=== PATIENT | female | born 1965 | race Caucasian/White ===

== ENCOUNTER → 2016-08-27 | Outpatient (CLI) | payer MEDICARE, OTHER ==
[~2016-08-27] MED LIST: /LOR25TA PO; BACITAB3 PO; BACT800T5 PO; BENA25CA2 PO; BENA2CRE2 TOP; CELE50CA PO; CLAR1TAB2 PO; COLA100C PO; EPIP0.3I2 IJ; ESTROL PO; FLUO20CA8 PO; IBUP600T26 PO; MILKSUS PO; MIRA3350 PO; NEXI20CA PO; NEXI40CA PO; PRIL40CA PO; VIBR100C PO; ZOFR20TA PO
--- NOTE | 2016-08-27 18:46 | REP ---
Right foot: Four views. History: Contusion of the right foot. Findings: Four views of the right foot demonstrate plantar and Achilles calcaneal spurring. There is some intertarsal joints osteoarthritic spurring. There is a comminuted fracture of the distal phalanx of the fourth toe with associated swelling. Impression: Comminuted fourth toe distal phalangeal fracture. Midfoot osteoarthritis. Signed by Jovanni Acosta MD 08/27/2016 07:03 P
== END ==
LOC: M ADAMS 16:47
PROVIDERS: ATTEND Physician Assistant Medical
DX: S92.531A Displaced fracture of distal phalanx of right lesser toe(s), initial encounter for closed fracture (principal); M19.271 Secondary osteoarthritis, right ankle and foot; X58.XXXA Exposure to other specified factors, initial encounter; Y92.9 Unspecified place or not applicable; Y93.9 Activity, unspecified; Y99.9 Unspecified external cause status

== ENCOUNTER → 2016-12-24 | Outpatient (CLI) | payer MEDICARE, OTHER ==
[~2016-12-24] MED LIST changes: +BACITAB PO; -BACITAB3 PO; -COLA100C PO; +COLA100C5 PO; +IBUP-1022 PO; -IBUP600T26 PO
--- NOTE | 2016-12-24 12:23 | REPMRS ---
Patient History The patient states she has not had a clinical breast exam in over a year. Patient is postmenopausal. Family history of breast cancer in sister under age 50 and ovarian cancer in maternal grandmother at age 50 or over. Taking unspecified hormones for 2 months. Digital Mammo Screening Bilat: December 24, 2016 - Exam #: [id number] Bilateral CC and MLO view(s) were taken. Technologist: Yasmin Moffett, Technologist Prior study comparison: November 23, 2011, digital woman screen mammo, performed at [facility]. January 19, 2010, bilateral bilat screen digital mammo performed at [facility]. FINDINGS: There are scattered fibroglandular densities. There is a fairly symmetric fibroglandular pattern in both breasts. There has been no interval development of masses, areas of architectural distortion or clusters of microcalcifications typical of malignancy. ASSESSMENT: BI-RADS/ACR category 2 mammogram. Benign finding(s). Recommendation Routine screening mammogram of both breasts in 1 year (for women over age 40). This mammogram was interpreted with the aid of an FDA-approved computer-aided dectection system. Electronically Signed By: Ben Campos MD 12/24/16 2070
== END ==
LOC: M RAD 10:56
PROVIDERS: ATTEND Family Medicine
DX: Z12.31 Encounter for screening mammogram for malignant neoplasm of breast (principal); Z80.3 Family history of malignant neoplasm of breast; Z80.41 Family history of malignant neoplasm of ovary; Z92.29 Personal history of other drug therapy; R92.8 Other abnormal and inconclusive findings on diagnostic imaging of breast

== ENCOUNTER → 2017-02-03 | Outpatient (CLI) | payer MEDICARE, OTHER ==
--- NOTE | 2017-02-03 16:37 | REP ---
CT study of the right ankle without contrast: History: Nondisplaced distal phalanx fracture. Comparison right foot radiographs are from 08/27/2016. These show a comminuted fracture of the distal phalanx of the 4th toe. CT technique: Helical scanning is acquired. 2 mm axial and coronal scan images are generated. Right ankle CT findings: The tibial plafond and the talar dome appear intact. Ankle mortise is intact. There is a large plantar calcaneal spur. A small Achilles calcaneal spur is noted. There is some early spurring at the anterolateral aspect of the calcaneus. There is midfoot osteoarthritic narrowing at the articulation between the cuboid and the proximal 5th and 4th metatarsals. Subcortical cyst formation is seen in the cuboid related to this. There is mild talonavicular spurring. Impression: No acute bony abnormality is noted. Midfoot osteoarthritic changes. Heel spurs. Signed by Jovanni Acosta MD 02/04/2017 08:29 A
--- NOTE | 2017-02-03 16:38 | REP ---
CT study of the right foot without contrast: History: Nondisplaced fracture distal phalanx. Comparison radiographs of the right foot are from 08/27/2016. Technique: Helical scanning is acquired. 2 mm axial scans are reformatted. Multiplanar re-formation images are generated in the coronal plane. Findings: There is mild to moderate midfoot osteoarthritis with the intertarsal and tarsometatarsal articulations. A third, fourth, and fifth tarsometatarsal articulations are involve. Subcortical cyst formation is seen in the cuboid. There is some early fragmented spurring. Heel spurs are noted. No bony erosive or destructive lesion is seen. There is some subcortical cyst formation in the proximal third metatarsal. The fourth distal phalangeal fracture appears to be healed. Impression: Moderate midfoot osteoarthritic changes. Signed by Jovanni Acosta MD 02/04/2017 08:29 A
== END ==
LOC: M RAD 14:55
PROVIDERS: ATTEND Physician Assistant Surgical
DX: S92.534D Nondisplaced fracture of distal phalanx of right lesser toe(s), subsequent encounter for fracture with routine healing (principal); M19.071 Primary osteoarthritis, right ankle and foot; M77.31 Calcaneal spur, right foot; X58.XXXD Exposure to other specified factors, subsequent encounter; Y92.9 Unspecified place or not applicable; Y93.9 Activity, unspecified; Y99.9 Unspecified external cause status

== ENCOUNTER → 2017-02-07 | Outpatient (CLI) | payer MEDICARE, OTHER ==
--- NOTE | 2017-02-07 12:19 | REP ---
RIGHT RIB SERIES: Five views. HISTORY: Chest pain on breathing. FINDINGS: PA chest radiograph shows no evidence of pneumothorax or hydrothorax. Mediastinum is not widened. Heart is not enlarged. Lung cheung are clear. Multiple views of the right ribcage show clips in right upper quadrant post cholecystectomy. No bony destructive lesion or fracture is seen. IMPRESSION: Negative right rib series. Signed by Jovanni Acosta MD 02/07/2017 02:46 P
== END ==
LOC: M ADAMS 09:44
PROVIDERS: ATTEND Physician Assistant
DX: R07.1 Chest pain on breathing (principal)

== ENCOUNTER → 2017-07-19 | Outpatient (REF) | payer MEDICARE, OTHER ==
[2017-07-19 19:40] LABS: TOTAL 25(OH) VITAMIN D 21.3 NG/ML (30.0-100.0)
[2017-07-19 19:41] LABS: ALBUMIN 3.5 GM/DL (3.2-5.2); ALBUMIN/GLOBULIN RATIO 1.09 (1.00-1.93); ALKALINE PHOSPHATASE 110 U/L (45-117); ALT/SGPT 18 U/L (12-78); ANION GAP 10 MEQ/L (8-16); AST/SGOT 14 U/L (7-37); BILIRUBIN,TOTAL 0.4 MG/DL (0.2-1.0); BLOOD UREA NITROGEN 15 MG/DL (7-18); CALCIUM LEVEL 8.5 MG/DL (8.5-10.1); CARBON DIOXIDE LEVEL 23 MEQ/L (21-32); CHLORIDE LEVEL 109 MEQ/L (98-107); CHOLESTEROL LEVEL 191 MG/DL (<200); CHOLESTEROL RISK RATIO 2.728 (<5); CREATININE FOR GFR 0.78 MG/DL (0.55-1.30); GLOMERULAR FILTRATION RATE > 60.0 (>51); GLUCOSE, FASTING 92 MG/DL (70-100); HDL CHOLESTEROL 70 MG/DL (>40); LDL CHOLESTEROL 92.6 MG/DL (<100); NON-HDL-C 121 MG/DL; POTASSIUM SERUM 4.2 MEQ/L (3.5-5.1); SODIUM LEVEL 142 MEQ/L (136-145); TOTAL PROTEIN 6.7 GM/DL (6.4-8.2); TRIGLYCERIDES LEVEL 142 MG/DL (<150)
[2017-07-19 19:42] LABS: BASO # 0.1 10^3/uL (0.0-0.2); BASO % 1.3 % (0.0-1.0); EOS # 0.2 10^3/uL (0.0-0.50); EOS % 2.9 % (0.0-3.0); HEMATOCRIT 39.4 % (36.0-47.0); HEMOGLOBIN 12.9 g/dl (12.0-16.0); IMMATURE GRANULOCYTE % 0.3 % (0-0); LYMPH % 32.6 % (24.0-44.0); MEAN CORPUSCULAR HEMOGLOBIN 29.3 pg (27.0-33.0); MEAN CORPUSCULAR HGB CONC 32.7 g/dl (32.0-36.5); MEAN CORPUSCULAR VOLUME 89.5 fl (80.0-96.0); MONO # 0.5 10^3/uL (0.0-0.8); NEUTROPHILS # 3.4 10^3/uL (1.8-7.7); NEUTROPHILS % 54.9 % (36.0-66.0); PLATELET COUNT, AUTOMATED 234 10^3/uL (150-450); RED CELL DISTRIBUTION WIDTH 12.1 % (11.5-14.5); WHITE BLOOD COUNT 6.3 10^3/uL (4.0-10.0)
== END ==
LOC: M SFHCADAM 13:45
DX: Z00.00 Encounter for general adult medical examination without abnormal findings (principal); E66.01 Morbid (severe) obesity due to excess calories; E03.9 Hypothyroidism, unspecified
CPT/HCPCS: 84443

== ENCOUNTER → 2017-07-21 | Outpatient (CLI) | payer MEDICARE, OTHER | LOC: M RAD 09:33 | DX: M71.21 Synovial cyst of popliteal space [Baker], right knee (principal) | CPT/HCPCS: 93971 ==

== ENCOUNTER → 2018-01-10 | Outpatient (CLI) | payer MEDICARE, OTHER ==
[2018-01-10 18:33] LABS: PLATELET COUNT, AUTOMATED 228 10^3/uL (150-450)
[2018-01-10 18:45] LABS: INR 0.94; PROTHROMBIN TIME 12.6 SECONDS (12.1-14.4)
[2018-01-10 18:46] LABS: PARTIAL THROMBOPLASTIN TIME 27.2 SECONDS (25.4-37.6)
== END ==
LOC: M ADAMS 15:26
DX: Z01.818 Encounter for other preprocedural examination (principal); M51.37 Other intervertebral disc degeneration, lumbosacral region
CPT/HCPCS: 85049

== ENCOUNTER → 2018-01-13 | Outpatient (CLI) | payer MEDICARE, OTHER | LOC: M ADAMS 14:39 | DX: M25.552 Pain in left hip (principal) ==

== ENCOUNTER 2018-01-17 06:18 | Inpatient (IN) | payer MEDICARE, OTHER ==
[2018-01-17] MEDS: NS 1,000 ML IV ×2 (08:23→13:37)
[2018-01-17] MEDS: ONDANSETRON 4MG/2ML VIAL (J2405) IV ×2 (08:23→10:19)
[2018-01-17] MEDS: MORPHINE 2 MG/ML 1ML SYRINGE (J2270) IV (08:23)
[2018-01-17] MEDS: METOCLOPRAMIDE INJ 10MG/2ML VIAL (J2765) IV ×2 (09:27→17:53)
[2018-01-17] MEDS: fentaNYL 100 MCG/2 ML INJECTION (J3010) IV ×4 (09:27→15:01)
[2018-01-17] MEDS: LORazepam 2 MG/ML VIAL (J2060) IV (10:19)
[2018-01-17 13:15] LABS: BASO % 0.1 % (0.0-1.0); HEMOGLOBIN 14.9 g/dl (12.0-15.5); IMMATURE GRANULOCYTE % 0.6 % (0-3.0); LYMPH # 0.8 10^3/uL (1.5-4.5); MEAN CORPUSCULAR HEMOGLOBIN 30.9 pg (27.0-33.0); MEAN CORPUSCULAR HGB CONC 34.7 g/dl (32.0-36.5); MEAN CORPUSCULAR VOLUME 89.2 fl (80.0-96.0); MONO # 0.5 10^3/uL (0.0-0.8); MONO % 3.9 % (0.0-5.0); NEUTROPHILS # 11.2 10^3/uL (1.8-7.7); NEUTROPHILS % 89.4 % (36.0-66.0); PLATELET COUNT, AUTOMATED 241 10^3/uL (150-450); RED BLOOD COUNT 4.82 10^6/uL (4.00-5.40); RED CELL DISTRIBUTION WIDTH 12.4 % (11.5-14.5); WHITE BLOOD COUNT 12.5 10^3/uL (4.0-10.0)
[2018-01-17 13:27] LABS: ANION GAP 9 MEQ/L (8-16); BLOOD UREA NITROGEN 12 MG/DL (7-18); CALCIUM LEVEL 9.2 MG/DL (8.5-10.1); CARBON DIOXIDE LEVEL 24 MEQ/L (21-32); CHLORIDE LEVEL 110 MEQ/L (98-107); CREATININE FOR GFR 0.68 MG/DL (0.55-1.30); GLOMERULAR FILTRATION RATE > 60.0 (>51); GLUCOSE, FASTING 122 MG/DL (70-100); POTASSIUM SERUM 3.9 MEQ/L (3.5-5.1); SODIUM LEVEL 143 MEQ/L (136-145)
[2018-01-17 14:39] LABS: C REACTIVE PROTEIN QUANTITATIV < 0.30 MG/DL (0.00-0.30)
[2018-01-17] MEDS ORDERED: MIRALAX *UNIT DOSE* 17GM PACKET PO (16:30)
[2018-01-17] MEDS: diphenhydrAMINE INJ 50MG/ML VIAL (J1200) IV (17:54)
[2018-01-17] MEDS: KETOROLAC 30 MG/ML VIAL (J1885) IV (18:51)
[2018-01-17] MEDS: PANTOPRAZOLE 40MG TAB (PROTONIX) PO (21:09)
[2018-01-17] MEDS: ESTRADIOL 1 MG TAB PO (21:09)
[2018-01-17] MEDS: VITAMIN D 1,000 INTERNATIONAL UNITS TABLET PO (21:09)
[2018-01-17] MEDS: FERROUS SULFATE 325MG TAB PO (21:10)
[2018-01-17] MEDS: CAFFEINE CITRATE 60MG/3ML *ORAL SOLUTION PO (21:10)
[2018-01-18] MEDS: KETOROLAC 30 MG/ML VIAL (J1885) IV ×3 (04:42→17:58)
[2018-01-18 06:00] LABS: HEMOGLOBIN 13.4 g/dl (12.0-15.5); MEAN CORPUSCULAR HEMOGLOBIN 30.5 pg (27.0-33.0); MEAN CORPUSCULAR HGB CONC 33.5 g/dl (32.0-36.5); MEAN CORPUSCULAR VOLUME 91.1 fl (80.0-96.0); PLATELET COUNT, AUTOMATED 187 10^3/uL (150-450); RED BLOOD COUNT 4.39 10^6/uL (4.00-5.40); RED CELL DISTRIBUTION WIDTH 12.5 % (11.5-14.5); WHITE BLOOD COUNT 12.9 10^3/uL (4.0-10.0)
[2018-01-18 06:44] LABS: ANION GAP 8 MEQ/L (8-16); BLOOD UREA NITROGEN 15 MG/DL (7-18); CALCIUM LEVEL 8.5 MG/DL (8.5-10.1); CARBON DIOXIDE LEVEL 22 MEQ/L (21-32); CHLORIDE LEVEL 111 MEQ/L (98-107); CREATININE FOR GFR 0.63 MG/DL (0.55-1.30); GLOMERULAR FILTRATION RATE > 60.0 (>51); GLUCOSE, FASTING 93 MG/DL (70-100); POTASSIUM SERUM 4.3 MEQ/L (3.5-5.1); SODIUM LEVEL 141 MEQ/L (136-145)
[2018-01-18] MEDS: ESTRADIOL 1 MG TAB PO (09:34)
[2018-01-18] MEDS: VITAMIN D 1,000 INTERNATIONAL UNITS TABLET PO (09:35)
[2018-01-18] MEDS: PANTOPRAZOLE 40MG TAB (PROTONIX) PO (09:35)
[2018-01-18] MEDS: FERROUS SULFATE 325MG TAB PO ×2 (09:35→20:22)
[2018-01-18] MEDS: HEPARIN SOD (PORCINE) 5000 UNITS/ML VIAL SQ ×3 (09:35→22:35)
[2018-01-18] MEDS: MULTIVITAMINS/MINERALS THERAP 1 TAB PO (09:35)
[2018-01-18] MEDS: NORCO, ANEXSIA 5/325MG TABLET (HYDROcodone/ACETAMINOPHEN) PO ×2 (09:36→18:58)
[2018-01-18] MEDS: SUCRALFATE SUSP 1GM/10ML UD PO ×3 (12:43→20:22)
[2018-01-18] MEDS: CALCIUM CARBONATE 500 MG CHEW U/D PO ×2 (12:43→18:55)
[2018-01-18] MEDS: MORPHINE 4 MG/ML 1ML VIAL/SYRINGE (J2270) IV (20:22)
[2018-01-19] MEDS: KETOROLAC 30 MG/ML VIAL (J1885) IV ×2 (00:10→07:49)
[2018-01-19] MEDS: NORCO, ANEXSIA 5/325MG TABLET (HYDROcodone/ACETAMINOPHEN) PO (02:45)
[2018-01-19] MEDS: HEPARIN SOD (PORCINE) 5000 UNITS/ML VIAL SQ (05:46)
[2018-01-19 06:24] LABS: HEMATOCRIT 39.5 % (36.0-47.0); HEMOGLOBIN 13.5 g/dl (12.0-15.5); MEAN CORPUSCULAR HGB CONC 34.2 g/dl (32.0-36.5); MEAN CORPUSCULAR VOLUME 90.6 fl (80.0-96.0); PLATELET COUNT, AUTOMATED 170 10^3/uL (150-450); RED BLOOD COUNT 4.36 10^6/uL (4.00-5.40); RED CELL DISTRIBUTION WIDTH 12.3 % (11.5-14.5); WHITE BLOOD COUNT 7.9 10^3/uL (4.0-10.0)
[2018-01-19 06:40] LABS: ANION GAP 7 MEQ/L (8-16); BLOOD UREA NITROGEN 15 MG/DL (7-18); CALCIUM LEVEL 8.3 MG/DL (8.5-10.1); CARBON DIOXIDE LEVEL 26 MEQ/L (21-32); CHLORIDE LEVEL 109 MEQ/L (98-107); CREATININE FOR GFR 0.62 MG/DL (0.55-1.30); GLOMERULAR FILTRATION RATE > 60.0 (>51); GLUCOSE, FASTING 90 MG/DL (70-100); POTASSIUM SERUM 3.9 MEQ/L (3.5-5.1); SODIUM LEVEL 142 MEQ/L (136-145)
[2018-01-19] MEDS: FERROUS SULFATE 325MG TAB PO (08:39)
[2018-01-19] MEDS: SUCRALFATE SUSP 1GM/10ML UD PO ×3 (08:39→17:05)
[2018-01-19] MEDS: PANTOPRAZOLE 40MG TAB (PROTONIX) PO (08:39)
[2018-01-19] MEDS: ESTRADIOL 1 MG TAB PO (08:40)
[2018-01-19] MEDS: MULTIVITAMINS/MINERALS THERAP 1 TAB PO (08:40)
[2018-01-19] MEDS: VITAMIN D 1,000 INTERNATIONAL UNITS TABLET PO (08:40)
[2018-01-19] MEDS: MORPHINE 4 MG/ML 1ML VIAL/SYRINGE (J2270) IV (09:43)
[2018-01-19 09:58] LABS: C REACTIVE PROTEIN QUANTITATIV < 0.30 MG/DL (0.00-0.30)
[2018-01-19] MEDS ORDERED: traMADol 50 MG TAB PO (11:15)
[2018-01-19] MEDS: IBUPROFEN 600 MG TAB PO (17:06)
== END 2018-01-19 18:42 | disposition home or self-care (01) | DRG 103 ==
LOC: M PCU 01-18 04:21 → M ED 06:18 → M ED INP 16:24 → M MSPAV 20:44
DX: G97.1 Other reaction to spinal and lumbar puncture (principal); R32 Unspecified urinary incontinence; R15.9 Full incontinence of feces; F32.9 Major depressive disorder, single episode, unspecified; K21.9 Gastro-esophageal reflux disease without esophagitis; K29.70 Gastritis, unspecified, without bleeding; M19.90 Unspecified osteoarthritis, unspecified site; M48.061 Spinal stenosis, lumbar region without neurogenic claudication; M51.16 Intervertebral disc disorders with radiculopathy, lumbar region; T39.395A Adverse effect of other nonsteroidal anti-inflammatory drugs [NSAID], initial encounter; Z87.891 Personal history of nicotine dependence; Z79.899 Other long term (current) drug therapy; Z88.0 Allergy status to penicillin; Z88.1 Allergy status to other antibiotic agents; Z88.8 Allergy status to other drugs, medicaments and biological substances; Z88.2 Allergy status to sulfonamides; Z98.1 Arthrodesis status; Z96.89 Presence of other specified functional implants

== ENCOUNTER 2018-02-06 01:41 | Inpatient (IN) | payer MEDICARE, OTHER ==
[2018-02-06 02:47] LABS: BASO # 0.1 10^3/uL (0.0-0.2); BASO % 0.7 % (0.0-1.0); EOS # 0.2 10^3/uL (0.0-0.50); EOS % 2.3 % (0.0-3.0); HEMATOCRIT 43.1 % (36.0-47.0); HEMOGLOBIN 14.8 g/dl (12.0-15.5); IMMATURE GRANULOCYTE % 0.4 % (0-3.0); LYMPH # 2.4 10^3/uL (1.5-4.5); LYMPH % 34.4 % (24.0-44.0); MEAN CORPUSCULAR HEMOGLOBIN 30.8 pg (27.0-33.0); MEAN CORPUSCULAR HGB CONC 34.3 g/dl (32.0-36.5); MEAN CORPUSCULAR VOLUME 89.8 fl (80.0-96.0); MONO # 0.6 10^3/uL (0.0-0.8); MONO % 8.6 % (0.0-5.0); NEUTROPHILS # 3.7 10^3/uL (1.8-7.7); NEUTROPHILS % 53.6 % (36.0-66.0); PLATELET COUNT, AUTOMATED 273 10^3/uL (150-450); RED CELL DISTRIBUTION WIDTH 12.4 % (11.5-14.5)
[2018-02-06] MEDS ORDERED: METAL LOCK LOOP XX (02:49)
[2018-02-06] MEDS: HYDROMORPHONE HCL 0.5 MG/ 0.5 ML SYRINGE (J1170 PER 1) IV (03:04)
[2018-02-06] MEDS: diphenhydrAMINE INJ 50MG/ML VIAL (J1200) IV (03:05)
[2018-02-06] MEDS: HALOPERIDOL 5 MG/ML VIAL (J1630) IV (03:06)
[2018-02-06 03:09] LABS: ANION GAP 8 MEQ/L (8-16); BLOOD UREA NITROGEN 14 MG/DL (7-18); CALCIUM LEVEL 8.7 MG/DL (8.5-10.1); CARBON DIOXIDE LEVEL 25 MEQ/L (21-32); CHLORIDE LEVEL 108 MEQ/L (98-107); CREATININE FOR GFR 0.79 MG/DL (0.55-1.30); GLOMERULAR FILTRATION RATE > 60.0 (>51); GLUCOSE, FASTING 104 MG/DL (70-100); POTASSIUM SERUM 3.4 MEQ/L (3.5-5.1); SODIUM LEVEL 141 MEQ/L (136-145)
[2018-02-06 03:19] LABS: ERYTHROCYTE SEDIMENTATION RATE 19 mm/hr (0-30)
[2018-02-06] MEDS: dexameTHASONE 20 MG/5 ML VIAL (J1100) IV (04:33)
[2018-02-06] MEDS ORDERED: BISACODYL 5 MG TAB PO (05:00)
[2018-02-06] MEDS ORDERED: BISACODYL 10 MG SUPP PR (05:00)
[2018-02-06] MEDS: NS 1,000 ML IV ×2 (06:22→20:50)
[2018-02-06] MEDS: ONDANSETRON 4MG/2ML VIAL (J2405) IV ×3 (06:23→19:04)
[2018-02-06] MEDS: KETOROLAC 30 MG/ML VIAL (J1885) IV ×2 (06:23→13:03)
[2018-02-06] MEDS: HEPARIN SOD (PORCINE) 5000 UNITS/ML VIAL SC ×3 (06:23→21:05)
[2018-02-06] MEDS: METOCLOPRAMIDE INJ 10MG/2ML VIAL (J2765) IV ×3 (07:59→22:14)
[2018-02-06] MEDS: SUCRALFATE 1 GM TAB PO ×4 (08:38→20:49)
[2018-02-06] MEDS: FERROUS SULFATE 325MG TAB PO ×2 (08:38→20:48)
[2018-02-06] MEDS: PANTOPRAZOLE 40MG TAB (PROTONIX) PO (08:38)
[2018-02-06] MEDS: MULTIVITAMINS/MINERALS THERAP 1 TAB PO (08:39)
[2018-02-06] MEDS: VITAMIN D 1,000 INTERNATIONAL UNITS TABLET PO (08:39)
[2018-02-06] MEDS: MORPHINE 4 MG/ML 1ML VIAL/SYRINGE (J2270) IV ×5 (09:06→22:14)
[2018-02-06] MEDS: ESTRADIOL 1 MG TAB PO (11:15)
[2018-02-06] MEDS: FIORICET TAB PO (20:49)
[2018-02-07] MEDS: ONDANSETRON 4MG/2ML VIAL (J2405) IV ×2 (01:31→09:13)
[2018-02-07] MEDS: MORPHINE 4 MG/ML 1ML VIAL/SYRINGE (J2270) IV ×5 (01:31→17:20)
[2018-02-07] MEDS: HEPARIN SOD (PORCINE) 5000 UNITS/ML VIAL SC ×3 (06:21→22:29)
[2018-02-07 06:47] LABS: HEMATOCRIT 37.3 % (36.0-47.0); HEMOGLOBIN 12.9 g/dl (12.0-15.5); MEAN CORPUSCULAR HEMOGLOBIN 30.6 pg (27.0-33.0); MEAN CORPUSCULAR HGB CONC 34.6 g/dl (32.0-36.5); MEAN CORPUSCULAR VOLUME 88.6 fl (80.0-96.0); PLATELET COUNT, AUTOMATED 228 10^3/uL (150-450); RED BLOOD COUNT 4.21 10^6/uL (4.00-5.40); RED CELL DISTRIBUTION WIDTH 12.5 % (11.5-14.5); WHITE BLOOD COUNT 10.4 10^3/uL (4.0-10.0)
[2018-02-07 07:07] LABS: ANION GAP 10 MEQ/L (8-16); BLOOD UREA NITROGEN 11 MG/DL (7-18); CALCIUM LEVEL 8.5 MG/DL (8.5-10.1); CARBON DIOXIDE LEVEL 25 MEQ/L (21-32); CHLORIDE LEVEL 108 MEQ/L (98-107); CREATININE FOR GFR 0.66 MG/DL (0.55-1.30); GLOMERULAR FILTRATION RATE > 60.0 (>51); GLUCOSE, FASTING 92 MG/DL (70-100); POTASSIUM SERUM 4.1 MEQ/L (3.5-5.1); SODIUM LEVEL 143 MEQ/L (136-145)
[2018-02-07] MEDS: ESTRADIOL 1 MG TAB PO (08:01)
[2018-02-07] MEDS: VITAMIN D 1,000 INTERNATIONAL UNITS TABLET PO (08:01)
[2018-02-07] MEDS: PANTOPRAZOLE 40MG TAB (PROTONIX) PO (08:01)
[2018-02-07] MEDS: SUCRALFATE 1 GM TAB PO ×4 (08:01→20:45)
[2018-02-07] MEDS: FERROUS SULFATE 325MG TAB PO ×2 (08:01→20:45)
[2018-02-07] MEDS: MIRALAX *UNIT DOSE* 17GM PACKET PO (08:01)
[2018-02-07] MEDS: MULTIVITAMINS/MINERALS THERAP 1 TAB PO (08:01)
[2018-02-07] MEDS: METOCLOPRAMIDE INJ 10MG/2ML VIAL (J2765) IV (10:44)
[2018-02-07] MEDS: NORCO, ANEXSIA 5/325MG TABLET (HYDROcodone/ACETAMINOPHEN) PO ×3 (10:45→20:46)
[2018-02-07] MEDS: PROMETHAZINE 25 MG TAB PO (15:06)
[2018-02-07] MEDS: NS 1,000 ML IV (16:42)
[2018-02-08] MEDS: MORPHINE 4 MG/ML 1ML VIAL/SYRINGE (J2270) IV ×3 (00:31→18:52)
[2018-02-08] MEDS: NORCO, ANEXSIA 5/325MG TABLET (HYDROcodone/ACETAMINOPHEN) PO ×4 (04:48→22:45)
[2018-02-08] MEDS: HEPARIN SOD (PORCINE) 5000 UNITS/ML VIAL SC ×3 (05:58→20:37)
[2018-02-08 06:59] LABS: HEMATOCRIT 38.1 % (36.0-47.0); HEMOGLOBIN 12.9 g/dl (12.0-15.5); MEAN CORPUSCULAR HEMOGLOBIN 30.9 pg (27.0-33.0); MEAN CORPUSCULAR HGB CONC 33.9 g/dl (32.0-36.5); MEAN CORPUSCULAR VOLUME 91.1 fl (80.0-96.0); PLATELET COUNT, AUTOMATED 216 10^3/uL (150-450); RED BLOOD COUNT 4.18 10^6/uL (4.00-5.40); RED CELL DISTRIBUTION WIDTH 12.6 % (11.5-14.5); WHITE BLOOD COUNT 8.1 10^3/uL (4.0-10.0)
[2018-02-08 07:11] LABS: ANION GAP 7 MEQ/L (8-16); BLOOD UREA NITROGEN 9 MG/DL (7-18); CALCIUM LEVEL 8.2 MG/DL (8.5-10.1); CARBON DIOXIDE LEVEL 27 MEQ/L (21-32); CHLORIDE LEVEL 109 MEQ/L (98-107); CREATININE FOR GFR 0.65 MG/DL (0.55-1.30); GLOMERULAR FILTRATION RATE > 60.0 (>51); GLUCOSE, FASTING 83 MG/DL (70-100); POTASSIUM SERUM 3.7 MEQ/L (3.5-5.1); SODIUM LEVEL 143 MEQ/L (136-145)
[2018-02-08] MEDS: SUCRALFATE 1 GM TAB PO ×4 (07:30→20:37)
[2018-02-08] MEDS: MULTIVITAMINS/MINERALS THERAP 1 TAB PO (09:07)
[2018-02-08] MEDS: VITAMIN D 1,000 INTERNATIONAL UNITS TABLET PO (09:07)
[2018-02-08] MEDS: FERROUS SULFATE 325MG TAB PO ×2 (09:07→20:38)
[2018-02-08] MEDS: PANTOPRAZOLE 40MG TAB (PROTONIX) PO (09:07)
[2018-02-08] MEDS: ESTRADIOL 1 MG TAB PO (09:16)
[2018-02-08] MEDS: NS 1,000 ML IV (09:17)
[2018-02-08] MEDS: KETOROLAC 30 MG/ML VIAL (J1885) IV (09:17)
[2018-02-08] MEDS: MIRALAX *UNIT DOSE* 17GM PACKET PO (17:28)
[2018-02-08] MEDS: NORTRIPTYLINE 25 MG CAP PO (20:38)
[2018-02-09] MEDS: NS 1,000 ML IV (01:23)
[2018-02-09] MEDS: MORPHINE 4 MG/ML 1ML VIAL/SYRINGE (J2270) IV ×2 (02:40→11:11)
[2018-02-09] MEDS: HEPARIN SOD (PORCINE) 5000 UNITS/ML VIAL SC (06:00)
[2018-02-09] MEDS: NORCO, ANEXSIA 5/325MG TABLET (HYDROcodone/ACETAMINOPHEN) PO (06:51)
[2018-02-09] MEDS: SUCRALFATE 1 GM TAB PO ×4 (07:35→20:08)
[2018-02-09 07:51] LABS: HEMATOCRIT 36.8 % (36.0-47.0); HEMOGLOBIN 12.4 g/dl (12.0-15.5); MEAN CORPUSCULAR HEMOGLOBIN 30.5 pg (27.0-33.0); MEAN CORPUSCULAR HGB CONC 33.7 g/dl (32.0-36.5); MEAN CORPUSCULAR VOLUME 90.6 fl (80.0-96.0); PLATELET COUNT, AUTOMATED 201 10^3/uL (150-450); RED BLOOD COUNT 4.06 10^6/uL (4.00-5.40); RED CELL DISTRIBUTION WIDTH 12.4 % (11.5-14.5); WHITE BLOOD COUNT 6.4 10^3/uL (4.0-10.0)
[2018-02-09 08:02] LABS: ANION GAP 9 MEQ/L (8-16); BLOOD UREA NITROGEN 8 MG/DL (7-18); CALCIUM LEVEL 7.8 MG/DL (8.5-10.1); CARBON DIOXIDE LEVEL 26 MEQ/L (21-32); CHLORIDE LEVEL 110 MEQ/L (98-107); CREATININE FOR GFR 0.68 MG/DL (0.55-1.30); GLOMERULAR FILTRATION RATE > 60.0 (>51); GLUCOSE, FASTING 80 MG/DL (70-100); POTASSIUM SERUM 3.7 MEQ/L (3.5-5.1); SODIUM LEVEL 145 MEQ/L (136-145)
[2018-02-09] MEDS: ESTRADIOL 1 MG TAB PO (08:37)
[2018-02-09] MEDS: VITAMIN D 1,000 INTERNATIONAL UNITS TABLET PO (08:38)
[2018-02-09] MEDS: MULTIVITAMINS/MINERALS THERAP 1 TAB PO (08:38)
[2018-02-09] MEDS: ONDANSETRON 4MG/2ML VIAL (J2405) IV (08:38)
[2018-02-09] MEDS: FERROUS SULFATE 325MG TAB PO ×2 (08:38→20:07)
[2018-02-09] MEDS: PANTOPRAZOLE 40MG TAB (PROTONIX) PO (08:38)
[2018-02-09] MEDS ORDERED: oxyCODONE 5MG TAB As Ordered (13:43)
[2018-02-09] MEDS ORDERED: diazePAM 5 MG TAB As Ordered (13:44)
[2018-02-09] MEDS ORDERED: LIDOCAINE 1% SDV INJ 30 ML VIAL As Ordered (14:05)
[2018-02-09] MEDS ORDERED: methylPREDNISolone SUSP 40 MG/ML (DEPO-medrol) VIAL (J1030) As Ordered (14:05)
[2018-02-09] MEDS ORDERED: ISOVUE-M 300 61% 15ML VIAL (Q9967) As Ordered (14:05)
[2018-02-09] MEDS: NORTRIPTYLINE 25 MG CAP PO (20:08)
[2018-02-10] MEDS: FIORICET TAB PO (00:40)
[2018-02-10 07:31] LABS: HEMATOCRIT 35.1 % (36.0-47.0); HEMOGLOBIN 12.1 g/dl (12.0-15.5); MEAN CORPUSCULAR HEMOGLOBIN 30.9 pg (27.0-33.0); MEAN CORPUSCULAR HGB CONC 34.5 g/dl (32.0-36.5); MEAN CORPUSCULAR VOLUME 89.8 fl (80.0-96.0); PLATELET COUNT, AUTOMATED 181 10^3/uL (150-450); RED BLOOD COUNT 3.91 10^6/uL (4.00-5.40); RED CELL DISTRIBUTION WIDTH 12.4 % (11.5-14.5); WHITE BLOOD COUNT 5.5 10^3/uL (4.0-10.0)
[2018-02-10 07:53] LABS: ANION GAP 9 MEQ/L (8-16); BLOOD UREA NITROGEN 8 MG/DL (7-18); CALCIUM LEVEL 8.1 MG/DL (8.5-10.1); CARBON DIOXIDE LEVEL 27 MEQ/L (21-32); CHLORIDE LEVEL 109 MEQ/L (98-107); GLOMERULAR FILTRATION RATE > 60.0 (>51); GLUCOSE, FASTING 81 MG/DL (70-100); POTASSIUM SERUM 3.7 MEQ/L (3.5-5.1); SODIUM LEVEL 145 MEQ/L (136-145)
[2018-02-10] MEDS: VITAMIN D 1,000 INTERNATIONAL UNITS TABLET PO (08:17)
[2018-02-10] MEDS: ESTRADIOL 1 MG TAB PO (08:17)
[2018-02-10] MEDS: SUCRALFATE 1 GM TAB PO (08:17)
[2018-02-10] MEDS: PANTOPRAZOLE 40MG TAB (PROTONIX) PO (08:17)
[2018-02-10] MEDS: FERROUS SULFATE 325MG TAB PO (08:18)
[2018-02-10] MEDS: MULTIVITAMINS/MINERALS THERAP 1 TAB PO (08:18)
[2018-02-10] MEDS: ACETAMINOPHEN TAB 650MG DOSE (2X325MG) PO (08:23)
== END 2018-02-10 11:10 | disposition home or self-care (01) | DRG 918 ==
LOC: M PED 02-09 19:55 → M ED 01:41 → M ED INP 04:57 → M PED 08:22
PROC: 3E0R3KZ Introduction of Other Diagnostic Substance into Spinal Canal, Percutaneous Approach (ICD-10-PCS; principal; 2018-02-07)
DX: T88.59XA Other complications of anesthesia, initial encounter (principal); Z68.41 Body mass index [BMI] 40.0-44.9, adult; F32.9 Major depressive disorder, single episode, unspecified; M19.90 Unspecified osteoarthritis, unspecified site; K21.9 Gastro-esophageal reflux disease without esophagitis; M51.36 Other intervertebral disc degeneration, lumbar region; R32 Unspecified urinary incontinence; M79.1 Myalgia; R15.9 Full incontinence of feces; E66.9 Obesity, unspecified; J30.1 Allergic rhinitis due to pollen; K59.00 Constipation, unspecified; M50.30 Other cervical disc degeneration, unspecified cervical region; M54.81 Occipital neuralgia; D64.9 Anemia, unspecified; Z90.49 Acquired absence of other specified parts of digestive tract; Z96.89 Presence of other specified functional implants; Z88.0 Allergy status to penicillin; Z88.8 Allergy status to other drugs, medicaments and biological substances; Z88.1 Allergy status to other antibiotic agents; Z88.2 Allergy status to sulfonamides; Z91.030 Bee allergy status; Z79.899 Other long term (current) drug therapy; Z98.1 Arthrodesis status; Z90.710 Acquired absence of both cervix and uterus; Z86.14 Personal history of Methicillin resistant Staphylococcus aureus infection; Y84.8 Other medical procedures as the cause of abnormal reaction of the patient, or of later complication, without mention of misadventure at the time of the procedure

== ENCOUNTER → 2018-07-25 | Outpatient (REF) | payer MEDICARE, OTHER ==
[~2018-07-25] MED LIST changes: +ESTR1TAB PO; +FERR1TAB8 PO; +MILK120011 PO; -MILKSUS PO; +NORCOTAB PO; +VICO5TAB16 PO; +VITAD1000T PO; +VITMTA PO; -ZOFR20TA PO; +ZOFR4TAB16 PO
[2018-07-25 14:14] LABS: RHEUMATOID FACTOR QUANT < 10.0 IU/ML (<15.0); TOTAL PROTEIN 7.4 GM/DL (6.4-8.2)
[2018-07-25 14:16] LABS: FOLATE 10.7 NG/ML
[2018-07-25 14:40] LABS: VITAMIN B12 LEVEL 277 PG/ML
[2018-07-27 13:53] LABS: ALBUMIN 4.26 GM/DL (3.29-5.55); ALBUMIN % 57.5 % (55.8-66.1); ALPHA-1-GLOBULIN % 4.5 % (2.9-4.9); ALPHA-1-GLOBULINS 0.33 GM/DL (0.17-0.41); ALPHA-2-GLOBULINS 0.88 GM/DL (0.42-0.99); ALPHA-2-GLOBULINS % 11.9 % (7.1-11.8); BETA-1-GLOBULINS 0.54 GM/DL (0.28-0.60); BETA-1-GLOBULINS % 7.3 % (4.7-7.2); BETA-2-GLOBULINS 0.41 GM/DL (0.19-0.55); BETA-2-GLOBULINS % 5.5 % (3.2-6.5); GAMMA GLOBULIN % 13.3 % (11.1-18.8); GAMMA GLOBULINS 0.98 GM/DL (0.65-1.58)
[2018-07-30 14:16] LABS: ANTINUCLEAR ANTIBODIES DIRECT Negative (Negative); CERULOPLASMIN 26.3 mg/dL (19.0-39.0); COPPER PLASMA 122 ug/dL (72-166); LEAD BLOOD ADULT 1 ug/dL (0-4); MERCURY LEVEL None Detected ug/L (0.0-14.9); VITAMIN B1 LEVEL WHOLE BLOOD 104.1 nmol/L (66.5-200.0); VITAMIN B6,PYRIDOXAL PHOSPHATE 4.9 ug/L (2.0-32.8); VITAMIN E(ALPHA TOCOPHEROL) 12.9 mg/L (7.0-25.1); VITAMIN E(GAMMA TOCOPHEROL) 1.6 mg/L (0.5-5.5)
== END ==
LOC: M LABNEURO 13:12
PROVIDERS: ATTEND Psychiatry & Neurology Neurology
DX: E03.9 Hypothyroidism, unspecified (principal); G62.9 Polyneuropathy, unspecified; E53.8 Deficiency of other specified B group vitamins; E51.9 Thiamine deficiency, unspecified; T56.4X1A Toxic effect of copper and its compounds, accidental (unintentional), initial encounter; T56.0X1A Toxic effect of lead and its compounds, accidental (unintentional), initial encounter; T56.1X1A Toxic effect of mercury and its compounds, accidental (unintentional), initial encounter

== ENCOUNTER → 2018-07-27 | Outpatient (REF) | payer MEDICARE, OTHER ==
[2018-07-27 19:37] LABS: HEMOGLOBIN 15.1 g/dl (12.0-15.5); MEAN CORPUSCULAR HEMOGLOBIN 30.1 pg (27.0-33.0); MEAN CORPUSCULAR HGB CONC 33.6 g/dl (32.0-36.5); MEAN CORPUSCULAR VOLUME 89.6 fl (80.0-96.0); PLATELET COUNT, AUTOMATED 270 10^3/uL (150-450); RED BLOOD COUNT 5.02 10^6/uL (4.00-5.40); WHITE BLOOD COUNT 9.2 10^3/uL (4.0-10.0)
[2018-07-27 19:47] LABS: ALBUMIN 3.9 GM/DL (3.2-5.2); ALT/SGPT 16 U/L (12-78); BILIRUBIN,TOTAL 0.4 MG/DL (0.2-1.0); BLOOD UREA NITROGEN 14 MG/DL (7-18); CALCIUM LEVEL 9.2 MG/DL (8.5-10.1); CARBON DIOXIDE LEVEL 28 MEQ/L (21-32); CHLORIDE LEVEL 104 MEQ/L (98-107); CHOLESTEROL LEVEL 256 MG/DL (<200); CREATININE FOR GFR 0.84 MG/DL (0.55-1.30); FREE T4 0.95 NG/DL (0.76-1.46); GLOMERULAR FILTRATION RATE > 60.0 (>51); GLUCOSE, FASTING 60 MG/DL (70-100); HDL CHOLESTEROL 80 MG/DL (>40); LDL CHOLESTEROL 147 MG/DL (<100); NON-HDL-C 176 MG/DL; POTASSIUM SERUM 5.1 MEQ/L (3.5-5.1); SODIUM LEVEL 139 MEQ/L (136-145); TOTAL PROTEIN 7.3 GM/DL (6.4-8.2); TRIGLYCERIDES LEVEL 146 MG/DL (<150)
[2018-07-28 10:10] LABS: TOTAL 25(OH) VITAMIN D 21.9 NG/ML (30.0-100.0)
== END ==
LOC: M SFHCADAM 14:01
PROVIDERS: ATTEND Family Medicine
DX: K58.1 Irritable bowel syndrome with constipation (principal); E78.5 Hyperlipidemia, unspecified; E55.9 Vitamin D deficiency, unspecified
CPT/HCPCS: 80053; 80061; 82306; 84439; 84443; 85027; G0463

== ENCOUNTER → 2018-08-01 | Outpatient (CLI) | payer MEDICARE, OTHER ==
--- NOTE | 2018-08-01 15:40 | REP ---
CT cervical spine without contrast HISTORY: Cervicalgia COMPARISON: None There is no acute fracture or subluxation. A disc bulge is present at the C3-4 level. Disc bulges with associated osteophyte formation are present at the C4-5 and C6-7 levels. There is minimal narrowing of the spinal canal. Uncinate process and/or facet hypertrophy are present at the C2-3 through C6-7 levels. These findings produce minimal to moderate narrowing of the neural foramina. The C4-5 and C6-7 intervertebral discs are decreased in height consistent with disc degeneration. There is fusion of the C5 and C6 vertebral bodies. There is loss of the normal lordotic curve. IMPRESSION: 1. There is no acute fracture or subluxation. 2. There is cervical spondylosis at the C2-3 through C6-7 levels. Electronically Signed by Malik Ellison MD 08/01/2018 03:32 P
== END ==
LOC: M RAD 14:15
PROVIDERS: ATTEND Psychiatry & Neurology Neurology
DX: M54.2 Cervicalgia (principal)

== ENCOUNTER → 2018-11-08 | Outpatient (CLI) | payer MEDICARE, OTHER ==
[~2018-11-08] MED LIST changes: +HYDR-3715 PO; -NORCOTAB PO; -VICO5TAB16 PO; +VICO5TAB17 PO
--- NOTE | 2018-11-08 12:01 | REPMRS ---
Patient History The patient states she had a clinical breast exam in October 2017. Family history of breast cancer under age 50 in sister, ovarian cancer at age 50 or over in maternal grandmother. Taking unspecified hormones for 2 months. 3D TOMOSYNTHESIS WAS PERFORMED. Digital Mammo Screening Bilat: November 08, 2018 - Exam #: [id number] Bilateral CC and MLO view(s) were taken. Technologist: Yasmin Moffett, Technologist Prior study comparison: December 24, 2016, bilateral digital mammo screening bilat performed at [facility]. November 23, 2011, digital woman screen mammo, performed at [facility]. FINDINGS: There are scattered fibroglandular densities. There is a fairly symmetric fibroglandular pattern in both breasts. There has been no interval development of masses, areas of architectural distortion or clusters of microcalcifications typical of malignancy. No significant changes when compared with prior studies. Assessment: BI-RADS/ACR category 2 mammogram. Benign Findings. Recommendation Routine screening mammogram of both breasts in 1 year (for women over age 40). This mammogram was interpreted with the aid of an FDA-approved computer-aided dectection system. Electronically Signed By: Ben Campos MD 11/08/18 1200
== END ==
LOC: M RAD 10:10
PROVIDERS: ATTEND Family Medicine
DX: Z12.31 Encounter for screening mammogram for malignant neoplasm of breast (principal); Z80.3 Family history of malignant neoplasm of breast; Z80.41 Family history of malignant neoplasm of ovary

== ENCOUNTER 2019-02-24 18:16 | Emergency (ER) | payer MEDICARE, OTHER ==
[~2019-02-24] VITALS: Ht 162.6 cm; Wt 95.5 kg
[~2019-02-24 18:16] MED LIST changes: +CHOL100029 PO; -VITAD1000T PO
[2019-02-24 18:17] VITALS: BP 142/93
== END 2019-02-24 19:21 | disposition home or self-care (01) ==
LOC: M ED 18:16
DX: S81.801A Unspecified open wound, right lower leg, initial encounter (principal); W25.XXXA Contact with sharp glass, initial encounter; Y92.098 Other place in other non-institutional residence as the place of occurrence of the external cause; Y93.E9 Activity, other interior property and clothing maintenance; Y99.8 Other external cause status; I10 Essential (primary) hypertension; E78.5 Hyperlipidemia, unspecified; R51 Headache; F41.9 Anxiety disorder, unspecified; F32.9 Major depressive disorder, single episode, unspecified; K21.9 Gastro-esophageal reflux disease without esophagitis; M54.9 Dorsalgia, unspecified; Z88.0 Allergy status to penicillin; Z88.1 Allergy status to other antibiotic agents; Z88.8 Allergy status to other drugs, medicaments and biological substances; Z88.2 Allergy status to sulfonamides; Z88.5 Allergy status to narcotic agent; Z91.030 Bee allergy status; Z79.899 Other long term (current) drug therapy; Z79.890 Hormone replacement therapy

== ENCOUNTER → 2019-08-15 | Outpatient (REF) | payer MEDICARE, OTHER | LOC: M SFHCADAM 12:27 | PROVIDERS: ATTEND Physician Assistant | DX: J02.9 Acute pharyngitis, unspecified (principal) ==

== ENCOUNTER → 2019-09-05 | Outpatient (REF) | payer MEDICARE, OTHER ==
[2019-09-05 12:53] LABS: HEMATOCRIT 43.7 % (36.0-47.0); HEMOGLOBIN 14.5 g/dl (12.0-15.5); MEAN CORPUSCULAR HEMOGLOBIN 30.9 pg (27.0-33.0); MEAN CORPUSCULAR HGB CONC 33.2 g/dl (32.0-36.5); MEAN CORPUSCULAR VOLUME 93.2 fl (80.0-96.0); PLATELET COUNT, AUTOMATED 239 10^3/uL (150-450); RED BLOOD COUNT 4.69 10^6/uL (4.00-5.40); WHITE BLOOD COUNT 6.4 10^3/uL (4.0-10.0)
[2019-09-05 13:26] LABS: ALBUMIN 3.4 GM/DL (3.2-5.2); ALT/SGPT 19 U/L (12-78); BILIRUBIN,TOTAL 0.4 MG/DL (0.2-1.0); BLOOD UREA NITROGEN 14 MG/DL (7-18); CALCIUM LEVEL 8.8 MG/DL (8.5-10.1); CARBON DIOXIDE LEVEL 29 MEQ/L (21-32); CHLORIDE LEVEL 109 MEQ/L (98-107); CHOLESTEROL LEVEL 195 MG/DL (<200); CHOLESTEROL RISK RATIO 3.095 (<5); CREATININE FOR GFR 0.88 MG/DL (0.55-1.30); GLOMERULAR FILTRATION RATE > 60.0 (>51); GLUCOSE, FASTING 84 MG/DL (70-100); HDL CHOLESTEROL 63 MG/DL (>40); LDL CHOLESTEROL 113 MG/DL (<100); NON-HDL-C 132 MG/DL; POTASSIUM SERUM 4.8 MEQ/L (3.5-5.1); SODIUM LEVEL 141 MEQ/L (136-145); TOTAL PROTEIN 6.7 GM/DL (6.4-8.2); TRIGLYCERIDES LEVEL 95 MG/DL (<150)
[2019-09-05 13:28] LABS: TOTAL 25(OH) VITAMIN D 35.7 NG/ML (30.0-100.0)
== END ==
LOC: M SFHCADAM 09:59
PROVIDERS: ATTEND Family Medicine
DX: K58.1 Irritable bowel syndrome with constipation (principal); E78.5 Hyperlipidemia, unspecified; E55.9 Vitamin D deficiency, unspecified

== ENCOUNTER → 2020-02-27 | Outpatient (REF) | payer MEDICARE, OTHER | LOC: M LABDRWAD 17:04 | PROVIDERS: ATTEND Family Medicine | DX: Z01.84 Encounter for antibody response examination (principal) ==

== ENCOUNTER → 2020-04-08 | Outpatient (REF) | payer MEDICARE, OTHER | LOC: M LAB REF 14:07 | PROVIDERS: ATTEND Dermatology | DX: R21 Rash and other nonspecific skin eruption (principal) | CPT/HCPCS: 87070; 87077; 87186; 87252; G0463 ==

== ENCOUNTER → 2020-05-29 | Outpatient (CLI) | payer MEDICARE, OTHER ==
--- NOTE | 2020-05-29 12:44 | REP ---
INDICATION: PAIN IN RIGHT HIP. COMPARISON: None. TECHNIQUE: There are two views. FINDINGS: There is mild right hip osteoarthritis. Mineralization is normal. There is no fracture or dislocation. There are no calcifications. There is a trans sacral neurostimulator. IMPRESSION: Mild osteoarthritis. Trans sacral neurostimulator. <Electronically signed by Ben Ziegler > 05/29/20 2654
== END ==
LOC: M ADAMS 10:30
PROVIDERS: ATTEND Physician Assistant
DX: M17.11 Unilateral primary osteoarthritis, right knee (principal); Z96.82 Presence of neurostimulator

== ENCOUNTER → 2020-06-20 | Outpatient (CLI) | payer MEDICARE, OTHER ==
--- NOTE | 2020-06-20 14:48 | REP ---
INDICATION: LOW BACK PAIN ? SACRUM/CPCCYX FX / PELVIX FX. COMPARISON: None. TECHNIQUE: 22.0 mCi of technetium 99 M MDP is injected and standard 3 phase imaging is acquired. FINDINGS: Anterior and posterior flow study are normal. Blood pool images show no significant area of increased uptake. Delayed scan images demonstrate osteoarthritic facet uptake at the L4-5 level in the lumbar spine and some degenerative uptake in the upper lumbar spine. No abnormal sacral uptake or coccygeal uptake is seen. Lateral and TOD (tail on detector) views are unremarkable. IMPRESSION: Mild degenerative uptake pattern in the lumbar spine. No evidence of sacral or coccygeal fracture. Otherwise negative pelvic three-phase bone scan <Electronically signed by Sharath Acosta > 06/20/20 2920
== END ==
LOC: M RAD 10:27
PROVIDERS: ATTEND Orthopaedic Surgery
DX: M54.5 Low back pain (principal); M51.36 Other intervertebral disc degeneration, lumbar region
CPT/HCPCS: 78315; A9503

== ENCOUNTER → 2020-08-28 | Outpatient (CLI) | payer MEDICARE, OTHER ==
[2020-08-28 10:41] LABS: HEMATOCRIT 43.4 % (36.0-47.0); HEMOGLOBIN 14.6 g/dl (12.0-15.5); MEAN CORPUSCULAR HEMOGLOBIN 30.7 pg (27.0-33.0); MEAN CORPUSCULAR HGB CONC 33.6 g/dl (32.0-36.5); MEAN CORPUSCULAR VOLUME 91.4 fl (80.0-96.0); PLATELET COUNT, AUTOMATED 244 10^3/uL (150-450); RED BLOOD COUNT 4.75 10^6/uL (4.00-5.40)
[2020-08-28 10:49] LABS: INR 0.88; PROTHROMBIN TIME 12.1 SECONDS (12.5-14.3)
[2020-08-28 10:50] LABS: PARTIAL THROMBOPLASTIN TIME 26.5 SECONDS (24.2-38.5)
[2020-08-28 11:13] LABS: BLOOD UREA NITROGEN 18 MG/DL (7-18); CREATININE FOR GFR 0.79 MG/DL (0.55-1.30); GLOMERULAR FILTRATION RATE > 60.0 (>51)
== END ==
LOC: M LAB 10:07
PROVIDERS: ATTEND Physician Assistant Medical
DX: Z00.00 Encounter for general adult medical examination without abnormal findings (principal); M54.5 Low back pain

== ENCOUNTER → 2020-10-24 | Outpatient (CLI) | payer MEDICARE, OTHER ==
--- NOTE | 2020-10-24 14:22 | REP ---
INDICATION: LEFT KNEE INJURY COMPARISON: None. TECHNIQUE: Five views left knee. FINDINGS: There is no evidence of acute fracture, dislocation, or intrinsic bone disease.There is moderate lateral joint space narrowing with subchondral sclerosis and spurring. There is mild patellofemoral compartment narrowing. There is moderate spurring of the lateral patellar facet. There is a moderate suprapatellar effusion. IMPRESSION: No fracture or dislocation. Arthritic changes with moderate suprapatellar effusion. <Electronically signed by Ben Campos > 10/24/20 7502
--- NOTE | 2020-10-24 14:24 | REP ---
INDICATION: LOW BACK PAIN. COMPARISON: None. TECHNIQUE: Six views lumbosacral spine. FINDINGS: There is no compression fracture. There is slight anterolisthesis of L4 on L5 due to posterior facet arthropathy. No spondylolysis is visualized. There is mild diffuse spurring. There is mild disc space narrowing and subchondral sclerosis at L4-5 and L5-S1, with sclerosis and spurring at the posterior facet joints at those levels. The posterior elements are intact. Metallic clips are seen in the right upper quadrant. Stimulator device is noted in the pelvis. IMPRESSION: Degenerative changes as above. <Electronically signed by Ben Campos > 10/24/20 6023
== END ==
LOC: M ADAMS 13:43
PROVIDERS: ATTEND Family Medicine
DX: M51.36 Other intervertebral disc degeneration, lumbar region (principal); M51.37 Other intervertebral disc degeneration, lumbosacral region; M17.12 Unilateral primary osteoarthritis, left knee; M54.40 Lumbago with sciatica, unspecified side
CPT/HCPCS: 72110; 73564; G0463

== ENCOUNTER → 2020-12-24 | Outpatient (CLI) | payer MEDICARE, OTHER ==
--- NOTE | 2020-12-24 11:16 | REP ---
INDICATION: PREOP EVAL, GASTROESOPHGEAL REFLUX DISEASE, MORBID OBESITY. COMPARISON: Comparison chest x-ray February 07, 2017. TECHNIQUE: Three views... FINDINGS: The lungs are well inflated and free of infiltrate. The pleural angles are sharp. The heart size is normal. Pulmonary vasculature is not increased. No significant bony abnormality is seen. There are minimal degenerative changes in the thoracic spine. IMPRESSION: Negative chest x-ray. <Electronically signed by Sharath Acosta > 12/24/20 1115
== END ==
LOC: M ADAMS 10:47
PROVIDERS: ATTEND Family Medicine
DX: Z01.818 Encounter for other preprocedural examination (principal); K21.9 Gastro-esophageal reflux disease without esophagitis; E66.01 Morbid (severe) obesity due to excess calories; M51.34 Other intervertebral disc degeneration, thoracic region
CPT/HCPCS: 71046; 80053; 85027; 85610; 85730; G0463

== ENCOUNTER → 2020-12-24 | Outpatient (REF) | payer MEDICARE, OTHER ==
[2020-12-24 12:53] LABS: HEMATOCRIT 43.4 % (36.0-47.0); HEMOGLOBIN 14.5 g/dl (12.0-15.5); MEAN CORPUSCULAR HEMOGLOBIN 30.9 pg (27.0-33.0); MEAN CORPUSCULAR HGB CONC 33.4 g/dl (32.0-36.5); MEAN CORPUSCULAR VOLUME 92.5 fl (80.0-96.0); PLATELET COUNT, AUTOMATED 235 10^3/uL (150-450); RED BLOOD COUNT 4.69 10^6/uL (4.00-5.40); WHITE BLOOD COUNT 7.4 10^3/uL (4.0-10.0)
[2020-12-24 13:02] LABS: INR 0.86; PROTHROMBIN TIME 11.9 SECONDS (12.5-14.3)
[2020-12-24 13:03] LABS: PARTIAL THROMBOPLASTIN TIME 23.5 SECONDS (24.2-38.5)
[2020-12-24 13:30] LABS: ALBUMIN 3.7 GM/DL (3.2-5.2); ALT/SGPT 19 U/L (12-78); BILIRUBIN,TOTAL 0.4 MG/DL (0.2-1.0); BLOOD UREA NITROGEN 12 MG/DL (7-18); CARBON DIOXIDE LEVEL 23 MEQ/L (21-32); CHLORIDE LEVEL 109 MEQ/L (98-107); CREATININE FOR GFR 0.72 MG/DL (0.55-1.30); GLOMERULAR FILTRATION RATE > 60.0 (>51); GLUCOSE, FASTING 86 MG/DL (70-100); SODIUM LEVEL 141 MEQ/L (136-145); TOTAL PROTEIN 6.9 GM/DL (6.4-8.2)
== END ==
LOC: M SFHCADAM 10:39
PROVIDERS: ATTEND Family Medicine
DX: Z01.818 Encounter for other preprocedural examination (principal); K21.9 Gastro-esophageal reflux disease without esophagitis; E66.01 Morbid (severe) obesity due to excess calories

== ENCOUNTER → 2021-01-15 | Outpatient (CLI) | payer MEDICARE, OTHER | LOC: M LABSMTC 13:50 | PROVIDERS: ATTEND Pediatrics | DX: Z20.822 Contact with and (suspected) exposure to COVID-19 (principal) | CPT/HCPCS: C9803; U0003 ==

== ENCOUNTER 2021-02-01 08:17 | Emergency (ER) | payer MEDICARE, OTHER ==
[~2021-02-01] VITALS: Ht 162.6 cm; Wt 100.0 kg
[2021-02-01 09:30] LABS: BASO # 0.1 10^3/uL (0.0-0.2); BASO % 0.5 % (0.0-1.0); EOS % 0.1 % (0.0-3.0); HEMATOCRIT 38.9 % (36.0-47.0); HEMOGLOBIN 13.3 g/dl (12.0-15.5); LYMPH % 8.4 % (24.0-44.0); MEAN CORPUSCULAR HEMOGLOBIN 30.6 pg (27.0-33.0); MEAN CORPUSCULAR HGB CONC 34.2 g/dl (32.0-36.5); MEAN CORPUSCULAR VOLUME 89.6 fl (80.0-96.0); MONO # 0.6 10^3/uL (0.0-0.8); MONO % 5.4 % (2.0-8.0); NEUTROPHILS % 85.2 % (36.0-66.0); PLATELET COUNT, AUTOMATED 208 10^3/uL (150-450); RED BLOOD COUNT 4.34 10^6/uL (4.00-5.40); WHITE BLOOD COUNT 11.8 10^3/uL (4.0-10.0)
[2021-02-01 09:52] LABS: ALBUMIN 3.4 GM/DL (3.2-5.2); ALT/SGPT 15 U/L (12-78); BILIRUBIN,DIRECT 0.2 MG/DL (0.0-0.2); BILIRUBIN,TOTAL 0.7 MG/DL (0.2-1.0); BLOOD UREA NITROGEN 16 MG/DL (7-18); CALCIUM LEVEL 8.9 MG/DL (8.5-10.1); CARBON DIOXIDE LEVEL 28 MEQ/L (21-32); CHLORIDE LEVEL 104 MEQ/L (98-107); CREATININE FOR GFR 0.71 MG/DL (0.55-1.30); GLOMERULAR FILTRATION RATE > 60.0 (>51); GLUCOSE, FASTING 114 MG/DL (70-100); LIPASE 50 U/L (73-393); POTASSIUM SERUM 3.4 MEQ/L (3.5-5.1); SODIUM LEVEL 138 MEQ/L (136-145)
[2021-02-01] MEDS ORDERED: MORPHINE 4 MG/ML 1ML VIAL/SYRINGE (J2270) IV ONE ×2 (09:55→11:50)
[2021-02-01] MEDS ORDERED: NS 1,000 ML IV ONE (09:55)
[2021-02-01] MEDS ORDERED: PANTOPRAZOLE 40MG VIAL (C9113 PER 1) IV ONE (09:55)
[2021-02-01] MEDS ORDERED: ONDANSETRON 4MG/2ML VIAL IV ONE (09:55)
[2021-02-01] MEDS ORDERED: ISOVUE-370 76% 100ML VIAL As Ordered ONE (10:05)
[2021-02-01 10:23] LABS: CK-MB VALUE MASS 1.2 NG/ML (<3.6); CPK CREATINE PHOSPHOKINASE 52 U/L (26-192); MB/CK RELATIVE INDEX 2.31 (< OR =4); TROPONIN I < 0.02 NG/ML (< 0.10)
--- NOTE | 2021-02-01 10:37 | REP ---
INDICATION: Abdominal Pain COMPARISON: 12/24/2020 TECHNIQUE: PA and lateral. FINDINGS: The mediastinum and cardiac silhouette are normal. The lung cheung are clear and without acute consolidation, effusion, or pneumothorax. The skeletal structures are intact and normal. IMPRESSION: No acute cardiopulmonary process. <Electronically signed by Julian Quintero > 02/01/21 3814
--- NOTE | 2021-02-01 10:48 | REP ---
INDICATION: diffuse abd pain, nausea vomiting, h/o crohns. COMPARISON: 09/03/2014 TECHNIQUE: Axial contrast-enhanced images from the lung bases to the pubic symphysis using 100 cc Isovue 370 intravenous contrast material. Coronal and sagittal reformations obtained. This CT examination was performed using the following dose reduction techniques: Automated exposure control, adjustment of mA and/or kv according to the patient's size, and the use of iterative reconstruction technique. FINDINGS: Lung bases are clear. Visualized heart and pericardium normal. Liver, spleen, pancreas, bilateral adrenal glands and kidneys are normal. Evidence for prior cholecystectomy with normal compensatory biliary ductal dilatation. The enteric system including stomach, small, and large bowel appears essentially normal. No evidence for obstruction or perforation. Small bowel demonstrates few loops of mildly prominent fluid-filled ileum which are nonspecific and likely transient. Normal terminal ileum, cecum and appendix are identified in the right lower quadrant. Pelvis demonstrates collapsed bladder and evidence for prior hysterectomy. Left inguinal hernia repair. No ascites. No free air. No intraperitoneal or retroperitoneal adenopathy. Abdominal aorta and vasculature appear normal. Musculoskeletal structures are intact and without acute osseous abnormality. IMPRESSION: No acute abdominopelvic pathology appreciated. <Electronically signed by Julian Quintero > 02/01/21 6646
[2021-02-01] MEDS ORDERED: OMEP40CA4 PO (13:43)
[2021-02-01 13:44] VITALS: BP 150/80
--- NOTE | 2021-02-01 19:24 | ECGEPIP ---
[facility] - ED Test Date: 2021-02-01 Pat Name: KAROLINE GRIMALDO Department: Room: - Gender: Female Continuous Improvement Manager: LR : 1965 Requested By: FRANTZ Hartman PA-C Order Number: [id number] Reading MD: Shira Machado Measurements Intervals [place] Rate: 42 P: 27 TX: 136 QRS: 56 QRSD: 110 T: 38 QT: 500 QTc: 417 Interpretive Statements Marked sinus bradycardia NSTTW abnormalities similar 01/18/18 Electronically Signed on 02-01-2021 19:24:32 EDT by Shira Machado
[2021-02-02] MEDS ORDERED: ONDA4TAB6 (10:06)
[2021-02-02] MEDS ORDERED: MESA1.2T (10:06)
[2021-02-02] MEDS ORDERED: PREG25CA2 (10:06)
== END 2021-02-01 13:50 | disposition home or self-care (01) ==
LOC: M ED 08:17
DX: R10.9 Unspecified abdominal pain (principal); R11.2 Nausea with vomiting, unspecified; R00.1 Bradycardia, unspecified; I10 Essential (primary) hypertension; F33.9 Major depressive disorder, recurrent, unspecified; F41.9 Anxiety disorder, unspecified; K21.9 Gastro-esophageal reflux disease without esophagitis; Z88.0 Allergy status to penicillin; Z88.1 Allergy status to other antibiotic agents; Z88.2 Allergy status to sulfonamides; Z88.8 Allergy status to other drugs, medicaments and biological substances; Z91.030 Bee allergy status; Z79.899 Other long term (current) drug therapy
CPT/HCPCS: 71046; 74177; 80048; 80076; 81001; 82550; 82553; 83605; 83690; 84484; 85025; 93005; 93041; 96361; 96374; 96375; 96376; 99284; C9113; J2270; J2405; Q9967

== ENCOUNTER 2021-02-02 07:54 | Emergency (ER) | payer MEDICARE, OTHER ==
[~2021-02-02] VITALS: Ht 167.6 cm; Wt 100.0 kg
[~2021-02-02 07:54] MED LIST changes: +OMEP40CA4 PO
[2021-02-02] MEDS ORDERED: HALOPERIDOL 5MG/ML VIAL (J1630 PER 1) IV ONE (08:20)
[2021-02-02 09:11] LABS: BASO # 0.1 10^3/uL (0.0-0.2); EOS # 0.1 10^3/uL (0.0-0.5); EOS % 1.2 % (0.0-3.0); HEMATOCRIT 41.6 % (36.0-47.0); HEMOGLOBIN 13.9 g/dl (12.0-15.5); LYMPH # 1.5 10^3/uL (1.5-5.0); LYMPH % 14.1 % (24.0-44.0); MEAN CORPUSCULAR HEMOGLOBIN 30.2 pg (27.0-33.0); MEAN CORPUSCULAR HGB CONC 33.4 g/dl (32.0-36.5); MEAN CORPUSCULAR VOLUME 90.4 fl (80.0-96.0); MONO # 0.6 10^3/uL (0.0-0.8); MONO % 5.9 % (2.0-8.0); NEUTROPHILS # 7.9 10^3/uL (1.5-8.5); NEUTROPHILS % 77.4 % (36.0-66.0); PLATELET COUNT, AUTOMATED 197 10^3/uL (150-450); WHITE BLOOD COUNT 10.3 10^3/uL (4.0-10.0)
[2021-02-02 09:24] LABS: BLOOD UREA NITROGEN 16 MG/DL (7-18); CARBON DIOXIDE LEVEL 23 MEQ/L (21-32); CHLORIDE LEVEL 104 MEQ/L (98-107); CREATININE FOR GFR 0.69 MG/DL (0.55-1.30); GLOMERULAR FILTRATION RATE > 60.0 (>51); GLUCOSE, FASTING 116 MG/DL (70-100); MAGNESIUM LEVEL 1.9 MG/DL (1.8-2.4); POTASSIUM SERUM 3.5 MEQ/L (3.5-5.1); SODIUM LEVEL 137 MEQ/L (136-145)
[2021-02-02] MEDS ORDERED: ONDA4TAB6 (10:06)
[2021-02-02] MEDS ORDERED: PREG25CA2 (10:06)
[2021-02-02] MEDS ORDERED: MESA1.2T (10:06)
[2021-02-02 10:19] LABS: AMPHETAMINES LEVEL URINE NEGATIVE (NEGATIVE); BARBITURATES URINE NEGATIVE (NEGATIVE); BENZODIAZEPINES URINE NEGATIVE (NEGATIVE); CANNABINOIDS URINE POSITIVE (NEGATIVE); COCAINE METABOLITE URINE NEGATIVE (NEGATIVE); METHADONE URINE NEGATIVE (NEGATIVE); OPIATES URINE POSITIVE (NEGATIVE); PHENCYCLIDINE URINE NEGATIVE (NEGATIVE)
[2021-02-02] MEDS ORDERED: ISOVUE-370 76% 100ML VIAL As Ordered ONE (11:11)
--- NOTE | 2021-02-02 11:53 | REP ---
INDICATION: post prandial pain, r/o SMA/celiac artery stenosis COMPARISON: None TECHNIQUE: Axial contrast-enhanced images of the abdomen using arterial angiographic technique including multiplanar reformations and volume rendered CT angiogram of the abdominal aorta and branch vessels. This CT examination was performed using the following dose reduction techniques: Automated exposure control, adjustment of mA and/or kv according to the patient's size, and use of iterative reconstruction technique. FINDINGS: The abdominal aorta demonstrates trace atherosclerotic changes without aneurysm or dissection. Major branch vessels including celiac axis, superior mesenteric artery, solitary bilateral renal arteries and inferior mesenteric artery as well as bifurcation and iliac arteries are patent and normal. No evidence for occlusion or stenosis at the origins of the above-mentioned arterial vessels noted. Liver, spleen, pancreas, bilateral adrenal glands and kidneys are normal for arterial phase enhancement. Evidence for prior cholecystectomy again noted. Visualized portions of the enteric system are normal. No ascites. No free air. No adenopathy. Musculoskeletal structures are intact. Lung bases are clear. IMPRESSION: No acute abdominopelvic pathology appreciated. Normal angiographic appearance to the abdominal aorta and major branch vessels. <Electronically signed by Julian Quintero > 02/02/21 9930
[2021-02-02] MEDS ORDERED: KETAMINE HCL 20 MG in NS 50 ML IV ONE (13:00)
[2021-02-02 13:31] VITALS: BP 128/73
== END 2021-02-02 13:38 | disposition home or self-care (01) ==
LOC: M ED 07:54
DX: G89.29 Other chronic pain (principal); R10.9 Unspecified abdominal pain; K58.9 Irritable bowel syndrome, unspecified; E66.01 Morbid (severe) obesity due to excess calories; M19.90 Unspecified osteoarthritis, unspecified site; Z79.890 Hormone replacement therapy; Z79.899 Other long term (current) drug therapy; Z88.8 Allergy status to other drugs, medicaments and biological substances; Z88.0 Allergy status to penicillin; Z88.1 Allergy status to other antibiotic agents; Z91.030 Bee allergy status
CPT/HCPCS: 74175; 80048; 80307; 83605; 83735; 85025; 87798; 96365; 96375; 99284; J1630; Q9967

== ENCOUNTER 2021-03-29 09:20 | Emergency (ER) | payer MEDICARE, OTHER ==
[~2021-03-29] VITALS: Ht 167.6 cm; Wt 95.5 kg
[~2021-03-29 09:20] MED LIST changes: +MESA1.2T; +ONDA4TAB6; +PREG25CA2
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
--- OUTSIDE RECORDS SUMMARY | 2021-03-29 09:56 | CCD | Continuity of Care Document ---
Author Author [facility] Organization Unknown Address [address] [address] Phone [phone] Care Team Providers Care Entertainment Lawyer Name Role Phone Eder Briseno MD [facility] [phone] Problems Description No Active Problems Social History Type Date Description Comments Sex Unknown ETOH Use Denies alcohol use Tobacco Use Start: Unknown End: Unknown Patient is a former smoker quit 2009 Allergies, Adverse Reactions, Alerts Active Allergies Criticality Reaction | Severity Comments Date Bees Unable to assess criticality 10/16/2014 Penicillin Unable to assess criticality 10/16/2014 Celebrex Unable to assess criticality 03/28/2015 Erythromycin Unable to assess criticality 03/28/2015 Nitrofurantoin Unable to assess criticality 03/28/2015 Bactrim Unable to assess criticality 03/28/2015 Tramadol Unable to assess criticality Hives 03/11/2021 Gabapentin Unable to assess criticality Hives 03/11/2021 Medications Active Medications SIG Qnty Indications Ordering Provide r Date Acetaminophen-Codeine #3 300-30mg Tablets Take 1 Tablet By Mouth Every 6 Hours as Needed For Pain, Surg Date 12/30/2020 20tabs Zacarias Engel MD 03/11/2021 Clindamycin HCL 300mg Capsules 2 tabs by mouth 1 hour prior to dental procedure 2caps Lester Tovar MD 01/26/2021 Xarelto 10mg Tablets 1 tab by mouth everyday after surgery for 14 days (do not fill until 01/08) 14tabs Lester Tovar MD 12/16/2020 Mupirocin 2% Ointment apply a pea sized amount to the nasal passages 3 times a day for 5 days prior to surgery 22gm Lester Tovar MD 12/09/2020 Hibiclens 4% Liquid use in shower once daily for 5 days before surgery 1units Lester Tovar MD 12/09/2020 Xarelto 10mg Tablets 1 Tab By Mouth Daily For 14 Days For Post Op Knee Surgery. 14tabs Lester Tovar MD 12/09/2020 Cyclobenzaprine HCL 10mg Tablets take one tablet by mouth three times a day as needed 90tabs M16.11 Melissa Engel MD 06/02/2020 Estradiol 1mg Tablets 1 by mouth every day Unknown Nexium 24HR 20mg Tablets DR 1 by mouth every day Unknown Tylenol 325mg Tablets 1 or 2 every 6 hours prn/pain Unknown Epipen 2-Addi 0.3mg/0 .3ML Solution Auto-Inject inject as directed Unknown 0 History Medications Lyrica 25mg Capsules 1 by mouth twice a day 60caps Lester Tovar MD 01/07/2021 - 02/19/2021 Oxycodone-Acetaminophen 5-325mg Ta blets take 1 tablet by mouth every 4-6 hours as needed for pain, surg date 12/30/2020 20tabs Z47.1 Zacarias Engel MD 12/09/2020 - 021 Z96.652 Tramadol HCL 50mg Tablets Take 1 Tablet By Mouth Every 4-6 Hours as Needed For Pain, MDD 4, Surg Date 12/30/2020 40tabs M17.0 Lester Tovar MD 11/13/2020 - 03/11/2021 Immunizations Description No Information Available Vital Signs Date Vital Result Comment 12/29/2020 3:26pm BP Systolic 130 mmHg BP Diastolic 72 mmHg Heart Rate 53 /min Body Temperature 96.9 F Height 64.5 inches 5'4.50" Weight 224.00 lb BMI (Body Mass Index) 37.9 kg/m2 Respiratory Rate 18 /min 11/20/2020 10:16am Body Temperature 97.1 F Height 63.25 inches 5'3.25" Weight 223.50 lb BMI (Body Mass Index) 39.3 kg/m2 Results Test Acquired Date Facility Test Result H/L Range Note Comprehensive Metabolic Prof 01/01/2021 [facility] [address] [place] [address] Glu 108 mg/dL Normal 70-110 1 BUN 8 mg/dL Normal 7-23 Cre 0.650 mg/dL Normal 0.500-1.300 GFR > 60 mL/min Normal Chloride 107 mmol/L Normal 99-110 Na 142 mmol/L Normal 136-147 Potassium 3.9 mmol/L Normal 3.5-5.1 Tco2 25 mmol/L Normal 20-33 Anion Gap 13.9 Normal 10.0-20.0 CA 7.9 mg/dL Low 8.3-10.7 Alkaline Phos 74 U/L Normal 45-117 TP 5.6 g/dL Low 6.0-7.8 Alb 2.9 g/dL Low 3.5-5.0 2 GL 2.7 g/dL Normal 2.3-3.5 A/G 1.1 Normal 1.0-2.5 T. Bilirubin 0.4 mg/dL Normal 0.1-1.1 3 Alti 14 U/L Normal 6-54 4 Ast 11 U/L Normal 6-38 5 Complete Blood Count 01/01/2021 [facility] [address] [place] [address] WBC 10.21 x10E3/uL Normal 4.0-10.5 RBC 3.60 x10E6/uL Low 4.20-5.40 Hemoglobin 10.9 g/dL Low 12.0-16.0 Hematocrit 32.6 % Low 37.0-47.0 MCV 90.6 fL Normal 81.0-99.0 MCH 30.3 pg Normal 27.0-31.0 MCHC 33.4 g/dL Normal 32.7-35.6 RDW 12.0 % Normal 11.5-14.0 Platelet count 176 x10E3/uL Normal 150-450 MPV 11.1 fl High 6.9-9.5 Neutrophils 71.6 % High 34-64 Lymphocytes 16.5 % Low 25-45 Monocytes 10.7 % High 1.7-10.6 Eosinophils 0.3 % Low 0.4-7.0 Basophils 0.5 % Normal 0.1-2.0 Imm. Gran. 0.4 % Normal 0.1-2.0 Abs. Neutro. 7.32 x10E3/uL Normal 1.2-7.6 Abs. Lymph. 1.68 x10E3/uL Normal 1.0-3.5 Abs. Johnston. 1.09 x10E3/uL High 0.1-1.0 Abs. Eosin. 0.03 x10E3/uL Low 0.1-0.7 Abs. Baso. 0.05 x10E3/uL Normal 0.0-0.1 Abs. Imm. Gran. 0.04 x10E3/uL Normal 0.0-0.1 Anrbc% 0 % Normal 0 Comprehensive Metabolic Prof 12/31/2020 [facility] [address] [place] [address] Glu 112 mg/dL High 70-110 6 BUN 10 mg/dL Normal 7-23 Cre 0.640 mg/dL Normal 0.500-1.300 GFR > 60 mL/min Normal Chloride 108 mmol/L Normal 99-110 Na 141 mmol/L Normal 136-147 Potassium 4.4 mmol/L Normal 3.5-5.1 Tco2 24 mmol/L Normal 20-33 Anion Gap 13.4 Normal 10.0-20.0 CA 8.4 mg/dL Normal 8.3-10.7 Alkaline Phos 80 U/L Normal 45-117 TP 6.0 g/dL Normal 6.0-7.8 Alb 3.1 g/dL Low 3.5-5.0 7 GL 2.9 g/dL Normal 2.3-3.5 A/G 1.1 Normal 1.0-2.5 T. Bilirubin 0.4 mg/dL Normal 0.1-1.1 8 Alti 17 U/L Normal 6-54 9 Ast 12 U/L Normal 6-38 10 Laboratory test finding 12/26/[address] [address] Bretype B POSITIVE Normal Laboratory test finding 12/26/2020 [facility] [address] [place] [address] Lesr 13 MM/HR Normal 0-20 11 Type&Screen 12/26/2020 [facility] [address] [place] [address] Blood Type B POSITIVE Normal Antibody Screen NEGATIVE Normal Laboratory test finding 12/26/2020 [facility] [address] [place] [address] [id number] Rheonix Negative Normal Negative 12 1 Patients taking Sulfasalazin e may have falsely depressed Glucose levels. Patients taking Sulfapyridine may have falsely elevated Glucose levels. Patients should be drawn for Glucose before the initial administration of either drug. 2 ESRD Dialysis patient Albumi n reference range: 2.9-4.4 g/dL 3 The [employer] Total Bi lirubin is not recommended for patients undergoing treatment with eltrombopag (Promacta) due to the potential for falsely elevated results. 4 Patients taking Sulfasalazin e and/or Sulfapyridine may have falsely depressed ALT levels. Patients should be drawn for ALT before the initial administration of either drug. 5 Patients taking Sulfasalazin e and/or Sulfapyridine may have falsely depressed AST levels. Patients should be drawn for AST before the initial administration of either drug. 6 Patients taking Sulfasalazin e may have falsely depressed Glucose levels. Patients taking Sulfapyridine may have falsely elevated Glucose levels. Patients should be drawn for Glucose before the initial administration of either drug. 7 ESRD Dialysis patient Albumi n reference range: 2.9-4.4 g/dL 8 The [employer] [place] Total Bi lirubin is not recommended for patients undergoing treatment with eltrombopag (Promacta) due to the potential for falsely elevated results. 9 Patients taking Sulfasalazin e and/or Sulfapyridine may have falsely depressed ALT levels. Patients should be drawn for ALT before the initial administration of either drug. 10 Patients taking Sulfasalazin e and/or Sulfapyridine may have falsely depressed AST levels. Patients should be drawn for AST before the initial administration of either drug. 11 Does the pt. have a limb res triction? N Restricted limb verified Y 12 The [employer] COVID-19 MDx Ass ay is an endpoint RT-PCR assay intended for the qualitative detection of nucleic acid from SARS-CoV-2 virus. Positive results are indicative of the presence of SARS-CoV-2 RNA; clinical correlation with patient history and other diagnostic information is necessary to determine patient infection status. Negative results do not preclude SARS-CoV-2 infection and should not be used as the sole basis for patient management decisions. The [employer] MDx Assay is only for use under the Food and Drug Administration's Emergency Use Authorization. Procedures Date Code Description Status 03/13/2021 02568 Therapeutic Procedure, Each 15 M inutes Completed 02/20/2021 39084 Therapeutic Procedure, Each 15 M inutes Completed 02/20/2021 28346 X-Ray Knee Ap & Lateral W/Obliqu es Three Views Completed 02/17/2021 87730 Therapeutic Procedure, Each 15 M inutes Completed 02/12/2021 31007 Therapeutic Procedure, Each 15 M inutes Completed 02/10/2021 42499 Therapeutic Procedure, Each 15 M inutes Completed 01/29/2021 02327 Therapeutic Procedure, Each 15 M inutes Completed 01/29/2021 77553 Hot Or Cold Packs Completed 01/27/2021 33189 Physical Therapy Eval - Low Comp lexity Completed 12/30/2020 08155 Arthroplasty "Total Knee" Medial & Lateral W/ Or W/O Patella Resu Completed 11/20/2020 27414 Office/Outpatient Established Hi gh MDM 40-54 Min Completed 11/20/2020 01535 X-Ray Knee Complete W/Obliques & Tunnel And/Or Standing Views Completed 11/13/2020 87484 Office/Outpatient Established Mo d MDM 30-39 Min Completed 11/13/2020 06801 X-Ray Knee Complete W/Obliques & Tunnel And/Or Standing Views Completed Medical Devices Description No Information Available Encounters Type Date Location Provider Dx Diagnosis Office Visit 01/19/2021 9:45a Yenifer Tovar MD Z47.1 Aftercare following joint replacement surgery Z96.652 Presence of left artificial knee joint Office Visit 01/07/2021 10:15a JOSHUA Morris Z47.1 Aftercare following joint replacement surgery Z96.652 Presence of left artificial knee joint Office Visit 12/29/2020 3:00p Weatherfordregan Tovar PA-C Z01.818 Encounter for other preprocedural examination M17.12 Unilateral primary osteoarth ritis, left knee Office Visit 11/13/2020 8:15a Yenifer Davis MD M17.0 Bilateral primary osteoarthritis of knee Assessments Date Code Description Provider 02/20/2021 Z47.1 Aftercare following joint replac ement surgery Lester Tovar MD 02/20/2021 Z96.652 Presence of left artificial knee joint Kelsey Lisa Buchanan, DRIER OPERATOR 02/20/2021 Z96.652 Presence of left artificial knee joint Lester Tovar MD 02/17/2021 Z47.1 Aftercare following joint replac ement surgery Kelsey Gonzalez Buchanan, DRIER OPERATOR 02/17/2021 Z96.652 Presence of left artificial knee joint Kelsey Gonzalez Buchanan, DRIER OPERATOR 02/12/2021 Z47.1 Aftercare following joint replac ement surgery Kelsey Gonzalez Dewayne, DRIER OPERATOR 02/12/2021 Z96.652 Presence of left artificial knee joint Kelsey Buchanan, DRIER OPERATOR 02/10/2021 Z47.1 Aftercare following joint replac ement surgery Kelsey Roldanregan Buchanan, DRIER OPERATOR 02/10/2021 Z96.652 Presence of left artificial knee joint Kelsey Buchanan, DRIER OPERATOR 01/29/2021 Z47.1 Aftercare following joint replac ement surgery Chapito Puentes, PT, DPT 01/29/2021 Z96.652 Presence of left artificial knee joint Chapito Puentes, PT, DPT 01/27/2021 Z47.1 Aftercare following joint replac ement surgery Chapito Puentes, PT, DPT 01/27/2021 Z96.652 Presence of left artificial knee joint Chapito Puentes, PT, DPT 01/19/2021 Z47.1 Aftercare following joint replac ement surgery Lester Tovar MD 01/19/2021 Z96.652 Presence of left artificial knee joint Lester Tovar MD 01/07/2021 Z47.1 Aftercare following joint replac ement surgery JOSHUA Lucas 01/07/2021 Z96.652 Presence of left artificial knee joint JOSHUA Lucas 12/30/2020 M17.12 Unilateral primary osteoarthriti s, left knee Lester Tovar MD 12/30/2020 E66.01 Morbid (severe) obesity due to e xcess calories Lester Tovar MD 12/30/2020 Z68.39 Body mass index [BMI] 39.0-39.9, adult Lester Tovar MD 12/29/2020 Z01.818 Encounter for other preprocedura l examination Mary Lou Mccurdy IGLESIA Tovar 12/29/2020 M17.12 Unilateral primary osteoarthriti s, left knee Mary Lou Mccurdy IGLESIA Tovar 12/26/2020 Z01.818 Encounter for other preprocedura l examination Mary Lou Mccurdy IGLESIA Tovar 12/26/2020 M17.12 Unilateral primary osteoarthriti s, left knee Mary Lou Mccurdy IGLESIA Tovar 11/20/2020 M17.12 Unilateral primary osteoarthriti s, left knee Lester Tovar MD 11/13/2020 M17.0 Bilateral primary osteoarthritis of knee Ruslan Davis MD Plan of Treatment Future Appointment(s):* 03/20/2021 12:30 pm - Chapito Puentes, PT, DPT at Physical Therapy * 03/18/2021 10:00 am - Chapito Puentes, PT, DPT at Physical Therapy Functional Status Description No Information Available Mental Status Description No Information Available Referrals Refer to Dr Reason for Referral Status Appt Date Mary Lou Tovar PA-C Physical Therapy Left Knee p er ins no auth req based on medical necessity patient is going to [facility] passed to PT Dept sw. Created [address] [place] [address] [phone] Mary Lou Tovar PA-C Physical Therapy Left Knee p er hany d at [facility] no auth req patient is going to [facility] passed to PT dept sw. Created [address] [place] [phone] Zacarias Engel MD SURGERY NO AUTH REQUIRED FOR TOTAL LEFT HIP (34187) TO SURGERY NT Created [address] [place] [address], [place] [address] [phone] Zacarias Engel MD SURGERY PER [facility] AT [facility] NO A UTH REQUIRED FOR TOTAL LEFT KNEE SAME DAY SURGERY AND COVERED AT 100% TO SURGERY NT Created [address] [place] [address], [place] [address] [phone]
--- OUTSIDE RECORDS SUMMARY | 2021-03-29 09:56 | CCD ---
Author Author [facility] [facility] Organization [facility] Address Unknown Phone Unavailable Care Team Providers Care Area Field Person Name Role Phone Eder Briseno Unavailable PROBLEMS Type Condition ICD9-CM Code [id number] Code Onset Dates Condition S tatus W/U Status Risk SNOMED Code Notes Problem Irritable bowel syndrome with constipation K58.1 Active confirmed 350138166 extensive w/u 6400-8090 (see PMH), all u nrevealing Problem Screening for breast cancer Z12.39 Active confirmed 814715763 Problem Other chronic pain G89.29 Active confirmed 8 3864100 Problem Acute midline low back pain with sciatica, sciatica laterality unspecified M54.40 Active confirmed 978548300 Problem Morbid obesity due to excess calories E66.01 Ac tive confirmed 257491642 Problem History of left knee replacement Z96.652 Active confirmed 392716784 Problem Gastroesophageal reflux disease without esophagitis K21.9 Active confirmed 665384968 Problem Medicare annual wellness visit, subsequent Z00.00 Active confirmed 111675177 Problem Vitamin D deficiency E55.9 Active confirmed 91522155 Problem Spondylolisthesis at L5-S1 level M43.17 Active confirmed 474155706 Problem Other and unspecified hyperlipidemia E78.5 Act kirti confirmed 05149186 ALLERGIES Allergen (clinical drug ingredient) Drug/Non Drug Allergy do cumented on EMR Reaction Allergy Type Onset Date Status bees Anaphylaxis Non Drug Allergy Active Penicillin (For Allergies Use Only) Anaphylaxis Drug Aller gy Active celecoxib Celebrex(NDC Code:[address]-18) Unknown Drug Allergy Active erythromycin Erythromycin(NDC Code:[address]-50) Anaphylaxis Drug Al lergy Active Amitiza involuntary movements Non Drug Allergy Active Linzess rectal pain/spasms Non Drug Allergy Active gabapentin Gabapentin([facility] Code:[address]-16) 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 2020 Administered COVID-19 dose #1 given elsewhere Unspecified Unknown [facility] 2020 Administered TDAP 0.5mL (Boostrix) IM [...] REASON FOR REFERRAL No Information VITAL SIGNS Weight 220 lbs Mar, Height 64 in Mar, BMI 37.76 kg/m2 Mar, Heart Rate 56 /min Mar, Respiratory Rate 18 /min Mar, Temperature 97.4 degrees Fahrenheit Mar, Oximetry 96 Mar, Blood pressure systolic 130 mm Hg Mar, Blood pressure diastolic 78 mm Hg Mar, MEDICATIONS Medication SIG (Take, Route, Frequency, Duration) Notes Start Da te End Date Status Benadryl BMX coumpound, benadryl maalox , lidocaine Not-Taking NexIUM 40 MG 1 capsule Orally bid Ac tive Senokot S 8.6-50 MG 1 tab Orally twice daily as needed for 30 da y(s) Mar, Active Vitamin B-12 500 MCG 1 tablet Orally Once a day Active Multivitamins TAB 1 Orally DAILY Act kirti Mesalamine 1.2 GM TAKE 4 TABLETS BY MOUTH EVERY DAY Orally Daily Active MiraLax 17 GM 1 packet mixed with 8 ounces of fluid Orally twice daily as needed for 30 day(s) Mar, Active Estradiol 1 MG 1 tablet Orally daily for 90 Active Doxycycline Hyclate 100 MG 1 capsule Orally Twice a day for 30 D ays Mar, Active Vitamin D3 2000 UNIT 1 capsule Orally Once a day Active Cyclobenzaprine HCl 10 MG 1/2 - 1 tab Orally every 8 h ours as needed for muscle spasm for 10 day(s) Nov, Not-Taking Lyrica 75 MG 1 capsule Orally Once a day for 28 day(s) Sep, Not-Taking EpiPen 2-Addi 0.3 MG/0.3ML as directed Injection as needed for 30 day(s) Jan, Active valACYclovir HCl 500 MG 1 tablet Orally Once a day for 30 Days Active Iron 325 (65 Fe) MG 1 tablet Orally twice daily Active Gabapentin 100 MG 1 capsule Orally Once a day for 30 day(s) Not-Taking PROCEDURES No Information RESULTS No Results REASON FOR VISIT discuss lab work had an endo done, refill azelastine pro act, [facility] MEDICAL (GENERAL) HISTORY Type Description Date Medical History arthritis, R > L knee - [facility] Medical History morbid obesity Medical History seasonal [...] History S1 bilateral epidural spinal injections at [facility] 01/28, complicated by spinal CROSS, admitted x [...] EGD and colonoscopy (Dr. Alba) 04/14 018 Surgical History EGD (Dr Tom Arevalo) 03/03 Hospitalization History surgeries Hospitalization History hydrocodone 01/28 Goals Section No Information Health Concerns No Information MEDICAL EQUIPMENT No Information MENTAL STATUS No Information FUNCTIONAL STATUS No Information ASSESSMENTS Encounter Date Diagnosis Assessment Notes Treatment Notes Treatm ent Clinical Notes Mar, Left lower quadrant abdominal pain (ICD-10 - R10 .32) has colonoscopy pending. Suspect from chronic constipation https://www.[facility].org/healthy-lifestyle/ivvggpmps-bwo-nfdxvas-eating/in-dep th/diverticulitis-diet/art-08674480?p=1 Mar, Irritable bowel syndrome with constipati on (ICD-10 - K58.1) extensive w/u 8596-6336 (see PMH), all unrevealing Mar, Left inguinal hernia (ICD-10 - K40.90) may need surgical referral if becomnes symptomatic PLAN OF TREATMENT Medication Medication Name Sig Start Date Stop Date Senokot S 8.6-50 MG 1 tab Orally twice daily as needed for 3 0 day(s) Mar, MiraLax 17 GM 1 packet mixed with 8 ounces of fluid Orally twice daily as needed for 30 day(s) Mar, Treatment Notes Assessment Notes Clinical Notes Left lower quadrant abdominal pain has c olonoscopy pending. Suspect from chronic constipationhttps://www.[facility]linic.org/healthy-lifestyle/aniumgcow-hql-zybmdzo-e ating/in-depth/diverticulitis-diet/art-12609448?p=1 Left inguinal hernia may need surgical r eferral if becomnes symptomatic Next Appt Details prn Reason: Provider Name:Alyssa Yao, 01:15:00 PM, [address] [place] [address], , [place], [place], [facility], Insurance Providers Payer Name Payer Address Payer Phone Insured Name Patient Relati onship to Insured Coverage Start Date Coverage End Date [facility] [address] [address] [facility] [phone] KAROLINE GRIMALDO MEDICARE Part A and B [address] [facility] [phone] KAROLINE GRIMALDO self
--- OUTSIDE RECORDS SUMMARY | 2021-03-29 09:56 | CCD ---
Author Author [employer] [facility] Organization [facility] Address Unknown Phone Unavailable Care Team Providers Care Shorthand Reporter Name Role Phone Eder Briseno Unavailable PROBLEMS Type Condition ICD9-CM Code [id number] Code Onset Dates Condition S tatus W/U Status Risk SNOMED Code Notes Problem Irritable bowel syndrome with constipation K58.1 Active confirmed 479214021 extensive w/u 5526-9560 (see PMH), all u nrevealing Problem Screening for breast cancer Z12.39 Active confirmed 436682467 Problem Other chronic pain G89.29 Active confirmed 8 1177706 Problem Acute midline low back pain with sciatica, sciatica laterality unspecified M54.40 Active confirmed 438245972 Problem Morbid obesity due to excess calories E66.01 Ac tive confirmed 781349313 Problem History of left knee replacement Z96.652 Active confirmed 911295474 Problem Gastroesophageal reflux disease without esophagitis K21.9 Active confirmed 333595480 Problem Medicare annual wellness visit, subsequent Z00.00 Active confirmed 035492071 Problem Vitamin D deficiency E55.9 Active confirmed 46324011 Problem Spondylolisthesis at L5-S1 level M43.17 Active confirmed 497171117 Problem Other and unspecified hyperlipidemia E78.5 Act kirti confirmed 60023636 ALLERGIES Allergen (clinical drug ingredient) Drug/Non Drug Allergy do cumented on EMR Reaction Allergy Type Onset Date Status Penicillin (For Allergies Use Only) Anaphylaxis Drug Aller gy Active Linzess rectal pain/spasms Non Drug Allergy Active celecoxib Celebrex([facility]C Code:[address]-10) Unknown Drug Allergy Active erythromycin Erythromycin([facility] Code:[address]-70) Anaphylaxis Drug Al lergy Active Amitiza involuntary movements Non Drug Allergy Active gabapentin Gabapentin([facility] Code:[address]-19) Unknown Drug Allergy Active bees Anaphylaxis Non Drug Allergy Active sulfamethoxazole / trimethoprim Bactrim([facility] Code:[address]-21) Rash Drug Allergy Active ENCOUNTERS from 1965 to 2021-03-04 Encounter Location Date Provider Diagnosis [facility] [address] [place] [address] Feb, Eder Briseno IMMUNIZATIONS Vaccine Route Administration Date Status COVID-19 dose #2 given elsewhere Unspecified Unknown [facility] 2020 Administered COVID-19 dose #1 given elsewhere Unspecified Unknown [facility] 2020 Administered TDAP 0.5mL (Boostrix) IM [...] Information RESULTS No Results REASON FOR VISIT nexium MEDICAL (GENERAL) HISTORY Type Description Date Medical History arthritis, R > L knee - [facility] Medical History morbid obesity Medical History seasonal [...] History S1 bilateral epidural spinal injections at [facility] 01/28, complicated by spinal CROSS, admitted x [...] for 90 Next Appt Details Provider Name:Eder Marquezjered, 2021-03 10:45:00 AM, [address] [facility] [address], , [place], [address], Provider Name:Alyssa Yao, 01:45:00 PM, [address] [place] [address], , [place], [address], Insurance Providers Payer Name Payer Address Payer Phone Insured Name Patient Relati onship to Insured Coverage Start Date Coverage End Date MEDICARE Part A and B [address] [facility] [id number] [phone] KAROLINE GRIMALDO [facility] [address] [address] [facility] [phone] KAROLINE GRIMALDO
--- OUTSIDE RECORDS SUMMARY | 2021-03-29 09:56 | CCD | Continuity of Care Document ---
Author Author Sri BUCHANAN [facility] Organization Unknown Address [address] [address] Phone [phone] Care Team Providers Care Eligibility Counselor Name Role Phone Eder Briseno MD [facility] [phone] Problems Description No Active Problems Social History [...] H/L Range Note Comprehensive Metabolic Prof 01/01/2021 [facility] [address] [place] [address] Glu 108 mg/dL Normal 70-110 1 BUN [...] Normal 6-38 5 Complete Blood Count 01/01/2021 [facility] [address] [place] [address] WBC 10.21 x10E3/uL Normal 4.0-10.5 RBC 3.60 [...] Abs. Lymph. 1.68 x10E3/uL Normal 1.0-3.5 Abs. Daniels. 1.09 x10E3/uL High 0.1-1.0 Abs. Eosin. 0.03 x10E3/uL Low 0.1-0.7 Abs. Baso. 0.05 x10E3/uL Normal 0.0-0.1 Abs. Imm. Gran. 0.04 x10E3/uL Normal 0.0-0.1 Anrbc% 0 % Normal 0 Comprehensive Metabolic Prof 12/31/2020 [facility] [address] [place] [address] Glu 112 mg/dL High 70-110 6 BUN [...] Normal 6-38 10 Laboratory test finding 12/26/[address] [address] Bretype B POSITIVE Normal Laboratory test finding 12/26/2020 [facility] [address] [place] [address] Lesr 13 MM/HR Normal 0-20 11 Type&Screen 12/26/2020 [facility] [address] [place] [address] Blood Type B POSITIVE Normal Antibody Screen NEGATIVE Normal Laboratory test finding 12/26/2020 [facility] [address] [place] [address] [id number] Rheonix Negative Normal Negative 12 1 Patients taking Sulfasalazin e may have falsely depressed Glucose levels. Patients taking Sulfapyridine may have falsely elevated Glucose levels. Patients should be drawn for Glucose before the initial administration of either drug. 2 ESRD Dialysis patient Albumi n reference range: 2.9-4.4 g/dL 3 The Dimension [place] Total Bi lirubin is not recommended for [...] reference range: 2.9-4.4 g/dL 8 The Dimension [place] Total Bi lirubin is not recommended for [...] N Restricted limb verified Y 12 The Renrenmoneyx COVID-19 MDx Ass ay is an endpoint [...] sole basis for patient management decisions. The Sqrlonix MDx Assay is only for use under the Food and Drug Administration's Emergency Use Authorization. Procedures Date Code Description Status 03/13/2021 57022 Therapeutic Procedure, Each 15 M inutes Completed 02/20/2021 79944 Therapeutic Procedure, Each 15 M inutes Completed 02/20/2021 98116 X-Ray Knee Ap & Lateral W/Obliqu es Three Views Completed 02/17/2021 44350 Therapeutic Procedure, Each 15 M inutes Completed 02/12/2021 08822 Therapeutic Procedure, Each 15 M inutes Completed 02/10/2021 28878 Therapeutic Procedure, Each 15 M inutes Completed 01/29/2021 88087 Therapeutic Procedure, Each 15 M inutes Completed 01/29/2021 09063 Hot Or Cold Packs Completed 01/27/2021 46220 Physical Therapy Eval - Low Comp lexity Completed 12/30/2020 81185 Arthroplasty "Total Knee" Medial & Lateral W/ Or W/O Patella Resu Completed 11/20/2020 38709 Office/Outpatient Established Hi gh MDM 40-54 Min Completed 11/20/2020 76328 X-Ray Knee Complete W/Obliques & Tunnel And/Or Standing Views Completed 11/13/2020 20249 Office/Outpatient Established Mo d MDM 30-39 Min Completed 11/13/2020 67851 X-Ray Knee Complete W/Obliques & Tunnel And/Or [...] artificial knee joint Office Visit 12/29/2020 3:[place] PA-C Z01.818 Encounter for other preprocedural examination M17.12 Unilateral primary osteoarth ritis, left knee Office Visit 11/13/2020 8:15a Yenifer Davis MD M17.0 Bilateral primary osteoarthritis of knee Assessments Date Code Description Provider 02/20/2021 Z47.1 Aftercare following joint replac ement surgery Lester Tovar MD 02/20/2021 Z96.652 Presence of left artificial knee joint Kelsey Lisa Buchanan, BUNCH BREAKER MACHINE OPERATOR 02/20/2021 Z96.652 Presence of left artificial knee joint Lester Tovar MD 02/17/2021 Z47.1 Aftercare following joint replac ement surgery Kelsey Gonzalez Buchanan, BUNCH BREAKER MACHINE OPERATOR 02/17/2021 Z96.652 Presence of left artificial knee joint Kelsey Gonzalez Buchanan, BUNCH BREAKER MACHINE OPERATOR 02/12/2021 Z47.1 Aftercare following joint replac ement surgery Kelsey Gonzalez Dewayne, BUNCH BREAKER MACHINE OPERATOR 02/12/2021 Z96.652 Presence of left artificial knee joint Kelsey Buchanan, BUNCH BREAKER MACHINE OPERATOR 02/10/2021 Z47.1 Aftercare following joint replac ement surgery Kelsey Roldanregan Buchanan, BUNCH BREAKER MACHINE OPERATOR 02/10/2021 Z96.652 Presence of left artificial knee joint Kelsey Buchanan, BUNCH BREAKER MACHINE OPERATOR 01/29/2021 Z47.1 Aftercare following joint replac [...] [facility] passed to PT Dept sw. Created [address] [place] [address] [phone] Mary Lou Tovar PA-C Physical Therapy Left Knee p er hany d at [facility] no auth req patient is going to [facility] passed to PT dept sw. Created [address] [place] [phone] Zacarias Engel MD SURGERY NO AUTH REQUIRED FOR TOTAL LEFT HIP ([id number]) TO SURGERY NT Created [address] [place] [address], [place] [address] [phone] Zacarias Engel MD SURGERY PER SADI AT [facility] NO A UTH REQUIRED FOR TOTAL LEFT KNEE SAME DAY SURGERY AND COVERED AT 100% TO SURGERY NT Created [address] [place] [address], [place] [address] [phone]
--- OUTSIDE RECORDS SUMMARY | 2021-03-29 09:56 | CCD | Continuity of Care Document ---
Author Author Sri BUCHANAN [facility] Organization Unknown Address [address] [place] [address] Phone [phone] Care Team Providers Care Linen Grader Name Role Phone Eder Briseno MD [facility] [phone] Problems Description No Active Problems Social History Type Date Description Comments Sex Unknown ETOH Use Denies alcohol use Tobacco Use Start: Unknown End: Unknown Patient is a former smoker quit 2009 Allergies and adverse reactions Active Allergies Criticality Reaction | Severity Comments [...] Provide r Date Acetaminophen-Codeine #3 300-30mg Tablets take 1 tablet by mouth every 6 hours as needed for pain, surg date 12/30/2020 20tabs Lester Tovar MD 03/11/2021 Clindamycin HCL 300mg Capsules 2 [...] H/L Range Note Comprehensive Metabolic Prof 01/01/2021 [facility] [address] [place] [address] Glu 108 mg/dL Normal 70-110 1 BUN [...] Normal 6-38 5 Complete Blood Count 01/01/2021 [facility] [address] [place] [address] WBC 10.21 x10E3/uL Normal 4.0-10.5 RBC 3.60 [...] Abs. Lymph. 1.68 x10E3/uL Normal 1.0-3.5 Abs. [place]. 1.09 x10E3/uL High 0.1-1.0 Abs. Eosin. 0.03 x10E3/uL Low 0.1-0.7 Abs. Baso. 0.05 x10E3/uL Normal 0.0-0.1 Abs. Imm. Gran. 0.04 x10E3/uL Normal 0.0-0.1 Anrbc% 0 % Normal 0 Comprehensive Metabolic Prof 12/31/2020 [facility] [address] [place] [address] Glu 112 mg/dL High 70-110 6 BUN [...] Normal 6-38 10 Laboratory test finding 12/26/2020 [facility] [address] [place] [address] Bretype B POSITIVE Normal Laboratory test finding 12/26/2020 [facility] [address] [place] [address] Lesr 13 MM/HR Normal 0-20 11 Type&Screen 12/26/2020 [facility] [address] [place] [address] Blood Type B POSITIVE Normal Antibody Screen NEGATIVE Normal Laboratory test finding 12/26/2020 [facility] [address] [place] [address] [id number] Rheonix Negative Normal Negative 12 1 Patients taking Sulfasalazin e may have falsely depressed Glucose levels. Patients taking Sulfapyridine may have falsely elevated Glucose levels. Patients should be drawn for Glucose before the initial administration of either drug. 2 ESRD Dialysis patient Albumi n reference range: 2.9-4.4 g/dL 3 The Dimension [place] Total Bi lirubin is not recommended for [...] reference range: 2.9-4.4 g/dL 8 The Dimension [place] Total Bi lirubin is not recommended for [...] N Restricted limb verified Y 12 The DroidUnit.netx COVID-19 MDx Ass ay is an endpoint [...] sole basis for patient management decisions. The Vadioonix MDx Assay is only for use under the Food and Drug Administration's Emergency Use Authorization. Procedures Date Code Description Status 03/13/2021 23061 Therapeutic Procedure, Each 15 M inutes Completed 02/20/2021 66446 Therapeutic Procedure, Each 15 M inutes Completed 02/20/2021 41225 X-Ray Knee Ap & Lateral W/Obliqu es Three Views Completed 02/17/2021 12035 Therapeutic Procedure, Each 15 M inutes Completed 02/12/2021 28659 Therapeutic Procedure, Each 15 M inutes Completed 02/10/2021 70211 Therapeutic Procedure, Each 15 M inutes Completed 01/29/2021 51297 Therapeutic Procedure, Each 15 M inutes Completed 01/29/2021 93426 Hot Or Cold Packs Completed 01/27/2021 24367 Physical Therapy Eval - Low Comp lexity Completed 12/30/2020 11055 Arthroplasty "Total Knee" Medial & Lateral W/ Or W/O Patella Resu Completed 11/20/2020 15323 Office/Outpatient Established Hi gh MDM 40-54 Min Completed 11/20/2020 57863 X-Ray Knee Complete W/Obliques & Tunnel And/Or Standing Views Completed 11/13/2020 39204 Office/Outpatient Established Mo d MDM 30-39 Min Completed 11/13/2020 07875 X-Ray Knee Complete W/Obliques & Tunnel And/Or [...] artificial knee joint Office Visit 12/29/2020 3:00p Yenifer Tovar PA-C Z01.818 Encounter for other preprocedural examination M17.12 Unilateral primary osteoarth ritis, left knee Office Visit 11/13/2020 8:15a Yenifer Davis MD M17.0 Bilateral primary osteoarthritis of knee Assessments Date Code Description Provider 03/13/2021 Z47.1 Aftercare following joint replac ement surgery Kelsey Buchanan, CRUDE UNIT OPERATOR 03/13/2021 Z96.652 Presence of left artificial knee joint Kesley Lisa Buchanan, CRUDE UNIT OPERATOR 02/20/2021 Z47.1 Aftercare following joint replac ement surgery Lester Tovar MD 02/20/2021 Z96.652 Presence of left artificial knee joint Kelsey Lisa Buchanan, CRUDE UNIT OPERATOR 02/20/2021 Z96.652 Presence of left artificial knee joint Lester Tovar MD 02/17/2021 Z47.1 Aftercare following joint replac ement surgery Kelseyan Roldanregan Buchanan, CRUDE UNIT OPERATOR 02/17/2021 Z96.652 Presence of left artificial knee joint Kelsey Lisa Buchanan, CRUDE UNIT OPERATOR 02/12/2021 Z47.1 Aftercare following joint replac ement surgery Kelsey Lisa Buchanan, CRUDE UNIT OPERATOR 02/12/2021 Z96.652 Presence of left artificial knee joint Kelsey Lisa Buchanan, CRUDE UNIT OPERATOR 02/10/2021 Z47.1 Aftercare following joint replac ement surgery Kelsey Lisa Buchanan, CRUDE UNIT OPERATOR 02/10/2021 Z96.652 Presence of left artificial knee joint Kelsey iLsa Buchanan, CRUDE UNIT OPERATOR 01/29/2021 Z47.1 Aftercare following joint replac [...] for other preprocedura l examination Mary Lou Tovar PA-C 12/29/2020 M17.12 Unilateral primary osteoarthriti s, left knee Mary Lou Tovar PA-C 12/26/2020 Z01.818 Encounter for other preprocedura l examination Mary Lou Tovar PA-C 12/26/2020 M17.12 Unilateral primary osteoarthriti s, left knee Mary Lou Tovar PA-C 11/20/2020 M17.12 Unilateral primary osteoarthriti s, left knee Lester Tovar MD 11/13/2020 M17.0 Bilateral primary osteoarthritis of knee Ruslan Davis MD Plan of Treatment No Information Available Functional Status Description No Information Available Mental Status Description No Information Available Referrals Refer to Dr Reason for Referral Status Appt Date Mary Lou Tovar PA-C Physical Therapy Left Knee p er ins no auth req based on medical necessity patient is going to [facility] passed to PT Dept sw. Created [address] [place] [phone] Mary Lou Tovar PA-C Physical Therapy Left Knee p er hany d at [facility] no auth req patient is going to [facility] passed to PT dept sw. Created [address] [place] [phone] Zacarias Engel MD SURGERY NO AUTH REQUIRED FOR TOTAL LEFT HIP ([id number]) TO SURGERY NT Created [address] [place] [address], [address] [address] [phone] Zacarias Engel MD SURGERY PER SAID AT [facility] NO A UTH REQUIRED FOR TOTAL LEFT KNEE SAME DAY SURGERY AND COVERED AT 100% TO SURGERY NT Created [address] [place] [address], [place] [id number] [phone]
--- OUTSIDE RECORDS SUMMARY | 2021-03-29 09:57 | CCD | Continuity of Care Document ---
Author Author Sri [facility] Organization Unknown Address [address] [address] Phone [phone] Care Team Providers Care Generator Operator Straight Bevel Gear Name Role Phone Eder Briseno MD [facility] [phone] Problems Description No Active Problems Social History [...] 03/28/2015 Bactrim Unable to assess criticality 03/28/2015 Medications Active Medications SIG Qnty Indications Ordering Provide r Date Clindamycin HCL 300mg Capsules 2 tabs by mouth 1 hour prior to dental procedure 2caps Lester Tovar MD 01/26/2021 Lyrica 25mg Capsules 1 by mouth twice a day 60caps Lester Tovar MD 01/07/2021 Xarelto 10mg Tablets 1 tab by mouth [...] Knee Surgery. 14tabs Lester Tovar MD 12/09/2020 Oxycodone-Acetaminophen 5-325mg Ta blets Take 1 Tablet By Mouth Every 4-6 Hours as Needed For Pain, Surg Date 12/30/2020 20tabs Lester Tovar MD 12/09/2020 Tramadol HCL 50mg Tablets 1 every 6 hours as needed pain 40tabs M17.0 Zacarias Engel MD 11/13/2020 Gabapentin 100mg Capsules 1 by mouth three times a day 90caps Zacarias Engel MD 07/03/2020 Cyclobenzaprine HCL 10mg Tablets take one tablet by mouth three times a day as needed 90tabs M16.11 Melissa Engel MD 06/02/2020 Estradiol 1mg Tablets 1 by mouth every day Unknown Nexium 24HR 20mg Tablets DR 1 by mouth every day Unknown Tylenol 325mg Tablets 1 or 2 every 6 hours prn/pain Unknown Epipen 2-Addi 0.3mg/0 .3ML Solution Auto-Inject inject as directed Unknown 0 Immunizations Description No Information Available Vital Signs [...] H/L Range Note Comprehensive Metabolic Prof 01/01/2021 [facility] [address] [place] [address] Glu 108 mg/dL Normal 70-110 1 BUN [...] Normal 6-38 5 Complete Blood Count 01/01/2021 [facility] [address] [place] [address] WBC 10.21 x10E3/uL Normal 4.0-10.5 RBC 3.60 [...] Abs. Lymph. 1.68 x10E3/uL Normal 1.0-3.5 Abs. [place]. 1.09 x10E3/uL High 0.1-1.0 Abs. Eosin. 0.03 x10E3/uL Low 0.1-0.7 Abs. Baso. 0.05 x10E3/uL Normal 0.0-0.1 Abs. Imm. Gran. 0.04 x10E3/uL Normal 0.0-0.1 Anrbc% 0 % Normal 0 Comprehensive Metabolic Prof 12/31/[address] [address] Glu 112 mg/dL High 70-110 6 BUN [...] Normal 6-38 10 Laboratory test finding 12/26/[address] [address] Bretype B POSITIVE Normal Laboratory test finding 12/26/[address] [address] Lesr 13 MM/HR Normal 0-20 11 Type&Screen 12/26/[address] [address] Blood Type B POSITIVE Normal Antibody Screen NEGATIVE Normal Laboratory test finding 12/26/[address] [address] [id number] Rheonix Negative Normal Negative 12 1 Patients taking Sulfasalazin e may have falsely depressed Glucose levels. Patients taking Sulfapyridine may have falsely elevated Glucose levels. Patients should be drawn for Glucose before the initial administration of either drug. 2 ESRD Dialysis patient Albumi n reference range: 2.9-4.4 g/dL 3 The Dimension [place] Total Bi lirubin is not recommended for [...] reference range: 2.9-4.4 g/dL 8 The Dimension [place] Total Bi lirubin is not recommended for [...] N Restricted limb verified Y 12 The KonaWarex COVID-19 MDx Ass ay is an endpoint [...] sole basis for patient management decisions. The Rheonix MDx Assay is only for use under the Food and Drug Administration's Emergency Use Authorization. Procedures Date Code Description Status 01/27/2021 42444 Physical Therapy Eval - Low Comp lexity Completed 12/30/2020 17310 Arthroplasty "Total Knee" Medial & Lateral W/ Or W/O Patella Resu Completed 11/20/2020 77777 Office/Outpatient Established Hi gh MDM 40-54 Min Completed 11/20/2020 35985 X-Ray Knee Complete W/Obliques & Tunnel And/Or Standing Views Completed 11/13/2020 55501 Office/Outpatient Established Mo d MDM 30-39 Min Completed 11/13/2020 08236 X-Ray Knee Complete W/Obliques & Tunnel And/Or Standing Views Completed Medical Devices Description No Information Available Encounters Type Date Location Provider Dx Diagnosis Office Visit 01/19/[facility]21 9[facility] [place] [place] Z47.1 Aftercare following joint replacement surgery Z96.652 Presence of left artificial knee joint Office Visit 01/07/2021 10[facility] [place] Z47.1 Aftercare following joint replacement surgery Z96.652 Presence of left artificial knee joint Office Visit 12/29/2020 3:[facility] PA-C Z01.818 Encounter for other preprocedural examination M17.12 Unilateral primary osteoarth ritis, left knee Office Visit 11/13/2020 8:[facility]a [place] MD M17.0 Bilateral primary osteoarthritis of knee Assessments Date Code Description Provider 01/27/2021 Z47.1 Aftercare following joint replac ement surgery Chapito Gardiner, PT, DPT 01/27/2021 Z96.652 Presence of left artificial knee joint Chapito Gardiner, PT, DPT 01/19/2021 Z47.1 Aftercare following joint [...] for other preprocedura l examination Mary Lou CornelioAusten IGLESIA Tovar 12/26/2020 M17.12 Unilateral primary osteoarthriti s, left knee Mary Lou Mccurdy IGLESIA Tovar 11/20/2020 M17.12 Unilateral primary osteoarthriti s, left knee Lester Tovar MD 11/13/2020 M17.0 Bilateral primary osteoarthritis of knee Ruslan Davis MD Plan of Treatment Future Appointment(s):* 02/05/2021 2:30 pm - Kelsey Buchanan PRODUCT DEVELOPMENT ACTUARY at Physical Therapy * 02/03/2021 2:30 pm - Kelsey Buchanan PTA at Physical Therapy * 02/20/2021 9:45 am - Lester Tovar MD at [employer] Functional Status Description No Information Available Mental Status Description No Information Available Referrals Refer to Dr Reason for Referral Status Appt Date Mary Lou Tovar PA-C Physical Therapy Left Knee p er ins no auth req based on medical necessity patient is going to [facility] passed to PT Dept sw. Created [address] [place] [phone] Mary Lou Tovar PA-C Physical Therapy Left Knee p er hany d at [facility] no auth req patient is going to [facility] passed to PT dept sw. Created [address] [place] [phone] Zacarias Engel MD SURGERY NO AUTH REQUIRED FOR TOTAL LEFT HIP ([id number]) TO SURGERY NT Created [address] [place] [address], [place] [id number] [phone] Zacarias Engel MD SURGERY PER SADI AT [facility] NO A UTH REQUIRED FOR TOTAL LEFT KNEE SAME DAY SURGERY AND COVERED AT 100% TO SURGERY NT Created [address] [place] [address], [place] [address] [phone]
--- OUTSIDE RECORDS SUMMARY | 2021-03-29 09:57 | CCD | Continuity of Care Document ---
Author Author Sri BUCHANAN [facility] Organization Unknown Address [address] [place] [address] Phone [phone] Care Team Providers Care Airframe And Powerplant Technician Name Role Phone Eder Briseno MD [facility] [phone] Problems Description No Active Problems Social History [...] Tovar MD 12/09/2020 Oxycodone-Acetaminophen 5-325mg Ta blets take 1 tablet by mouth every 4-6 hours as needed for pain, surg date 12/30/2020 20tabs Lester Tovar MD 12/09/2020 Tramadol [...] 60caps Lester Tovar MD 01/07/2021 - 02/19/2021 Immunizations Description No Information Available Vital Signs [...] H/L Range Note Comprehensive Metabolic Prof 01/01/2021 [facility] [address] [place] [address] Glu 108 mg/dL Normal 70-110 1 BUN [...] Normal 6-38 5 Complete Blood Count 01/01/2021 [facility] [address] [place] [address] WBC 10.21 x10E3/uL Normal 4.0-10.5 RBC 3.60 [...] Abs. Lymph. 1.68 x10E3/uL Normal 1.0-3.5 Abs. [place]. 1.09 x10E3/uL High 0.1-1.0 Abs. Eosin. 0.03 x10E3/uL Low 0.1-0.7 Abs. Baso. 0.05 x10E3/uL Normal 0.0-0.1 Abs. Imm. Gran. 0.04 x10E3/uL Normal 0.0-0.1 Anrbc% 0 % Normal 0 Comprehensive Metabolic Prof 12/31/[address] [address] Glu 112 mg/dL High 70-110 6 BUN [...] Normal 6-38 10 Laboratory test finding 12/26/[address] [address] Bretype B POSITIVE Normal Laboratory test finding 12/26/[address] [address] Lesr 13 MM/HR Normal 0-20 11 Type&Screen 12/26/2020 [facility] [address] [place] [address] Blood Type B POSITIVE Normal Antibody Screen NEGATIVE Normal Laboratory test finding 12/26/[address] [address] [id number] Rheonix Negative Normal Negative 12 1 Patients taking Sulfasalazin e may have falsely depressed Glucose levels. Patients taking Sulfapyridine may have falsely elevated Glucose levels. Patients should be drawn for Glucose before the initial administration of either drug. 2 ESRD Dialysis patient Albumi n reference range: 2.9-4.4 g/dL 3 The Dimension [place] Total Bi lirubin is not recommended for [...] reference range: 2.9-4.4 g/dL 8 The Dimension [place] Total Bi lirubin is not recommended for [...] N Restricted limb verified Y 12 The [employer] COVID-19 MDx Ass ay is an endpoint [...] Use Authorization. Procedures Date Code Description Status 02/20/2021 94727 Therapeutic Procedure, Each 15 M inutes Completed 02/20/2021 23329 X-Ray Knee Ap & Lateral W/Obliqu es Three Views Completed 02/17/2021 58747 Therapeutic Procedure, Each 15 M inutes Completed 02/12/2021 08373 Therapeutic Procedure, Each 15 M inutes Completed 02/10/2021 32005 Therapeutic Procedure, Each 15 M inutes Completed 01/29/2021 73954 Therapeutic Procedure, Each 15 M inutes Completed 01/29/2021 96952 Hot Or Cold Packs Completed 01/27/2021 95814 Physical Therapy Eval - Low Comp lexity Completed 12/30/2020 78628 Arthroplasty "Total Knee" Medial & Lateral W/ Or W/O Patella Resu Completed 11/20/2020 59917 Office/Outpatient Established Hi gh MDM 40-54 Min Completed 11/20/2020 63347 X-Ray Knee Complete W/Obliques & Tunnel And/Or Standing Views Completed 11/13/2020 12840 Office/Outpatient Established Mo d MDM 30-39 Min Completed 11/13/2020 99640 X-Ray Knee Complete W/Obliques & Tunnel And/Or Standing Views Completed Medical Devices Description No Information Available Encounters Type Date Location Provider Dx Diagnosis Office Visit 01/19/2021 9:45a [place] Tovar MD Z47.1 Aftercare following joint replacement [...] of left artificial knee joint Kelsey Buchanan, VETERINARY TECHNOLOGY INSTRUCTOR 02/20/2021 Z96.652 Presence of left artificial knee joint Lester Tovar MD 02/17/2021 Z47.1 Aftercare following joint replac ement surgery Kelsey Buchanan, VETERINARY TECHNOLOGY INSTRUCTOR 02/17/2021 Z96.652 Presence of left artificial knee joint Kelsey Buchanan, VETERINARY TECHNOLOGY INSTRUCTOR 02/12/2021 Z47.1 Aftercare following joint replac ement surgery Kelsey Buchanan, VETERINARY TECHNOLOGY INSTRUCTOR 02/12/2021 Z96.652 Presence of left artificial knee joint Kelsey Buchanan, VETERINARY TECHNOLOGY INSTRUCTOR 02/10/2021 Z47.1 Aftercare following joint replac ement surgery Kelsey Buchanan, VETERINARY TECHNOLOGY INSTRUCTOR 02/10/2021 Z96.652 Presence of left artificial knee joint Kelsey Buchanan, VETERINARY TECHNOLOGY INSTRUCTOR 01/29/2021 Z47.1 Aftercare following joint replac ement [...] knee Ruslan Davis MD Plan of Treatment 02/20/2021 - Lester Tovar MD* Z47.1 Aftercare following joint replacement surgery * Z96.652 Presence of left artificial knee joint* Follow up:* 3 months with [facility] lt knee re-check w/xrays (3 views) Functional Status Description No Information Available Mental Status Description No Information Available Referrals Refer to Dr Reason for Referral Status Appt Date Mary Lou Tovar PA-C Physical Therapy Left Knee p er ins no auth req based on medical necessity patient is going to [facility] passed to PT Dept sw. Created [address] [place] [phone] Mary Lou Tovar PA-C Physical Therapy Left Knee p er hany d at [facility] no auth req patient is going to [facility] passed to PT dept sw. Created [address] [place] [phone] Zacarias Engel MD SURGERY NO AUTH REQUIRED FOR TOTAL LEFT HIP (14083) TO SURGERY NT Created [address] [place] [address], [place] [address] [phone] Zacarias Engel MD SURGERY PER SADI AT [facility] NO A UTH REQUIRED FOR TOTAL LEFT KNEE SAME DAY SURGERY AND COVERED AT 100% TO SURGERY NT Created [address] [place] [address], [place] [address] [phone]
--- OUTSIDE RECORDS SUMMARY | 2021-03-29 09:57 | CCD | Continuity of Care Document ---
Author Author rSi BUCHANAN [facility] Organization Unknown Address [address] [place] [address] Phone [phone] Care Team Providers Care Pug Mill Operator Helper Name Role Phone Eder Briseno MD [facility] [phone] Problems Description No Active Problems Social History [...] H/L Range Note Comprehensive Metabolic Prof 01/01/2021 [facility] [address] [place] [address] Glu 108 mg/dL Normal 70-110 1 BUN [...] Normal 6-38 5 Complete Blood Count 01/01/2021 [facility] [address] [place] [address] WBC 10.21 x10E3/uL Normal 4.0-10.5 RBC 3.60 [...] Abs. Lymph. 1.68 x10E3/uL Normal 1.0-3.5 Abs. [place]. 1.09 x10E3/uL High 0.1-1.0 Abs. Eosin. 0.03 x10E3/uL Low 0.1-0.7 Abs. Baso. 0.05 x10E3/uL Normal 0.0-0.1 Abs. Imm. Gran. 0.04 x10E3/uL Normal 0.0-0.1 Anrbc% 0 % Normal 0 Comprehensive Metabolic Prof 12/31/[address] [address] Glu 112 mg/dL High 70-110 6 BUN [...] Normal 6-38 10 Laboratory test finding 12/26/[address] [address] Bretype B POSITIVE Normal Laboratory test finding 12/26/[address] [address] Lesr 13 MM/HR Normal 0-20 11 Type&Screen 12/26/2020 [facility] [address] [place] [address] Blood Type B POSITIVE Normal Antibody Screen NEGATIVE Normal Laboratory test finding 12/26/[address] [address] [id number] Rheonix Negative Normal Negative 12 1 Patients taking Sulfasalazin e may have falsely depressed Glucose levels. Patients taking Sulfapyridine may have falsely elevated Glucose levels. Patients should be drawn for Glucose before the initial administration of either drug. 2 ESRD Dialysis patient Albumi n reference range: 2.9-4.4 g/dL 3 The [employer] [place] Total Bi lirubin is not recommended for [...] reference range: 2.9-4.4 g/dL 8 The [employer] [place] Total Bi lirubin is not recommended for [...] N Restricted limb verified Y 12 The [employer] COVID-19 MDx Ass ay is an endpoint [...] Use Authorization. Procedures Date Code Description Status 01/29/2021 74401 Therapeutic Procedure, Each 15 M inutes Completed 01/29/2021 22392 Hot Or Cold Packs Completed 01/27/2021 85157 Physical Therapy Eval - Low Comp lexity Completed 12/30/2020 42641 Arthroplasty "Total Knee" Medial & Lateral W/ Or W/O Patella Resu Completed 11/20/2020 46134 Office/Outpatient Established [facility] 40-54 Min Completed 11/20/2020 26357 X-Ray Knee Complete W/Obliques & Tunnel And/Or Standing Views Completed 11/13/2020 82670 Office/Outpatient Established Mo d MDM 30-39 Min Completed 11/13/2020 76636 X-Ray Knee Complete W/Obliques & Tunnel And/Or Standing Views Completed Medical Devices Description No Information Available Encounters Type Date Location Provider Dx Diagnosis Office Visit 01/19/2021 9:45a [place] Tovar MD Z47.1 Aftercare following joint replacement surgery Z96.652 Presence of left artificial knee joint Office Visit 01/07/2021 10:15a [place] Dev[place] Z47.1 Aftercare following joint replacement surgery Z96.652 Presence of left artificial knee joint Office Visit 12/29/2020 3:00p [place] Tovar PA-C Z01.818 Encounter for other preprocedural examination M17.12 Unilateral primary osteoarth ritis, left knee Office Visit 11/13/2020 8:15a [place] Davis MD M17.0 Bilateral primary osteoarthritis of knee Assessments Date Code Description Provider 01/29/2021 Z47.1 Aftercare following joint replac ement surgery hCapito Puentes PT, DPT 01/29/2021 Z96.652 Presence of left artificial knee joint Chapito Puentes, PT, DPT 01/27/2021 Z47.1 Aftercare following joint replac ement surgery Chapito Puentes PT, DPT 01/27/2021 Z96.652 Presence of left artificial knee joint Chapito Puentes PT, DPT 01/19/2021 Z47.1 Aftercare following joint [...] Davis MD Plan of Treatment Future Appointment(s):* 02/19/2021 2:30 pm - Kelsey Buchanan PTA at Physical Therapy * 02/17/2021 2:30 pm - Kelsey Buchanan PTA at Physical Therapy * 02/12/2021 2:30 pm - Kelsey Buchanan PTA at Physical Therapy * 02/20/2021 9:45 am - Lester Tovar MD at [place] Functional Status Description No Information Available Mental Status Description No Information Available Referrals Refer to Dr Reason for Referral Status Appt Date Mary Lou Tovar PA-C Physical Therapy Left Knee p er ins no auth req based on medical necessity patient is going to [facility] passed to PT Dept sw. Created [address] [place] [phone] Mary Lou Tovar PA-C Physical Therapy Left Knee p er hany d at [facility] no auth req patient is going to [facility] passed to PT dept sw. Created [address] [place] [phone] Zacarias Engel MD SURGERY NO AUTH REQUIRED FOR TOTAL LEFT HIP ([address]80) TO SURGERY NT Created [address] [facility], [address] [place] [address] [phone] Zacarias Engel MD SURGERY PER SADI AT [facility] REQUIRED FOR TOTAL LEFT KNEE SAME DAY SURGERY AND COVERED AT 100% TO SURGERY NT Created [address], [address] [place] [address] [phone]
--- OUTSIDE RECORDS SUMMARY | 2021-03-29 09:57 | CCD | Continuity of Care Document ---
Author Author Sri GARCIA MD Organization Unknown Address [address] [place] [address], [facility] e [address] [place] [address] Phone [phone] Care Team Providers Care Attendance Officer Name Role Phone Eder Briseno MD [facility] [phone] Problems Description No Active Problems Social History [...] hour prior to dental procedure 2caps Lester Garcia MD 01/26/2021 Xarelto 10mg Tablets 1 tab by mouth everyday after surgery for 14 days (do not fill until 01/08) 14tabs Lester Garcia MD 12/16/2020 Mupirocin 2% Ointment apply a pea sized amount to the nasal passages 3 times a day for 5 days prior to surgery 22gm Lester Garcia MD 12/09/2020 Hibiclens 4% Liquid use in shower once daily for 5 days before surgery 1units Lester Garcia MD 12/09/2020 Xarelto 10mg Tablets 1 Tab By Mouth Daily For 14 Days For Post Op Knee Surgery. 14tabs Lester Garcia MD 12/09/2020 Oxycodone-Acetaminophen 5-325mg Ta blets take 1 tablet by mouth every 4-6 hours as needed for pain, surg date 12/30/2020 20tabs Lester Garcia MD 12/09/2020 Tramadol HCL 50mg Tablets 1 [...] by mouth twice a day 60caps Lester Garcia MD 01/07/2021 - 02/19/2021 Immunizations Description No [...] H/L Range Note Comprehensive Metabolic Prof 01/01/2021 [facility] [address] [place] [address] Glu 108 mg/dL Normal 70-110 1 BUN [...] Normal 6-38 5 Complete Blood Count 01/01/2021 [facility] [address] [place] [address] WBC 10.21 x10E3/uL Normal 4.0-10.5 RBC 3.60 [...] Abs. Lymph. 1.68 x10E3/uL Normal 1.0-3.5 Abs. [place]. 1.09 x10E3/uL High 0.1-1.0 Abs. Eosin. 0.03 x10E3/uL Low 0.1-0.7 Abs. Baso. 0.05 x10E3/uL Normal 0.0-0.1 Abs. Imm. Gran. 0.04 x10E3/uL Normal 0.0-0.1 Anrbc% 0 % Normal 0 Comprehensive Metabolic Prof 12/31/[address] [address] Glu 112 mg/dL High 70-110 6 BUN [...] Normal 6-38 10 Laboratory test finding 12/26/[address] [address] Bretype B POSITIVE Normal Laboratory test finding 12/26/[address] [address] Lesr 13 MM/HR Normal 0-20 11 Type&Screen 12/26/[address] [address] Blood Type B POSITIVE Normal Antibody Screen NEGATIVE Normal Laboratory test finding 12/26/[address] [address] [id number] Rheonix Negative Normal Negative 12 1 Patients taking Sulfasalazin e may have falsely depressed Glucose levels. Patients taking Sulfapyridine may have falsely elevated Glucose levels. Patients should be drawn for Glucose before the initial administration of either drug. 2 ESRD Dialysis patient Albumi n reference range: 2.9-4.4 g/dL 3 The Dimension [place] Total Bi lirubin is not recommended for [...] reference range: 2.9-4.4 g/dL 8 The Dimension [place] Total Bi lirubin is not recommended for [...] N Restricted limb verified Y 12 The [employer] COVID-19 MDx Ass ay is an endpoint [...] Authorization. Procedures Date Code Description Status 02/20/2021 96346 Therapeutic Procedure, Each 15 M inutes Completed 02/20/2021 76470 X-Ray Knee Ap & Lateral W/Obliqu es Three Views Completed 02/17/2021 23008 Therapeutic Procedure, Each 15 M inutes Completed 02/12/2021 14831 Therapeutic Procedure, Each 15 M inutes Completed 02/10/2021 22307 Therapeutic Procedure, Each 15 M inutes Completed 01/29/2021 08650 Therapeutic Procedure, Each 15 M inutes Completed 01/29/2021 34022 Hot Or Cold Packs Completed 01/27/2021 31220 Physical Therapy Eval - Low Comp lexity Completed 12/30/2020 51143 Arthroplasty "Total Knee" Medial & Lateral W/ Or W/O Patella Resu Completed 11/20/2020 77219 Office/Outpatient Established Hi gh MDM 40-54 Min Completed 11/20/2020 66035 X-Ray Knee Complete W/Obliques & Tunnel And/Or Standing Views Completed 11/13/2020 07427 Office/Outpatient Established Mo d MDM 30-39 Min Completed 11/13/2020 76223 X-Ray Knee Complete W/Obliques & Tunnel And/Or Standing Views Completed Medical Devices Description No Information Available Encounters Type Date Location Provider Dx Diagnosis Office Visit 01/19/2021 9:45a [place] Garcia MD Z47.1 Aftercare following joint replacement surgery Z96.652 Presence of left artificial knee joint Office Visit 01/07/2021 10:15a JOSHUA Morris Z47.1 Aftercare following joint replacement surgery Z96.652 Presence of left artificial knee joint Office Visit 12/29/2020 3:00p Yenifer Garcia PA-C Z01.818 Encounter for other preprocedural examination M17.12 Unilateral primary osteoarth ritis, left knee Office Visit 11/13/2020 8:15a Yenifer Davis MD M17.0 Bilateral primary osteoarthritis of knee Assessments Date Code Description Provider 02/20/2021 Z47.1 Aftercare following joint replac ement surgery Lester Garcia MD 02/20/2021 Z96.652 Presence of left artificial knee joint Kelsey Buchanan, SALES PROMOTION COORDINATOR 02/20/2021 Z96.652 Presence of left artificial knee joint Lester Garcia MD 02/17/2021 Z47.1 Aftercare following joint replac ement surgery Kelsey Buchanan, SALES PROMOTION COORDINATOR 02/17/2021 Z96.652 Presence of left artificial knee joint Kelsey Buchanan, SALES PROMOTION COORDINATOR 02/12/2021 Z47.1 Aftercare following joint replac ement surgery Kelsey Buchanan, SALES PROMOTION COORDINATOR 02/12/2021 Z96.652 Presence of left artificial knee joint Kelsey Buchanan, SALES PROMOTION COORDINATOR 02/10/2021 Z47.1 Aftercare following joint replac ement surgery Kelsey Buchanan, SALES PROMOTION COORDINATOR 02/10/2021 Z96.652 Presence of left artificial knee joint Kelsey Buchanan, SALES PROMOTION COORDINATOR 01/29/2021 Z47.1 Aftercare following joint replac ement surgery Chapito Puentes, PT, DPT 01/29/2021 Z96.652 Presence of left artificial knee joint Chapito Puentes, PT, DPT 01/27/2021 Z47.1 Aftercare following joint replac ement surgery Chapito Puentes, PT, DPT 01/27/2021 Z96.652 Presence of left artificial knee joint Chapito Puentes, PT, DPT 01/19/2021 Z47.1 Aftercare following joint replac ement surgery Lester Garcia MD 01/19/2021 Z96.652 Presence of left artificial knee joint Lester Garcia MD 01/07/2021 Z47.1 Aftercare following joint replac ement surgery JOSHUA Lucas 01/07/2021 Z96.652 Presence of left artificial knee joint JOSHUA Lucas 12/30/2020 M17.12 Unilateral primary osteoarthriti s, left knee Lester Garcia MD 12/30/2020 E66.01 Morbid (severe) obesity due to e xcess calories Lester Garcia MD 12/30/2020 Z68.39 Body mass index [BMI] 39.0-39.9, adult Lester Garcia MD 12/29/2020 Z01.818 Encounter for other preprocedura l examination Mary Lou Garcia PA-C 12/29/2020 M17.12 Unilateral primary osteoarthriti s, left knee Mary Lou Garcia PA-C 12/26/2020 Z01.818 Encounter for other preprocedura l examination Mary Lou LAusten Garcia PA-C 12/26/2020 M17.12 Unilateral primary osteoarthriti s, left knee Mary Lou Garcia PA-C 11/20/2020 M17.12 Unilateral primary osteoarthriti s, left knee Lester Garcia MD 11/13/2020 M17.0 Bilateral primary osteoarthritis of knee Ruslan Davis MD Plan of Treatment 02/20/2021 - Lester Garcia MD* Z47.1 Aftercare following joint replacement surgery * Z96.652 Presence of left artificial knee joint* Follow up:* 3 months with [facility] lt knee re-check w/xrays (3 views) Functional Status Description No Information Available Mental Status Description No Information Available Referrals Refer to Dr Reason for Referral Status Appt Date Mary Lou Gacria PA-C Physical Therapy Left Knee p er ins no auth req based on medical necessity patient is going to [facility] passed to PT Dept sw. Created [address] [place] [phone] Mary Lou Garcia PA-C Physical Therapy Left Knee p er hany d at [facility] no auth req patient is going to [facility] passed to PT dept sw. Created [address] [place] [phone] Zacarias Engel MD SURGERY NO AUTH REQUIRED FOR TOTAL LEFT HIP (96455) TO SURGERY NT Created [address] [place] [address], [place] [address] [phone] Zacarias Engel MD SURGERY PER SADI AT [facility] NO A UTH REQUIRED FOR TOTAL LEFT KNEE SAME DAY SURGERY AND COVERED AT 100% TO SURGERY NT Created [address] [place] [address], [place] [address] [phone]
--- OUTSIDE RECORDS SUMMARY | 2021-03-29 09:57 | CCD | Continuity of Care Document ---
Author Author Sri BUCHANAN [facility] Organization Unknown Address [address] [place] [address] Phone [phone] Care Team Providers Care Client Associate Name Role Phone Eder Briseno MD [facility] [phone] Problems Description No Active Problems Social History [...] H/L Range Note Comprehensive Metabolic Prof 01/01/2021 [facility] [address] [place] [address] Glu 108 mg/dL Normal 70-110 1 BUN [...] Normal 6-38 5 Complete Blood Count 01/01/2021 [facility] [address] [place] [address] WBC 10.21 x10E3/uL Normal 4.0-10.5 RBC 3.60 [...] Abs. Lymph. 1.68 x10E3/uL Normal 1.0-3.5 Abs. [place]. 1.09 x10E3/uL High 0.1-1.0 Abs. Eosin. 0.03 x10E3/uL Low 0.1-0.7 Abs. Baso. 0.05 x10E3/uL Normal 0.0-0.1 Abs. Imm. Gran. 0.04 x10E3/uL Normal 0.0-0.1 Anrbc% 0 % Normal 0 Comprehensive Metabolic Prof 12/31/[address] [address] Glu 112 mg/dL High 70-110 6 BUN [...] 6-38 10 Laboratory test finding 12/26/[address] [address] Bretype B POSITIVE Normal Laboratory test finding 12/26/[address] [address] Lesr 13 MM/HR Normal 0-20 11 Type&Screen 12/26/2020 [facility] [address] [place] [address] Blood Type B POSITIVE Normal Antibody Screen NEGATIVE Normal Laboratory test finding 12/26/[address] [address] [id number] Rheonix Negative Normal Negative 12 1 Patients taking Sulfasalazin e may have falsely depressed Glucose levels. Patients taking Sulfapyridine may have falsely elevated Glucose levels. Patients should be drawn for Glucose before the initial administration of either drug. 2 ESRD Dialysis patient Albumi n reference range: 2.9-4.4 g/dL 3 The Dimension [place] Total Bi lirubin is not recommended for [...] reference range: 2.9-4.4 g/dL 8 The Dimension [place] Total Bi lirubin is not recommended for [...] N Restricted limb verified Y 12 The [employer] COVID-19 MDx Ass ay is an endpoint [...] Use Authorization. Procedures Date Code Description Status 02/10/2021 90093 Therapeutic Procedure, Each 15 M inutes Completed 01/29/2021 60596 Therapeutic Procedure, Each 15 M inutes Completed 01/29/2021 94465 Hot Or Cold Packs Completed 01/27/2021 35848 Physical Therapy Eval - Low Comp lexity Completed 12/30/2020 09131 Arthroplasty "Total Knee" Medial & Lateral W/ Or W/O Patella Resu Completed 11/20/2020 22222 Office/Outpatient Established Hi gh MDM 40-54 Min Completed 11/20/2020 34222 X-Ray Knee Complete W/Obliques & Tunnel And/Or Standing Views Completed 11/13/2020 89456 Office/Outpatient Established Mo d MDM 30-39 Min Completed 11/13/2020 56394 X-Ray Knee Complete W/Obliques & Tunnel And/Or Standing Views Completed Medical Devices Description No Information Available Encounters Type Date Location Provider Dx Diagnosis Office Visit 01/19/2021 9:45a [place] Tovar MD Z47.1 Aftercare following joint replacement surgery Z96.652 Presence of left artificial knee joint Office Visit 01/07/2021 10:15a JOSHUA Morris Z47.1 Aftercare following joint replacement surgery Z96.652 Presence of left artificial knee joint Office Visit 12/29/2020 3:00p Yenifer Tovar PA-C Z01.818 Encounter for other preprocedural examination M17.12 Unilateral primary osteoarth ritis, left knee Office Visit 11/13/2020 8:15a [place] Davis MD M17.0 Bilateral primary osteoarthritis of knee Assessments Date Code Description Provider 02/10/2021 Z47.1 Aftercare following joint replac ement surgery Kelsey Buchanan, BUS STEWARD 02/10/2021 Z96.652 Presence of left artificial knee joint Kelsey Buchanan, BUS STEWARD 01/29/2021 Z47.1 Aftercare following joint replac ement surgery Chapito Puentes PT, DPT 01/29/2021 Z96.652 Presence of left artificial knee joint Chapito Puentes PT, DPT 01/27/2021 Z47.1 Aftercare following joint [...] Davis MD Plan of Treatment Future Appointment(s):* 02/20/2021 11:00 am - Kelsey Buchanan PTA at Physical Therapy * 02/17/2021 2:30 pm - Kelsey Buchanan PTA at Physical Therapy * 02/20/2021 9:45 am - Lester Tovar MD at [place] Functional Status Description No Information Available Mental Status Description No Information Available Referrals Refer to Dr Reason for Referral Status Appt Date Mary Lou Tovar PA-C Physical Therapy Left Knee p er ins no auth req based on medical necessity patient is going to [facility] passed to PT Dept sw. Created [address] [place] [phone] Mary Lou Tovar PA-C Physical Therapy Left Knee p er hany d at [facility] no auth req patient is going to [facility] passed to PT dept sw. Created [address] [place] [address] [place] [address] [phone] Zacarias Engel MD SURGERY NO AUTH REQUIRED FOR TOTAL LEFT HIP (88420) TO SURGERY NT Created [address] [place] [address], [address] [place] [address] [phone] Zacarias Engel MD SURGERY PER SADI AT [facility] NO A UT REQUIRED FOR TOTAL LEFT KNEE SAME DAY SURGERY AND COVERED AT 100% TO SURGERY NT Created [address] [place] [address], [address] [place] [address] [phone]
--- OUTSIDE RECORDS SUMMARY | 2021-03-29 09:57 | CCD | Continuity of Care Document ---
Author Author Sri GARDINER DPT Organization Unknown Address [address] [address] Phone [phone] Care Team Providers Care Distribution Field Engineer Name Role Phone Eder Briseno MD AUTM [phone] Problems Description No Active Problems Social History [...] H/L Range Note Comprehensive Metabolic Prof 01/01/2021 [facility] [address] [place] [address] Glu 108 mg/dL Normal 70-110 1 BUN [...] Normal 6-38 5 Complete Blood Count 01/01/2021 [facility] [address] [place] [address] WBC 10.21 x10E3/uL Normal 4.0-10.5 RBC 3.60 [...] Abs. Lymph. 1.68 x10E3/uL Normal 1.0-3.5 Abs. [place]. 1.09 x10E3/uL High 0.1-1.0 Abs. Eosin. 0.03 x10E3/uL Low 0.1-0.7 Abs. Baso. 0.05 x10E3/uL Normal 0.0-0.1 Abs. Imm. Gran. 0.04 x10E3/uL Normal 0.0-0.1 Anrbc% 0 % Normal 0 Comprehensive Metabolic Prof 12/31/[address] [address] Glu 112 mg/dL High 70-110 6 BUN [...] Normal 6-38 10 Laboratory test finding 12/26/[address] [address] Bretype B POSITIVE Normal Laboratory test finding 12/26/[address] [address] Lesr 13 MM/HR Normal 0-20 11 Type&Screen 12/26/[address] [address] Blood Type B POSITIVE Normal Antibody Screen NEGATIVE Normal Laboratory test finding 12/26/[address] [address] [id number] Rheonix Negative Normal Negative 12 1 Patients taking Sulfasalazin e may have falsely depressed Glucose levels. Patients taking Sulfapyridine may have falsely elevated Glucose levels. Patients should be drawn for Glucose before the initial administration of either drug. 2 ESRD Dialysis patient Albumi n reference range: 2.9-4.4 g/dL 3 The Dimension [place] Total Bi lirubin is not recommended for [...] reference range: 2.9-4.4 g/dL 8 The Dimension [place] Total Bi lirubin is not recommended for [...] N Restricted limb verified Y 12 The [employer] COVID-19 MDx Ass ay is an endpoint [...] Authorization. Procedures Date Code Description Status 01/29/2021 00473 Therapeutic Procedure, Each 15 M inutes Completed 01/29/2021 76369 Hot Or Cold Packs Completed 01/27/2021 36839 Physical Therapy Eval - Low Comp lexity Completed 12/30/2020 34090 Arthroplasty "Total Knee" Medial & Lateral W/ Or W/O Patella Resu Completed 11/20/2020 56655 Office/Outpatient Established [facility] 40-54 Min Completed 11/20/2020 97808 X-Ray Knee Complete W/Obliques & Tunnel And/Or Standing Views Completed 11/13/2020 04246 Office/Outpatient Established Mo d MDM 30-39 Min Completed 11/13/2020 33942 X-Ray Knee Complete W/Obliques & Tunnel And/Or Standing Views Completed Medical Devices Description No Information Available Encounters Type Date Location Provider Dx Diagnosis Office Visit 01/19/2021 9:45a [facility] Tovar MD Z47.1 Aftercare following joint replacement surgery Z96.652 Presence of left artificial knee joint Office Visit 01/07/2021 10:15a [facility] Z47.1 Aftercare following joint replacement surgery Z96.652 Presence of left artificial knee joint Office Visit 12/29/2020 3:00p [facility] Tovar PA-C Z01.818 Encounter for other preprocedural examination M17.12 Unilateral primary osteoarth ritis, left knee Office Visit 11/13/2020 8:15a [facility] Davis MD M17.0 Bilateral primary osteoarthritis of knee Assessments Date Code Description Provider 01/29/2021 Z47.1 Aftercare following joint replac ement surgery Chapito Gardiner PT, DPT 01/29/2021 Z96.652 Presence of left artificial knee joint Chapito Gardiner, PT, DPT 01/27/2021 Z47.1 Aftercare following joint replac ement surgery Chapito Gardiner PT, DPT 01/27/2021 Z96.652 Presence of left artificial knee joint Chapito Gardiner PT, DPT 01/19/2021 Z47.1 Aftercare following joint [...] Appointment(s):* 02/05/2021 2:30 pm - Kelsey Buchanan PTA at Physical Therapy * 02/03/2021 2:30 pm - Kelsey Buchanan PTA at Physical Therapy * 02/20/2021 9:45 am - Lester Tovar MD at [facility] Functional Status Description No Information Available Mental Status Description No Information Available Referrals Refer to Dr Reason for Referral Status Appt Date Mayr Lou Tovar PA-C Physical Therapy Left Knee p er ins no auth req based on medical necessity patient is going to [facility] passed to PT Dept sw. Created [address] [place] [address] [phone] Mary Lou Tovar PA-C Physical Therapy Left Knee p er hany d at [facility] no auth req patient is going to [facility] passed to PT dept sw. Created [address] [place] [phone] [phone] Zacarias Engel MD SURGERY NO AUTH REQUIRED FOR TOTAL LEFT HIP ([id number]) TO SURGERY NT Created [address] [place] [address], [address] [place] [address] [phone] Zacarias Engel MD SURGERY PER SADI AT [facility] NO A [facility] REQUIRED FOR TOTAL LEFT KNEE SAME DAY SURGERY AND COVERED AT 100% TO SURGERY NT Created [address] [facility], [address] [place] [address] [phone]
--- OUTSIDE RECORDS SUMMARY | 2021-03-29 09:57 | CCD | Continuity of Care Document ---
Author Author Sri [facility] Organization Unknown Address [address] [place] [address] Phone [phone] Care Team Providers Care Risk Control Product Liability Director Name Role Phone Eder Briseno MD [facility] [phone] Problems Description No Active Problems Social History [...] H/L Range Note Comprehensive Metabolic Prof 01/01/2021 [facility] [address] [place] [address] Glu 108 mg/dL Normal 70-110 1 BUN [...] Normal 6-38 5 Complete Blood Count 01/01/2021 [facility] [address] [place] [address] WBC 10.21 x10E3/uL Normal 4.0-10.5 RBC 3.60 [...] Abs. Lymph. 1.68 x10E3/uL Normal 1.0-3.5 Abs. [place]. 1.09 x10E3/uL High 0.1-1.0 Abs. Eosin. 0.03 x10E3/uL Low 0.1-0.7 Abs. Baso. 0.05 x10E3/uL Normal 0.0-0.1 Abs. Imm. Gran. 0.04 x10E3/uL Normal 0.0-0.1 Anrbc% 0 % Normal 0 Comprehensive Metabolic Prof 12/31/[address] [address] Glu 112 mg/dL High 70-110 6 BUN [...] Normal 6-38 10 Laboratory test finding 12/26/[address] [address] Bretype B POSITIVE Normal Laboratory test finding 12/26/[address] [address] Lesr 13 MM/HR Normal 0-20 11 Type&Screen 12/26/2020 [facility] [address] [place] [address] Blood Type B POSITIVE Normal Antibody Screen NEGATIVE Normal Laboratory test finding 12/26/[address] [address] [id number] Rheonix Negative Normal Negative 12 1 Patients taking Sulfasalazin e may have falsely depressed Glucose levels. Patients taking Sulfapyridine may have falsely elevated Glucose levels. Patients should be drawn for Glucose before the initial administration of either drug. 2 ESRD Dialysis patient Albumi n reference range: 2.9-4.4 g/dL 3 The Dimension [place] Total Bi lirubin is not recommended for [...] reference range: 2.9-4.4 g/dL 8 The Dimension [place] Total Bi lirubin is not recommended for [...] N Restricted limb verified Y 12 The [employer] COVID-19 MDx Ass ay is an endpoint [...] Authorization. Procedures Date Code Description Status 02/20/2021 32049 Therapeutic Procedure, Each 15 M inutes Completed 02/20/2021 70905 X-Ray Knee Ap & Lateral W/Obliqu es Three Views Completed 02/17/2021 58700 Therapeutic Procedure, Each 15 M inutes Completed 02/12/2021 64090 Therapeutic Procedure, Each 15 M inutes Completed 02/10/2021 33440 Therapeutic Procedure, Each 15 M inutes Completed 01/29/2021 10296 Therapeutic Procedure, Each 15 M inutes Completed 01/29/2021 77436 Hot Or Cold Packs Completed 01/27/2021 56246 Physical Therapy Eval - Low Comp lexity Completed 12/30/2020 11748 Arthroplasty "Total Knee" Medial & Lateral W/ Or W/O Patella Resu Completed 11/20/2020 75092 Office/Outpatient Established Hi gh MDM 40-54 Min Completed 11/20/2020 55193 X-Ray Knee Complete W/Obliques & Tunnel And/Or Standing Views Completed 11/13/2020 00084 Office/Outpatient Established Mo d MDM 30-39 Min Completed 11/13/2020 96028 X-Ray Knee Complete W/Obliques & Tunnel And/Or Standing Views Completed Medical Devices Description No Information Available Encounters Type Date Location Provider Dx Diagnosis Office Visit 01/19/2021 9:45a [place] Tovar MD Z47.1 Aftercare following joint replacement [...] of left artificial knee joint Kelsey Buchanan, MINCING MACHINE OPERATOR 02/20/2021 Z96.652 Presence of left artificial knee joint Lester Tovar MD 02/17/2021 Z47.1 Aftercare following joint replac ement surgery Kelsey Buchanan, MINCING MACHINE OPERATOR 02/17/2021 Z96.652 Presence of left artificial knee joint Kelsey Buchanan, MINCING MACHINE OPERATOR 02/12/2021 Z47.1 Aftercare following joint replac ement surgery Kelsey Buchanan, MINCING MACHINE OPERATOR 02/12/2021 Z96.652 Presence of left artificial knee joint Kelsey Buchanan, MINCING MACHINE OPERATOR 02/10/2021 Z47.1 Aftercare following joint replac ement surgery Kelsey Buchanan, MINCING MACHINE OPERATOR 02/10/2021 Z96.652 Presence of left artificial knee joint Kelsey Buchanan, MINCING MACHINE OPERATOR 01/29/2021 Z47.1 Aftercare following joint [...] M17.12 Unilateral primary osteoarthriti s, left knee Lestre Tovar MD 11/13/2020 M17.0 Bilateral primary osteoarthritis [...] [facility] passed to PT Dept sw. Created [address] [place] [phone] Mary Lou Tovar PA-C Physical Therapy Left Knee p er hany d at [facility] no auth req patient is going to [facility] passed to PT dept sw. Created [address] [place] [address] [phone] Zacarias Engel MD SURGERY NO AUTH REQUIRED FOR TOTAL LEFT HIP (70085) TO SURGERY NT Created [address] [place] [address], [place] [address] [phone] Zacarias Engel MD SURGERY PER SADI AT [facility] NO A UTH REQUIRED FOR TOTAL LEFT KNEE SAME DAY SURGERY AND COVERED AT 100% TO SURGERY NT Created [address] [place] [address], [place] [address] [phone]
--- OUTSIDE RECORDS SUMMARY | 2021-03-29 09:57 | CCD | Continuity of Care Document ---
Author Author Sri GARDINER DPT Organization Unknown Address [address] [address] Phone [phone] Care Team Providers Care Executive Pastry Chef Name Role Phone Eder Briseno MD AUTM [phone] Problems Description No Active Problems Social History [...] H/L Range Note Comprehensive Metabolic Prof 01/01/2021 [facility] [address] [place] [address] Glu 108 mg/dL Normal 70-110 1 BUN [...] Normal 6-38 5 Complete Blood Count 01/01/2021 [facility] [address] [place] [address] WBC 10.21 x10E3/uL Normal 4.0-10.5 RBC 3.60 [...] Abs. Lymph. 1.68 x10E3/uL Normal 1.0-3.5 Abs. [place]. 1.09 x10E3/uL High 0.1-1.0 Abs. Eosin. 0.03 x10E3/uL Low 0.1-0.7 Abs. Baso. 0.05 x10E3/uL Normal 0.0-0.1 Abs. Imm. Gran. 0.04 x10E3/uL Normal 0.0-0.1 Anrbc% 0 % Normal 0 Comprehensive Metabolic Prof 12/31/[address] [address] Glu 112 mg/dL High 70-110 6 BUN [...] Normal 6-38 10 Laboratory test finding 12/26/[address] [address] Bretype B POSITIVE Normal Laboratory test finding 12/26/[address] [address] Lesr 13 MM/HR Normal 0-20 11 Type&Screen 12/26/[address] [address] Blood Type B POSITIVE Normal Antibody Screen NEGATIVE Normal Laboratory test finding 12/26/[address] [address] [id number] Rheonix Negative Normal Negative 12 1 Patients taking Sulfasalazin e may have falsely depressed Glucose levels. Patients taking Sulfapyridine may have falsely elevated Glucose levels. Patients should be drawn for Glucose before the initial administration of either drug. 2 ESRD Dialysis patient Albumi n reference range: 2.9-4.4 g/dL 3 The Dimension [place] Total Bi lirubin is not recommended for [...] reference range: 2.9-4.4 g/dL 8 The Dimension [place] Total Bi lirubin is not recommended for [...] N Restricted limb verified Y 12 The [employer] COVID-19 MDx Ass ay is an endpoint [...] Authorization. Procedures Date Code Description Status 01/29/2021 69063 Therapeutic Procedure, Each 15 M inutes Completed 01/29/2021 14498 Hot Or Cold Packs Completed 01/27/2021 15668 Physical Therapy Eval - Low Comp lexity Completed 12/30/2020 41130 Arthroplasty "Total Knee" Medial & Lateral W/ Or W/O Patella Resu Completed 11/20/2020 44375 Office/Outpatient Established [facility] 40-54 Min Completed 11/20/2020 81695 X-Ray Knee Complete W/Obliques & Tunnel And/Or Standing Views Completed 11/13/2020 44874 Office/Outpatient Established Mo d MDM 30-39 Min Completed 11/13/2020 29946 X-Ray Knee Complete W/Obliques & Tunnel And/Or Standing Views Completed Medical Devices Description No Information Available Encounters Type Date Location Provider Dx Diagnosis Office Visit 01/19/2021 9:45a [place] Z47.1 Aftercare following joint replacement surgery Z96.652 Presence of left artificial knee joint Office Visit 01/07/2021 10:15a [place] Z47.1 Aftercare following joint replacement surgery Z96.652 Presence of left artificial knee joint Office Visit 12/29/2020 3:00p [place] T[place] PA-C Z01.818 Encounter for other preprocedural examination M17.12 Unilateral primary osteoarth ritis, left knee Office Visit 11/13/2020 8:15a [place] Davis MD M17.0 Bilateral primary osteoarthritis of [...] 9:45 am - Lester Tovar MD at [place] Functional Status Description No Information Available Mental Status Description No Information Available Referrals Refer to Dr Reason for Referral Status Appt Date Mary Lou Tovar PA-C Physical Therapy Left Knee p er ins no auth req based on medical necessity patient is going to [facility] passed to PT Dept sw. Created [address] [place] [address] [phone] Mary Lou Tovar PA-C Physical Therapy Left Knee p er hany d at [facility] no auth req patient is going to [facility] passed to PT dept sw. Created [address] [place] [phone] Zacarias Engel MD SURGERY NO AUTH REQUIRED FOR TOTAL LEFT HIP ([id number]) TO SURGERY NT Created [address] [place] [address], [address] [place] [address] [phone] Zacarias Engel MD SURGERY PER SADI AT [facility] NO A [facility] REQUIRED FOR TOTAL LEFT KNEE SAME DAY SURGERY AND COVERED AT 100% TO SURGERY NT Created [address] [facility], [address] [place] [address] [phone]
--- OUTSIDE RECORDS SUMMARY | 2021-03-29 09:57 | CCD | Continuity of Care Document ---
Author Author Sri [facility]NAN [facility] Organization Unknown Address [address] [place] [address] Phone [phone] Care Team Providers Care Neon Sign Worker Name Role Phone Eder [facility]iseno MD [facility] [phone] Problems Description No Active Problems Social History [...] H/L Range Note Comprehensive Metabolic Prof 01/01/2021 [facility] [address] [place] [address] Glu 108 mg/dL Normal 70-110 1 BUN [...] Normal 6-38 5 Complete Blood Count 01/01/2021 [facility] [address] [place] [address] WBC 10.21 x10E3/uL Normal 4.0-10.5 RBC 3.60 [...] Abs. Lymph. 1.68 x10E3/uL Normal 1.0-3.5 Abs. [place]. 1.09 x10E3/uL High 0.1-1.0 Abs. Eosin. 0.03 x10E3/uL Low 0.1-0.7 Abs. Baso. 0.05 x10E3/uL Normal 0.0-0.1 Abs. Imm. Gran. 0.04 x10E3/uL Normal 0.0-0.1 Anrbc% 0 % Normal 0 Comprehensive Metabolic Prof 12/31/[address] [address] Glu 112 mg/dL High 70-110 6 BUN [...] Normal 6-38 10 Laboratory test finding 12/26/[address] [address] Bretype B POSITIVE Normal Laboratory test finding 12/26/[address] [address] Lesr 13 MM/HR Normal 0-20 11 Type&Screen 12/26/2020 [facility] [address] [place] [address] Blood Type B POSITIVE Normal Antibody Screen NEGATIVE Normal Laboratory test finding 12/26/[address] [address] [id number] Rheonix Negative Normal Negative 12 1 Patients taking Sulfasalazin e may have falsely depressed Glucose levels. Patients taking Sulfapyridine may have falsely elevated Glucose levels. Patients should be drawn for Glucose before the initial administration of either drug. 2 ESRD Dialysis patient Albumi n reference range: 2.9-4.4 g/dL 3 The Dimension [place] Total Bi lirubin is not recommended for [...] reference range: 2.9-4.4 g/dL 8 The Dimension [place] Total Bi lirubin is not recommended for [...] N Restricted limb verified Y 12 The [employer] COVID-19 MDx Ass ay is an endpoint [...] Authorization. Procedures Date Code Description Status 02/20/2021 34798 Therapeutic Procedure, Each 15 M inutes Completed 02/20/2021 00717 X-Ray Knee Ap & Lateral W/Obliqu es Three Views Completed 02/17/2021 18299 Therapeutic Procedure, Each 15 M inutes Completed 02/12/2021 10492 Therapeutic Procedure, Each 15 M inutes Completed 02/10/2021 29708 Therapeutic Procedure, Each 15 M inutes Completed 01/29/2021 50376 Therapeutic Procedure, Each 15 M inutes Completed 01/29/2021 14406 Hot Or Cold Packs Completed 01/27/2021 74848 Physical Therapy Eval - Low Comp lexity Completed 12/30/2020 81587 Arthroplasty "Total Knee" Medial & Lateral W/ Or W/O Patella Resu Completed 11/20/2020 46777 Office/Outpatient Established Hi gh MDM 40-54 Min Completed 11/20/2020 45130 X-Ray Knee Complete W/Obliques & Tunnel And/Or Standing Views Completed 11/13/2020 18296 Office/Outpatient Established Mo d MDM 30-39 Min Completed 11/13/2020 09796 X-Ray Knee Complete W/Obliques & Tunnel And/Or Standing Views Completed Medical Devices Description No Information Available Encounters Type Date Location Provider Dx Diagnosis Office Visit 01/19/2021 9:45a [place] Tovar MD Z47.1 Aftercare following joint replacement [...] of left artificial knee joint Kelsey Buchanan, BAR STEWARD 02/20/2021 Z96.652 Presence of left artificial knee joint Lester Tovar MD 02/17/2021 Z47.1 Aftercare following joint replac ement surgery Kelsey Buchanan, BAR STEWARD 02/17/2021 Z96.652 Presence of left artificial knee joint Kelsey Buchanan, BAR STEWARD 02/12/2021 Z47.1 Aftercare following joint replac ement surgery Kelsey Buchanan, BAR STEWARD 02/12/2021 Z96.652 Presence of left artificial knee joint Kelsey Buchanan, BAR STEWARD 02/10/2021 Z47.1 Aftercare following joint replac ement surgery Kelsey Buchanan, BAR STEWARD 02/10/2021 Z96.652 Presence of left artificial knee joint Kelsey Buchanan, BAR STEWARD 01/29/2021 Z47.1 Aftercare following joint replac [...] [facility] passed to PT Dept sw. Created [address] [place] [phone] Mary Lou Tovar PA-C Physical Therapy Left Knee p er hany d at [facility] no auth req patient is going to [facility] passed to PT dept sw. Created [address] [place] [address] [phone] Zacarias Engel MD SURGERY NO AUTH REQUIRED FOR TOTAL LEFT HIP (82460) TO SURGERY NT Created [address] [place] [address], [place] [address] [phone] Zacarias Engel MD SURGERY PER SADI AT [facility] NO A UTH REQUIRED FOR TOTAL LEFT KNEE SAME DAY SURGERY AND COVERED AT 100% TO SURGERY NT Created [address] [place] [address], [place] [address] [phone]
--- OUTSIDE RECORDS SUMMARY | 2021-03-29 09:57 | CCD | Continuity of Care Document ---
Author Author Sri [facility]CHANAN [facility] Organization Unknown Address [address] [place] [address] Phone [phone] Care Team Providers Care Tray Delivery Aide Name Role Phone Eder Briseno MD [facility] [phone] Problems Description No Active Problems Social History [...] daily for 5 days before surgery 1units Lesetr Tovar MD 12/09/2020 Xarelto 10mg Tablets 1 [...] H/L Range Note Comprehensive Metabolic Prof 01/01/2021 [facility] [address] [place] [address] Glu 108 mg/dL Normal 70-110 1 BUN [...] Normal 6-38 5 Complete Blood Count 01/01/2021 [facility] [address] [place] [address] WBC 10.21 x10E3/uL Normal 4.0-10.5 RBC 3.60 [...] Abs. Lymph. 1.68 x10E3/uL Normal 1.0-3.5 Abs. [place]. 1.09 x10E3/uL High 0.1-1.0 Abs. Eosin. 0.03 x10E3/uL Low 0.1-0.7 Abs. Baso. 0.05 x10E3/uL Normal 0.0-0.1 Abs. Imm. Gran. 0.04 x10E3/uL Normal 0.0-0.1 Anrbc% 0 % Normal 0 Comprehensive Metabolic Prof 12/31/[address] [address] Glu 112 mg/dL High 70-110 6 BUN [...] Normal 6-38 10 Laboratory test finding 12/26/[address] [address] Bretype B POSITIVE Normal Laboratory test finding 12/26/[address] [address] Lesr 13 MM/HR Normal 0-20 11 Type&Screen 12/26/2020 [facility] [address] [place] [address] Blood Type B POSITIVE Normal Antibody Screen NEGATIVE Normal Laboratory test finding 12/26/[address] [address] [id number] Rheonix Negative Normal Negative 12 1 Patients taking Sulfasalazin e may have falsely depressed Glucose levels. Patients taking Sulfapyridine may have falsely elevated Glucose levels. Patients should be drawn for Glucose before the initial administration of either drug. 2 ESRD Dialysis patient Albumi n reference range: 2.9-4.4 g/dL 3 The Dimension [place] Total Bi lirubin is not recommended for [...] reference range: 2.9-4.4 g/dL 8 The Dimension [place] Total Bi lirubin is not recommended for [...] N Restricted limb verified Y 12 The [employer] COVID-19 MDx Ass ay is an endpoint [...] Authorization. Procedures Date Code Description Status 01/29/2021 02926 Therapeutic Procedure, Each 15 M inutes Completed 01/29/2021 84321 Hot Or Cold Packs Completed 01/27/2021 28902 Physical Therapy Eval - Low Comp lexity Completed 12/30/2020 91244 Arthroplasty "Total Knee" Medial & Lateral W/ Or W/O Patella Resu Completed 11/20/2020 21564 Office/Outpatient Established [facility] 40-54 Min Completed 11/20/2020 01811 X-Ray Knee Complete W/Obliques & Tunnel And/Or Standing Views Completed 11/13/2020 25946 Office/Outpatient Established Mo d MDM 30-39 Min Completed 11/13/2020 04179 X-Ray Knee Complete W/Obliques & Tunnel And/Or Standing Views Completed Medical Devices Description No Information Available Encounters Type Date Location Provider Dx Diagnosis Office Visit [facility]/19[facility]21 [facility] Z47.1 Aftercare following joint replacement surgery Z96.652 Presence of left artificial knee joint Office Visit 01/07/2021 10:[facility] Z47.1 Aftercare following joint replacement surgery Z96.652 Presence of left artificial knee joint Office Visit 12/29/2020 3:[facility]p [facility]-C Z01.818 Encounter for other preprocedural examination M17.12 Unilateral primary osteoarth ritis, left knee Office Visit 11/13/2020 8:[facility]a [facility] MD M17.0 Bilateral primary osteoarthritis of [...] 9:45 am - Lester Tovar MD at [employer] [facility] Functional Status Description No Information Available Mental Status Description No Information Available Referrals Refer to Dr Reason for Referral Status Appt Date Mary Lou Tovar PA-C Physical Therapy Left Knee p er ins no auth req based on medical necessity patient is going to [facility] passed to PT Dept sw. Created [address] [place] [phone] Mary Lou Tovar PA-C Physical Therapy Left Knee p er hany d at [facility] no auth req patient is going to [facility] passed to PT dept sw. Created [address] [place] [phone] Zacarias Engel MD SURGERY NO AUTH REQUIRED FOR TOTAL LEFT HIP (17857) TO SURGERY NT Created [address] [facility], [address] [place] [address] [phone] Zacarias Engel MD SURGERY PER SADI AT [facility] A [facility] REQUIRED FOR TOTAL LEFT KNEE SAME DAY SURGERY AND COVERED AT 100% TO SURGERY NT Created [address] [facility], [address] [place] [address] [phone]
--- OUTSIDE RECORDS SUMMARY | 2021-03-29 09:57 | CCD | Continuity of Care Document ---
Author Author Sri BUCHANAN [facility] Organization Unknown Address [address] [place] [address] Phone [phone] Care Team Providers Care Secondary School Teacher Librarian Name Role Phone Eder Briseno MD [facility] [phone] Problems Description No Active Problems Social History [...] Metabolic Prof 01/01/2021 [facility] [address] [place] [address] Glu 108 mg/dL Normal 70-110 1 BUN [...] Normal 6-38 5 Complete Blood Count 01/01/2021 [facility] [address] [place] [address] WBC 10.21 x10E3/uL Normal 4.0-10.5 RBC 3.60 [...] Abs. Lymph. 1.68 x10E3/uL Normal 1.0-3.5 Abs. [place]. 1.09 x10E3/uL High 0.1-1.0 Abs. Eosin. 0.03 x10E3/uL Low 0.1-0.7 Abs. Baso. 0.05 x10E3/uL Normal 0.0-0.1 Abs. Imm. Gran. 0.04 x10E3/uL Normal 0.0-0.1 Anrbc% 0 % Normal 0 Comprehensive Metabolic Prof 12/31/[address] [address] Glu 112 mg/dL High 70-110 6 BUN [...] Normal 6-38 10 Laboratory test finding 12/26/[address] [address] Bretype B POSITIVE Normal Laboratory test finding 12/26/[address] [address] Lesr 13 MM/HR Normal 0-20 11 Type&Screen 12/26/2020 [facility] [address] [place] [address] Blood Type B POSITIVE Normal Antibody Screen NEGATIVE Normal Laboratory test finding 12/26/[address] [address] Aakeyl31 Rheonix Negative Normal Negative 12 1 Patients taking Sulfasalazin e may have falsely depressed Glucose levels. Patients taking Sulfapyridine may have falsely elevated Glucose levels. Patients should be drawn for Glucose before the initial administration of either drug. 2 ESRD Dialysis patient Albumi n reference range: 2.9-4.4 g/dL 3 The Dimension [place] Total Bi lirubin is not recommended for [...] reference range: 2.9-4.4 g/dL 8 The Dimension [place] Total Bi lirubin is not recommended for [...] N Restricted limb verified Y 12 The [employer] COVID-19 MDx Ass ay is an endpoint [...] Authorization. Procedures Date Code Description Status 02/20/2021 58912 Therapeutic Procedure, Each 15 M inutes Completed 02/20/2021 70429 X-Ray Knee Ap & Lateral W/Obliqu es Three Views Completed 02/17/2021 66213 Therapeutic Procedure, Each 15 M inutes Completed 02/12/2021 71387 Therapeutic Procedure, Each 15 M inutes Completed 02/10/2021 23981 Therapeutic Procedure, Each 15 M inutes Completed 01/29/2021 52142 Therapeutic Procedure, Each 15 M inutes Completed 01/29/2021 25332 Hot Or Cold Packs Completed 01/27/2021 11680 Physical Therapy Eval - Low Comp lexity Completed 12/30/2020 01064 Arthroplasty "Total Knee" Medial & Lateral W/ Or W/O Patella Resu Completed 11/20/2020 83480 Office/Outpatient Established Hi gh MDM 40-54 Min Completed 11/20/2020 33407 X-Ray Knee Complete W/Obliques & Tunnel And/Or Standing Views Completed 11/13/2020 95309 Office/Outpatient Established Mo d MDM 30-39 Min Completed 11/13/2020 07357 X-Ray Knee Complete W/Obliques & Tunnel And/Or [...] knee Assessments Date Code Description Provider 02/20/2021 Z96.652 Presence of left artificial knee joint Lester Tovar MD 02/17/2021 Z47.1 Aftercare following joint replac ement surgery Kelsey Buchanan, BULK SAUSAGE CASING TIER OFF 02/17/2021 Z96.652 Presence of left artificial knee joint Kelsey Buchanan, BULK SAUSAGE CASING TIER OFF 02/12/2021 Z47.1 Aftercare following joint replac ement surgery Kelsey Buchanan, BULK SAUSAGE CASING TIER OFF 02/12/2021 Z96.652 Presence of left artificial knee joint Kelsey Buchanan, BULK SAUSAGE CASING TIER OFF 02/10/2021 Z47.1 Aftercare following joint replac ement surgery Kelsey Buchanan, BULK SAUSAGE CASING TIER OFF 02/10/2021 Z96.652 Presence of left artificial knee joint Kelsey Buchanan, BULK SAUSAGE CASING TIER OFF 01/29/2021 Z47.1 Aftercare following joint replac ement [...] M17.12 Unilateral primary osteoarthriti s, left knee OLY OgdenC 11/20/2020 M17.12 Unilateral primary osteoarthriti s, left knee Lester Tovar MD 11/13/2020 M17.0 Bilateral primary osteoarthritis of knee Ruslan Davis MD Plan of Treatment Future Appointment(s):* 02/23/2021 2:30 pm - Kelsey Buchanan, BULK SAUSAGE CASING TIER OFF at Physical Therapy * 02/25/2021 12:30 pm - Chapito Puentes, PT, DPT at Physical Therapy Functional Status Description No Information Available Mental Status Description No Information Available Referrals Refer to Dr Reason for Referral Status Appt Date Mary Lou Tovar PA-C Physical Therapy Left Knee p er ins no auth req based on medical necessity patient is going to [facility] passed to PT Dept sw. Created [address] [place] [phone] Mary Lou Tovar PA-C Physical Therapy Left Knee p er hany vera at [facility] no auth req patient is going to [facility] passed to PT dept sw. Created [address] [place] [phone] Zacarias Engel MD SURGERY NO AUTH REQUIRED FOR TOTAL LEFT HIP (40616) TO SURGERY NT Created [address] [place] [address], [place] [phone] Zacarias Engel MD SURGERY PER SADI AT [facility] NO A UTH REQUIRED FOR TOTAL LEFT KNEE SAME DAY SURGERY AND COVERED AT 100% TO SURGERY NT Created [address] [place] [address], [address] [address] [phone]
--- OUTSIDE RECORDS SUMMARY | 2021-03-29 09:57 | CCD | Continuity of Care Document ---
Author Author Sri GARCIA MD Organization Unknown Address [address] [place] [address], [facility] e [address] [place] [address] Phone [phone] Care Team Providers Care Pan Devulcanizer Helper Name Role Phone Eder Briseno MD [facility] [phone] Problems Description No Active Problems Social History [...] H/L Range Note Comprehensive Metabolic Prof 01/01/2021 [facility] [address] [place] [address] Glu 108 mg/dL Normal 70-110 1 BUN [...] Normal 6-38 5 Complete Blood Count 01/01/2021 [facility] [address] [place] [address] WBC 10.21 x10E3/uL Normal 4.0-10.5 RBC 3.60 [...] Abs. Lymph. 1.68 x10E3/uL Normal 1.0-3.5 Abs. [place]. 1.09 x10E3/uL High 0.1-1.0 Abs. Eosin. 0.03 x10E3/uL Low 0.1-0.7 Abs. Baso. 0.05 x10E3/uL Normal 0.0-0.1 Abs. Imm. Gran. 0.04 x10E3/uL Normal 0.0-0.1 Anrbc% 0 % Normal 0 Comprehensive Metabolic Prof 12/31/[address] [address] Glu 112 mg/dL High 70-110 6 BUN [...] Normal 6-38 10 Laboratory test finding 12/26/[address] [address] Bretype B POSITIVE Normal Laboratory test finding 12/26/[address] [address] Lesr 13 MM/HR Normal 0-20 11 Type&Screen 12/26/[address] [address] Blood Type B POSITIVE Normal Antibody Screen NEGATIVE Normal Laboratory test finding 12/26/[address] [address] [id number] Rheonix Negative Normal Negative 12 1 Patients taking Sulfasalazin e may have falsely depressed Glucose levels. Patients taking Sulfapyridine may have falsely elevated Glucose levels. Patients should be drawn for Glucose before the initial administration of either drug. 2 ESRD Dialysis patient Albumi n reference range: 2.9-4.4 g/dL 3 The Dimension [place] Total Bi lirubin is not recommended for [...] reference range: 2.9-4.4 g/dL 8 The Dimension [place] Total Bi lirubin is not recommended for [...] N Restricted limb verified Y 12 The [employer] COVID-19 MDx Ass ay is an endpoint [...] Authorization. Procedures Date Code Description Status 02/20/2021 59311 X-Ray Knee Ap & Lateral W/Obliqu es Three Views Completed 02/17/2021 27041 Therapeutic Procedure, Each 15 M inutes Completed 02/12/2021 67000 Therapeutic Procedure, Each 15 M inutes Completed 02/10/2021 52237 Therapeutic Procedure, Each 15 M inutes Completed 01/29/2021 24722 Therapeutic Procedure, Each 15 M inutes Completed 01/29/2021 08624 Hot Or Cold Packs Completed 01/27/2021 83799 Physical Therapy Eval - Low Comp lexity Completed 12/30/2020 62324 Arthroplasty "Total Knee" Medial & Lateral W/ Or W/O Patella Resu Completed 11/20/2020 10223 Office/Outpatient Established Hi gh MDM 40-54 Min Completed 11/20/2020 38642 X-Ray Knee Complete W/Obliques & Tunnel And/Or Standing Views Completed 11/13/2020 91779 Office/Outpatient Established Mo d MDM 30-39 Min Completed 11/13/2020 89483 X-Ray Knee Complete W/Obliques & Tunnel And/Or Standing Views Completed Medical Devices Description No Information Available Encounters Type Date Location Provider Dx Diagnosis Office Visit 01/19/2021 9:45a Yenifer Garcia MD Z47.1 Aftercare following joint replacement [...] following joint replac ement surgery Kelsey Buchanan, ELECTRICAL INSTRUMENT MAKER 02/17/2021 Z96.652 Presence of left artificial knee joint Kelsey Buchanan, ELECTRICAL INSTRUMENT MAKER 02/12/2021 Z47.1 Aftercare following joint replac ement surgery Kelsey Buchanan, ELECTRICAL INSTRUMENT MAKER 02/12/2021 Z96.652 Presence of left artificial knee joint Kelsey Buchanan, ELECTRICAL INSTRUMENT MAKER 02/10/2021 Z47.1 Aftercare following joint replac ement surgery Kelsey Buchanan, ELECTRICAL INSTRUMENT MAKER 02/10/2021 Z96.652 Presence of left artificial knee joint Kelsey Buchanan, ELECTRICAL INSTRUMENT MAKER 01/29/2021 Z47.1 Aftercare following joint replac ement [...] Z01.818 Encounter for other preprocedura l examination OLY OgdenC 12/29/2020 M17.12 Unilateral primary osteoarthriti s, left knee OLY OgdenC 12/26/2020 Z01.818 Encounter for other preprocedura l examination Mary Lou Garcia PA-C 12/26/2020 M17.12 Unilateral primary osteoarthriti s, left knee OLY OgdenC 11/20/2020 M17.12 Unilateral primary osteoarthriti s, left knee Lester Garcia MD 11/13/2020 M17.0 Bilateral primary osteoarthritis of knee Ruslan Davis MD Plan of Treatment 02/20/2021 - Lester Garcia MD* Z96.652 Presence of left artificial knee joint * Follow up:* 3 months with [facility] lt knee re-check w/xrays (3 veiws) Functional Status Description No Information Available Mental Status Description No Information Available Referrals Refer to Reason for Referral Status Appt Date Mary Lou Garcia PA-C Physical Therapy Left Knee p er ins no auth req based on medical necessity patient is going to [facility] passed to PT Dept sw. Created [address] [place] [phone] Mary Lou Garcia PA-C Physical Therapy Left Knee p er hany d at [facility] no auth req patient is going to [facility] passed to PT dept sw. Created [address] [place] [phone] Zacarias Engel MD SURGERY NO AUTH REQUIRED FOR TOTAL LEFT HIP ([id number]) TO SURGERY NT Created [address] [place] [phone] Zacarias Engel MD SURGERY PER SADI AT [facility] NO A UTH REQUIRED FOR TOTAL LEFT KNEE SAME DAY SURGERY AND COVERED AT 100% TO SURGERY NT Created [address] [place] [phone]
--- OUTSIDE RECORDS SUMMARY | 2021-03-29 09:57 | CCD | Continuity of Care Document ---
Author Author Sri BUCHANAN [facility] Organization Unknown Address [address] [place] [address] Phone [phone] Care Team Providers Care Drafter Chief Design Name Role Phone Eder [facility]iseno MD [facility] [phone] Problems Description No Active Problems Social History [...] H/L Range Note Comprehensive Metabolic Prof 01/01/2021 [facility] [address] [place] [address] Glu 108 mg/dL Normal 70-110 1 BUN [...] Normal 6-38 5 Complete Blood Count 01/01/2021 [facility] [address] [place] [address] WBC 10.21 x10E3/uL Normal 4.0-10.5 RBC 3.60 [...] Abs. Lymph. 1.68 x10E3/uL Normal 1.0-3.5 Abs. [place]. 1.09 x10E3/uL High 0.1-1.0 Abs. Eosin. 0.03 x10E3/uL Low 0.1-0.7 Abs. Baso. 0.05 x10E3/uL Normal 0.0-0.1 Abs. Imm. Gran. 0.04 x10E3/uL Normal 0.0-0.1 Anrbc% 0 % Normal 0 Comprehensive Metabolic Prof 12/31/[address] [address] Glu 112 mg/dL High 70-110 6 BUN [...] Normal 6-38 10 Laboratory test finding 12/26/[address] [address] Bretype B POSITIVE Normal Laboratory test finding 12/26/[address] [address] Lesr 13 MM/HR Normal 0-20 11 Type&Screen 12/26/2020 [facility] [address] [place] [address] Blood Type B POSITIVE Normal Antibody Screen NEGATIVE Normal Laboratory test finding 12/26/[address] [address] [id number] Rheonix Negative Normal Negative 12 1 Patients taking Sulfasalazin e may have falsely depressed Glucose levels. Patients taking Sulfapyridine may have falsely elevated Glucose levels. Patients should be drawn for Glucose before the initial administration of either drug. 2 ESRD Dialysis patient Albumi n reference range: 2.9-4.4 g/dL 3 The Dimension [place] Total Bi lirubin is not recommended for [...] reference range: 2.9-4.4 g/dL 8 The Dimension [place] Total Bi lirubin is not recommended for [...] N Restricted limb verified Y 12 The [employer] COVID-19 MDx Ass ay is an endpoint [...] Authorization. Procedures Date Code Description Status 02/20/2021 79335 Therapeutic Procedure, Each 15 M inutes Completed 02/20/2021 32887 X-Ray Knee Ap & Lateral W/Obliqu es Three Views Completed 02/17/2021 43412 Therapeutic Procedure, Each 15 M inutes Completed 02/12/2021 35913 Therapeutic Procedure, Each 15 M inutes Completed 02/10/2021 47870 Therapeutic Procedure, Each 15 M inutes Completed 01/29/2021 44256 Therapeutic Procedure, Each 15 M inutes Completed 01/29/2021 61511 Hot Or Cold Packs Completed 01/27/2021 24796 Physical Therapy Eval - Low Comp lexity Completed 12/30/2020 51356 Arthroplasty "Total Knee" Medial & Lateral W/ Or W/O Patella Resu Completed 11/20/2020 49507 Office/Outpatient Established Hi gh MDM 40-54 Min Completed 11/20/2020 46404 X-Ray Knee Complete W/Obliques & Tunnel And/Or Standing Views Completed 11/13/2020 99290 Office/Outpatient Established Mo d MDM 30-39 Min Completed 11/13/2020 46825 X-Ray Knee Complete W/Obliques & Tunnel And/Or Standing Views Completed Medical Devices Description No Information Available Encounters Type Date Location Provider Dx Diagnosis Office Visit 01/19/[facility]21 9[facility]a [facility] Z47.1 Aftercare following joint replacement [...] of left artificial knee joint Kelsey Buchanan, BINITROTOLUENE OPERATOR 02/20/2021 Z96.652 Presence of left artificial knee joint Lester Tovar MD 02/17/2021 Z47.1 Aftercare following joint replac ement surgery Kelsey Buchanan, BINITROTOLUENE OPERATOR 02/17/2021 Z96.652 Presence of left artificial knee joint Kelsey Buchanan, BINITROTOLUENE OPERATOR 02/12/2021 Z47.1 Aftercare following joint replac ement surgery Kelsey Buchanan, BINITROTOLUENE OPERATOR 02/12/2021 Z96.652 Presence of left artificial knee joint Kelsey Buchanan, BINITROTOLUENE OPERATOR 02/10/2021 Z47.1 Aftercare following joint replac ement surgery Kelsey Buchanan, BINITROTOLUENE OPERATOR 02/10/2021 Z96.652 Presence of left artificial knee joint Kelsey Buchanan, BINITROTOLUENE OPERATOR 01/29/2021 Z47.1 Aftercare following joint replac [...] [facility] passed to PT Dept sw. Created [address] [place] [phone] Mary Lou Tovar PA-C Physical Therapy Left Knee p er hany d at [facility] no auth req patient is going to [facility] passed to PT dept sw. Created [address] [place] [phone] Zacarias Engel MD SURGERY NO AUTH REQUIRED FOR TOTAL LEFT HIP (65965) TO SURGERY NT Created [address] [place] [address], [place] [address] [phone] Zacarias Engel MD SURGERY PER SADI AT [facility] NO A UTH REQUIRED FOR TOTAL LEFT KNEE SAME DAY SURGERY AND COVERED AT 100% TO SURGERY NT Created [address] [place] [address], [place] [address] [phone]
--- OUTSIDE RECORDS SUMMARY | 2021-03-29 09:58 | CCD ---
Author Author [facility] Organization [facility] [employer] Address Unknown Phone Unavailable Care Team Providers Care Caddymaster Name Role Phone Eder Briseno Unavailable PROBLEMS Type Condition ICD9-CM Code PUR25-IV Code Onset Dates Condition S tatus W/U Status Risk SNOMED Code Notes Problem Irritable bowel syndrome with constipation K58.1 Active confirmed 207796430 extensive w/u 6745-7604 (see PMH), all u nrevealing Problem Screening for breast cancer Z12.39 Active confirmed 613719184 Problem Other chronic pain G89.29 Active confirmed 8 0249888 Problem Acute midline low back pain with sciatica, sciatica laterality unspecified M54.40 Active confirmed 293563441 Problem Morbid obesity due to excess calories E66.01 Ac tive confirmed 896945000 Problem History of left knee replacement Z96.652 Active confirmed 759959590 Problem Gastroesophageal reflux disease without esophagitis K21.9 Active confirmed 860480085 Problem Medicare annual wellness visit, subsequent Z00.00 Active confirmed 499978905 Problem Vitamin D deficiency E55.9 Active confirmed 00407773 Problem Spondylolisthesis at L5-S1 level M43.17 Active confirmed 773952890 Problem Other and unspecified hyperlipidemia E78.5 Act kirti confirmed 11524500 ALLERGIES Allergen (clinical drug ingredient) Drug/Non Drug Allergy do cumented on EMR Reaction Allergy Type Onset Date Status Penicillin (For Allergies Use Only) Anaphylaxis Drug Aller gy Active Linzess rectal pain/spasms Non Drug Allergy Active celecoxib Celebrex(NDC Code:[address]-93) Unknown Drug Allergy Active erythromycin Erythromycin(NDC Code:[address]-39) Anaphylaxis Drug Al lergy Active Amitiza involuntary movements Non Drug Allergy Active gabapentin Gabapentin([facility] Code:[address]-57) Unknown Drug Allergy Active bees Anaphylaxis Non Drug Allergy Active sulfamethoxazole / trimethoprim Bactrim([facility] Code:[address]-72) Rash Drug Allergy Active ENCOUNTERS from 1965 to 2021-01-23 Encounter Location Date Provider Diagnosis [facility] [address] [place] [address] Jan, Eder Briseno History of left knee replacement Z96.652 and Other chronic pain G89.29 IMMUNIZATIONS Vaccine Route Administration Date Status COVID-19 dose #2 given elsewhere Unspecified Unknown [facility] 2020 Administered COVID-19 dose #1 given elsewhere Unspecified Unknown [facility] 2020 Administered TDAP 0.5mL (Boostrix) IM Intramuscular [...] FOR REFERRAL No Information VITAL SIGNS Weight 227 lbs Jan, Height 64 in Jan, BMI 38.96 kg/m2 Jan, Heart Rate 52 /min Jan, Respiratory Rate 18 /min Jan, Temperature 97.0 degrees Fahrenheit Jan, Oximetry 96 Jan, Blood pressure systolic 140 mm Hg Jan, Blood pressure diastolic 80 mm Hg Jan, MEDICATIONS Medication SIG (Take, Route, Frequency, Duration) Notes Start Da te End Date Status Mesalamine 1.2 GM TAKE 4 TABLETS BY MOUTH EVERY DAY Oral Daily Active NexIUM 40 MG 1 capsule Orally Once a day for 90 Active Multivitamins TAB 1 Orally DAILY Act kirti Cyclobenzaprine HCl 10 MG 1/2 - 1 tab Orally every 8 h ours as needed for muscle spasm for 10 day(s) Nov, Not-Taking Benadryl BMX coumpound, benadryl maalox , lidocaine Not-Taking Vitamin D3 2000 UNIT 1 capsule Orally Once a day Active Vitamin B-12 500 MCG 1 tablet Orally Once a day Active Lyrica 75 MG 1 capsule Orally Once a day for 28 day(s) Sep, Active Iron 325 (65 Fe) MG 1 tablet Orally twice daily Active EpiPen 2-Addi 0.3 MG/0.3ML as directed Injection as needed for 30 day(s) Jan, Active Gabapentin 100 MG 1 capsule Orally Once a day for 30 day(s) Not-Taking valACYclovir HCl 500 MG 1 tablet Orally Once a day for 30 Days Active Estradiol 1 MG 1 tablet Orally daily for 90 Active Doxycycline Hyclate 100 MG 1 capsule Orally Twice a day for 30 D ays Mar, Active PROCEDURES No Information RESULTS No Results REASON FOR VISIT 4 week/living well paperwork MEDICAL (GENERAL) HISTORY Type Description Date Medical History arthritis, R > L knee - [facility] Medical History morbid obesity Medical History seasonal [...] History S1 bilateral epidural spinal injections at [facility] 01/28, complicated by spinal CROSS, admitted [...] History R foot surgery d/t fx toe 2014 Surgical History L knee meniscal tear - [facility]2014 Surgical History rt foot sx hammertoes (OZIEL/Sita) Surgical History EGD and colonoscopy (Dr. Alba) 04/14 018 Hospitalization History surgeries Hospitalization History hydrocodone 01/28 Goals Section No Information Health Concerns No Information MEDICAL EQUIPMENT No Information MENTAL STATUS No Information FUNCTIONAL STATUS No Information ASSESSMENTS Encounter Date Diagnosis Assessment Notes Treatment Notes Treatm ent Clinical Notes Jan, History of left knee replacement (ICD-10 - Z96.6 52) recovering slowly Jan, Other chronic pain (ICD-10 - G89.29) see form PLAN OF TREATMENT Treatment Notes Assessment Notes Clinical Notes History of left knee replacement recover ing slowly Other chronic pain see form Next Appt Details prn Reason: Provider Name:Alyssa Yao, 01:45:00 PM, 0 [facility], [place], [place], [facility], Insurance Providers Payer Name Payer Address Payer Phone Insured Name Patient Relati onship to Insured Coverage Start Date Coverage End Date MEDICARE Part A and B [address] [place] [phone] KAROLINE GRIMALDO [facility] [address] [id number] [facility] [phone] KAROLINE GRIMALDO
--- OUTSIDE RECORDS SUMMARY | 2021-03-29 09:58 | CCD ---
Continuity of Care Document (CCD) Created on: 01/26/2021 Sri Pink External Reference #: [id number] : 1965 Sex: Female Author Author Sri GARCIA MD Organization Unknown Address [address] [place] [address], [facility] [address] [place] [address] Phone [phone] Care Team Providers Care Industrial Fabric Cutter Name Role Phone Eder Briseno MD AUTM [phone] Problems Description No Active Problems Social History [...] dental procedure 2caps Lester Garcia MD 01/26/2021 Lyrica 25mg Capsules 1 by mouth twice a day 60caps Lester Garcia MD 01/07/2021 Xarelto 10mg Tablets 1 tab [...] Garcia MD 12/09/2020 Oxycodone-Acetaminophen 5-325mg Ta blets Take 1 Tablet By Mouth Every 4-6 Hours as Needed For Pain, Surg Date 12/30/2020 20tabs Lester Garcia MD 12/09/2020 Tramadol [...] H/L Range Note Comprehensive Metabolic Prof 01/01/2021 [facility] [address] [place] [address] Glu 108 mg/dL Normal 70-110 1 BUN [...] Normal 6-38 5 Complete Blood Count 01/01/2021 [facility] [address] [place] [address] WBC 10.21 x10E3/uL Normal 4.0-10.5 RBC 3.60 [...] Abs. Lymph. 1.68 x10E3/uL Normal 1.0-3.5 Abs. Mcdowell. 1.09 x10E3/uL High 0.1-1.0 Abs. Eosin. 0.03 x10E3/uL Low 0.1-0.7 Abs. Baso. 0.05 x10E3/uL Normal 0.0-0.1 Abs. Imm. Gran. 0.04 x10E3/uL Normal 0.0-0.1 Anrbc% 0 % Normal 0 Comprehensive Metabolic Prof 12/31/[address] [address] Glu 112 mg/dL High 70-110 6 BUN [...] Normal 6-38 10 Laboratory test finding 12/26/[address] [address] Bretype B POSITIVE Normal Laboratory test finding 12/26/[address] [address] Lesr 13 MM/HR Normal 0-20 11 Type&Screen 12/26/[address] [address] Blood Type B POSITIVE Normal Antibody Screen NEGATIVE Normal Laboratory test finding 12/26/[address] [address] [id number] Rheonix Negative Normal Negative 12 1 Patients taking Sulfasalazin e may have falsely depressed Glucose levels. Patients taking Sulfapyridine may have falsely elevated Glucose levels. Patients should be drawn for Glucose before the initial administration of either drug. 2 ESRD Dialysis patient Albumi n reference range: 2.9-4.4 g/dL 3 The Dimension [place] Total Bi lirubin is not recommended for [...] reference range: 2.9-4.4 g/dL 8 The Dimension [place] Total Bi lirubin is not recommended for [...] N Restricted limb verified Y 12 The uTrail mex COVID-19 MDx Ass ay is an endpoint [...] Use Authorization. Procedures Date Code Description Status 12/30/2020 54804 Arthroplasty "Total Knee" Medial & Lateral W/ Or W/O Patella Resu Completed 11/20/2020 55802 Office/Outpatient Established Hi gh MDM 40-54 Min Completed 11/20/2020 58202 X-Ray Knee Complete W/Obliques & Tunnel And/Or Standing Views Completed 11/13/2020 83604 Office/Outpatient Established Mo d MDM 30-39 Min Completed 11/13/2020 49631 X-Ray Knee Complete W/Obliques & Tunnel And/Or [...] artificial knee joint Office Visit 12/29/2020 3:[place]p [place] PA-C Z01.818 Encounter for other preprocedural examination M17.12 Unilateral primary osteoarth ritis, left knee Office Visit 11/13/2020 8:15a [place] Davis MD M17.0 Bilateral primary osteoarthritis of knee Assessments Date Code Description Provider 01/19/2021 Z47.1 Aftercare following joint replac ement [...] Davis MD Plan of Treatment Future Appointment(s):* 01/27/2021 3:00 pm - Chapito Puentes, PT, DPT at Physical Therapy * 02/20/2021 9:45 am - Lester Garcia MD at [place] 01/19/2021 - Lester Garcia MD* Z47.1 Aftercare following joint replacement surgery * Z96.652 Presence of left artificial knee joint* Follow up:* 4 week left knee mario with a 3 view x ray with SBF Functional Status Description No Information Available Mental Status Description No Information Available Referrals Refer to Dr Reason for Referral Status Appt Date Mary Lou Garcia PA-C Physical Therapy Left Knee p er ins no auth req based on medical necessity patient is going to [facility] passed to PT Dept sw. Created [address] [place] [address] [phone] Mary Lou Garcia PA-C Physical Therapy Left Knee p er hany d at [facility] no auth req patient is going to [facility] passed to PT dept sw. Created [address] [place] [phone] Zacarias Engel MD SURGERY NO AUTH REQUIRED FOR TOTAL LEFT HIP (70908) TO SURGERY NT Created [address] [place] [address] [phone] Zacarias Engel MD SURGERY PER [facility]ADI AT [facility] NO A UTH REQUIRED FOR TOTAL LEFT KNEE SAME DAY SURGERY AND COVERED AT 100% TO SURGERY NT Created [address] [place] [address] [phone]
--- OUTSIDE RECORDS SUMMARY | 2021-03-29 09:58 | CCD | Continuity of Care Document ---
Author Author Sri GARDINER DPT Organization Unknown Address [address] [address] Phone [phone] Care Team Providers Care Chief Deputy Clerk/Bailiff Name Role Phone Eder Briseno MD AUTM [phone] Problems Description No Active Problems Social History [...] H/L Range Note Comprehensive Metabolic Prof 01/01/2021 [facility] [address] [place] [address] Glu 108 mg/dL Normal 70-110 1 BUN [...] 6-38 5 Complete Blood Count 01/01/2021 [facility] [address] [place] [address] WBC 10.21 x10E3/uL Normal 4.0-10.5 RBC 3.60 [...] Abs. Lymph. 1.68 x10E3/uL Normal 1.0-3.5 Abs. Willacy. 1.09 x10E3/uL High 0.1-1.0 Abs. Eosin. 0.03 x10E3/uL Low 0.1-0.7 Abs. Baso. 0.05 x10E3/uL Normal 0.0-0.1 Abs. Imm. Gran. 0.04 x10E3/uL Normal 0.0-0.1 Anrbc% 0 % Normal 0 Comprehensive Metabolic Prof 12/31/[address] [address] Glu 112 mg/dL High 70-110 6 BUN [...] Normal 6-38 10 Laboratory test finding 12/26/[address] [address] Bretype B POSITIVE Normal Laboratory test finding 12/26/[address] [address] Lesr 13 MM/HR Normal 0-20 11 Type&Screen 12/26/[address] [address] Blood Type B POSITIVE Normal Antibody Screen NEGATIVE Normal Laboratory test finding 12/26/[address] [address] [id number] Rheonix Negative Normal Negative 12 1 Patients taking Sulfasalazin e may have falsely depressed Glucose levels. Patients taking Sulfapyridine may have falsely elevated Glucose levels. Patients should be drawn for Glucose before the initial administration of either drug. 2 ESRD Dialysis patient Albumi n reference range: 2.9-4.4 g/dL 3 The Dimension [place] Total Bi lirubin is not recommended for [...] reference range: 2.9-4.4 g/dL 8 The Dimension [place] Total Bi lirubin is not recommended for [...] N Restricted limb verified Y 12 The Cell[employer] COVID-19 MDx Ass ay is an endpoint [...] sole basis for patient management decisions. The 2Peer (Qlipso)onix MDx Assay is only for use under the Food and Drug Administration's Emergency Use Authorization. Procedures Date Code Description Status 12/30/2020 77007 Arthroplasty "Total Knee" Medial & Lateral W/ Or W/O Patella Resu Completed 11/20/2020 13867 Office/Outpatient Established Hi gh MDM 40-54 Min Completed 11/20/2020 25913 X-Ray Knee Complete W/Obliques & Tunnel And/Or Standing Views Completed 11/13/2020 91787 Office/Outpatient Established Mo d MDM 30-39 Min Completed 11/13/2020 59015 X-Ray Knee Complete W/Obliques & Tunnel And/Or Standing Views Completed Medical Devices Description No Information Available Encounters Type Date Location Provider Dx Diagnosis Office Visit 01/19/2021 9:45a Yenifer Tovar MD Z47.1 Aftercare following joint replacement surgery Z96.652 Presence of left artificial knee joint Office Visit 01/07/2021 10:15a [facility] Z47.1 Aftercare following joint replacement surgery Z96.652 Presence of left artificial knee joint Office Visit 12/29/2020 3:00p [facility] PA-C Z01.818 Encounter for other preprocedural examination M17.12 Unilateral primary osteoarth ritis, left knee Office Visit 11/13/2020 8:15a [facility] Davis MD M17.0 Bilateral primary osteoarthritis of [...] primary osteoarthriti s, left knee Mary Lou CornelioAusten Tovar PA-C 11/20/2020 M17.12 Unilateral primary osteoarthriti s, left knee Lester Tovar MD 11/13/2020 M17.0 Bilateral primary osteoarthritis of knee Ruslan Davis MD Plan of Treatment Future Appointment(s):* 02/05/2021 2:30 pm - Kelsey Buchanan HOT STAMP OPERATOR at Physical Therapy * 02/03/2021 2:30 pm - Kelsey Buchanan HOT STAMP OPERATOR at Physical Therapy * 01/29/2021 2:30 pm - Chapito Gardiner PT, DPT at Physical Therapy * 02/20/2021 9:45 am - Lester Tovar MD at [facility] Functional Status Description No Information Available Mental Status Description No Information Available Referrals Refer to Dr Reason for Referral Status Appt Date Mary Lou Tovar PA-C Physical Therapy Left Knee p er ins no auth req based on medical necessity patient is going to [facility] passed to PT Dept sw. Created [address] [place] [address] [phone] Mary Lou Tovar PA-C Physical Therapy Left Knee p er hany d at [facility] no auth req patient is going to [facility] passed to PT dept sw. Created [address] [place] [phone] Zacarias Engel MD SURGERY NO AUTH REQUIRED FOR TOTAL LEFT HIP ([id number]) TO SURGERY NT Created [address] [place] [address], [place] [address] [phone] Zacarias Engel MD SURGERY PER SADI AT [facility] NO A UTH REQUIRED FOR TOTAL LEFT KNEE SAME DAY SURGERY AND COVERED AT 100% TO SURGERY NT Created [address] [place] [address], [place] [address] [phone]
--- OUTSIDE RECORDS SUMMARY | 2021-03-29 10:00 | CCD ---
Author Author [facility] Organization [facility] Address Unknown Phone Unavailable Care Team Providers Care Clinical Program Manager Name Role Phone [facility] Samantha [facility], PA-C Unavailable Unavailabl e Fish, [facility], PA-C Unavailable Unavailabl e Fish, [facility], PA-C Unavailable Unavailabl e Fish, [facility], PA-C Unavailable Unavailabl e Fish, [facility], PA-C Unavailable Unavailabl e Fish, [facility], PA-C Unavailable Unavailabl e Fish, [facility], PA-C Unavailable Unavailabl e Fish, [facility], PA-C Unavailable Unavailabl e Fish, [facility], PA-C Unavailable Unavailabl e Fish, [facility], PA-C Unavailable Unavailabl e Fish, [facility], PA-C Unavailable Unavailabl e Fish, [facility], PA-C Unavailable Unavailabl e Fish, [facility], PA-C Unavailable Unavailabl e Fish, [facility], PA-C Unavailable Unavailabl e Fish, [facility], PA-C Unavailable Unavailabl e Fish, [facility], PA-C Unavailable Unavailabl e Fish, [facility], PA-C Unavailable Unavailabl e Fish, [facility], PA-C Unavailable Unavailabl e Fish, [facility], PA-C Unavailable Unavailabl e Fish, [facility], PA-C Unavailable Unavailabl e Fish, [facility], PA-C Unavailable Unavailabl e Fish, [facility], PA-C Unavailable Unavailabl e Fish, [facility], PA-C Unavailable Unavailabl e Fish, [facility], PA-C Unavailable Unavailabl e Fish, [facility], PA-C Unavailable Unavailabl e Fish, [facility], PA-C Unavailable Unavailabl e Fish, [facility], PA-C Unavailable Unavailabl e Fish, [facility], PA-C Unavailable Unavailabl e Fish, [facility], PA-C Unavailable Unavailabl e Fish, [facility], PA-C Unavailable Unavailabl e Fish, [facility], PA-C Unavailable Unavailabl e Fish, [facility], PA-C Unavailable Unavailabl e Fish, [facility], PA-C Unavailable Unavailabl e Fish, [facility], PA-C Unavailable Unavailabl e Fish, [facility], PA-C Unavailable Unavailabl e Cornelio RAMIREZ MD Unavailable Unavailable Cornelio RAMIREZ MD Unavailable Unavailable Cornelio RAMIREZ MD Unavailable Unavailable Cornelio RAMIREZ MD Unavailable Unavailable Cornelio RAMIREZ MD Unavailable Unavailable Cornelio RAMIREZ MD Unavailable Unavailable Cornelio RAMIREZ MD Unavailable Unavailable JAMES L BURT KOCH Unavailable Unavailable Cornelio RAMIREZ MD Unavailable Unavailable RAMIREZ, L BURT KOCH Unavailable Unavailable Cornelio RAMIREZ MD Unavailable Unavailable Cornelio RAMIREZ MD Unavailable Unavailable JAMES L BURT KOCH Unavailable Unavailable Cornelio RAMIREZ MD Unavailable Unavailable JAMES L BURT KOCH Unavailable Unavailable Cornelio RAMIREZ MD Unavailable Unavailable Cornelio RAMIREZ MD Unavailable Unavailable Cornelio RAMIREZ MD Unavailable Unavailable Cornelio RAMIREZ MD Unavailable Unavailable Cornelio RAMIREZ MD Unavailable Unavailable Cornelio RAMIREZ MD Unavailable Unavailable Cornelio RAMIREZ MD Unavailable Unavailable RAMIREZ, L BURT KOCH Unavailable Unavailable JAMES, L BURT KOCH Unavailable Unavailable RAMIREZ, L BURT KOCH Unavailable Unavailable RAMIREZCornelio MD Unavailable Unavailable RAMIREZ, Cornelio DALLAS MD Unavailable Unavailable RAMIREZ, L BURT KOCH Unavailable Unavailable RAMIREZ, L BURT KOCH Unavailable Unavailable RAMIREZ, L BURT KOCH Unavailable Unavailable RAMIREZ, L BURT KOCH Unavailable Unavailable RAMIREZ, L BURT KOCH Unavailable Unavailable RAMIREZ, Cornelio DALLAS MD Unavailable Unavailable RAMIREZ, L BURT KOCH Unavailable Unavailable RAMIREZ, L BURT KOCH Unavailable Unavailable RAMIREZ, L BURT KOCH Unavailable Unavailable RAMIREZ, L BURT KOCH Unavailable Unavailable RAMIREZ, L BURT KOCH Unavailable Unavailable RAMIREZ, L BURT KOCH Unavailable Unavailable RAMIREZ, L BURT KOCH Unavailable Unavailable RAMIREZ, L BURT KOCH Unavailable Unavailable RAMIREZ, L BURT KOCH Unavailable Unavailable RAMIREZ, L BURT KOCH Unavailable Unavailable RAMIREZ, L BURT KOCH Unavailable Unavailable RAMIREZ, L BURT KOCH Unavailable Unavailable Fish, B Lizandro KOCH Unavailable Unavailable Fish, B Lizandro KOCH Unavailable Unavailable Fish, B Lizandro KOCH Unavailable Unavailable Fish, B Lizandro KOCH Unavailable Unavailable Fish, B Lizandro KOCH Unavailable Unavailable Fish, B Lizandro KOCH Unavailable Unavailable Fish, B Lizandro KOCH Unavailable Unavailable Fish, B Lizandro KOCH Unavailable Unavailable Fish, B Lizandro KOCH Unavailable Unavailable Fish, B Lizandro KOCH Unavailable Unavailable Fish, B Lizandro KOCH Unavailable Unavailable Fish, B Lizandro KOCH Unavailable Unavailable Fish, B Lizandro KOCH Unavailable Unavailable Fish, B Lizandro KOCH Unavailable Unavailable Fish, B Lizandro KOCH Unavailable Unavailable Fish, B Lizandro KOCH Unavailable Unavailable Fish, B Lizandro KOCH Unavailable Unavailable Fish, B Lizandro KOCH Unavailable Unavailable Fish, B Lizandro KOCH Unavailable Unavailable Fish, B Lizandro KOCH Unavailable Unavailable Fish, B Lizandro KOCH Unavailable Unavailable Fish, B Lizandro KOCH Unavailable Unavailable Fish, B Lizandro KOCH Unavailable Unavailable Fish, B Lizandro KOCH Unavailable Unavailable Fish, B Lizandro KOCH Unavailable Unavailable Fish, B Lizandro KOCH Unavailable Unavailable Fish, B Lizandro KOCH Unavailable Unavailable Fish, B Lizandro KOCH Unavailable Unavailable Fish, B Lizandro KOCH Unavailable Unavailable Fish, B Lizandro KOCH Unavailable Unavailable Fish, B Lizandro KOCH Unavailable Unavailable Fish, B Lizandro KOCH Unavailable Unavailable Fish, B Lizandro KOCH Unavailable Unavailable Fish, B Lizandro KOCH Unavailable Unavailable Fish, B Lizandro KOCH Unavailable Unavailable Fish, B Lizandro KOCH Unavailable Unavailable Fish, B Lizandro KOCH Unavailable Unavailable Fish, B Lizandro KOCH Unavailable Unavailable Fish, B Lizandro KOCH Unavailable Unavailable Fish, B Lizandro KOCH Unavailable Unavailable Fish, B Lizandro KOCH Unavailable Unavailable Fish, Rachel Batista MD Unavailable Unavailable Fish, Rachel Batista MD Unavailable Unavailable Fish, Rachel Batista MD Unavailable Unavailable Fish, Rachel Batista MD Unavailable Unavailable Fish, Rachel Batista MD Unavailable Unavailable Fish, Rachel Batista MD Unavailable Unavailable Fish, Rachel Batista MD Unavailable Unavailable Fish, Rachel Batista MD Unavailable Unavailable Fish, Rachel Batista MD Unavailable Unavailable Fish, Rachel Batista MD Unavailable Unavailable Fish, Rachel Batista MD Unavailable Unavailable Fish, Rachel Batista MD Unavailable Unavailable Fish, Rachel Batista MD Unavailable Unavailable Fish, Rachel Batista MD Unavailable Unavailable Fish, Rachel Batista MD Unavailable Unavailable Fine, Cornelio Adames MD Unavailable Unavailable Fine, Cornelio Adames MD Unavailable Unavailable Fine, Cornelio Adames MD Unavailable Unavailable Fine, Cornelio Adames MD Unavailable Unavailable Fine, Cornelio Adames MD Unavailable Unavailable Fine, L Doroteo KOCH Unavailable Unavailable Fine, Cornelio Adames MD Unavailable Unavailable Fine, Cornelio Adames MD Unavailable Unavailable Ifne, Cornelio Adames MD Unavailable Unavailable Fine, Cornelio Adames MD Unavailable Unavailable Fine, Cornelio Adames MD Unavailable Unavailable Fine, Cornelio Adames MD Unavailable Unavailable Fine, Cornelio Adames MD Unavailable Unavailable Fine, L Doroteo KOCH Unavailable Unavailable Fine, Cornelio Adames MD Unavailable Unavailable Fine, Cornelio Adames MD Unavailable Unavailable Fine, Cornelio Adames MD Unavailable Unavailable Fine, L Doroteo KOCH Unavailable Unavailable Fine, L Doroteo KOCH Unavailable Unavailable Fine, L Doroteo KOCH Unavailable Unavailable Fine, L Doroteo KOCH Unavailable Unavailable Fine, L Doroteo KOCH Unavailable Unavailable Fine, Cornelio Adames MD Unavailable Unavailable Fine, Cornelio Adames MD Unavailable Unavailable Fine, Cornelio Adames MD Unavailable Unavailable Fine, Cornelio Adames MD Unavailable Unavailable Fine, Cornelio Adames MD Unavailable Unavailable Fine, Cornelio Adames MD Unavailable Unavailable Fine, Cornelio Adames MD Unavailable Unavailable Fine, Cornelio Adames MD Unavailable Unavailable Fine, Cornelio Adames MD Unavailable Unavailable Fine, Cornelio Adames MD Unavailable Unavailable Fine, Cornelio Adames MD Unavailable Unavailable Fine, Cornelio Adames MD Unavailable Unavailable Fine, Cornelio Adames MD Unavailable Unavailable Fine, Cornelio Adames MD Unavailable Unavailable Fine, Cornelio Adames MD Unavailable Unavailable Fine, L Doroteo KOCH Unavailable Unavailable Fine, Cornelio Adames MD Unavailable Unavailable Fine, Cornelio Adames MD Unavailable Unavailable Fine, Corneilo Adames MD Unavailable Unavailable Fine, Cornelio Adames MD Unavailable Unavailable Fine, Cornelio Adames MD Unavailable Unavailable Fine, Cornelio Adames MD Unavailable Unavailable Fine, Cornelio Adames MD Unavailable Unavailable Fine, L Doroteo KOCH Unavailable Unavailable Fine, L Doroteo KOCH Unavailable Unavailable Fine, L Doroteo MD Unavailable Unavailable Cornelio Fine MD Unavailable Unavailable Cornelio Fine MD Unavailable Unavailable SUSHIL, HUANG PA Unavailable Unavailable SUSHIL, HUANG PA Unavailable Unavailable SUSHIL, HUANG PA Unavailable Unavailable SUSHIL, HUANG PA Unavailable Unavailable SUSHIL, HUANG PA Unavailable Unavailable SUSHIL, HUANG PA Unavailable Unavailable SUSHIL, HUANG PA Unavailable Unavailable SUSHIL, HUANG PA Unavailable Unavailable SUSHIL, HUANG PA Unavailable Unavailable SUSHIL, HUANG PA Unavailable Unavailable SUSHIL, HUANG PA Unavailable Unavailable SUSHIL, HUANG PA Unavailable Unavailable SUSHIL, HUANG PA Unavailable Unavailable SUSHIL, HUANG PA Unavailable Unavailable SUSHIL, HUANG PA Unavailable Unavailable SUSHIL, HUANG PA Unavailable Unavailable SUSHIL, HUANG PA Unavailable Unavailable SUSHIL, HUANG PA Unavailable Unavailable SUSHIL, HUANG PA Unavailable Unavailable SUSHIL, HUANG PA Unavailable Unavailable SUSHIL, HUANG PA Unavailable Unavailable SUSHIL, HUANG PA Unavailable Unavailable SUSHIL, HUANG PA Unavailable Unavailable SUSHIL, HUANG PA Unavailable Unavailable SUSHIL, HUANG PA Unavailable Unavailable SUSHIL, HUANG PA Unavailable Unavailable SUSHIL, HUANG PA Unavailable Unavailable SUSHIL, HUANG PA Unavailable Unavailable SUSHIL, HUANG PA Unavailable Unavailable SUSHIL, HUANG PA Unavailable Unavailable SUSHIL, HUANG PA Unavailable Unavailable SUSHIL, HUANG PA Unavailable Unavailable SUSHIL, HUANG PA Unavailable Unavailable SUSHIL, HUANG PA Unavailable Unavailable SUSHIL, HUANG PA Unavailable Unavailable SUSHIL, HUANG PA Unavailable Unavailable Kayode REYES MD Unavailable Unavailable Kayode REYES MD Unavailable Unavailable Kayode REYES MD Unavailable Unavailable Kayode REYES MD Unavailable Unavailable Kayode REYES MD Unavailable Unavailable Kayode REYES MD Unavailable Unavailable Kayode REYES MD Unavailable Unavailable Kayode REYES MD Unavailable Unavailable Kayode REYES MD Unavailable Unavailable Kayode REYES MD Unavailable Unavailable Kayode REYES MD Unavailable Unavailable Kayode REYES MD Unavailable Unavailable Kayode REYES MD Unavailable Unavailable Kayode REYES MD Unavailable Unavailable Kayode REYES MD Unavailable Unavailable Kayode REYES MD Unavailable Unavailable Kayode REYES MD Unavailable Unavailable Kayode REYES MD Unavailable Unavailable Kayode REYES MD Unavailable Unavailable Kayode REYES MD Unavailable Unavailable Kayode REYES MD Unavailable Unavailable Kayode REYES MD Unavailable Unavailable Kayode REYES MD Unavailable Unavailable Kayode REYES MD Unavailable Unavailable Kayode REYES MD Unavailable Unavailable Kayode REYES MD Unavailable Unavailable Kayode REYES MD Unavailable Unavailable Kayode REYES MD Unavailable Unavailable Kayode REYES MD Unavailable Unavailable Kayode REYES MD Unavailable Unavailable Kayode REYES MD Unavailable Unavailable Kayode REYES MD Unavailable Unavailable Kayode REYES MD Unavailable Unavailable Kayode REYES MD Unavailable Unavailable Kayoed REYES MD Unavailable Unavailable Kayode REYES MD Unavailable Unavailable Kayode REYES MD Unavailable Unavailable Kayode REYES MD Unavailable Unavailable Kayode REYES MD Unavailable Unavailable Kayode REYES MD Unavailable Unavailable Kayode REYES MD Unavailable Unavailable Kayode REYES MD Unavailable Unavailable Kayode REYES MD Unavailable Unavailable Kayode REYES MD Unavailable Unavailable Kayode REYES MD Unavailable Unavailable Kayode REYES MD Unavailable Unavailable Kayode REYES MD Unavailable Unavailable Kayode REYES MD Unavailable Unavailable Kayode REYES MD Unavailable Unavailable Kayode REYES MD Unavailable Unavailable Kayode REYES MD Unavailable Unavailable Kayode REYES MD Unavailable Unavailable Kayode REYES MD Unavailable Unavailable Kayode REYES MD Unavailable Unavailable Kayode REYES MD Unavailable Unavailable Kayode REYES MD Unavailable Unavailable Kayode REYES MD Unavailable Unavailable Kayode REYES MD Unavailable Unavailable Kayode REYES MD Unavailable Unavailable Kayode REYES MD Unavailable Unavailable Kayode REYES MD Unavailable Unavailable Kayode REYES MD Unavailable Unavailable Kayode REYES MD Unavailable Unavailable Kayode REYES MD Unavailable Unavailable Kayode REYES MD Unavailable Unavailable Kayode REYES MD Unavailable Unavailable Kayode REYES MD Unavailable Unavailable Kayode REYES MD Unavailable Unavailable Kayode REYES MD Unavailable Unavailable Kayode REYES MD Unavailable Unavailable Kayode REYES MD Unavailable Unavailable Kayode REYES MD Unavailable Unavailable Kayode REYES MD Unavailable Unavailable MANASKayode GILLESPIE MD Unavailable Unavailable MANASKayode GILLESPIE MD Unavailable Unavailable MANASKayode GILLESPIE MD Unavailable Unavailable Kayode REYES MD Unavailable Unavailable MANASKayode GILLESPIE MD Unavailable Unavailable Kayode REYES MD Unavailable Unavailable MANASKayode GILLESPIE MD Unavailable Unavailable MANASKayode GILLESPIE MD Unavailable Unavailable MANASKayode GILLESPIE MD Unavailable Unavailable MANASKayode GILLESPIE MD Unavailable Unavailable Kayode REYES MD Unavailable Unavailable MANASKayode GILLESPIE MD Unavailable Unavailable MANASKayode GILLESPIE MD Unavailable Unavailable MANASKayode GILLESPIE MD Unavailable Unavailable MANASKayode GILLESPIE MD Unavailable Unavailable MANASKayode GILLESPIE MD Unavailable Unavailable Kayode REYES MD Unavailable Unavailable Kayode REYES MD Unavailable Unavailable MANASKayode GILLESPIE MD Unavailable Unavailable Kayode REYES MD Unavailable Unavailable MANASKayode GILLESPIE MD Unavailable Unavailable Fish, Rachel Batista MD Unavailable Unavailable Fish, Rachel Batista MD Unavailable Unavailable Fish, Rachel Batista MD Unavailable Unavailable Fish, Rachel Batista MD Unavailable Unavailable Fish, Rachel Batista MD Unavailable Unavailable Fish, Rachel Batista MD Unavailable Unavailable Fish, Rachel Batista MD Unavailable Unavailable Fish, Rachel Batista MD Unavailable Unavailable Fish, Rachel Batista MD Unavailable Unavailable Fish, Rachel Batista MD Unavailable Unavailable Fish, Rachel Batista MD Unavailable Unavailable Fish, Rachel Batista MD Unavailable Unavailable Fish, Rachel Batista MD Unavailable Unavailable Fish, Rachel Batista MD Unavailable Unavailable Fish, Rachel Batista MD Unavailable Unavailable Fish, Rachel Batista MD Unavailable Unavailable Fish, Rachel Batista MD Unavailable Unavailable Fish, Rachel Batista MD Unavailable Unavailable Fish, Rachel Batista MD Unavailable Unavailable Fish, Rachel Baitsta MD Unavailable Unavailable Fish, Rachel Batista MD Unavailable Unavailable Fish, Rachel Batista MD Unavailable Unavailable Fish, Rachel Batista MD Unavailable Unavailable Fish, Rachel Batista MD Unavailable Unavailable Fish, Rachel Batista MD Unavailable Unavailable Fish, Rachel Batista MD Unavailable Unavailable Fish, Rachel Batista MD Unavailable Unavailable Fish, Rachel Batista MD Unavailable Unavailable Fish, Rachel Batista MD Unavailable Unavailable Fish, Rachel Batista MD Unavailable Unavailable Fish, Rachel Batista MD Unavailable Unavailable Fish, Rachel Batista MD Unavailable Unavailable Fish, Rachel Batista MD Unavailable Unavailable Fish, Rachel Batista MD Unavailable Unavailable Fish, Rachel Batista MD Unavailable Unavailable Fish, Rachel Batista MD Unavailable Unavailable Fish, Rachel Batista MD Unavailable Unavailable Fish, Rachel Batista MD Unavailable Unavailable Fish, Rachel Batista MD Unavailable Unavailable Fish, Rachel Batista MD Unavailable Unavailable Fish, Rachel Batista MD Unavailable Unavailable Fish, Rachel Batista MD Unavailable Unavailable Fish, Rachel Batista MD Unavailable Unavailable Fish, Rachel Batista MD Unavailable Unavailable Fish, Rachel Batista MD Unavailable Unavailable Fish, Rachel Batista MD Unavailable Unavailable Fish, Rachel Batista MD Unavailable Unavailable Fish, Rachel Batista MD Unavailable Unavailable Fish, Rachel Batista MD Unavailable Unavailable Fish, Rachel Batista MD Unavailable Unavailable Fish, Rachel Batista MD Unavailable Unavailable Fish, Rachel Batista MD Unavailable Unavailable Fish, Rachel Batista MD Unavailable Unavailable Fish, Rachel Batista MD Unavailable Unavailable Fish, Rachel Batista MD Unavailable Unavailable Fish, Rachel Batista MD Unavailable Unavailable Ryan, Kayode Mercer MD Unavailable Unavailable Kayode Davis MD Unavailable Unavailable Ryan, Kayode Mercer MD Unavailable Unavailable Ryan, Kayode Mercer MD Unavailable Unavailable Ryan, Kayode Mercer MD Unavailable Unavailable Ryan, Kayode Mercer MD Unavailable Unavailable Ryan, Kayode Mercer MD Unavailable Unavailable Ryan, Kayode Mercer MD Unavailable Unavailable Ryan, Kayode Mercer MD Unavailable Unavailable Ryan, Kayode Mercer MD Unavailable Unavailable Ryan, Kayode Mercer MD Unavailable Unavailable GRECIA (MAMADOU), Kvng LARSON MD Unavailable Unavailab le GRECIA (MAMADOU), Kvng LARSON MD Unavailable Unavailab le GRECIA (MAMADOU), Kvng LARSON MD Unavailable Unavailab le GRECIA (MAMADOU), Kvng LARSON MD Unavailable Unavailab le GRECIA (MAMADOU), Kvng LARSON MD Unavailable Unavailab le GRECIA (MAMADOU), Kvng LARSON MD Unavailable Unavailab le GRECIA (MAMADOU), Kvng LARSON MD Unavailable Unavailab le GRECIA (MAMADOU), Kvng LARSON MD Unavailable Unavailab le GRECIA (MAMADOU), Kvng LARSON MD Unavailable Unavailab le GRECIA (MAMADOU), Kvng LARSON MD Unavailable Unavailab le GRECIA (MAMADOU), Kvng LARSON MD Unavailable Unavailab le GRECIA (MAMADOU), Kvng LARSON MD Unavailable Unavailab le GRECIA (MAMADOU), Kvng LARSON MD Unavailable Unavailab le GRECIA (MAMADOU), Kvng LARSON MD Unavailable Unavailab le GRECIA (MAMADOU), Kvng LARSON MD Unavailable Unavailab le GRECIA (MAMADOU), Kvng LARSON MD Unavailable Unavailab le GRECIA (MAMADOU), Kvng LARSON MD Unavailable Unavailab le GRECIA (MAMADOU), Kvng LARSON MD Unavailable Unavailab le GRECIA (MAMADOU), Kvng LARSON MD Unavailable Unavailab le GRECIA (MAMADOU), Kvng LARSON MD Unavailable Unavailab le GRECIA (MAMADOU), Kvng LARSON MD Unavailable Unavailab le GRECIA (MAMADOU), Kvng LARSON MD Unavailable Unavailab le GRECIA (MAMADOU), Kvng LARSON MD Unavailable Unavailab le GRECIA (MAMADOU), Kvng LARSON MD Unavailable Unavailab le GRECIA (MAMADOU), Kvng LARSON MD Unavailable Unavailab le GRECIA (MAMADOU), Kvng LARSON MD Unavailable Unavailab le GRECIA (MAMADOU), Kvng LARSON MD Unavailable Unavailab le GRECIA (MAMADOU), Kvng LARSON MD Unavailable Unavailab le GRECIA (MAMADOU), Kvng LARSON MD Unavailable Unavailab le GRECIA (MAMADOU), Kvng LARSON MD Unavailable Unavailab le GRECIA (MAMADOU), Kvng LARSON MD Unavailable Unavailab le GRECIA (MAMADOU), Kvng LARSON MD Unavailable Unavailab le GRECIA (MAMADOU), Kvng LARSON MD Unavailable Unavailab le GRECIA (MAMADOU), Kvng LARSON MD Unavailable Unavailab le GRECIA (MAMADOU), Kvng LARSON MD Unavailable Unavailab le GRECIA (MAMADOU), Kvng LARSON MD Unavailable Unavailab le GRECIA (MAMADOU), Kvng LARSON MD Unavailable Unavailab le GRECIA (MAMADOU), Kvng LARSON MD Unavailable Unavailab le GRECIA (MAMADOU), Kvng LARSON MD Unavailable Unavailab le GRECIA (MAMADOU), Kvng LARSON MD Unavailable Unavailab le GRECIA (MAMADOU), Kvng LARSON MD Unavailable Unavailab le GRECIA (MAMADOU), Kvng LARSON MD Unavailable Unavailab le GRECIA (MAMADOU), Kvng LARSON MD Unavailable Unavailab le GRECIA (MAMADOU), Kvng LARSON MD Unavailable Unavailab le GRECIA (MAMADOU), Kvng LARSON MD Unavailable Unavailab le GRECIA (MAMADOU), Kvng LARSON MD Unavailable Unavailab le GRECIA (MAMADOU), Kvng LARSON MD Unavailable Unavailab le GRECIA (MAMADOU), Kvng LARSON MD Unavailable Unavailab le GRECIA (MAMADOU), Kvng LARSON MD Unavailable Unavailab le GRECIA (MAMADOU), Kvng LARSON MD Unavailable Unavailab le GRECIA (MAMADOU), Kvng LARSON MD Unavailable Unavailab le GRECIA (MAMADOU), Kvng LARSON MD Unavailable Unavailab le GRECIA (MAMADOU), Kvng LARSON MD Unavailable Unavailab le GRECIA (MAMADOU), Kvng LARSON MD Unavailable Unavailab le GRECIA (MAMADOU), Kvng LARSON MD Unavailable Unavailab le GRECIA (MAMADOU), Kvng LARSON MD Unavailable Unavailab le GRECIA (MAMADOU), Kvng LARSON MD Unavailable Unavailab le GRECIA (MAMADOU), Kvng LARSON MD Unavailable Unavailab le GRECIA (MAMADOU), Kvng LARSON MD Unavailable Unavailab le GRECIA (MAMADOU), Kvng LARSON MD Unavailable Unavailab le GRECIA (MAMADOU), Kvng LARSON MD Unavailable Unavailab le GRECIA (MAMADOU), Kvng LARSON MD Unavailable Unavailab le GRECIA (MAMADOU), Kvng LARSON MD Unavailable Unavailab le GRECIA (MAMADOU), Kvng LARSON MD Unavailable Unavailab le GRECIA (MAMADOU), Kvng LARSON MD Unavailable Unavailab le GRECIA (MAMADOU), Kvng LARSON MD Unavailable Unavailab le GRECIA (MAMADOU), Kvng LARSON MD Unavailable Unavailab le GRECIA (MAMADOU), Kvng LARSON MD Unavailable Unavailab le GRECIA (MAMADOU), Kvng LARSON MD Unavailable Unavailab le GRECIA (MAMADOU), Kvng LARSON MD Unavailable Unavailab le GRECIA (MAMADOU), Kvng LARSON MD Unavailable Unavailab le GRECIA (MAMADOU), Kvng LARSON MD Unavailable Unavailab le GRECIA (MAMADOU), Kvng LARSON MD Unavailable Unavailab le GRECIA (MAMADOU), Kvng LARSON MD Unavailable Unavailab le GRECIA (MAMADOU), Kvng LARSON MD Unavailable Unavailab le GRECIA (MAMADOU), Kvng LARSON MD Unavailable Unavailab le GRECIA (MAMADOU), Kvng LARSON MD Unavailable Unavailab le GRECIA (MAMADOU), Kvng LARSON MD Unavailable Unavailab le GRECIA (MAMADOU), Kvng LARSON MD Unavailable Unavailab le GRECIA (MAMADOU), Kvng LARSON MD Unavailable Unavailab le GRECIA (MAMADOU), Kvng LARSON MD Unavailable Unavailab le GRECIA (MAMADOU), Kvng LARSON MD Unavailable Unavailab le GRECIA (MAMADOU), Kvng LARSON MD Unavailable Unavailab le GRECIA (MAMADOU), Kvng LARSON MD Unavailable Unavailab le GRECIA (MAMADOU), Kvng LARSON MD Unavailable Unavailab le GRECIA (MAMADOU), Kvng LARSON MD Unavailable Unavailab le GRECIA (MAMADOU), Kvng LARSON MD Unavailable Unavailab le VanArnam JR, W Robson PA Unavailable Unavailable VanArnam JR, W Robson PA Unavailable Unavailable VanArnam JR, W Robson PA Unavailable Unavailable VanArnam JR, W Robson PA Unavailable Unavailable VanArnam JR, W Robson PA Unavailable Unavailable VanArnam JR, W Robson PA Unavailable Unavailable VanArnam JR, W Robson PA Unavailable Unavailable VanArnam JR, W Robson PA Unavailable Unavailable VanArnam JR, W Robson PA Unavailable Unavailable VanArnam JR, W Robson PA Unavailable Unavailable VanArnam JR, W Robson PA Unavailable Unavailable VanArnam JR, W Robson PA Unavailable Unavailable VanArnam JR, W Robson PA Unavailable Unavailable VanArnam JR, W Robson PA Unavailable Unavailable VanArnam JR, W Robson PA Unavailable Unavailable VanArnam JR, W Robson PA Unavailable Unavailable VanArnam JR, W Robson PA Unavailable Unavailable VanArnam JR, W Robson PA Unavailable Unavailable VanArnam JR, W Robson PA Unavailable Unavailable VanArnam JR, W Robson PA Unavailable Unavailable VanArnam JR, W Robson PA Unavailable Unavailable VanArnam JR, W Robson PA Unavailable Unavailable VanArnam JR, W Robson PA Unavailable Unavailable VanArnam JR, W Robson PA Unavailable Unavailable VanArnam JR, W Robson PA Unavailable Unavailable VanArnam JR, W Robson PA Unavailable Unavailable VanArnam JR, W Robson PA Unavailable Unavailable VanArnam JR, W Robson PA Unavailable Unavailable VanArnam JR, W Robson PA Unavailable Unavailable VanArnam JR, W Robson PA Unavailable Unavailable VanArnam JR, W Robson PA Unavailable Unavailable VanArnam JR, W Robson PA Unavailable Unavailable VanArnam JR, W Robson PA Unavailable Unavailable VanArnam JR, W Robson PA Unavailable Unavailable VanArnam JR, W Robson PA Unavailable Unavailable VanArnam JR, W Robson PA Unavailable Unavailable VanArnam JR, W Robson PA Unavailable Unavailable VanArnam JR, W Robson PA Unavailable Unavailable VanArnam JR, W Robson PA Unavailable Unavailable VanArnam JR, W Robson PA Unavailable Unavailable VanArnam JR, W Robson PA Unavailable Unavailable VanArnam JR, W Robson PA Unavailable Unavailable VanArnam JR, W Robson PA Unavailable Unavailable Eder West MD Unavailable Unavailable Eder West MD Unavailable Unavailable Eder West MD Unavailable Unavailable Eder West MD Unavailable Unavailable Eder West MD Unavailable Unavailable Eder West MD Unavailable Unavailable Eder West MD Unavailable Unavailable Eder West MD Unavailable Unavailable Eder West MD Unavailable Unavailable Eder West MD Unavailable Unavailable Eder West MD Unavailable Unavailable Eder West MD Unavailable Unavailable Eder West MD Unavailable Unavailable Eder West MD Unavailable Unavailable WetterhahnEder MD Unavailable Unavailable Wetterhahn, Eder KOCH Unavailable Unavailable Wetterhahn, Eder KOCH Unavailable Unavailable Wetterhahn, Eder KOCH Unavailable Unavailable Wetterhahn, Eder KOCH Unavailable Unavailable Wetterhahn, Eder KOCH Unavailable Unavailable Wetterhahn, Eder KOCH Unavailable Unavailable WetterhahnEder MD Unavailable Unavailable Wetterhahn, Eder KOCH Unavailable Unavailable Wetterhahn, Eder KOCH Unavailable Unavailable Wetterhahn, Eder KOCH Unavailable Unavailable Wetterhahn, Eder KOCH Unavailable Unavailable Wetterhahn, Eder KOCH Unavailable Unavailable Wetterhahn, Eder KOCH Unavailable Unavailable Wetterhahn, Eder KOCH Unavailable Unavailable Wetterhahn, Eder KOCH Unavailable Unavailable Wetterhahn, Eder KOCH Unavailable Unavailable Wetterhahn, Eder KOCH Unavailable Unavailable Wetterhahn, Eder KOCH Unavailable Unavailable Wetterhahn, Eder KOCH Unavailable Unavailable Wetterhahn, Eder KOCH Unavailable Unavailable WetterhahnEder MD Unavailable Unavailable WetterhahnEder MD Unavailable Unavailable Wetterhahn, Eder KOCH Unavailable Unavailable Wetterhahn, Eder KOCH Unavailable Unavailable Wetterhahn, Eder KOCH Unavailable Unavailable Wetterhahn, Eder KOCH Unavailable Unavailable Wetterhahn, Eder KOCH Unavailable Unavailable Wetterhahn, Eder KOCH Unavailable Unavailable Wetterhahn, Eder KOCH Unavailable Unavailable Wetterhahn, Eder KOCH Unavailable Unavailable Wetterhahn, Eder KOCH Unavailable Unavailable Wetterhahn, Eder KOCH Unavailable Unavailable Wetterhahn, Eder KOCH Unavailable Unavailable WetterhahnEder MD Unavailable Unavailable WetterhahnEder MD Unavailable Unavailable WetterhahnEder MD Unavailable Unavailable WetterhahnEder MD Unavailable Unavailable Wetterhahn, Eder KOCH Unavailable Unavailable WetterhahnEder MD Unavailable Unavailable Wetterhahn, Eder KOCH Unavailable Unavailable WetterhahnEder MD Unavailable Unavailable WetterhahnEder MD Unavailable Unavailable Wetterhahn, Eder KOCH Unavailable Unavailable Wetterhahn, Eder KOCH Unavailable Unavailable Wetterhahn, Eder KOCH Unavailable Unavailable Wetterhahn, Eder KOCH Unavailable Unavailable Wetterhahn, Eder KOCH Unavailable Unavailable Wetterhahn, Eder KOCH Unavailable Unavailable WetterhahnEder MD Unavailable Unavailable WetterhahnEder MD Unavailable Unavailable WetterhahnEder MD Unavailable Unavailable WetterhahnEder MD Unavailable Unavailable WetterhahnEder MD Unavailable Unavailable WetterhahnEder MD Unavailable Unavailable WetterhahnEder MD Unavailable Unavailable Eder West MD Unavailable Unavailable Eder West MD Unavailable Unavailable DRAZEK, I DANUTA PA Unavailable Unavailable DRAZEK, I DANUTA PA Unavailable Unavailable DRAZEK, I DANUTA PA Unavailable Unavailable DRAZEK, I DANUTA PA Unavailable Unavailable DRAZEK, I DANUTA PA Unavailable Unavailable DRAZEK, I DANUTA PA Unavailable Unavailable DRAZEK, I DANUTA PA Unavailable Unavailable DRAZEK, I DANUTA PA Unavailable Unavailable DRAZEK, I DANUTA PA Unavailable Unavailable DRAZEK, I DANUTA PA Unavailable Unavailable DRAZEK, I DANUTA PA Unavailable Unavailable DRAZEK, I DANUTA PA Unavailable Unavailable DRAZEK, I DANUTA PA Unavailable Unavailable DRAZEK, I DANUTA PA Unavailable Unavailable DRAZEK, I DANUTA PA Unavailable Unavailable DRAZEK, I DANUTA PA Unavailable Unavailable DRAZEK, I DANUTA PA Unavailable Unavailable DRAZEK, I DANUTA PA Unavailable Unavailable DRAZEK, I DANUTA PA Unavailable Unavailable DRAZEK, I DANUTA PA Unavailable Unavailable DRAZEK, I DANUTA PA Unavailable Unavailable DRAZEK, I DANUTA PA Unavailable Unavailable DRAZEK, I DANUTA PA Unavailable Unavailable DRAZEK, I DANUTA PA Unavailable Unavailable DRAZEK, I DANUTA PA Unavailable Unavailable DRAZEK, I DANUTA PA Unavailable Unavailable DRAZEK, I DANUTA PA Unavailable Unavailable DRAZEK, I DANUTA PA Unavailable Unavailable DRAZEK, I DANUTA PA Unavailable Unavailable DRAZEK, I DANUTA PA Unavailable Unavailable Eder West MD Unavailable Unavailable Eder West MD Unavailable Unavailable Eder West MD Unavailable Unavailable Eder West MD Unavailable Unavailable Eder West MD Unavailable Unavailable Eder West MD Unavailable Unavailable Eder West MD Unavailable Unavailable Eder West MD Unavailable Unavailable Eder West MD Unavailable Unavailable Eder West MD Unavailable Unavailable Eder West MD Unavailable Unavailable Eder West MD Unavailable Unavailable Eder West MD Unavailable Unavailable Eder West MD Unavailable Unavailable Eder West MD Unavailable Unavailable Eder West MD Unavailable Unavailable Eder West MD Unavailable Unavailable Eder West MD Unavailable Unavailable Eder West MD Unavailable Unavailable WetterhahnEder MD Unavailable Unavailable WetterhahnEder MD Unavailable Unavailable WetterhahnEder MD Unavailable Unavailable WetterhahnEder MD Unavailable Unavailable WetterhahnEder MD Unavailable Unavailable WetterhahnEder MD Unavailable Unavailable WetterhahnEder MD Unavailable Unavailable WetterhahnEder MD Unavailable Unavailable WetterhahnEder MD Unavailable Unavailable WetterhahnEder MD Unavailable Unavailable WetterhahnEder MD Unavailable Unavailable WetterhahnEder MD Unavailable Unavailable WetterhahnEder MD Unavailable Unavailable WetterhahnEder MD Unavailable Unavailable WetterhahnEder MD Unavailable Unavailable WetterhahnEder MD Unavailable Unavailable WetterhahnEder MD Unavailable Unavailable WetterhahnEder MD Unavailable Unavailable WetterhahnEder MD Unavailable Unavailable WetterhahnEder MD Unavailable Unavailable WetterhahnEder MD Unavailable Unavailable WetterhahnEder MD Unavailable Unavailable WetterhahnEder MD Unavailable Unavailable WetterhahnEder MD Unavailable Unavailable WetterhahnEder MD Unavailable Unavailable WetterhahnEder MD Unavailable Unavailable WetterhahnEder MD Unavailable Unavailable WetterhahnEder MD Unavailable Unavailable WetterhahnEder MD Unavailable Unavailable WetterhahnEder MD Unavailable Unavailable WetterhahnEder MD Unavailable Unavailable WetterhahnEder MD Unavailable Unavailable WetterhahnEder MD Unavailable Unavailable WetterhahnEder MD Unavailable Unavailable WetterhahnEder MD Unavailable Unavailable WetterhahnEder MD Unavailable Unavailable WetterhahnEder MD Unavailable Unavailable WetterhahnEder MD Unavailable Unavailable WetterhahnEder MD Unavailable Unavailable WetterhahnEder MD Unavailable Unavailable WetterhahnEder MD Unavailable Unavailable WetterhahnEder MD Unavailable Unavailable WetterhahnEder MD Unavailable Unavailable WetterhahnEder MD Unavailable Unavailable WetterhahnEder MD Unavailable Unavailable WetterhahnEder MD Unavailable Unavailable WetterhahnEder MD Unavailable Unavailable WetterhahnEder MD Unavailable Unavailable WetterhahnEder MD Unavailable Unavailable WetterhahnEder MD Unavailable Unavailable WetterhahnEder MD Unavailable Unavailable WetterhahnEder MD Unavailable Unavailable WetterhahnEder MD Unavailable Unavailable Re-disclosure Warning The records that you are about to access may contain information from federally-assisted alcohol or drug abuse programs. If such information is present, then the following federally mandated warning applies: This information has been disclosed to you from records protected by federal confidentiality rules (42 CFR part 2). The federal rules prohibit you from making any further disclosure of this information unless further disclosure is expressly permitted by the written consent of the person to whom it pertains or as otherwise permitted by 42 CFR part 2. A general authorization for the release of medical or other information is NOT sufficient for this purpose. The Federal rules restrict any use of the information to criminally investigate or prosecute any alcohol or drug abuse patient.The records that you are about to access may contain highly sensitive health information, the redisclosure of which is protected by Article 27-F of the [facility] Public Health law. If you continue you may have access to information: Regarding HIV / AIDS; Provided by facilities licensed or operated by the [facility] Office of Mental Health; or Provided by the [facility] Office for People With Developmental Disabilities. If such information is present, then the following [facility] mandated warning applies: This information has been disclosed to you from confidential records which are protected by state law. State law prohibits you from making any further disclosure of this information without the specific written consent of the person to whom it pertains, or as otherwise permitted by law. Any unauthorized further disclosure in violation of state law may result in a fine or halfway sentence or both. A general authorization for the release of medical or other information is NOT sufficient authorization for further disc losure. Allergies and Adverse Reactions Type Description Substance Reaction Status Data Source(s ) Drug allergy pregabalin pregabalin [facility] Drug allergy lubiprostone lubiprostone [facility] Drug allergy bee venom protein (honey bee) bee venom protein (honey b ee) [facility] Drug allergy celecoxib celecoxib [facility] Drug allergy cyclobenzaprine [facility]obenzaprine [facility] allergy gabapentin [facility] Drug allergy trimethoprim trimethoprim [facility] Drug allergy nitrofurantoin nitrofurantoin [facility] Drug allergy sulfamethoxazole sulfamethoxazole [facility] Drug allergy erythromycin base erythromycin base [facility] Drug allergy Penicillins [facility] Family History Family Member Name Family Member Gender Family Member Status Date o f Status Description Data Source(s) Unknown Unknown Problem MEDENT ([facility]) Unknown Female Problem MEDENT ([facility]) Unknown Female Problem MEDENT ([facility]) Unknown Female Problem MEDENT ([facility]) Unknown Female Problem MEDENT ([facility]) Unknown Female Problem MEDENT ([facility]) Encounters Encounter Providers Location Date Indications Data Source(s ) Office Visit, Est Pt., Level [address] PC [address] [place] [address] 03/18/2021 12:00:00 AM EDT eCW1 ([facility]) [place] [address] [facility] [address] 03/05/2021 12:00:00 AM EDT eCW1 ([facility]) [place] [address] [facility] [address] 03/04/2021 12:00:00 AM EDT eCW1 ([facility]) Attender: NEO HORNER) MDReferrer: Kayode West MD 02/20/2021 08:21:09 PM EDT [facility] Attender: NEO HORNER) MDReferrer: Kayode West MD 02/19/2021 08:21:09 PM EDT [facility] Outpatient [address] [facility] [address] 01/22/2021 12:00:00 AM EDT eCW1 ([facility]) Office Visit Attender: Lizandro Tovar MD Physical Therapy 2020 09:45:00 AM EDT MED[facility] ([facility]) [place] [address] [facility] [address] 01/12/2021 12:00:00 AM EDT eCW1 ([facility]) Office Visit Attender: DANUTA LEWIS Physical Therapy 2020 10:15:00 AM EDT MED[facility] ([facility]) [place] [address] [facility] [address] 01/07/2021 12:00:00 AM EDT eCW1 ([facility]) Inpatient Attender: Lizandro Tovar MDAdmitter: Lizandro Tovar MD ER-2WEST 12/31/2020 01:54:00 PM EDT - 01/01/2021 12:00:00 PM EDT [facility] Patient [facility]. Office Visit Attender: Mary Lou LEWIS PARyan Physical Therapy 12/29/2020 03:00:00 PM EDT MEDENT ([facility]) Outpatient Attender: Lizandro Tovar MD ER-OPS 12/26/2020 02:30:00 PM EDT [facility] Admission cancelled. Disregard status an d admitted date. Outpatient Attender: Lizandro Tovar MD ER-LAB 12/26/2020 04:45:00 AM EDT [facility] Unknown [address] [facility] [address] 12/26/2020 12:00:00 AM EDT eCW1 ([facility]) Outpatient [address] [facility] [place] [address] 12/24/2020 12:00:00 AM EDT eCW1 ([facility]) Outpatient Attender: Avani Davis MD Physical Therapy 08/2020 08:15:00 AM EDT [facility] ([facility]) [place] [address] [facility] [address] 10/28/2020 12:00:00 AM EDT eCW1 ([facility]) [place] [address] [facility] [address] 10/24/2020 12:00:00 AM EDT eCW1 ([facility]) [place] [address] [facility] [address] 10/06/2020 12:00:00 AM EDT eCW1 ([facility]) [place] [address] [facility] [address] 10/06/2020 12:00:00 AM EDT eCW1 ([facility]) [place] [address] [facility] [address] 10/06/2020 12:00:00 AM EDT eCW1 ([facility]) Outpatient Attender: AVANI REYES MDReferrer: Eder guadalupe MD 09/03/2020 07:51:09 PM EDT [facility] Outpatient 08/29/2020 02:00:00 PM EDT [facility] Outpatient 08/29/2020 02:00:00 PM EDT [facility] Outpatient 08/29/2020 02:00:00 PM EDT [facility] Unknown [address] [facility] [address] 08/19/2020 12:00:00 AM EST eCW1 ([facility]) Outpatient Attender: Robson Baumann JRReferrer: Eder gonzalez MD 08/18/2020 04:15:41 PM EST [facility] Attender: NEO PAIGE (MITCHELL) MDReferrer: Kayode West MD 08/15/2020 08:21:03 PM EST [facility] Attender: NEO PAIGE ([place]LL) MDReferrer: Kayode West MD 08/14/2020 08:21:03 PM EST [facility] [place] [address] [facility] [address] 08/14/2020 12:00:00 AM EST eCW1 ([facility]) Recurring Patient Attender: AVANI REYES MDReferrer: Eder West MD 08/11/2020 09:47:25 AM EST [facility] Recurring Patient Attender: AVANI REYES MDReferrer: Eder West MD 08/11/2020 08:26:34 AM EST [facility] Recurring Patient Attender: AVANI REYES MDReferrer: Eder West MD 08/11/2020 08:24:48 AM EST [facility] Outpatient [address] [facility] [address] 07/17/2020 12:00:00 AM EST eCW1 ([facility]) Office Visit Attender: Doroteo Fine MD Physical Therapy 2020 09:15:00 AM EST [facility] ([facility]) Office Visit Attender: Doroteo Fine MD Physical Therapy 2019 12:15:00 PM EST [facility] ([facility]) Outpatient Attender: HUANG Abdalla Prima ry 05/29/2020 08:45:00 AM EST [facility] ([facility]) Outpatient Attender: HUANG Abdalla Prima ry 05/26/2020 08:45:00 AM EST [facility] ([facility]) Outpatient [facility] [facility], [facility] [address] 04/08/2020 12:00:00 AM EDT eCW1 ([facility]) Attender: NEO PAIGE ([place]) MDReferrer: Kayode West MD 02/15/2020 08:20:09 PM EDT [facility] Attender: NEO PAIGE ([place]) MDReferrer: Kayode West MD 02/15/2020 08:20:09 PM EDT [facility] Attender: NEO PAIGE ([place]) MDReferrer: Kayode West MD 02/15/2020 08:20:09 PM EDT [facility] Attender: NEO PAIGE ([place]) MDReferrer: Kayode West MD 02/15/2020 08:20:09 PM EDT [facility] Outpatient Attender: BURT [employer] 07/2019 09:00:00 AM EDT MEDENT ([facility]) Immunizations Vaccine Date Status Description Data Source(s) COVID-19 dose #2 given elsewhere Unspecified 09/10/2020 01:1 3:00 PM EDT completed eCW1 ([facility]) COVID-19 dose #2 given elsewhere Unspecified 09/10/2020 01:1 3:00 PM EDT completed eCW1 ([facility]) COVID-19 dose #2 given elsewhere Unspecified 09/10/2020 01:1 3:00 PM EDT completed eCW1 ([facility]) COVID-19 dose #2 given elsewhere Unspecified 09/10/2020 01:1 3:00 PM EDT completed eCW1 ([facility]) COVID-19 dose #2 given elsewhere Unspecified 09/10/2020 01:1 3:00 PM EDT completed eCW1 ([facility]) COVID-19 dose #2 given elsewhere Unspecified 09/10/2020 01:1 3:00 PM EDT completed eCW1 ([facility]) COVID-19 dose #2 given elsewhere Unspecified 09/10/2020 01:1 3:00 PM EDT completed eCW1 ([facility]) COVID-19 dose #2 given elsewhere Unspecified 09/10/2020 01:1 3:00 PM EDT completed eCW1 ([facility]) COVID-19 dose #2 given elsewhere Unspecified 09/10/2020 01:1 3:00 PM EDT completed eCW1 ([facility]) COVID-19 dose #2 given elsewhere Unspecified 09/10/2020 01:1 3:00 PM EDT completed eCW1 ([facility]) COVID-19 VACCINE Pfizer 09/10/2020 12:00:00 AM EDT completed [facility] Vaccine Series Complete: NOThis Data was Submitted to [facility] Via [employer]. COVID-19 dose #1 given elsewhere Unspecified 08/20/2020 01:1 3:00 PM EST completed eCW1 ([facility]) COVID-19 dose #1 given elsewhere Unspecified 08/20/2020 01:1 3:00 PM EST completed eCW1 ([facility]) COVID-19 dose #1 given elsewhere Unspecified 08/20/2020 01:1 3:00 PM EST completed eCW1 ([facility]) COVID-19 dose #1 given elsewhere Unspecified 08/20/2020 01:1 3:00 PM EST completed eCW1 ([facility]) COVID-19 dose #1 given elsewhere Unspecified 08/20/2020 01:1 3:00 PM EST completed eCW1 ([facility]) COVID-19 dose #1 given elsewhere Unspecified 08/20/2020 01:1 3:00 PM EST completed eCW1 ([facility]) COVID-19 dose #1 given elsewhere Unspecified 08/20/2020 01:1 3:00 PM EST completed eCW1 ([facility]) COVID-19 dose #1 given elsewhere Unspecified 08/20/2020 01:1 3:00 PM EST completed eCW1 ([facility]) COVID-19 dose #1 given elsewhere Unspecified 08/20/2020 01:1 3:00 PM EST completed eCW1 ([facility]) COVID-19 dose #1 given elsewhere Unspecified 08/20/2020 01:1 3:00 PM EST completed eCW1 ([facility]) COVID-19 VACCINE Pfizer 08/20/2020 12:00:00 AM EST completed [facility] Vaccine Series Complete: NOThis Data was Submitted to [facility] Via [employer]. INFLUENZA VIRUS VACCINE QUADRIVAL [id number](6 MOS AND UP)/PF 04/15/2020 12:00:00 AM EST completed [facility] Medications Medication Brand Name Start Date Product Form Dose Route Admi nistrative Instructions Pharmacy Instructions Status Indications Reaction Description Data Source(s) Acetaminophen 300 MG / Codeine Phosphate 30 MG Oral Ta blet 300-30 mg ACETAMINOPHEN WITH CODEINE 03/26/2021 12:00:00 AM EDT tablet 10 TAKE ONE TABLET BY MOUTH TWICE A DAY MAXIMUM DAILY DOSE = 2 TABLETS TAKE ONE TABLET BY MOUTH TWICE A DAY MAXIMUM DAILY DOSE = 2 TABLETS SOLD: 03/27/2021 [facility] SUPREP BOWEL PREP KIT 17.5-3.13-1.6 gram SODIUM, POTASSIUM,M AG SULFATES 03/25/2021 12:00:00 AM EDT recon soln 354 TAKE DIRECTED BY [facility] PREP INSTRUCTION SHEETS TAKE DIRECTED BY [facility] PREP INSTRUCTION SHEETS SOLD : 03/25/2021 [facility] Docusate Sodium 50 MG / sennosides, CHCF 8.6 MG Oral Tablet [SENOKOT-S] Senokot S 8.6-50 MG Senokot S 8.6-50 MG 03/18/2021 12:00:00 AM EDT active Senokot S 8.6-50 MG eCW1 ([facility]) POLYETHYLENE GLYCOL 3350 142 MG/ML Oral Solution [Zahra lax] MiraLax 17 GM MiraLax 17 GM 03/18/2021 12:00:00 AM EDT 1.0 {packet_mixed_with_8_ou nces_of_fluid} active MiraLax 17 GM eCW1 ([facility]) Acetaminophen 300 MG / Codeine Phosphate 30 MG Oral Ta blet 300-30 mg ACETAMINOPHEN WITH CODEINE 03/16/2021 12:00:00 AM EDT tablet 20 TAKE ONE TABLET BY MOUTH EVERY 6 HOURS NEEDED FOR PAIN MAXIMUM DAILY DOSE = 4 TAKE ONE TABLET BY MOUTH EVERY 6 HOURS NEEDED FOR PAIN MAXIMUM DAILY DOSE = 4 SOLD: 03/18/2021 [facility] Acetaminophen 300 MG / Codeine Phosphate 30 MG Oral Ta blet 300-30 mg ACETAMINOPHEN WITH CODEINE 03/11/2021 12:00:00 AM EDT tablet 20 TAKE ONE TABLET BY MOUTH EVERY 6 HOURS NEEDED FOR PAIN, MAXIMUM DAILY DOSE = 4 TABLETS TAKE ONE TABLET BY MOUTH EVERY 6 HOURS A S NEEDED FOR PAIN, MAXIMUM DAILY DOSE = 4 TABLETS SOLD: 03/12/2021 [facility] Acetaminophen 300 MG / Codeine Phosphate 30 MG Oral Ta blet Acetaminophen-Codeine #3 03/11/2021 12:00:00 AM EDT ORAL active MEDENT ([facility]) 50 mg 03/10/2021 12:00:00 AM EDT tablet 40 TAKE ONE TABLET BY MOUTH EVERY 4 TO 6 HOURS NEEDED FOR PAIN MAXIMUM DAILY DOSE = 4 TAKE ONE TABLET BY MOUTH EVERY 4 TO 6 HOURS NEEDED FOR PAIN MAXIMUM DAILY DOSE = 4 SOLD: 03/10/2021 [facility] 5-325 mg 02/27/2021 12:00:00 AM EDT tablet 20 TAKE ONE TABLET BY MOUTH EVERY 4 TO 6 HOURS NEEDED FOR PAIN MAXIMUM DAILY DOSE = 4 TAKE ONE TABLET BY MOUTH EVERY 4 TO 6 HOURS NEEDED FOR PAIN MAXIMUM DAILY DOSE = 4 SOLD: 02/27/2021 [facility] [id number] 02/20/2021 12:00:00 AM EDT Solution 500 15ML EVERY 4 HOURS NEEDED UP TO 4 TIMES DAILY 15ML EVERY 4 HOURS NEEDED UP TO 4 TIMES DAILY SOLD: 02/27/2021 [facility] 5-325 mg 02/20/2021 12:00:00 AM EDT tablet 20 TAKE 1TAB BY MOUTH EVERY 4 TO 6 HOURS NEEDED FOR PAIN MAXIMUM DAILY DOSE = 4 TABLETS TAKE 1TAB BY MOUTH EVERY 4 TO 6 HOURS NEEDED FOR PAIN MAXIMUM DAILY DOSE = 4 TABLETS SOLD: 02/20/2021 [facility] 5-325 mg 02/09/2021 12:00:00 AM EDT tablet 20 TAKE ONE TABLET BY MOUTH EVERY 4 TO 6 HOURS NEEDED FOR PAIN MAXIMUM DAILY DOSE = 4 TAKE ONE TABLET BY MOUTH EVERY 4 TO 6 HOURS NEEDED FOR PAIN MAXIMUM DAILY DOSE = 4 SOLD: 02/09/2021 [email or web address] Clindamycin 300 MG Oral Capsule CLINDAMYCIN HCL 01/26/2021 12:00 :00 AM EDT capsule 2 TAKE 2 CAPSULES BY MOUTH 1 HOUR PRIOR TO DENTAL PROCEDURE TAKE 2 CAPSULES BY MOUTH 1 HOUR PRIOR TO DENTAL PROCEDURE SOLD: 01/26/2021 [email or web address] Clindamycin 300 MG Oral Capsule Clindamycin HCL 01/26/2021 12:00:00 A M EDT ORAL active [facility] ([facility] ) 5-325 mg 01/23/2021 12:00:00 AM EDT tablet 20 TAKE ONE TABLET BY MOUTH EVERY 4 TO 6 HOURS NEEDED FOR PAIN * MAXIMUM DAILY DOSE = 4 TAKE ONE TABLET BY MOUTH EVERY 4 TO 6 HOURS NEEDED FOR PAIN * MAXIMUM DAILY DOSE = 4 SOLD: 01/23/2021 [email or web address] 5-325 mg 01/19/2021 12:00:00 AM EDT tablet 30 TAKE 1 TO 2 TABLETS EVERY 4 TO 6 HOURS NEEDED FOR PAIN MAXIMUM DAILY DOSE = 6 TAKE 1 TO 2 TABLETS EVERY 4 TO 6 HOURS NEEDED FOR PAIN MAXIMUM DAILY DOSE = 6 SOLD: 01/19/2021 [facility] 5-325 mg 01/14/2021 12:00:00 AM EDT tablet 30 TAKE ONE TO TWO TABLETS BY MOUTH EVERY 4 TO 6 HOURS NEEDED FOR PAIN MAXIMUM DAILY DOSE = 6 TAKE ONE TO TWO TABLETS BY MOUTH EVERY 4 TO 6 HOURS NEEDED FOR PAIN MAXIMUM DAILY DOSE = 6 SOLD: 01/14/2021 [facility] 5-325 mg 01/10/2021 12:00:00 AM EDT tablet 30 TAKE 1 TO 2 TABLETS BY MOUTH EVERY 4 TO 6 HOURS NEEDED FOR PAIN * MAXIMUM DAILY DOSE = 6 TAKE 1 TO 2 TABLETS BY MOUTH EVERY 4 TO 6 HOURS NEEDED FOR PAIN * MAXIMUM DAILY DOSE = 6 SOLD: 01/10/2021 [facility] pregabalin 25 MG Oral Capsule [Lyrica] Lyrica 01/07/2021 12:00:00 AM EDT ORAL completed [facility] ([facility]) 25 mg 01/07/2021 12:00:00 AM EDT capsule 60 TAKE ONE CAPSULE BY MOUTH TWICE A DAY * MAXIMUM DAILY DOSE = 2 TAKE ONE CAPSULE BY MOUTH TWICE A DAY * MAXIMUM DAILY DOSE = 2 SOLD: 01/07/2021 [facility] 5-325 mg 01/06/2021 12:00:00 AM EDT tablet 30 TAKE 1-2 TABLETS BY MOUTH NEEDED FOR POST OP PAIN MAXIMUM DAILY DOSE = 6 TAKE 1-2 TABLETS BY MOUTH NEEDED FOR POST OP PAIN MAXIMUM DAILY DOSE = 6 SOLD: 01/06/2021 [facility] 10 mg 01/01/2021 12:00:00 AM EDT tablet 14 TAKE ONE TABLET BY MOUTH EVERY DAY AFTER SURGERY FOR 14 DAYS TAKE ONE TABLET BY MOUTH EVERY DAY AFTER SURGERY FOR 14 DAYS SOLD: 01/01/2021 [facility] 5-325 mg 12/30/2020 12:00:00 AM EDT tablet 40 TAKE 1 TO 2 TABLET BY MOUTH NEEDED POST OP PAIN MAXIMUM DAILY DOSE = 6 TABLETS TAKE 1 TO 2 TABLET BY MOUTH NEEDED POST OP PAIN MAXIMUM DAILY DOSE = 6 TABLETS SOLD: 12/31/2020 [facility] 2 % 12/17/2020 12:00:00 AM EDT ointment 22 APPLY PEA SIZED AMOUNT TO NASAL PASSAGES THREE TIMES A DAY FOR 5 DAYS PRIOR TO SURGERY APPLY PEA SIZED AMOUNT TO NASAL PASSAGES THREE TIMES A DAY FOR 5 DAYS PRIOR TO SURGERY SOLD: 12/25/2020 [facility] rivaroxaban 10 MG Oral Tablet [Xarelto] Xarelto 12/16/2020 12:00:0 0 AM EDT ORAL active [facility]) rivaroxaban 10 MG Oral Tablet [Xarelto] Xarelto 12/09/2020 12:00:0 0 AM EDT active [facility] ([facility]) chlorhexidine gluconate 40 MG/ML Medicated Liquid Soap [Hibi clens] Hibiclens 12/09/2020 12:00:00 AM EDT active [facility] ([facility]) Mupirocin 0.02 MG/MG Topical Ointment Mupirocin 12/09/2020 12:00:00 AM EDT active [facility] ([facility] Acetaminophen 325 MG / Oxycodone Hydrochloride 5 MG Or al Tablet Oxycodone-Acetaminophen 12/09/2020 12:00:00 AM EDT ORAL completed [facility] ([facility]) 50 mg 11/13/2020 12:00:00 AM EDT tablet 40 TAKE ONE TABLET BY MOUTH EVERY 6 HOURS NEEDED FOR PAIN MAXIMUM DAILY DOSE = 4 TAKE ONE TABLET BY MOUTH EVERY 6 HOURS NEEDED FOR PAIN MAXIMUM DAILY DOSE = 4 SOLD: 11/13/2020 [facility] 50 mg 11/13/2020 12:00:00 AM EDT tablet 40 TAKE ONE TABLET BY MOUTH EVERY 6 HOURS NEEDED FOR PAIN MAXIMUM DAILY DOSE = 4 TAKE ONE TABLET BY MOUTH EVERY 6 HOURS NEEDED FOR PAIN MAXIMUM DAILY DOSE = 4 SOLD: 01/05/2021 [facility] tramadol hydrochloride 50 MG Oral Tablet Tramadol HCL 11/13/2020 12:00:00 AM EDT completed [facility] ([facility]) pregabalin 75 MG Oral Capsule [Lyrica] Lyrica 75 MG Lyrica 7 5 MG 10/06/2020 12:00:00 AM EDT 1.0 {capsule} active eCW1 ([facility]) pregabalin 75 MG Oral Capsule [Lyrica] Lyrica 75 MG Lyrica 7 5 MG 10/06/2020 12:00:00 AM EDT 1.0 {capsule} active L yrica 75 MG eCW1 ([facility]) pregabalin 75 MG Oral Capsule [Lyrica] Lyrica 75 MG Lyrica 7 5 MG 10/06/2020 12:00:00 AM EDT 1.0 {capsule} active eCW1 ([facility]) pregabalin 75 MG Oral Capsule [Lyrica] Lyrica 75 MG Lyrica 7 5 MG 10/06/2020 12:00:00 AM EDT 1.0 {capsule} active L yrica 75 MG eCW1 ([facility]) pregabalin 75 MG Oral Capsule [Lyrica] Lyrica 75 MG Lyrica 7 5 MG 10/06/2020 12:00:00 AM EDT 1.0 {capsule} active L yrica 75 MG eCW1 ([facility]) pregabalin 75 MG Oral Capsule [Lyrica] Lyrica 75 MG Lyrica 7 5 MG 10/06/2020 12:00:00 AM EDT 1.0 {capsule} active L yrica 75 MG eCW1 ([facility]) pregabalin 75 MG Oral Capsule [Lyrica] Lyrica 75 MG Lyrica 7 5 MG 10/06/2020 12:00:00 AM EDT 1.0 {capsule} active L yrica 75 MG eCW1 ([facility]) pregabalin 75 MG Oral Capsule [Lyrica] Lyrica 75 MG Lyrica 7 5 MG 10/06/2020 12:00:00 AM EDT 1.0 {capsule} active L yrica 75 MG eCW1 ([facility]) pregabalin 75 MG Oral Capsule [Lyrica] Lyrica 75 MG Lyrica 7 5 MG 10/06/2020 12:00:00 AM EDT 1.0 {capsule} active L yrica 75 MG eCW1 ([facility]) pregabalin 75 MG Oral Capsule [Lyrica] Lyrica 75 MG Lyrica 7 5 MG 10/06/2020 12:00:00 AM EDT 1.0 {capsule} active L yrica 75 MG eCW1 ([facility]) pregabalin 75 MG Oral Capsule [Lyrica] Lyrica 75 MG Lyrica 7 5 MG 10/06/2020 12:00:00 AM EDT 1.0 {capsule} active L yrica 75 MG eCW1 ([facility]) pregabalin 75 MG Oral Capsule [Lyrica] Lyrica 75 MG Lyrica 7 5 MG 10/06/2020 12:00:00 AM EDT 1.0 {capsule} suspended Lyrica 75 MG eCW1 ([facility]) pregabalin 75 MG Oral Capsule [Lyrica] Lyrica 75 MG Lyrica 7 5 MG 10/06/2020 12:00:00 AM EDT 1.0 {capsule} active L yrica 75 MG eCW1 ([facility]) pregabalin 75 MG Oral Capsule [Lyrica] Lyrica 75 MG Lyrica 7 5 MG 10/06/2020 12:00:00 AM EDT 1.0 {capsule} active L yrica 75 MG eCW1 ([facility]) pregabalin 75 MG Oral Capsule [Lyrica] Lyrica 75 MG Lyrica 7 5 MG 10/06/2020 12:00:00 AM EDT 1.0 {capsule} active L yrica 75 MG eCW1 ([facility]) pregabalin 75 MG Oral Capsule [Lyrica] Lyrica 75 MG Lyrica 7 5 MG 10/06/2020 12:00:00 AM EDT 1.0 {capsule} active L yrica 75 MG eCW1 ([facility]) pregabalin 75 MG Oral Capsule [Lyrica] Lyrica 75 MG Lyrica 7 5 MG 10/06/2020 12:00:00 AM EDT 1.0 {capsule} active L yrica 75 MG eCW1 ([facility]) 75 mg 10/06/2020 12:00:00 AM EDT capsule 28 TAKE ONE CAPSULE BY MOUTH ONCE A DAY MAXIMUM DAILY DOSE = 1 CAPSULE TAKE ONE CAPSULE BY MOUTH ONCE A DAY MAX IMUM DAILY DOSE = 1 CAPSULE SOLD: 10/06/2020 [facility] pregabalin 75 MG Oral Capsule [Lyrica] Lyrica 75 MG Lyrica 7 5 MG 10/06/2020 12:00:00 AM EDT 1.0 {capsule} active L yrica 75 MG eCW1 ([facility]) Ondansetron 4 MG Disintegrating Oral Tablet ONDANSETRON 08/20/2020 12:00:00 AM EST tablet,disintegrating 100 DISSOLVE 1 TO 2 TABLETS BY MOUTH FOUR TIMES A DAY NEEDED FOR NAUSEA DISSOLVE 1 TO 2 TABLETS BY MOUTH FOUR TI MES A DAY NEEDED FOR NAUSEA SOLD: 08/24/2020 [facility] 50 mg 08/16/2020 12:00:00 AM EST tablet 120 TAKE ONE TABLET BY MOUTH FOUR TIMES A DAY NEEDED FOR PAIN MAXIMUM DAILY DOSE = 4 TABLETS TAKE ONE TABLET BY MOUTH FOUR TIMES A DAY NEEDED FOR PAIN MAXIMUM DAILY DOSE = 4 TABLETS SOLD: 08/16/2020 [facility] 625 mg 08/14/2020 12:00:00 AM EST tablet 60 TAKE 2 TABLETS BY MOUTH ONCE A DAY TAKE 2 TABLETS BY MOUTH ONCE A DAY SOLD: 08/14/2020 [facility] 500 mg 07/17/2020 12:00:00 AM EST tablet 30 TAKE ONE TABLET BY MOUTH EVERY DAY TAKE ONE TABLET BY MOUTH EVERY DAY SOLD: 10/12/2020 [facility] valacyclovir 500 MG Oral Tablet Valacyclovir HCl 500 MG [facility] cyclovir HCl 500 MG 07/17/2020 12:00:00 AM EST 1.0 {tablet} active Valacyclovir HCl 500 MG eCW1 ([facility]) 500 mg 07/17/2020 12:00:00 AM EST tablet 30 TAKE ONE TABLET BY MOUTH EVERY DAY TAKE ONE TABLET BY MOUTH EVERY DAY SOLD: 07/18/2020 [facility] valacyclovir 500 MG Oral Tablet Valacyclovir HCl 500 MG Vala cyclovir HCl 500 MG 07/17/2020 12:00:00 AM EST 1.0 {tablet} active Valacyclovir HCl 500 MG eCW1 ([facility]) valacyclovir 500 MG Oral Tablet Valacyclovir HCl 500 MG Vala cyclovir HCl 500 MG 07/17/2020 12:00:00 AM EST 1.0 {tablet} active Valacyclovir HCl 500 MG eCW1 ([facility]) 100 mg 07/04/2020 12:00:00 AM EST capsule 90 TAKE ONE CAPSULE BY MOUTH THREE TIMES A DAY TAKE ONE CAPSULE BY MOUTH THREE TIMES A DAY SOLD: 07/04/2020 [facility] gabapentin 100 MG Oral Capsule Gabapentin 07/03/2020 12:00:00 AM EST ORAL active [facility] 200 mg 06/02/2020 12:00:00 AM EST capsule 60 TAKE ONE CAPSULE BY MOUTH EVERY DAY WITH FOOD, MAY INCREASE TO TWO TIMES A DAY NEEDED TAKE ONE CAPSULE BY MOUTH EVERY DAY WITH FOOD, MAY INCREASE TO TWO TIMES A DAY NEEDED SOLD: 06/02/2020 [facility] Cyclobenzaprine hydrochloride 10 MG Oral Tablet CYCLOBENZAPR INE HCL 06/02/2020 12:00:00 AM EST tablet 90 TAKE ONE TABLET BY MOUTH THREE TIMES A DAY NEEDED TAKE ONE TABLET BY MOUTH THREE TIMES A DAY NEEDED SOLD: 06/02/2020 [facility] Cyclobenzaprine hydrochloride 10 MG Oral Tablet Cyclobenzapr ine HCL 06/02/2020 12:00:00 AM EST ORAL active [facility] ([facility]) celecoxib 200 MG Oral Capsule [Celebrex] Celebrex 06/02/2020 12 :00:00 AM EST ORAL completed [facility] ([facility]) tizanidine 4 MG Oral Tablet Tizanidine HCL 05/29/2020 12:00:00 AM EST ORAL active [facility] ([facility]) Naproxen 500 MG Oral Tablet Naproxen 05/29/2020 12:00:00 AM EST ORAL active [facility] ([facility]) 500 mg 05/29/2020 12:00:00 AM EST tablet 20 TAKE ONE TABLET BY MOUTH TWICE A DAY NEEDED TAKE ONE TABLET BY MOUTH TWICE A DAY NEEDED SOLD: 020 [facility] tizanidine 4 MG Oral Tablet TIZANIDINE HCL 05/29/2020 12:00:00 AM EST tablet 14 TAKE ONE TABLET BY MOUTH AT BEDTIME NEEDED TAKE ONE TABLET BY MOUTH AT BEDTIME NEEDED SOLD: 05/29/2020 [facility] doxycycline hyclate 100 MG Oral Capsule Doxycycline Hy clate 100 MG Doxycycline Hyclate 100 MG 04/08/2020 12:00:00 AM EDT 1.0 {capsule} active Doxycycline Hyclate 100 MG eCW1 ([facility]) doxycycline hyclate 100 MG Oral Capsule Doxycycline Hy clate 100 MG Doxycycline Hyclate 100 MG 04/08/2020 12:00:00 AM EDT 1.0 {capsule} active Doxycycline Hyclate 100 MG eCW1 ([facility]) doxycycline hyclate 100 MG Oral Capsule DOXYCYCLINE HYCLATE 04/08/2020 12:00:00 AM EDT capsule 60 TAKE ONE CAPSULE BY MOUTH TW ICE A DAY TAKE ONE CAPSULE BY MOUTH TWICE A DAY SOLD: 07/01/2020 [facility] doxycycline hyclate 100 MG Oral Capsule Doxycycline Hy clate 100 MG Doxycycline Hyclate 100 MG 04/08/2020 12:00:00 AM EDT 1.0 {capsule} active Doxycycline Hyclate 100 MG eCW1 ([facility]) 500 mg 04/08/2020 12:00:00 AM EDT tablet 60 TAKE ONE TABLET BY MOUTH TWICE A DAY TAKE ONE TABLET BY MOUTH TWICE A DAY SOLD: 04/08/2020 [facility] valacyclovir 500 MG Oral Tablet [Valtrex] Valtrex 500 MG [facility] trex 500 MG 04/08/2020 12:00:00 AM EDT 1.0 {tablet} active Valtrex 500 MG eCW1 ([facility]) doxycycline hyclate 100 MG Oral Capsule Doxycycline Hy clate 100 MG Doxycycline Hyclate 100 MG 04/08/2020 12:00:00 AM EDT 1.0 {capsule} active Doxycycline Hyclate 100 MG eCW1 ([facility]) doxycycline hyclate 100 MG Oral Capsule DOXYCYCLINE HYCLATE 04/08/2020 12:00:00 AM EDT capsule 60 TAKE ONE CAPSULE BY MOUTH TW ICE A DAY TAKE ONE CAPSULE BY MOUTH TWICE A DAY SOLD: 04/08/2020 [facility] doxycycline hyclate 100 MG Oral Capsule Doxycycline Hy clate 100 MG Doxycycline Hyclate 100 MG 04/08/2020 12:00:00 AM EDT 1.0 {capsule} active Doxycycline Hyclate 100 MG eCW1 ([facility]) doxycycline hyclate 100 MG Oral Capsule Doxycycline Hy clate 100 MG Doxycycline Hyclate 100 MG 04/08/2020 12:00:00 AM EDT 1.0 {capsule} active Doxycycline Hyclate 100 MG eCW1 ([facility]) doxycycline hyclate 100 MG Oral Capsule DOXYCYCLINE HYCLATE 04/08/2020 12:00:00 AM EDT capsule 60 TAKE ONE CAPSULE BY MOUTH TW ICE A DAY TAKE ONE CAPSULE BY MOUTH TWICE A DAY SOLD: 10/01/2020 [facility] doxycycline hyclate 100 MG Oral Capsule Doxycycline Hy clate 100 MG Doxycycline Hyclate 100 MG 04/08/2020 12:00:00 AM EDT 1.0 {capsule} active Doxycycline Hyclate 100 MG eCW1 ([facility]) doxycycline hyclate 100 MG Oral Capsule Doxycycline Hy clate 100 MG Doxycycline Hyclate 100 MG 04/08/2020 12:00:00 AM EDT 1.0 {capsule} active Doxycycline Hyclate 100 MG eCW1 ([facility]) valacyclovir 500 MG Oral Tablet [Valtrex] Valtrex 500 MG Yael trex 500 MG 04/08/2020 12:00:00 AM EDT 1.0 {tablet} active Valtrex 500 MG eCW1 ([facility]) doxycycline hyclate 100 MG Oral Capsule Doxycycline Hy clate 100 MG Doxycycline Hyclate 100 MG 04/08/2020 12:00:00 AM EDT 1.0 {capsule} suspended Doxycycline Hyclate 100 MG eCW1 ([facility]) doxycycline hyclate 100 MG Oral Capsule Doxycycline Hy clate 100 MG Doxycycline Hyclate 100 MG 04/08/2020 12:00:00 AM EDT 1.0 {capsule} active Doxycycline Hyclate 100 MG eCW1 ([facility]) doxycycline hyclate 100 MG Oral Capsule Doxycycline Hy clate 100 MG Doxycycline Hyclate 100 MG 04/08/2020 12:00:00 AM EDT 1.0 {capsule} active Doxycycline Hyclate 100 MG eCW1 ([facility]) doxycycline hyclate 100 MG Oral Capsule Doxycycline Hy clate 100 MG Doxycycline Hyclate 100 MG 04/08/2020 12:00:00 AM EDT 1.0 {capsule} suspended eCW1 ([facility]) valacyclovir 500 MG Oral Tablet [Valtrex] Valtrex 500 MG Yael trex 500 MG 04/08/2020 12:00:00 AM EDT 1.0 {tablet} active Valtrex 500 MG eCW1 ([facility]) doxycycline hyclate 100 MG Oral Capsule Doxycycline Hy clate 100 MG Doxycycline Hyclate 100 MG 04/08/2020 12:00:00 AM EDT 1.0 {capsule} active Doxycycline Hyclate 100 MG eCW1 ([facility]) doxycycline hyclate 100 MG Oral Capsule Doxycycline Hy clate 100 MG Doxycycline Hyclate 100 MG 04/08/2020 12:00:00 AM EDT 1.0 {capsule} active Doxycycline Hyclate 100 MG eCW1 ([facility]) doxycycline hyclate 100 MG Oral Capsule Doxycycline Hy clate 100 MG Doxycycline Hyclate 100 MG 04/08/2020 12:00:00 AM EDT 1.0 {capsule} active Doxycycline Hyclate 100 MG eCW1 ([facility]) doxycycline hyclate 100 MG Oral Capsule Doxycycline Hy clate 100 MG Doxycycline Hyclate 100 MG 04/08/2020 12:00:00 AM EDT 1.0 {capsule} active Doxycycline Hyclate 100 MG eCW1 ([facility]) doxycycline hyclate 100 MG Oral Capsule Doxycycline Hy clate 100 MG Doxycycline Hyclate 100 MG 04/08/2020 12:00:00 AM EDT 1.0 {capsule} active Doxycycline Hyclate 100 MG eCW1 ([facility]) valacyclovir 500 MG Oral Tablet [Valtrex] Valtrex 500 MG Yael trex 500 MG 04/08/2020 12:00:00 AM EDT 1.0 {tablet} active Valtrex 500 MG eCW1 ([facility]) [id number] 03/11/2020 12:00:00 AM EDT suspension 300 SWALLOW 15 ML BY MOUTH EVERY 4 HOURS NEEDED UP TO FOUR TIMES A DAY SWALLOW 15 ML BY MOUTH EVERY 4 HOURS NEEDED UP TO FOUR TIMES A DAY SOLD: 05/07/2020 [email or web address] [id number] 03/11/2020 12:00:00 AM EDT suspension 300 SWALLOW 15 ML BY MOUTH EVERY 4 HOURS NEEDED UP TO FOUR TIMES A DAY SWALLOW 15 ML BY MOUTH EVERY 4 HOURS NEEDED UP TO FOUR TIMES A DAY SOLD: 02/12/2021 [email or web address] [id number] 03/11/2020 12:00:00 AM EDT suspension 300 SWALLOW 15 ML BY MOUTH EVERY 4 HOURS NEEDED UP TO FOUR TIMES A DAY SWALLOW 15 ML BY MOUTH EVERY 4 HOURS NEEDED UP TO FOUR TIMES A DAY SOLD: 09/29/2020 [facility] [id number] 03/11/2020 12:00:00 AM EDT suspension 300 SWALLOW 15 ML BY MOUTH EVERY 4 HOURS NEEDED UP TO FOUR TIMES A DAY SWALLOW 15 ML BY MOUTH EVERY 4 HOURS NEEDED UP TO FOUR TIMES A DAY SOLD: 01/31/2021 [email or web address] [id number] 03/11/2020 12:00:00 AM EDT suspension 300 SWALLOW 15 ML BY MOUTH EVERY 4 HOURS NEEDED UP TO FOUR TIMES A DAY SWALLOW 15 ML BY MOUTH EVERY 4 HOURS NEEDED UP TO FOUR TIMES A DAY SOLD: 12/13/2020 [email or web address] [id number] 03/11/2020 12:00:00 AM EDT suspension 300 SWALLOW 15 ML BY MOUTH EVERY 4 HOURS NEEDED UP TO FOUR TIMES A DAY SWALLOW 15 ML BY MOUTH EVERY 4 HOURS NEEDED UP TO FOUR TIMES A DAY SOLD: 11/25/2020 [email or web address] [id number] 03/11/2020 12:00:00 AM EDT suspension 300 SWALLOW 15 ML BY MOUTH EVERY 4 HOURS NEEDED UP TO FOUR TIMES A DAY SWALLOW 15 ML BY MOUTH EVERY 4 HOURS NEEDED UP TO FOUR TIMES A DAY SOLD: 03/11/2020 [facility] [id number] 03/11/2020 12:00:00 AM EDT suspension 300 SWALLOW 15 ML BY MOUTH EVERY 4 HOURS NEEDED UP TO FOUR TIMES A DAY SWALLOW 15 ML BY MOUTH EVERY 4 HOURS NEEDED UP TO FOUR TIMES A DAY SOLD: 08/05/2020 [facility] [id number] 03/11/2020 12:00:00 AM EDT suspension 300 SWALLOW 15 ML BY MOUTH EVERY 4 HOURS NEEDED UP TO FOUR TIMES A DAY SWALLOW 15 ML BY MOUTH EVERY 4 HOURS NEEDED UP TO FOUR TIMES A DAY SOLD: 06/16/2020 [facility] [id number] 03/11/2020 12:00:00 AM EDT suspension 300 SWALLOW 15 ML BY MOUTH EVERY 4 HOURS NEEDED UP TO FOUR TIMES A DAY SWALLOW 15 ML BY MOUTH EVERY 4 HOURS NEEDED UP TO FOUR TIMES A DAY SOLD: 09/06/2020 [facility] Esomeprazole 40 MG Delayed Release Oral Capsule ESOMEPRAZOLE MAGNESIUM 02/15/2020 12:00:00 AM EDT capsule,delayed release(DR/EC) 30 TAKE ONE CAPSULE BY MOUTH EVERY DAY TAKE ONE CAPSULE BY MOUTH EVERY DAY SOLD: 02/23/2020 [facility] 5-325 mg 02/15/2020 12:00:00 AM EDT tablet 60 TAKE ONE TABLET BY MOUTH TWICE A DAY NEEDED FOR PAIN MAXIMUM DAILY DOSE = 2 TABLETS TAKE ONE TABLET BY MOUTH TWICE A DAY NEEDED FOR PAIN MAXIMUM DAILY DOSE = 2 TABLETS SOLD: 02/15/2020 [facility] 1 mg 02/13/2020 12:00:00 AM EDT tablet 30 TAKE ONE TABLET BY MOUTH EVERY DAY TAKE ONE TABLET BY MOUTH EVERY DAY SOLD: 11/13/2020 [facility] 1 mg 02/13/2020 12:00:00 AM EDT tablet 30 TAKE ONE TABLET BY MOUTH EVERY DAY TAKE ONE TABLET BY MOUTH EVERY DAY SOLD: 07/19/2020 [facility] 1 mg 02/13/2020 12:00:00 AM EDT tablet 30 TAKE ONE TABLET BY MOUTH EVERY DAY TAKE ONE TABLET BY MOUTH EVERY DAY SOLD: 02/15/2020 [facility] 0.1 % 01/01/2020 12:00:00 AM EDT ointment 15 APPLY TO AFFECTED AREA(S) DAILY BEFORE BEDTIME APPLY TO AFFECTED AREA(S) DAILY BEFORE BEDTIME SOLD: 020 [facility] Insurance Providers Payer name Policy type / Coverage type Policy ID Covered republican ID Covered republican's relationship to perez Policy Perez Plan Information [place] [id number] [place] [id number] MEDICARE [id number] Liset [id number] A [id number] A MEDICARE A [id number] Self [id number] A Medicare [place] Govt Servic Medicare Primary [id number] Self Medicare [place] Primary [id number] Self [id number] [place] Primary [id number] Self 3 [id number] [place] Primary [id number] Self 1 [id number] [place] Primary [id number] Self 1 [id number] [place] Primary [id number] Self 1 [id number] [place] Primary [id number] Self 1 [id number] [place] Primary [id number] Self 1 [id number] MEDICARE [id number] SP [id number] A [place] Primary [id number] Self 1 [id number] Medicare C [id number] SELF [id number] [place] Primary [id number] Self 1 [id number] [place] Primary [id number] Self 1 [id number] [place] Primary [id number] Self 1 [id number] [place] Primary [id number] Self [id number] [place] Primary [id number] Self 1 [id number] [place] Primary [id number] Self 1 [id number] [place] Primary [id number] Self 1 [id number] [place] Primary [id number] Self [id number] [place] Primary [id number] Self 1 [id number] [place] Primary [id number] Self Medicare [place] Primary [id number] Self 1 [id number] [place] Primary [id number] Self 1 [id number] [place] Primary [id number] Self 1 [id number] [place] Primary [id number] Self 1 [id number] [place] Primary [id number] Self 3 [id number] Medicare [place] Primary [id number] Self 1 [id number] [place] Primary [id number] Self 1 [id number] MEDICARE [id number] SP [id number] [place] Primary [id number] Self 1 [id number] [place] Primary [id number] Self 1 [id number] [place] Primary [id number] Self 1 [id number] [place] Primary [id number] Self 1 [id number] [place] Primary [id number] Self 1 [id number] [place] Primary [id number] Self [id number] [facility] (pr) Medigap Part B [id number] Family Dependent [id number] [facility] (pr) Medigap Part B [id number] Family Depende nt [place] [facility] Medigap Part B [id number] Family Dependent [place] (pr) Medigap Part B [id number] [facility] (pr) Medigap Part B [id number] 358951110 [facility] (pr) Medigap Part B [id number] [id number] [facility] (pr) Medigap Part B [id number] 2.0..025928.3.227.99.991.703 29.0 754004783 [facility] [id number] [facility] [id number] [place] (pr) Medigap Part B [id number] [id number] [facility] (pr) Medigap Part B [id number] [id number] [facility] (pr) Medigap Part B [id number] 2.16.840.1.822372.3.227.99.991.703 29.0 189535038 [facility] (pr) Medigap Part B [id number] 2.16.840.1.940493.3.227.99.991.703 29.0 966204252 [facility] (pr) Medigap Part B [id number] 2.16.840.1.394168.3.227.99.991.703 29.0 322790209 [facility] (pr) Medigap Part B 687097404 2.16.840.1.472683.3.227.99.991.703 29.0 825518675 [facility] (pr) Medigap Part B 217097 [facility] (pr) Medigap Part B 526344521 2.16.840.1.012127.3.227.99.991.703 29.0 221512485 [facility] (pr) Medigap Part B [id number] 2.16.840.1.902451.3.227.99.991.703 29.0 661194413 [facility] (pr) Medigap Part B 100235640 2.16840.1.002426.3.227.99.991.703 29.0 005696902 [facility] (pr) Medigap Part B 011030695 2.16840.1.233899.3.227.99.991.703 29.0 339253646 [facility] [id number] Spo [id number] [facility]OM[facility] U [id number] Spouse [id number] UMR F [id number] SELF [id number] Medicare C [id number] SELF [id number] A DME Jurisdiction A [facility] C [id number] SELF [id number] UMR F [id number] SPOUSE [id number] DME Jurisdiction A CTIC C [id number] SELF [id number] Umr Care Management [id number] 1 [id number] UMR [facility] [id number] HU2 [id number] ANSI-Commercial [id number] ANSI-Medicare Part B [id number] ANSI-Commercial 643jw07y-16eg-9b83-h8m1-6299ezcts3ex 528pb87c-54fz-9h23-z3b2-2081flpqd1xg ANSI-Medicare Part B t016w162-2ehi-0u65-0g49-2385v17cpvk0 f076d374-0ldo-1i63-9k66-7864c91crmz2 ANSI-Commercial t9x9g46a-0lw8-634o-w4vb-151c92o37s05 h2x7m77p-4qp7-627d-a7xn-497b16p46g33 ANSI-Commercial 11058j5z-ujqr-904v-391i-126da12cc32j 66730e4n-uujm-311p-635v-895ib35wm34h ANSI-Commercial v2u94a81-l47a-4i12-eb7v-741d7t8811qy p4r55r35-d20c-5e98-zc6b-716r9q7903wn ANSI-Medicare Part B 5p5wx8g2-9xv0-1d24-wv56-915ml26l2zz5 7a5iy4v4-4bp6-3x35-sr58-020st28c2io2 ANSI-Commercial z2872511-mdb4-51ub-6v68-j87e36e7d2s5 d0966541-geu2-71qw-6d39-l44w89c9t8g9 ANSI-Medicare Part B 3674e8ml-5963-063o-no2z-60182m64l5bd 0489o3wd-9598-252f-hm6x-02478f00u8lt MEDICARE [id number] SP 0XJ4M82H X75 ANSI-Commercial j7i6923w-e74e-3q26-0h6z-61vkq2u4o81i g7r8943s-h78d-1x12-3u9r-94bsf7j9w25z ANSI-Commercial 7rv4w2z0-2p6a-39vz-d2a1-ut957l135iya 0ar8z0g0-6k3o-60df-l8g8-fs860u587rna ANSI-Medicare Part B 0w3j73uv-2d96-3l46-wv9v-98xnk5714l29 3c8e04vb-9e55-9x49-od8w-45feh2702b49 ANSI-Commercial 8595xot0-73kc-3880-s83x-0fz11t863dj3 2603baa2-17uk-0710-e04v-0cn40u752nq8 ANSI-Medicare Part B 68p78hmp-4r6g-9h29-w27o-w948ysvo4xo1 79b60bkh-2c6c-1y95-d98i-t536bovd9du0 ANSI-Commercial 00p6w495-10f5-61wx-ax1t-724852437f94 69n9i941-30n1-89qu-fs1z-589002035r48 ANSI-Commercial i9m31jsg-e239-17vq-885u-479111kzhh67 a6k97utm-i106-73mp-814i-604224wmaw45 ANSI-Medicare Part B 9028y64w-1n69-0220-a472-i6601ja1q2g6 1555b85c-0t39-7559-w296-l2961oq0b0m2 ANSI-Commercial o4227347-78on-1c46-hj83-p63tkau51o42 v4437229-97wh-5r38-fq08-e71jzkh13l12 ANSI-Commercial 9n74z7tb-60ec-9870-8r5n-x697566d9xtr 6h31l9hn-75zc-0988-8f3m-b413467v7vwk ANSI-Commercial 183k4q43-54t9-2168-2996-9b5388m0xa0r 279z0r71-31c7-1855-0073-7n7869o7hx1n ANSI-Medicare Part B 0k783bc8-9316-349s-j2cl-37nay6a6z7i9 0h590ts7-0772-315f-n4mp-32kje7e7c2k3 ANSI-Commercial 2135b714-9427-3wuu-29nm-6b8d032w2h9a 3488h070-8073-0gqx-65ys-3w3d337w0z1n ANSI-Medicare Part B 7905620q-5142-078k-454m-01640i34218g 0869318f-8172-063e-927a-19853u89817k ANSI-Commercial b6lt80md-t401-9u45-1281-55vrt238uab6 w5go04tp-x346-9g65-6247-18wme897agi6 ANSI-Commercial n8tsurus-e805-7t1y-8hd3-12839894f8rw w6dezkhp-z334-4i4b-4oi8-13718803h6de [facility] [id number] ..342644.3.227.99.991.57994.0 Self 1 [id number] Medicare Dme Supplies Medigap Part B [id number] .1.271399.3.227.99.991.03031.0 Self 1 [id number] [facility] [id number] [facility] [id number] Medicare Dme Supplies [facility] [id number] .1.926159.3.227.99.991.93888.0 Self 1 [id number] [facility] (pr) [facility] [id number] .1.089576.3.227.99 .991.27793.0 Family Dependent [id number] Medicare Dme Supplies Medigap Part B [id number] 2.16.840.1.096641.3.227.99.991.46020.0 Self 1 [id number] Umr (pr) Medigap Part B [id number] 2.16.840.1.362306.3.227.99 .991.87090.0 Family Dependent [id number] Medicare Dme Supplies Medigap Part B [id number] 2.16.840.1.288547.3.227.99.991.97005.0 Self 1 [id number] Umr (pr) Medigap Part B [id number] 2.16.840.1.455343.3.227.99 .991.05260.0 Family Dependent [id number] Medicare Dme Supplies Medigap Part B [id number] 2.16840.1.973009.3.227.99.991.81349.0 Self 1 [id number] [facility] [id number] S [id number] Medicare Dme Supplies Medigap Part B [id number] 2.16840.1.419704.3.227.99.991.41220.0 Self 1 [id number] Medicare Dme Supplies Medigap Part B [id number] 2.16840.1.521135.3.227.99.991.44370.0 Self 1 [id number] Medicare Dme Supplies Medigap Part B [id number] 2.16840.1.863771.3.227.99.991.26057.0 Self 1 [id number] Medicare Dme Supplies Medigap Part B [id number] 2.16840.1.398096.3.227.99.991.26315.0 Self 1 [id number] Medicare Dme Supplies Medigap Part B [id number] 2.16.840.1.835601.3.227.99.991.06031.0 Self 1 [id number] Medicare Dme Supplies Medigap Part B [id number] 2.16.840.1.169774.3.227.99.991.29617.0 Self 1 [id number] [employer] Medigap Part B [id number] 2.840.1.652324.3.227.99 .1767.46930.0 Family Dependent [id number] Medicare Natl Gov't Servi Medicare Primary [id number] 2.840.1.867227.3.227.99.1767.40124.0 Self [id number] Medicare Dme Supplies Medigap Part B [id number] 2.0.1.206853.3.227.99.991.35058.0 Self 1 [id number] Medicare Dme Supplies Medigap Part B [id number] 2.0.1.773353.3.227.99.991.09238.0 Self 1 [id number] [employer] Medigap Part B [id number] 2..1.466618.3.227.99 .1767.30120.0 Family Dependent [id number] Medicare Natl Gov't Servi Medicare Primary [id number] 2.0.1.828837.3.227.99.1767.13444.0 Self [id number] Medicare Dme Supplies Medigap Part B [id number] 2.0.1.594499.3.227.99.991.88835.0 Self 1 [id number] Medicare Dme Supplies Medigap Part B [id number] 2.0.1.890049.3.227.99.991.14308.0 Self 1 [id number] [employer] [id number] 1 [id number] Medicare Dme Supplies Medigap Part B [id number] 2.0.1.706047.3.227.99.991.78678.0 Self 1 [id number] Medicare Dme Supplies Medigap Part B [id number] 2.0.1.866411.3.227.99.991.37506.0 Self 1 [id number] Medicare Dme Supplies Medigap Part B [id number] 2.0.1.176597.3.227.99.991.73336.0 Self 1 [id number] Medicare Dme Supplies Medigap Part B [id number] 2.0.1.195243.3.227.99.991.85689.0 Self 1 [id number] Medicare Dme Supplies Medigap Part B [id number] 2.0.1.779146.3.227.99.991.30271.0 Self 1 [id number] Medicare Dme Supplies Medigap Part B [id number] 2.0.1.768333.3.227.99.991.98183.0 Self 1 [id number] [employer] Medigap Part B [id number] 20.1.897785.3.227.99 .1767.23711.0 Family Dependent [id number] Medicare Natl Gov't Servi Medicare Primary [id number] .1.363120.3.227.99.1767.51138.0 Self [id number] [employer] [id number] FL2 [id number] [employer] [id number] 2 [id number] [employer] Medigap Part B .1.671434.3.227.99.3598. 70572.0 Family Dependent Medicare [facility] Medicare Primary .1.019649.3. 227.99.3598.51257.0 Self [employer] Medigap Part B [id number] Family Dependent Medicare Natl Gov't Servi Medicare Primary [id number] Self [place] Medigap Part B [id number] Family Dependent Medicare [facility] Medicare Primary [id number] Self [facility] Medigap Part B [id number] Self [employer] [id number] [facility] [id number] ANSI-Commercial 61mm8688-2yqo-26yz-x14n-h6n989e6i53d 68nq2561-4bts-26od-g57q-w9c906c5k35h [facility] [id number] SP [id number] [facility] [id number] [facility] [id number] MEDICARE [id number] S [id number] X75 MCRB [id number] S [id number] X75 [place] [id number] 1 [id number] UMR [facility] [id number] HU2 [id number] MEDICARE C [id number] S [id number] X75 UMR O [id number] S [id number] MEDICARE [id number] SP [id number] A ANSI-Medicare Part B [id number]-nx1j-[id number] 944g31us-6b56-9wp2-oy7j-2xhpaf4y7104 ANSI-Commercial 072u316y-3326-0985-j3x2-s3a43ehr7i90 620m281y-3063-2527-u1p0-j2l81aya9w09 ANSI-Commercial d39ywn44-f5ot-6121-v88t-ulyh5807e1f4 k56wca30-f7jh-4776-d07d-lkie6555r9t4 Medicare [facility]me [facility]lies [facility] [id number].[id number] Self [id number] Umr (pr) Medigap Part B [id number] MRN.[id number] Family Dependent [id number] Medicare Dme Supplies Medigap Part B [id number] MRN.[id number] Self [id number] ANSI-Medicare Part B [id number]-5as7-daw9-7m30vk73q759 90g253us-78uz-2zs3-jrs3-1m88wb89e591 ANSI-Commercial i490782q-7o33-621l-uqux-pnde188v8857 w649432s-2o39-202u-irru-diex203k9145 ANSI-Commercial 7s6trz96-h944-8da2-6760-7378006gcks7 6g9fgf12-v293-3tk9-3613-8249738ktne3 ANSI-Commercial 51302532-p983-8g88-185o-669322z2f0d1 40396827-a062-3t68-994r-017087f1g9u4 ANS-Medicare Part B k991p84i-n381-6y0p-6i38-b8u4y0fc0ft7 v390n11a-t618-4q1t-4w22-s5c7b7bl1xi3 ANSI-Commercial l7q7l132-9bf3-540b-f9py-31ar46z56d40 b0f4p905-4rp1-883v-o8xg-73va19q18i93 ANS-Medicare Part B ss054y75-90o8-89jh-2uh6-6v0p8v37dr2f jc762x70-94o4-70gh-9px2-0e1z7y67fb7f ANSI-Commercial 699m7p08-602y-861i-8hkw-661y145h97qq 870i9l37-761c-891m-4rlu-423v480o10dg ANSI-Commercial 69m295eo-x13s-9a8f-3692-j9h4zrm5o097 45i804sa-p44a-5d8w-6327-g0g1bol7e942 Medicare Dme Supplies Medigap Part B [id number] MRN.[id number] Self [id number] ANSI-Commercial 65l7jr87-5z10-283q-lew8-9yn7m5119s62 90o9vw36-4e74-147h-nax9-9jo6r2817i99 ANSI-Commercial w077k8i6-a562-1n39-l8p6-0fo223787022 i516o6u5-b413-8l64-z1v2-1hd235822955 [facility] [id number]-0h26-8b9v-[id number] 84525152-d6pr-1q28-1b8z-5531k17731i3 ANSI-Medicare Part B w4rh3xhq-tmen-5my7-a03f-d03963z7rm2v n6yl6cgu-rxkd-4bv5-y73i-o15590z5dj0q ANSI-Commercial 9xn0x2z4-r485-22s7-4u52-90j9z05p15q1 5el9p9z4-t168-43d9-1r49-09k0j12y72h6 ANSI-Commercial 8018709b-40ix-8rw5-6j08-nu4u50645582 4317991j-08yw-2kk2-6v22-vd4i41543342 Medicare Dme Supplies [facility] Part B [id number] MRN.[id number] Self [id number] ANSI-Commercial 1oj016ve-1w92-1z92-ks25-043d08459gj2 7hj672cv-4d81-6f90-xs96-241r98957ct3 ANSI-Commercial 1068560h-6955-2tb4-r246-n10ijl6q223z 3989889b-0304-9ii8-w176-a19bmd6d266z ANSI-Medicare Part B [id number]-db67-5084-0107-9529s98o9163 9h6p67aw-vo87-2553-1076-5541a78q1722 Medicare Dme Supplies [facility] B [id number] 2.16.840.1.468627.3.227.99.991.41006.0 Self 1 [id number] ANSI-Medicare Part B [id number]-51pf-4653-u44a-[id number] 5u1lz24x-84mg-0765-x60l-83fi9213365q ANSI-Commercial 65918e97-io5g-7l3v-e530-7r9830w4961f 23480w40-os4o-0g4z-g259-1m2105h9288e ANSI-Commercial 5475j24p-8t43-6616-w57e-387231fyxr76 7830n77z-3v05-3825-x21t-639468mnzj76 Umr/[facility]/[employer] Medigap Part B [id number] 2...003902.3.227.9 9.1767.46490.0 Self [id number] Medicare Natl Gov't Servi Medicare Primary [id number] 2...074866.3.227.99.1767.65885.0 Self [id number] ANSI-Commercial 0nx703b1-l3ac-31j7-5p1q-1y0z8p531y57 6wb251s4-n8jg-82z2-7l3s-4i0v5e349t78 ANSI-Medicare Part B 62e5xl62-4f95-5m07-mr84-e593576j77il 32i0lh36-4w98-7z30-mc99-n733269n54pk ANSI-Commercial 9v11d834-8m4z-17h9-b707-5j4i79gkchz0 9u83s241-2c1y-52i8-i840-2l5l84maits3 ANSI-Commercial 2i17w0jh-96dj-6cf8-gcbs-3051p45dx64v 3i49o2lc-22xl-2ls8-dobt-5834s12rs39o ANSI-Commercial 6150f059-4849-9015-5h30-to9igj39b9xr 2111d939-1285-5210-7f20-kt8kbb63d8up ANSI-Medicare Part B [id number]-j993-4490-v35k-y2vv545n6q90 1vdi16ja-m814-0746-c91k-v2ra283z7q61 Umr/[facility]/[employer] Medigap Part B [id number] .1.602229.3.227.9 9.1767.34081.0 Self [id number] Medicare Natl Gov't Servi Medicare Primary [id number] 2..1.949550.3.227.99.1767.09778.0 Self [id number] ANSI-Commercial 2r9790v5-4fx7-403q-8or7-318rku9f0948 9f6798j7-6aj4-248a-6dd6-528azt3z1418 ANSI-Commercial v2777748-xqnl-57o9-3e81-4sd41t706410 i9964887-tigl-85u1-3j54-2zm76g081263 ANSI-Medicare Part B [id number]-nlo9-72fgu1475s1n 149185b4-6r07-746n-vqv6-57pdq8737h4o ANSI-Commercial 2386r147-j3dj-1vq3-6svf-02s912556g01 9621a093-h2nf-4go8-5aag-37i873204m49 ANSI-Commercial 0590272y-8791-2349-648w-02r1pi48l21r 6936404w-4078-2681-922k-93u0wq64l43x ANSI-Medicare Part B [id number]-l8j4-hj8zc4743q3c 66dp4019-75m2-6859-u1q2-jh4eu0353m9f Medicare [facility] Part B [id number] 2.16.840.1.990212.3.227.99.991.67514.0 Self 1 [id number] ANSI-Medicare Part B [id number]-[id number] [id number]-rwh5-0r73-nq45-111982061h98 ANSI-Commercial 514978p6-950g-2445-bp58-e0tk6w05ic71 325286g5-686d-3159-qv24-s1cz8u11ex95 ANSI-Commercial 20rn00f5-u5bl-3txv-2359-6578532w9o91 86ps39j2-s3qf-4sqb-3808-9862829j1e52 ANSI-Commercial d956u577-d232-1py5-4i93-e7t94ww73225 f610w667-n461-0mn8-3m02-s3m81jn48271 ANSI-Medicare Part B [id number]-[id number]-8v73-[id number] ANS-Commercial qjre24x4-j4t0-985v-g567-h9fv91q569v7 bnrn46c5-t3a0-476y-w056-u4qp79j520z0 Medicare Dme Supplies Medigap Part B [id number] 2.16.840.1.942497.3.227.99.991.35875.0 Self 1 [id number] ANSI-Medicare Part B [id number]-z1yn-65mh-r904-3xx4n5235co9 ANSI-Commercial 47jht451-c46s-7269-593s-0nr93eid7hj1 78yms244-i13b-3267-363w-5fi69ycx5tg6 ANSI-Commercial 5y4oy2fd-u393-2ul0-8p3z-6o913r0n02d7 3p2es7wn-c755-1wt1-1k8z-7b127g6f99c6 MEDICARE C [id number] S [id number] A Problems, Conditions, and Diagnoses Code Display Name Description Problem Type Effective Dates Data Source(s) Z68.39 Body mass index (BMI) 39.0-39.9, adult B ANTONIO MASS INDEX [BMI] 39.0-39.9, ADULT Diagnosis 12/31/2020 01:54:00 PM EDT [facility] E55.9 Vitamin D deficiency, unspecified VITAMIN D DEFI CIENCY, UNSPECIFIED Diagnosis 12/31/2020 01:54:00 PM EDT [facility] E53.9 Vitamin B deficiency, unspecified VITAMIN B DEFI CIENCY, UNSPECIFIED Diagnosis 12/31/2020 01:54:00 PM EDT [facility] K21.9 Gastro-esophageal reflux disease without esophagitis GASTRO-ESOPHAGEAL REFLUX DISEASE WITHOUT ESOPHAGIT Diagnosis 12/31/2020 01:54:00 PM [facility] K50.90 Crohn's disease, unspecified, without co mplications CROHN'S DISEASE, UNSPECIFIED, WITHOUT COMPLICATION Diagnosis 12/31/2020 01:54:00 PM [facility] E66.01 Morbid (severe) obesity due to excess ca lories MORBID (SEVERE) OBESITY DUE TO EXCESS CALORIES Diagnosis 12/31/2020 01:54:00 PM T [facility] M17.12 Unilateral primary osteoarthritis, left knee UNILATERAL PRIMARY OSTEOARTHRITIS, LEFT Diagnosis 12/26/2020 09:13:00 AM T [facility] Z01.818 Encounter for other preprocedural examin ation ENCOUNTER FOR OTHER PREPROCEDURAL EXAMINATION Diagnosis 12/26/2020 09:13:00 AM [facility] Z20.822 CONTACT WITH AND (SUSPECTED) EXPOSURE TO COVID-19 CONTACT WITH AND (SUSPECTED) EXPOSURE TO COVID-19 Diagnosis 12/26/2020 04:45:00 AM [facility] Z01.812 Encounter for preprocedural laboratory e xamination ENCOUNTER FOR PREPROCEDURAL LABORATORY EXAMINATION Diagnosis 12/26/2020 04:45:00 AM [facility] Z96.652 [id number] History of left knee replacement Problem 01/22/2021 12:00:00 AM EDT [facility] ([facility]) M54.40 [id number] Acute midline low ba ck pain with sciatica, sciatica laterality unspecified Problem 10/24/2020 12:00:00 AM EDT [facility] ([facility]) Surgeries/Procedures Procedure Description Date Indications Data Source(s) THERAPEUTIC PX 1/> AREAS EACH 15 MIN EXERCISES 021 12:00:00 AM EDT [facility] ([facility]) RADIOLOGIC EXAMINATION KNEE 3 VIEWS 02/20/2021 12:00:0 0 AM EDT [facility] ([facility]) THERAPEUTIC PX 1/> AREAS EACH 15 MIN EXERCISES 12:00:00 AM EDT [facility] ([facility]) THERAPEUTIC PX 1/> AREAS EACH 15 MIN EXERCISES 12:00:00 AM EDT [facility] ([facility] ) THERAPEUTIC PX 1/> AREAS EACH 15 MIN EXERCISES 12:00:00 AM EDT [facility] ([facility] ) THERAPEUTIC PX 1/> AREAS EACH 15 MIN EXERCISES 12:00:00 AM EDT [facility] ([facility] ) APPLICATION MODALITY 1/> AREAS HOT/COLD PACKS 01/30/20 12:00:00 AM EDT [facility] ([facility]) THERAPEUTIC PX 1/> AREAS EACH 15 MIN EXERCISES 12:00:00 AM EDT [facility] ([facility]) Physical Therapy Eval - Low Complexity 01/27/2021 12:0 0:00 AM EDT [facility] ([facility]) Medication: Tuberculin Purified Protein 0.1mL Intradermal (P PD) 01/12/2021 12:00:00 AM EDT [facility] ([facility]) Introduction of Other Diagnostic Substan ce into Peripheral Vein, Percutaneous Approach 12/31/2020 12:00:00 AM EDT [facility] ARTHRP KNE CONDYLE&PLATU MEDIAL&LAT CMPRTS 12/30/2020 12:00:00 AM EDT [facility] ([facility]) Replacement of Left Knee Joint with Synt hetic Substitute, Cemented, Open Approach 12/30/2020 12:00:00 AM EDT [facility] RADIOLOGIC EXAM KNEE COMPLETE 4/MORE VIEWS 11/20/2020 12:00:00 AM EDT [facility] ([facility]) OFFICE OUTPATIENT VISIT 40 MINUTES 11/20/2020 12:00:00 AM EDT [facility] ([facility]) RADIOLOGIC EXAM KNEE COMPLETE 4/MORE VIEWS 11/13/2020 12:00:00 AM EDT [facility] ([facility]) OFFICE OUTPATIENT VISIT 25 MINUTES 11/13/2020 12:00:00 AM EDT [facility] ([facility]) X-Ray Hip Unilateral With Pelvis 2-3 Views 07/03/2020 12:00:00 AM EST [facility] ([facility] ) OFFICE OUTPATIENT VISIT 25 MINUTES 07/03/2020 12:00:00 AM EST [facility] ([facility]) PREVENT MED PLANNING MANAGEMENT IT SPECIALIST&/RISK FACTOR REDJ SPX 15 MIN 07/03 12:00:00 AM EST [facility] ([facility]) RADEX SPINE LUMBOSACRAL MINIMUM 4 VIEWS 06/02/2020 12: 00:00 AM EST [facility] ([facility]) OFFICE OUTPATIENT VISIT 25 MINUTES 06/02/2020 12:00:00 AM EST [facility] ([facility]) PREVENT MED PLANNING MANAGEMENT IT SPECIALIST&/RISK FACTOR REDJ SPX 15 MIN 06/02 12:00:00 AM EST [facility] ([facility]) Therapeutic, Prophylactic Or Diagnostic Injection Subq/Im 05/29/2020 12:00:00 AM EST [facility] ([facility]) Results ID Date Data Source [id number] 03/27/2021 10:45:00 AM EDT [facility] Name Value Range Interpretation Code Description Data Carlie rce(s) Supporting Document(s) Colonoscopy [facility] TAMLQi1wJsFWUlCjOAXkTzkVORjuFZtsRGDrX7I6QAdhQj0LEEuzivXmSWWuOe2+TQOqGL5xrd9aILBq gMy [file] Ro2Me2Y/+SENIOR ENGINEERING ASSOCIATE+rDAE4z6/PTORQlrEVg9OcyA2JKPzCmKpfzhhD8+SWaIso03hXk92Os6wQtGyUZb84b6x [file] editorial specialist/MR4xC+h848fbShVx+1jkB4/tNbcyF5ugUiOfsas2OUag/tJt2ZwVOsylDlQKsfwqAxG1+HQGWG8k9 [file] I+nNHV7eI2chzDYNMWrFb209PEieQMrwxCarqWz5KhNMDrPEYHFhPQ4FLeO/xQ85+P7JUR/r3f1f/victor manuel [file] injection wax molder/LSgZmO4ZFmCazlcxjQpnBayY1sUsgrspKliOk9dXtl8VCpfJMh3D0sEIIM83aEyGSm93fhenuoRfk [file] uVo0sRoUWOv8CXtHlMvTQ1/rVE+ballroom dance instructor/2S673bmW0F/KQfNeEzOH1fvNHAFsbEh3uECq4bbc9dOuw3E6L [file] RA3m27gUxsHmoxXV/8gOadEjV1K2Edi+Fe3yD6/injection wax molder/ [file] lDaNRhjLqcYc0qx3xpRlQ9igTUUfpfECUZNW/Екатерина+ZsU5rI5DeFhwXxt9XAQ8qSgPDtGj895XINGCe+4 [file] 8griKV6oEETm//DQ6Ra9lXAsnM0z3EMmydY5QSa9Cljjq+2ugWOpKGWUv7TLR9SB+/DtiwX6vBB/Heater Tender/d [file] LU4dbeUBbqjgVysTElKZ5QUsSpLQ1eis3BKpC1GMO0wGZyKu9FVUmbBNL0LJueJCMZWs== ID Date Data Source [id number] 02/27/2021 12:00:00 PM EDT [facility] Name Value Range Interpretation Code Description Data Carlie rce(s) Supporting Document(s) EGD [facility] XDDWWv8rQrIHMtXrOEOcZdlDSHxjLXvxGCTbX0Z0CMykTl5PXIftwvHnOYCaQk7+EICbYA1imp9gCHGm gMy [file] yzD+RLqIQ7llBS+XXYenI/7Gqs5K3M5ubXnNct1AH/MG4ssKQPFrbQpPPIAFaTwbyCe18uxo30l/e commerce director+ [file] T5yQvevYYg3R/32+0YMOd4klx1xbOvH8J1Xr75 [file] Dv2kPBFylU0lLO/cashier payments received/+SEJtRPPGoYAEUydNRgfOt7 [file] mzgZliHp1/lVNcE1oZQIdP5NP3K+LGztNP+eHbyTO/mvOnZDm/9/TNj+80uqpZ0nERqzj+injection wax molder/M2zIgiL [file] rpRePRMjmAuX+mixer whipped topping+zieG23OnmJafyyix/tuRIkSlXNn4fp2kSAmQHpkwWQYP9r/TCA/CeO4x45BzZCH nuNcH+go9uxH8OdX98Vbki+kguSSXvvFkfRGQKRYV6 4gsPZZFZc58R7j9GSRB7Ad6uQ2XxVOLaedIXKrj9z8tevSFEMvC9+SFEynBctcqtOaxN7tkd3j02Sh+v Wt3KE8AhzrXG8/IPit/KZBhJ8H77voWNWBZ/Iz1QUlCTibwEjxd30EnkQVw9XotvWzg2tBROComv9SsF VOGyW6Iao//nvMurAKbWwG4abkStYkm0LRbuyNtC4f yLoGNPfIkt/ike+y/jTm8muDipmhkyx4ux+1/tQFn2v3Jv1mxTiahP1sasEaF1db1wfahf1tWlDJCzjvW [file] [place]/pPgW+Be297bcmksn+uPKgmR1LxfCOZZ0CL+hXnsmAaopKXXl3NycljUjQwUjFYF9af2wDEKk0b9k [file] +6XfBPSDwb9dkFQSPRrsihlUzfyPMQ26wmBrB6VZWLT09GNi6KX89I7cnDzjctIrAYUl/XajEi+Victor Manuel [file] SENIOR ENGINEERING ASSOCIATE+bvzU44ZpFHLww5l99uwQRO+au07mw7MLxTWCSDB W4YHfheUwb4lZRWdr0WM63ghuKr8NDsMeXKTBj+MVsXVHihU68nszTBe7dl04e8oy9cWIIwTqo9Epyzy ktSKAEmC6feVY0lmRst5vOBOdvr6piGkMJ5S5KawZmA+FYVfq3L7ofZklauznutoF9/tUgvSzDBj6+jv qjVg7v3mGuetSSdMsEm2wOVqS5ayD0De4YdJ3ev873 OOQmKgDnhPzv8SRIWFVcLqqSXTPRvBCYy0ZFd5hzVysp3jp1Xjbb08WCzAuxlR41CviyBQyE/HMfAn5F pDbOeUdDUpgEDbUy5hZTLIp5hk/2U+ndHl6++cobtYKHEtTPlz6b4QDlm5U1RNWCVGbSTSx+HnnNUp3g UYP/d1FeMM0l5sWKlmGGewsfj9hht/rp5SsatGGWAh 3VTKT5O/XvcFf5Da+ACwaLui+iLGQrIdcwm37dwe+tjKKzMIX+KZ+cJebNCROWNJsTEqHbEW/mHS+UML Huerta/hWfh5vSRaTs7iY6wzSffINZE6TYsznJ2ozjPlKbkaKim1T0xlRImOcOrTeWHO78gANNTUv3MNB+q [file] T0Y= ID Date Data Source [id number] 02/19/2021 02:00:00 PM EDT [facility] Name Value Range Interpretation Code Description Data Carlie rce(s) Supporting Document(s) Follow Up [facility] WTHDPa4sQnCRJgCeIULyNlfSRUjfBImyQELiT2E4RLxfUx7PXGyqcgHyIGRpIa8+GPVxIJ1jye6eMQSd gMy [file] bz9O3GLbtAiQ1vW6MyL+z4GN2sdZgKukLnFficOiikaent2Gto7z+N6ffSpszb/R7TND3KgmbLW2m+Heater Tender [file] twiNhgp3zd7uN5QAGf7zJl/1ptvpoL71RNGllSmwCP/hb3160uCpsm49pihHeDvlLD69TO0Ixakf/[facility] [file] gNjT8M+JMgbsna++gToTWdCPBO3BrQonTve7vhyVU+I+FIKTk+FLORAL DESIGN TEACHER/qwyC8yasyd0BYS5fRohinqa2Ooy +2UtshEDompFT+raZQ6oEa77RIbbUhP7JHQZpbkkg2 QhpfmK+K/E1oBnsVx1egGv127cFFmaSeUBjU5NZ/koV47rvg+Nisha/YoTlmQ6Ol+MB8szVUH2EG0GBthZ [file] 8FE7XV88RKbkJAiStYuV4xXZ1wbEf3s/material lister+/OK0NVb [file] retirement/lsrt7L0RIlpg1Gd4r9k0TjE3wpiHtEY5cGsyHxyE94s3xH9XBY/2sh1dle6vnFwHWfmD2j4bKTtK 1ST9ROe41/iUZ9ljK/D1ncwkZJDlJo4aP7XXwaZq8I sefJ/2Y+MqSatEg+Uf6BncR9LUWbBdQrs9gQMwgjW8wnglA3WOtRw8vBkZSUTlAiKPbCiIuLDjitOtzE 47wcIQ5QFthXJDstLFvvjfRPrLhYdSKFOauQ2rYBk/IrJa8J8s9UKmqOp47iHEu2WodHXlihQRzlEyVX TtTMEauzBuej6llCb+JVNUNJk2baa/3HNpGd2DOyQr cOG+IRk2GCMQBNpLj3SGuXNLgsYd+JcIFJgkH4tzaUJQNgLAsmuBxOQNu79NW0ARMoBXDypYJWi4ZjHC s6jeF+Hab3cuMX8hQzWv4HjY6XP36qR0RyIgZvsCn2GlnBc/PKgP/jRsjQ9FJ4qnVtq34p1sSco89+RO izzmfOU46Ty4XixTReTI7qqGIB34GgQ9Za/Ev8GxH6 61Qr6yzmIke15wrHEH+CIkgQSy2aYxmI25f99yF1VEVwY0mmg3EtbL8wlL2HNxT5MS89nP0+xHI01XGr DO8GEr9/RfzuVAvH//2MZ/cEHVzS8J7qhvVTG0QEvMdrWnvO/pjqWbKtOrLe2Oa+XoCE4FlLZSLKuZol VYj8vlHNpziEuW3yAhDj7J3DKBszZ4OCHBZ6b7mVSs F/+D8mcIOzAJGnFdo4FVUlzNEVOK32IQe7SqviFS2l/pkC8NNU3wxStuhDTgaEtfuaH+iGOPZlmsajMs 3jRLyFj+7l/sTPoZ2WOzitiF4A3ec41LHBYKB47K5A0qO8mBsH0JaR9F2Y3U/ebVygmkfi5cr83As/XB ZnjPZSqmzs6EyFMhvBlqbXwcZGKXJl7gr/Hg/6Ekzh UKmvzeSkJcGPu9nAAwgfXdZUDuc/+du1HxuhPBVIQ9Y0F3eaff2WZUd7Me1DfRLJ3L63V2sQIcGFLgJT qqFEs/material lister/WvQRSdD3OejSDRlkyGaNztGhV4gb97JhFC4xRKmA9S2/3fQGQGLHi0uPvDU/GWBiq9qy/UY [file] e/vest busheler/ktxViNzCSoHnnsVXb9OI1iownckzOaMotrQLfyIn7kIY2oSUFnTUKbYRJPD+vvFIzSwDsZO7O [file] SENIOR ENGINEERING ASSOCIATE/7hFa2IHBI+hRQsU1IgVpNFL938Lt3h8ywTEHZ+c [file] Ec/Heater Tender/H63xbkmu98lbv54B6aNVCZSgX/gLpgnSyLPG [file] 5Na5DYBZ/0SIIw3DY4LVJJpBsLmhdauDAkpsus+ Li4WpIaJh7hbSUE7L0pfBHE7u2kOk5P6NigYnCgWpcd5J5wDC2pFj+x6jOQxJkHKsvbvV0Ph7u38KDQi SM9aQ4snHlpK3e8RO9yZ8XYg0BkzZL4RdfiaknL566VE3cnVaSh1QD9KTogBN97zpW5cuUUAgaQAS+Sheila [file] ZImQKKS5618qe5DsQWCgLRYqpU1SQkfSOky83B1 aG7XlPMR4cHomj5ngEtMP2aXS1hgQPVfOj0DiMBHJQHaasbXy9iMf0jtO/2vakWVi7afiJS4tWzNZEzf XTKV9zRSRak7AUETvICU0uOUng4qpmaRGzZTpWcwXmovqH069fxKOrmsJh5MTUbdJOFL1J6FFCCOZFRq yxA3yTLX6QJEzkzP09USMis4euk4HOBdTa6DZoXa80 vWjOTCcLZqijGIBQu0vVWc40AWD+ACbakBkwri16+imCYJxUJIsfWBzNZU/L2drnDhk9HkRYlc6qXyXR DtpG/0HDSglXVsrs3UdUhdhkbzhY3gWwC1imwzuN7mp9CkleRN2LZM39BSphQfRFZBUhpQLr5UGEyUeo qsjS6tPb3v6omQxS0mznAPFwdn5vFtohwRzMDcUHab A2NN+TK48bT9SbqHt6i1SOwGpe/4/gt4Wz+ERBjJsBjAVFwEX1A7xqZ1t3rnKce3Id0LEHBWe4BXrfR5 tera+CdG6usCuAgKFww+SELGXhsgpKz5at90O4+ar2Esxfv55D+HN0Wp8Y2OUVc47d3RVpKZHDMBeHykT [file] qJ8F3GW+qYmFg+GozYg6ClNMpV18tyREWIlqUYKNoGbx1I+dKHacQsfvRnZ2fvtAb3RzO9Qotfhr0+FLORAL DESIGN TEACHER [file] Carol Ann/rm7FS5CuUn270AD4oHiMQLwD5B/uwv2O8ty2FMdiNyCaYoNvFJ4+ljOSaApZYrERpY5JA9NKpwmB Izssg2jtsvZ+Abhishek+8+1TNVnGfpoj1t7cYlKVzuwbHAoqr06QwapFcy3X5D5NnbPDigzhpew1JdsVkuvs [file] [facility]+oef1CMLGbKP3hxyOEwAIPPxavj+RN8Wjkn/U [file] q8T1nGBXZlpZjeT0FvRYsX78cEblyLiuOftRUpwe54GvOF9KhCCJ185DNdzDro0Phq/material lister/yRk4q2XOUI [file] sHgLMH+bleZUOS5Yj4++oYvv9o3cx/CHEESE BLENDER+2ypT1jzvpGDFteD5bO+YT57vr1zfKhCuAvi5Yz5sGUSG4K [file] LcnzpqLjQX3DHGh5RFNjcfnOoUzXVNSMzJ7tK++nutritional assistant [file] KJ6buPYgC7JLpTTie/VaA/Carol Ann/ut92nKrkFKd1qAEfX9iCuMlfc/vhVDCSkE9jje2bQ47r8wa1BHJpGA [file] 30tb8bcpfH8jtK/+fi7s/acquisition lead/49DF19Iyydw5i7ln3 [file] vp revenue cycle+hn/134KsnPu4ubtQsOfh+3sZ+P2ybvNdMJKb0yHKOPB6j6OGnX1x/0tLii2zzEIWN38CE4Pjp5oDL 7+R7v0hvsxnj8vYdr7iQeYC5frpXN3Hq82LX7ZhE4m tVbB87nhwQKHPiW1ZVpq5f3+p8ePPCQomPqXIsn7JuchHcY/Bbfk2MDhldM6wBnZwFkwnkscoFTpILof AkH7EGHKET1sBwlVZnWY1yHjkJyD0tOyx1pUG5kuXOMoiZxwzUGDq2yY8iDlQzBr4xfEeN6UL/nXVvN7 Bzklvmc0HqMMDEq4SN+o+iN6p8GGbO3/dGFE4zrA0k 8sr+mH1KNdxFE+MbURzPqHcxVWFJ970JKneIYXKPnFC+8p6q/VBHZKpB9mfA7w+2XwewAbzbXKhSVnrf Wiox0ZKuxxrXjuAB0cmaFGlKXWqwlarYg+S40/Zv398Soi9aNyGAwrbtqtwC7DBOUYkAoXEIELDmuuIE 4KGwZ7VQwXaEfZK0g/2Ncr/NqDDP4cffLVludu93nv kQf/4QLH4t92axpQTiWUOe4INjGly9K9GhzYUn7OJXXrb0svEQlWkBA2wn2xWvRvbj/+ldO0FKr2sDlM rqo3ne6OhH1B7igyZmvuIPI5ro+cBrMH5c4kuDyYqXWbJaXOOqe6rAFumvXGjfGrctsdNcZOrGeQaSNt WP7+SP/6HIcrcJcRYUbxHucL4CFK8/Ng6fuuQZVY5f Mmwk94/h1g4vHbvSAYnd0whJExzmO0Pkki4N8D8FT4UsumXsYM8bxDJ7prK3zectxDq0fYNTs/67M52/ klumaXd5JNoL+2+T22weW7aNLZ25Ck0fr2jdj9iGcHxm7aPa+3zVkgmf9qnY9h9b8BsUPDmoyG3c6m/8 463b24PM+QOnwOKgVMywZgBPh5TptvmIYuy2MaYlOf KrTDR6sqHLPdhWzbGcJmP1Owk4YlZexi3yJhS7Ofr3xE2fa2Sl5RFd3T0Hqo/Rhys/htPNJDYKpMDc4ux [file] TFejN2lr+1uFaG+DHMA8ywoZkEfCw/ifgvF0++injection wax molder+cezzne8eKxvLW9i3PNELYrcgYT7pZ7iPNL65kDo [file] J4P3Mr4uRKgl/51cBm3ImgFBCOsKICdvmzbm1B4IbpG5108GwBdtmRRT0xIZt2dUevic/BUrr72vY+SENIOR ENGINEERING ASSOCIATE [file] 0thYfkTyeNEv++ijyHoWCJ7agBE/8gzJxnLtcYB7aD7zRL8hcukTxkqfyM5B6WZ/EvhUmXbN/cloud engagement partner+tbn [file] j+0yY3dBmnb+HP3TeP4/7FNvi8jR9Oxvqgpom [file] ferry captain/2L/Yv9i/2L/Yv9i/2L/Y/wcG2Pl/pgb/V75m2VfeVIY93d2xJDk5q+tdBB1c7rq8NwOr6oEN124u [file] c3wthGGQQU3w7+jvtv9BRrH0S1YLVx0XsXsMSHfo1UvIz8bk9o+Ca6cxz0yf/LARRY/MLo+3awWPgB3dVp rEvAi269YM8rnueMH7V7S5aN9hyKxxBiL2gWpoH7aERFqsTBrI7ow2xWyw0z1OKbEJbs8++HTbXiaPsU byVTV93aeRMR/rn3jbeudrE/oQk7gFTrNJ+nlEk0g+ MxgO68pu2QkLtgHHaGwpJyy6G0bLrembm4p8NRFKtax/3hBy/3Gs/Mcjqc7/pFmYw7BpE42jUxtJWGZB hhySMnVv3eJBZbQKKiCOzN1zOlp1XVXFo+FwO0lWww4mAMCcfHO1KIvtp4RFrIs0ETV0ubCddIFzIyoB aF9lxpUEaY475uxw6wv6C0J81adojgYaGzKPa9zDf1 Wk1pPO9vrejTZbPhudohc/SEbd/m/SFQ4q4MnmAR+baxns/J0ndf43ks+4I3yyq1n5TPnOc71KUJFC0q WBwzcA0jdfp7xMBS+rCL+O1PZZ24e5OvlVxaviH5qCmeiQvd1ESMF4sAWGLgZhallIX1jDP/dW/lefJA 4y0kQYMlmm5g2bQEqgJhMKkdbjrhX6RhIq3cnyazEq K1KxSZhgEYTDdnsN86+Sew2zpuJps+BjT4NS7eTOcHjbOOUpbDyz/T4Ry0FhGO+hHxPPjJmsAVVBGq/n DISLDTJWHCrzpNCnI2wodlrOb8YQVPIYj2eCSohYuBOHioovjFpYq1N0w9cLXR5ZmK/4p2qiI36i+vXb sJ4m1QGXzdVU+dw/S1NTCN0HkqmKVqUamwR3GbSEK9 x+injection wax molder/P0PFd2B+NWHVXjVo0QgSpKlvu0/5V+0fhnQpADNUA6E7VufipEGBQMGoerBfcLoWFo2gQtf+jJZ [file] F+JOSUÉ+JqeO4X5gqQ46SRFSBBzR7eijH/qjC/txWEVic6Oy17vur5v31n8ST9Uc/Cq8U5klnEbqrqnw7 [file] SENIOR ENGINEERING ASSOCIATE+E3q7Zf7MvOG9CNmdLJThYFIcu8QwA7aovqI2DtjctM89OwRRHEmQaGLb7tUglHvUyE9U89aOXHD7K [file] SYVz7I3j2SSK8tt7WaNYFlFLgormMjFizHRFzjrPEpgLbkUVYEJsX1EcU1LKrOWtVeAI8F ID Date Data Source [id number] 02/02/2021 08:21:00 AM EDT [facility] Name Value Range Interpretation Code Description Data Carlie rce(s) Supporting Document(s) SARS-CoV-2 (COVID 19) NEGATIVE - SARS-CoV-2 (COVID19) [facility] This lab was ordered by [facility] a nd reported by [facility]. ID Date Data Source [id number] 01/01/2021 11:00:00 AM EDT [address] [address] NAME: REKAROLINEJulio C Hall#: [id number] PHYSICIAN: LIZANDRO TOVARACCOUNT #: [id number] ADM. DATE: 12/31/20PATIENT : 65 DISCH. DATE: [50}DISCHARGE SUMMARYMedical Discharge PlanNicotine Replacement TherapyPrescribed at discharge Rx for med given at DC (NA)Personal Care InstructionsDischarge Activity: As tolerated, No lifting, Frequent rests, Ambulate withwalkerDischarge diet: Low Fat/Low Cholesterol, 2Gm SodiumProblem ListMedical ProblemsCrohn's diseaseGERD (gastroesophageal reflux disease)Obesity, Class II, BMI 35-39.9Vitamin B deficiencyVitamin D deficiencySurgical ProblemsKnee joint replacement statusFollow Up CareFollow Up: Follow up with orthopedics as scheduled. Please call office to confirmappointment.Return to the emergency department for any redness, pus drainage, severe pain,high fevers, malaise or any other uncontrolled symptom.Diet and activities as tolerated use rolling walker.Take Colace 100 mg by mouth twice daily if you are using any narcotics.Priority ItemsUrgent/Important items that need to be addressed at primary care follow- upappointmentDischarge InformationDISCHARGE INFORMATION* Thank you for choosing [facility] and allowing us toserve you* Our Goal is to provide the highest quality of care.* This discharge information is to help you better understand your diagnosisand medication* Avoid taking oycp-vdr-mdmsatk medicines unless approved by your physician.* Take your medications as prescribed. DO NOT stop any medications unlessapproved first* Weigh yourself daily. Report any gain of 5 lbs in a week* 24 Hour Crisis HOTLINE available: Call [facility] at [phone] SMOKING CESSATION* Smoking is dangerous to your health. It delays the healing process, andworks against your medications. Not smoking will improve your health* Our hospital participates with the Opt-to-Quit program. You will be contactedafter discharge by the [facility] Smoker's Quitline for support with tobaccocessation. You have the option once contacted to refuse this service.* You can also go online to www.pushd. Free nicotine replacementsare available ___Attention* You should contact your follow up Physician as it is important that you lethim or her check you and report any new or remaining problems. If yourcondition worsens, follow up with your provider or visit our EmergencyDepartment. If you received pain medication, anxiety medications, musclerelaxants, or any medication that causes drowsiness, you cannot operatemachinery, power tools, or drive.END ENDDICT: 01/01/21 1100 Electronically SignedTRANS:01/01/21 1100 DESTINI GALLAGHERTRANS BY:[email or web address] SIGNED:01/01/21TIME SIGNED: 1101REPORT COPY TO: Name Value Range Interpretation Code Description Data Carlie rce(s) Supporting Document(s) ID Date Data Source [id number] 01/01/2021 10:47:00 AM EDT [facility] [address], [place] [address]TVKCTZFRH SUMMARYPATIENT NAME: KAROLINE PINK MR#: [id number] PHYSICIAN: LIZANDRO TOVARAUTHOR: Jerod SANFORD Destini DATE: 12/31/20 #: 2WESTDISCHARGE DATE: : 65Summary of HospitalizationReason for AdmissionLeft total hip replacement.Hospital CourseHistory of Presenting IllnessPatient is a 55-year-old white female who underwent elective left knee surgerytoday with orthopedic Dr. Tovar. Patient is nauseous after surgery. Shereports she has a history of Crohn's disease and occasionally requires GIcocktail to resolve the symptoms which the and patient report is commonat home. This has been ordered. She is still getting IV fluids. She hassignificant pain and received pain medication just prior to my arrival. Hermedical history significant for Crohn's disease, spinal implant for bowelmotility, multiple vitamin deficiency, GERD, hot flashes. Patient has no otheracute complaint.Hospital coursePatient is a 55-year-old white female who had left total knee replacement 12/30/2020 Dr. Tovar. She had some pain issues after surgery however these haveresolved. Her pain is now well controlled with pain medications orally. Shepassed the physical therapy evaluation today. The appropriate prescriptionswere given for a bedside commode and rolling walker. The patient has wound andfollow-up instructions by orthopedic surgery. The patient will take Colace withPercocet as needed. Narcotic safety understood. Bleeding risk with Xareltodiscussed and understood. DVT prophylaxis with Xarelto and purpose of Xareltounderstood. Patient will follow up with PCP as needed. All questions answeredto the best of my ability. Patient understands red flag symptoms that shouldprompt return to the emergency department such as high fevers, redness,swelling, malaise, pus drainage or any other urgent/emergent problem. Thepatient is certainly stable for discharge at this time.Procedures & Relevant StudiesSurgeriesSurgery Date and Time: 12/30/2020 1400Primary Procedure: TOTAL KNEE/KNEE ARTHROPLASTYStudiesEXAM# TYPE/EXAM [id number] DX/KNEE LIMITEDDATE OF EXAMINATION: 12/30/2020 15:33 EDTHISTORY: Total knee prosthesisTECHNIQUE: 2 views left knee were obtained.FINDINGS:Total knee prosthesis is in place in excellent alignment.Postoperative soft tissue emphysema and dorsal skin nathaniel are noted.IMPRESSION:Total knee prosthesis.Electronically signed in PS360 by: Kike adan M.D. 115:54 EDT Reported By: Smiley CAT M.D.Additional NotesCalcium/Vitamin D (Oscal) 1 TAB DAILY POFerrous Sulfate (Iron) 325 MG DAILY POMesalamine (ASACOL DELAYED REL.) 1,200 MG DAILY POMultivitamins (Multivitamin) 1 TAB DAILY POPantoprazole Sodium (Protonix) 40 MG DAILY PORivaroxaban (Xarelto) 10 MG 0600 POSodium Chloride (Saline Flush Syr(5ML)) 5 ML Q12H IVPromethazine HCl (Phenergan) 12.5 MG Q8HPRN PRN IVLidocaine (XYLOCAINE) 10 ML Q8H PRN POAl Hydrox/Mg Hydrox/Simethicone (Maalox) 20 MLBelladonna Alkaloids/Phenobarbital ( (Cups)) 32.4 MGAcetaminophen (Tylenol) 650 MG Q4HPRN PRN POAcetaminophen (Tylenol) 650 MG Q4HPRN PRN POMorphine Sulfate (Morphine Sulfate) 2 MG Q2HPRN PRN IVMorphine Sulfate (Morphine Sulfate) 3 MG Q2HPRN PRN IVOndansetron HCl (Zofran) 4 MG Q6HPRN PRN IVOxycodone/Acetaminophen (Percocet) 1 TAB Q6HPRN PRN POOxycodone/Acetaminophen (Percocet) 2 TAB Q6HPRN PRN POSodium Chloride (Saline Flush Syr(5ML)) 5 ML QIDPRN PRN IVTramadol HCl (Ultram) 50 MG Q6HPRN PRN POIntake/Output Summary 24 hours12/31 1900 07 0700Intake Total 1440 1550Output Total 3Balance 1437 1550Intake, IV 660 1200Intake, Oral 780 350Number 3UnmeasuredVoidsOutput, Urine 3Recent Labs-24 hours01/01 0600ChemistrySodium (136 - 147 mmol/L) 142 CancelledPotassium (3.5 - 5.1 mmol/L) 3.9 CancelledChloride (99 - 110 mmol/L) 107 CancelledSerum Bicarbonate (20 - 33 mmol/L) 25 CancelledAnion Gap (10.0 - 20.0) 13.9 CancelledBUN (7 - 23 mg/dL) 8 CancelledCreatinine (0.500 - 1.300 mg/dL) 0.650 CancelledEstimated GFR/1.73 m2 (mL/min) > 60Glucose (70 - 110 mg/dL) 108 CancelledCalcium (8.3 - 10.7 mg/dL) 7.9 L CancelledTotal Bilirubin (0.1 - 1.1 mg/dL) 0.4 CancelledAST (6 - 38 U/L) 11 CancelledALT (6 - 54 U/L) 14 CancelledAlkaline Phosphatase (45 - 117 U/L) 74 CancelledTotal Protein (6.0 - 7.8 g/dL) 5.6 L CancelledAlbumin (3.5 - 5.0 g/dL) 2.9 L CancelledGlobulin (2.3 - 3.5 g/dL) 2.7 CancelledAlbumin/Globulin Ratio (1.0 - 2.5) 1.1 CancelledHematologyWBC (4.0 - 10.5 x10E3/uL) 10.21RBC (4.20 - 5.40 x10E6/uL) 3.60 LHgb (12.0 - 16.0 g/dL) 10.9 LHct (37.0 - 47.0 %) 32.6 LMCV (81.0 - 99.0 fL) 90.6MCH (27.0 - 31.0 pg) 30.3MCHC (32.7 - 35.6 g/dL) 33.4RDW (11.5 - 14.0 %) 12.0Plt Count (150 - 450 x10E3/uL) 176MPV (6.9 - 9.5 fl) 11.1 HImmature Gran % (Auto) (0.1 - 2.0 %) 0.4Neut % (Auto) (34 - 64 %) 71.6 HLymph % (Auto) (25 - 45 %) 16.5 LMono % (Auto) (1.7 - 10.6 %) 10.7 HEos % (Auto) (0.4 - 7.0 %) 0.3 LBaso % (Auto) (0.1 - 2.0 %) 0.5Abs Immat Gran (auto) (0.0 - 0.1 x10E3/uL) 0.04Absolute Neuts (auto) (1.2 - 7.6 x10E3/uL) 7.32Absolute Lymphs (auto) (1.0 - 3.5 x10E3/uL) 1.68Absolute Monos (auto) (0.1 - 1.0 x10E3/uL) 1.09 HAbsolute Eos (auto) (0.1 - 0.7 x10E3/uL) 0.03 LAbsolute Basos (auto) (0.0 - 0.1 x10E3/uL) 0.05Nucleated RBC % (auto) (0 %) 0Vital Signs-24 HRS12/31 1245 1315 1425 1454Temp 96.6 96.6 97.0 97.0 97.0Pulse 81 81 47 47 47Resp 13 16 16 16 16B/P 107/77 107/77 138/73 138/73 138/73B/P MeanPulse Ox 98 98 97 97 97O2 DeliveryO2 Flow MijgVlU04812/31 1747 1820 2015 2016Temp 97.0 97.0 97.9 97.9 97.9Pulse 47 47 52 52 52Resp 16 16 18 18 18B/P 138/73 138/73 136/77 136/77 136/77B/P MeanPulse Ox 97 97 97 97 97O2 DeliveryO2 Flow TboaFfX45612/31 2116 0005 0240 0600Temp 97.9 97.9 97.9 97.9 98.2Pulse 52 52 52 52 57Resp 18 18 18 18 14B/P 136/77 136/77 136/77 136/77 172/83B/P MeanPulse Ox 97 97 97 97 94O2 DeliveryO2 Flow QtuuOlW300/814846Vmkl 98.2Pulse 57Resp 14B/P 172/83B/P MeanPulse Ox 94O2 DeliveryO2 Flow UexhOoU7Cqbpynlkm (Current Visit)Problem List1. Crohn's disease2. Vitamin D deficiency3. Vitamin B deficiency4. GERD (gastroesophageal reflux disease)5. Obesity, Class II, BMI 35- 39.96. Knee joint replacement statusDiagnoses (Other)Past Pertinent History1. Crohn's disease2. Vitamin D deficiency3. Vitamin B deficiency4. GERD (gastroesop hageal reflux disease)5. Obesity, Class II, BMI 35-39.9Patient's Discharge ConditionVital SignsVital Signs-LastResult Date TimePulse Ox 94 01/01 0742B/P 172/83 01/01 0742Temp 98.2 01/01 0742Pulse 57 01/01 0742Resp 14 01/01 0742O2 Delivery Nasal cannula 12/30 1708O2 Flow Rate 2 12/30 1708Patient's Discharge ConditionDischarge Date 01/01/21Discharge Conditon stableDischarge DispositionTo home with services.Physical ExaminationGeneral Appearance no acute distress, afebrile, alert, awakeHead atraumatic, normocephalicNeck no JVD, no lymphadenopathyCardiovascular regular rate, no murmurRespiratory clear to auscultation, no distress, aerating wellAbdomen soft, non-tenderAbdominal quadrantsall normal bowel soundsExtremities no clubbing, no cyanosis, normal pulses, Sensorimotor grosslyintact bilaterally pedal pulses +2 bilaterally warm extremities well- perfusedMuscoskeletal Left knee in bandage no saturation clean dry and intactNeurological alert, oriented x 3, normal cerebellar functio, normal speech, nomotor deficits, no sensory deficitsSkin AssessmentSkin dry, intact, warmLymphatic no lymphadenopathyPsych/Mental Status normal affect, normal judgementPatient/Family InstructionsPrescriptionsStop taking the following medications:Estradiol (Estrace) 1 MG TABLET1 MILLIGRAM Orally DAILYVALACYCLOVIR HCL (Valacyclovir) 500 MG [id number] MILLIGRAM Orally TWICE DAILYDOXYCYCLINE HYCLATE (DOXYCYCL HYC) 100 MG [id number] MILLIGRAM OrallyAspirin (Adult Low Dose Aspirin EC) 81 MG TABLET.DR81 MILLIGRAM Orally DAILYContinue taking these medications:TRAMADOL (Ultram*) 50 MG [id number] MILLIGRAM Orally EVERY 6 HOURS as needed for PAIN not to exceed 4 tabsper dayESOMEPRAZOLE MAGNESIUM (NEXIUM) 20 MG CAPSULE.DR20 MILLIGRAM CAPSULE DAILYACETAMINOPHEN* (Tylenol*) 325 MG [id number] MILLIGRAM Orally EVERY 6 HOURS NEEDED as needed for PAINEPINEPHRINE (Epipen 2-Addi) 0.3 MG/0.3 ML AUTO.INJCT0.3 MILLIGRAM as needed for ALLERGIC REACTIONMultivitamin (Daily Dickson) 1 EACH TABLET1 Orally DAILYFerrous Sulfate (IRON) 325 MG [id number] MILLIGRAM Via NG tube DAILYCholecalciferol (Vitamin D3) (Vitamin D3) 50 MCG TAB.CHEW50 MICROGRAM Orally DAILYMesalamine (Mesalamine) 1.2 GM TABLET.DR1.2 GM Orally DAILYInstructions:4 TABSCYANOCOBALAMIN (VITAMIN B-12) (VITAMIN B-12) 500 MCG [id number] MICROGRAM Orally DAILYStart taking the following new medications:RIVAROXABAN (XARELTO*) 10 MG EXHSWB78 MILLIGRAM Orally 0600Qty = 34No RefillsOXYCODONE\\ACETAMINOPHEN* (Percocet*) 5 MG/325 MG TAB1 TABLET Orally EVERY 6 HOURS NEEDED as needed for Pain level 4-7 not toexceed 4 per dayQty = 20No RefillsDOCUSATE SODIUM (COLACE) 100 MG [id number] MILLIGRAM Orally TWICE DAILYQty = 30No RefillsDischarge Activity: As tolerated, No lifting, Ambulate with walkerDischarge diet: Low Fat/Low Cholesterol, 2Gm SodiumFollow-upFollow up with orthopedics as scheduled. Please call office to confirmappointment.Return to the emergency department for any redness, pus drainage, severe pain,high fevers, malaise or any other uncontrolled symptom.Diet and activities as tolerated use rolling walker.Take Colace 100 mg by mouth twice daily if you are using any narcotics.ReferralsOrdered ReferralsOTHER FACILITY First availa...EQUIPMENT SCRIPTS FOR TWO WHEELED LUCIEN COMMODE [facility]. YOU CAN PICK EQUIPMENT UPTODAY AFTER DISCHARGE.[id number] [facility] [address] [facility] [place]ENTERM[place] [address]W#: [phone] spent by provider to complete discharge > 30 minutesCopies ToCopies to Family Provider: EDER WEST MDDATE SIGNED: 01/01/21 Electronically SignedTIME SIGNED: 1101 DESTINI GALLAGHER Name Value Range Interpretation Code Description Data Carlie rce(s) Supporting Document(s) ID Date Data Source [id number] 01/01/2021 03:50:00 AM EDT [facility] ([facility]) Name Value Range Interpretation Code Description Data Carlie rce(s) Supporting Document(s) Leukocytes [#/volume] in Blood by Automated count 10.21 x10E3/uL 4.0- 10.5 [facility] ([facility]) Hemoglobin [Mass/volume] in Blood 10.9 g/dL 12.0-16.0 [facility] ([facility]) Hematocrit [Volume Fraction] of Blood by Automated count 32.6 % 3 7.0-47.0 [facility] ([facility]) Erythrocytes [#/volume] in Blood by Automated count 3.60 x10E6/uL 4.2 0-5.40 [facility] ([facility]) MCV 90.6 fL 81.0-99.0 [facility] MCH 30.3 pg 27.0-31.0 [facility] RDW 12.0 % 11.5-14.0 [facility] MCHC 33.4 g/dL 32.7-35.6 [facility]) Platelets [#/volume] in Blood by Automated count 176 x10E3/uL 150-450 [facility] ([facility]) MPV 11.1 fl 6.9-9.5 [facility]) Neutrophils 71.6 % 34-64 [facility] Lymphocytes 16.5 % 25-45 [facility] Monocytes 10.7 % 1.7-10.6 [facility] Imm. Gran. 0.4 % 0.1-2.0 [facility]) Basophils 0.5 % 0.1-2.0 [facility] Eosinophils 0.3 % 0.4-7.0 [facility] Abs. Neutro. 7.32 x10E3/uL 1.2-7.6 [facility] ([facility]) Abs. Lymph. 1.68 x10E3/uL 1.0-3.5 [facility] ([facility]) Abs. Archuleta. 1.09 x10E3/uL 0.1-1.0 [facility] Abs. Eosin. 0.03 x10E3/uL 0.1-0.7 [facility] ([facility]) Abs. Imm. Gran. 0.04 x10E3/uL 0.0-0.1 [facility]) Abs. Baso. 0.05 x10E3/uL 0.0-0.1 [facility] Laboratory test finding (navigational concept) 0 % [facility] ([facility]) ID Date Data Source [id number] 01/01/2021 03:50:00 AM EDT [facility] ([facility]) Name Value Range Interpretation Code Description Data Carlie rce(s) Supporting Document(s) Glucose [Mass/volume] in Serum or Plasma 108 mg/dL 70-110 [facility] ([facility] ) Patients taking Sulfasalazine may have f alsely depressed Glucose levels. Patients taking Sulfapyridine may have falsely elevated Glucose levels. Patients should be drawn for Glucose before the initial administration of either drug. Urea nitrogen [Mass/volume] in Serum or Plasma 8 mg/dL 7-23 [facility] ([facility]) Creatinine [Mass/volume] in Serum or Plasma 0.650 mg/dL 0.500-1.300 [facility] ([facility] ) Chloride [Moles/volume] in Serum or Plasma 107 mmol/L 99-110 [facility] ([facility] ) Glomerular filtration rate/1.73 sq M.pre dicted [Volume Rate/Area] in Serum or Plasma by Creatinine-based formula (MDRD) Laboratory test result [facility] ([facility] ) Potassium [Moles/volume] in Serum or Plasma 3.9 mmol/L 3.5-5.1 [facility] ([facility]) Sodium [Moles/volume] in Serum or Plasma 142 mmol/L 136-147 [facility] ([facility]) CA 7.9 mg/dL 8.3-10.7 [facility] ([facility]) Anion gap in Serum or Plasma 13.9 10.0-20.0 [facility] ([facility]) Bicarbonate [Moles/volume] in Blood 25 mmol/L 20-33 [facility] ([facility]) Protein [Mass/volume] in Serum or Plasma 5.6 g/dL 6.0-7.8 [facility] ([facility]) Alkaline phosphatase [Enzymatic activity/volume] in Serum or Plasma 74 U/L 45-117 [facility] ([facility]) Albumin [Mass/volume] in Serum or Plasma 2.9 g/dL 3.5-5.0 [facility] ([facility]) ESRD Dialysis patient Albumin reference range: 2.9-4.4 g/dL Globulin [Mass/volume] in Serum by calculation 2.7 g/dL 2.3-3.5 [facility] ([facility]) Albumin/Globulin [Mass Ratio] in Serum or Plasma 1.1 1.0-2.5 [facility] ([facility]) Bilirubin.total [Mass/volume] in Serum or Plasma 0.4 mg/dL 0.1-1.1 [facility] ([facility]) [facility] [place] Total Bilirubin is n ot recommended for patients undergoing treatment with eltrombopag (Promacta) due to the potential for falsely elevated results. Alanine aminotransferase [Enzymatic activity/volume] in Seru m or Plasma 14 U/L 6-54 [facility] Patients taking Sulfasalazine and/or Sul fapyridine may have falsely depressed ALT levels. Patients should be drawn for ALT before the initial administration of either drug. Aspartate aminotransferase [Enzymatic activity/volume] in Serum or Plasma 11 U/L 6-38 [facility] Patients taking Sulfasalazine and/or Sul fapyridine may have falsely depressed AST levels. Patients should be drawn for AST before the initial administration of either drug. ID Date Data Source [id number] 01/01/2021 06:42:00 AM EDT [facility] Name Value Range Interpretation Code Description Data Carlie rce(s) Supporting Document(s) WBC 10.21 x10E3/uL 4.0-10.5 [facility] RBC 3.60 x10E6/uL 4.20-5.40 L [facility] Hemoglobin 10.9 g/dL 12.0-16.0 L [facility] Hematocrit 32.6 % 37.0-47.0 L [facility] MCV 90.6 fL 81.0-99.0 N [facility] MCH 30.3 pg 27.0-31.0 N [facility] MCHC 33.4 g/dL 32.7-35.6 N [facility] RDW 12.0 % 11.5-14.0 N [facility] Platelet count 176 x10E3/uL 150-450 N [facility] MPV 11.1 fl 6.9-9.5 H [facility] Neutrophils 71.6 % 34-64 H [facility] Lymphocytes 16.5 % 25-45 L [facility] Monocytes 10.7 % 1.7-10.6 H [facility] Eosinophils 0.3 % 0.4-7.0 L [facility] Basophils 0.5 % 0.1-2.0 N [facility] Imm. Gran. 0.4 % 0.1-2.0 N [facility] Abs. Neutro. 7.32 x10E3/uL 1.2-7.6 [facility] Abs. Lymph. 1.68 x10E3/uL 1.0-3.5 [facility] Abs. [place]. 1.09 x10E3/uL 0.1-1.0 [facility] Abs. Eosin. 0.03 x10E3/uL 0.1-0.7 L [facility] Abs. Baso. 0.05 x10E3/uL 0.0-0.1 N [facility] Abs. Imm. Gran. 0.04 x10E3/uL 0.0-0.1 N [facility] spital ANRBC% 0 % 0 N [facility] ID Date Data Source [id number] 01/01/2021 06:39:00 [facility] Value Range Interpretation Code Description Data Carlie rce(s) Supporting Document(s) GLU 108 mg/dL 70-110 [facility] Patients taking Sulfasalazine may have f alsely depressedGlucose levels. Patients taking Sulfapyridine may havefalsely elevated Glucose levels. Patients should be drawnfor Glucose before the initial administration of eitherdrug. BUN 8 mg/dL 7-23 [facility] CRE 0.650 mg/dL 0.500-1.300 [facility] GFR > 60 mL/min [facility] CHLORIDE 107 mmol/L 99-110 [facility] NA 142 mmol/L 136-147 [facility] POTASSIUM 3.9 mmol/L 3.5-5.1 [facility] TCO2 25 mmol/L 20-33 [facility] ANION GAP 13.9 10.0-20.0 [facility] CA 7.9 mg/dL 8.3-10.7 [facility] ALKALINE PHOS 74 U/L 45-117 [facility] TP 5.6 g/dL 6.0-7.8 [facility] ALB 2.9 g/dL 3.5-5.0 [facility] ESRD Dialysis patient Albumin reference range: 2.9-4.4 g/dL GL 2.7 g/dL 2.3-3.5 [facility] A/G 1.1 1.0-2.5 [facility] T. BILIRUBIN 0.4 mg/dL 0.1-1.1 [facility] Total Bilirubin is n ot recommended forpatients undergoing treatment with eltrombopag (Promacta)due to the potential for falsely elevated results. ALTI 14 U/L 6-54 [facility] Patients taking Sulfasalazine and/or Sul fapyridine may havefalsely depressed ALT levels. Patients should be drawn forALT before the initial administration of either drug. AST 11 U/L 6-38 [facility] Patients taking Sulfasalazine and/or Sul fapyridine may havefalsely depressed AST levels. Patients should be drawn forAST before the initial administration of either drug. ID Date Data Source [id number] 12/31/2020 02:09:00 PM EDT [address] [address]ONTLN PROGRESS NOTEPATIENT NAME: RE,KAROLINE BRAIN PHYSICIAN: LIZANDRO Saenz M.D. FISHAUTHOR: Toro KOCH,rFitz. DATE: MR#: [id number] NOTE DATE: 12/31/20 RM#: 207EVALUATION TIME: 1411 : 65SubjectiveEvents Since Last EntryKaroline was seen postoperatively for her knee replacement with Dr. Tovar thedressing was intact the wound looked good on he was having some issues withpostoperative pain. She was is ambitious about working with physiotherapy andhad not yet and then out of bed this morning. Once the patient's pain isadequately controlled and she is cleared physical therapy she will be acandidate for discharge; she may need to consider discharge on postoperativeday #2Assessment/PlanResuscitation status Full codeDATE SIGNED: 12/31/20 Electronically SignedTIME SIGNED: 1410 DOROTEO FINE MD Name Value Range Interpretation Code Description Data Carlie rce(s) Supporting Document(s) ID Date Data Source [id number] 12/31/2020 01:38:00 PM EDT [address] [address]UAGOIVRU NOTEPATIENT NAME: KAROLINE PINK PHYSICIAN: LIZANDRO Saenz M.D. FISHAUTHOR: Angelina Denney. DATE: MR#: [id number] NOTE DATE: 12/31/20 RM#: EVALUATION TIME: 1359 : 65SubjectiveEvents Since Last EntryPatient seen and examined today. Chart reviewed. Patient having significantleft lower extremity pain. Her pain medication is working well however whenshe takes it.Review of SystemsSystems reviewed and negative Constitutional, Integumentary, Eyes, ENT,Respiratory, Cardiovascular, GI, , Edison, Endocrine, Neurology, Psych, Allergy/ImmunologyMusculoskeletalReports: other (Right knee pain slightly impro).ObjectiveVital SignsVital Signs-24 HRS12/30 1708 1708 1728 1733Temp 97.6 98.4 98.4 98.4Pulse 95 77 77 77Resp 14 16 16 16B/P 151/79 154/77 169/97 169/97B/P MeanPulse Ox 96 97 97 97O2 Delivery Nasal cannula Nasal cannulaO2 Flow Rate 2 8WlJ56212/30122 2134 2152 2200 0222Temp 98.4 95.4 98.0 96.1 96.1Pulse 77 44 46 46 46Resp 16 12 11 11 11B/P 129/60 125/60 137/72 149/72 149/72B/P MeanPulse Ox 95 95 97 96 96O2 DeliveryO2 Flow JfpfVoV75712/31252 0411 0441 0600 0602Temp 96.1 96.1 96.1 96.7 96.1Pulse 46 46 46 61 46Resp 11 11 11 14 11B/P 149/72 149/72 149/72 105/78 149/72B/P MeanPulse Ox 96 96 96 97 96O2 DeliveryO2 Flow ZxebApI31312/31851 0921 1001 1024 1124Temp 96.1 96.6 96.6 96.6 96.6Pulse 46 81 81 81 81Resp 11 13 13 13 13B/P 149/72 107/77 107/77 107/77 107/77 B/P MeanPulse Ox 96 98 98 98 98O2 DeliveryO2 Flow HxuuWwU383/323234Jvjd 96.6Pulse 81Resp 16B/P 107/77B/P MeanPulse Ox 98O2 DeliveryO2 Flow EzhmRkL0Dbryad/OutputIntake/Output Summary 24 hours12/30 1900 12/31 0700Intake Total 1700Output Total 300Balance 1400Intake, IV 1400Intake, Oral 300Output, Urine 300Current MedicationsCalcium/Vitamin D (Oscal) 1 TAB DAILY POFerrous Sulfate (Iron) 325 MG DAILY POMesalamine (ASACOL DELAYED REL.) 1,200 MG DAILY POMultivitamins (Multivitamin) 1 TAB DAILY POPantoprazole Sodium (Protonix) 40 MG DAILY PORivaroxaban (Xarelto) 10 MG 0600 POSodium Chloride (Saline Flush Syr(5ML)) 5 ML Q12H IVPromethazine HCl (Phenergan) 12.5 MG Q8HPRN PRN IVLidocaine (XYLOCAINE) 10 ML Q8H PRN POAl Hydrox/Mg Hydrox/Simethicone (Maalox) 20 MLBelladonna Alkaloids/Phenobarbital ( (Cups)) 32.4 MGAcetaminophen (Tylenol) 650 MG Q4HPRN PRN POAcetaminophen (Tylenol) 650 MG Q4HPRN PRN POLactated Ringer's 1,000 ML .Q10H IVMorphine Sulfate (Morphine Sulfate) 2 MG Q2HPRN PRN IVMorphine Sulfate (Morphine Sulfate) 3 MG Q2HPRN PRN IVOndansetron HCl (Zofran) 4 MG Q6HPRN PRN IVOxycodone/Acetaminophen (Percocet) 1 TAB Q6HPRN PRN POOxycodone/Acetaminophen (Percocet) 2 TAB Q6HPRN PRN POSodium Chloride (Saline Flush Syr(5ML)) 5 ML QIDPRN PRN IVTramadol HCl (Ultram) 50 MG Q6HPRN PRN POExamGeneral Appearance afebrile, alert, awakeHead atraumatic, normocephalicNeck no JVD, no lymphadenopathyCardiovascular regular rate, no murmurRespiratory clear to auscultation, no distress, aerating wellAbdomen soft, non-tenderAbdominal quadrantsall normal bowel soundsExtremities no clubbing, no cyanosis, normal pulses, Sensorimotor grosslyintact bilaterally pedal pulses +2 bilaterally warm extremities well-perfusedMuscoskeletal Left knee in bandage no saturation clean dry and intactNeurological alert, oriented x 3, normal cerebellar functio, normal speech, nomotor deficits, no sensory deficitsSkin AssessmentSkin dry, intact, warmLymphatic no lymphadenopathyPsych/Mental Status normal affect, normal judgementResultsLaboratory DataRecent Labs-24 hours07/436435CgisphlnsJjjabr (136 - 147 mmol/L) 141Potassium (3.5 - 5.1 mmol/L) 4.4Chloride (99 - 110 mmol/L) 108Serum Bicarbonate (20 - 33 mmol/L) 24Anion Gap (10.0 - 20.0) 13. 4BUN (7 - 23 mg/dL) 10Creatinine (0.500 - 1.300 mg/dL) 0.640Estimated GFR/1.73 m2 (mL/min) > 60Glucose (70 - 110 mg/dL) 112 HCalcium (8.3 - 10.7 mg/dL) 8.4Total Bilirubin (0.1 - 1.1 mg/dL) 0.4AST (6 - 38 U/L) 12ALT (6 - 54 U/L) 17Alkaline Phosphatase (45 - 117 U/L) 80Total Protein (6.0 - 7.8 g/dL) 6.0Albumin (3.5 - 5.0 g/dL) 3.1 LGlobulin (2.3 - 3.5 g/dL) 2.9Albumin/Globulin Ratio (1.0 - 2.5) 1.1Results Reviewed labs reviewedAssessment/PlanProblem List1. Crohn's disease2. Vitamin D deficiency3. Vitamin B deficiency4. GERD (gastroesophageal reflux disease)5. Obesity, Class II, BMI 35-39.9Additional NotesContinue all previous medications. Symptoms stable. Vital signs stable. A.m.labs. Monitor vital signs. PT OT working with the patient but patient stillnot progressed well enough for discharge.Change to observation statusTotal time spent 30 minutesDischarge plan to be determined home with services likelyResuscitation status Full codePlan discussed with patient, husbandCase discussed with shelter case manager, nursing staffDATE SIGNED: 12/31/20 Electronically SignedTIME SIGNED: 8231 DESTINI GALLAGHER Name Value Range Interpretation Code Description Data Carlie rce(s) Supporting Document(s) ID Date Data Source [id number] 12/31/2020 03:56:00 AM EDT [facility] ([facility]) Name Value Range Interpretation Code Description Data Carlie rce(s) Supporting Document(s) Glucose [Mass/volume] in Serum or Plasma 112 mg/dL 70-110 [facility] ([facility] ) Patients taking Sulfasalazine may have f alsely depressed Glucose levels. Patients taking Sulfapyridine may have falsely elevated Glucose levels. Patients should be drawn for Glucose before the initial administration of either drug. Urea nitrogen [Mass/volume] in Serum or Plasma 10 mg/dL 7-23 [facility] ([facility] ) Creatinine [Mass/volume] in Serum or Plasma 0.640 mg/dL 0.500-1.300 [facility] ([facility] ) Glomerular filtration rate/1.73 sq M.pre dicted [Volume Rate/Area] in Serum or Plasma by Creatinine-based formula (MDRD) Laboratory test result [facility] ([facility] ) Chloride [Moles/volume] in Serum or Plasma 108 mmol/L 99-110 [facility] ([facility] ) Potassium [Moles/volume] in Serum or Plasma 4.4 mmol/L 3.5-5.1 [facility] ([facility] ) Sodium [Moles/volume] in Serum or Plasma 141 mmol/L 136-147 [facility] ([facility] ) Bicarbonate [Moles/volume] in Blood 24 mmol/L 20-33 [facility] ([facility] ) Anion gap in Serum or Plasma 13.4 10.0-20.0 [facility] ([facility] ) Alkaline phosphatase [Enzymatic activity/volume] in Serum or Plasma 80 U/L 45-117 [facility] ) CA 8.4 mg/dL 8.3-10.7 [facility] ([facility] ) Albumin [Mass/volume] in Serum or Plasma 3.1 g/dL 3.5-5.0 [facility] ([facility] ) ESRD Dialysis patient Albumin reference range: 2.9-4.4 g/dL Globulin [Mass/volume] in Serum by calculation 2.9 g/dL 2.3-3.5 [facility] ([facility] ) Protein [Mass/volume] in Serum or Plasma 6.0 g/dL 6.0-7.8 [facility] ([facility] ) Albumin/Globulin [Mass Ratio] in Serum or Plasma 1.1 1.0-2.5 [facility] ([facility] ) Bilirubin.total [Mass/volume] in Serum or Plasma 0.4 mg/dL 0.1-1.1 [facility] ([facility]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 ([facility])
[2021-03-29 10:10] LABS: BASO # 0.1 10^3/uL (0.0-0.2); BASO % 0.5 % (0.0-1.0); EOS % 0.1 % (0.0-3.0); HEMATOCRIT 44.8 % (36.0-47.0); HEMOGLOBIN 15.3 g/dl (12.0-15.5); LYMPH # 1.1 10^3/uL (1.5-5.0); LYMPH % 8.6 % (24.0-44.0); MEAN CORPUSCULAR HEMOGLOBIN 29.9 pg (27.0-33.0); MEAN CORPUSCULAR HGB CONC 34.2 g/dl (32.0-36.5); MEAN CORPUSCULAR VOLUME 87.7 fl (80.0-96.0); MONO # 0.6 10^3/uL (0.0-0.8); MONO % 5.1 % (2.0-8.0); NEUTROPHILS # 10.4 10^3/uL (1.5-8.5); NEUTROPHILS % 85.4 % (36.0-66.0); PLATELET COUNT, AUTOMATED 231 10^3/uL (150-450); RED BLOOD COUNT 5.11 10^6/uL (4.00-5.40); WHITE BLOOD COUNT 12.2 10^3/uL (4.0-10.0)
[2021-03-29 11:00] LABS: ALBUMIN 3.6 GM/DL (3.2-5.2); ALT/SGPT 19 U/L (12-78); BILIRUBIN,DIRECT 0.2 MG/DL (0.0-0.2); BILIRUBIN,TOTAL 0.7 MG/DL (0.2-1.0); BLOOD UREA NITROGEN 21 MG/DL (7-18); CALCIUM LEVEL 9.4 MG/DL (8.5-10.1); CARBON DIOXIDE LEVEL 27 MEQ/L (21-32); CHLORIDE LEVEL 99 MEQ/L (98-107); CREATININE FOR GFR 0.82 MG/DL (0.55-1.30); GLOMERULAR FILTRATION RATE > 60.0 (>51); GLUCOSE, FASTING 110 MG/DL (70-100); LIPASE 43 U/L (73-393); POTASSIUM SERUM 3.7 MEQ/L (3.5-5.1); SODIUM LEVEL 134 MEQ/L (136-145); TOTAL PROTEIN 7.5 GM/DL (6.4-8.2)
[2021-03-29] MEDS ORDERED: METOCLOPRAMIDE INJ 10MG/2ML VIAL (J2765 PER 1) IV ONE (12:25)
[2021-03-29] MEDS ORDERED: DICYCLOMINE INJ 20MG/2ML (J0500) IM ONE (12:25)
--- NOTE | 2021-03-29 13:31 | REP ---
INDICATION: severe abdominal pain; IV contrast allergy/ severe n/v COMPARISON: 02/02/2021 TECHNIQUE: Axial noncontrast images from the lung bases to the pubic symphysis with coronal and sagittal reformations. This CT examination was performed using the following dose reduction techniques: Automated exposure control, adjustment of mA and/or kv according to the patient's size, and use of iterative reconstruction technique. FINDINGS: Lung bases are clear. Visualized heart and pericardium normal. Liver, spleen, pancreas, bilateral adrenal glands and kidneys are normal. Evidence for prior cholecystectomy. The enteric system is unremarkable and without obstruction or acute inflammatory process. Normal terminal ileum and appendix identified in the right lower quadrant. Few sigmoid diverticula noted without acute diverticulitis. Pelvis demonstrates normal bladder and prior hysterectomy. No ascites. No free air. No adenopathy. No focal inflammatory stranding. Abdominal aorta without aneurysm. Musculoskeletal structures are intact and without acute osseous abnormality. IMPRESSION: No acute abdominopelvic pathology appreciated. <Electronically signed by Julian Quintero > 03/29/21 [id number]
[2021-03-29] MEDS ORDERED: NS IV ONE (14:00)
[2021-03-29] MEDS ORDERED: KETAMINE HCL IV ONE (14:00)
[2021-03-29] MEDS ORDERED: NS 1,000 ML IV ONE (15:15)
[2021-03-29] MEDS ORDERED: LIDOCAINE VISCOUS 2% SOLN 15ML UDC SS ONE (16:55)
[2021-03-29] MEDS ORDERED: MAALOX 30 ML SUSP *UDC PO ONE (16:55)
[2021-03-29] MEDS ORDERED: DICY20TA11 PO (16:58)
[2021-03-29] MEDS ORDERED: DICYCLOMINE 10 MG CAP PO ONE (17:00)
[2021-03-29 17:01] VITALS: BP 137/71
== END 2021-03-29 17:21 | disposition home or self-care (01) ==
LOC: M ED 09:20 → EDBD 09:20 → M ED 17:21
DX: G89.29 Other chronic pain (principal); R10.9 Unspecified abdominal pain; I10 Essential (primary) hypertension; E78.5 Hyperlipidemia, unspecified; F33.9 Major depressive disorder, recurrent, unspecified; F41.9 Anxiety disorder, unspecified; K21.9 Gastro-esophageal reflux disease without esophagitis; Z88.0 Allergy status to penicillin; Z88.1 Allergy status to other antibiotic agents; Z88.2 Allergy status to sulfonamides; Z88.8 Allergy status to other drugs, medicaments and biological substances; Z91.030 Bee allergy status; Z79.899 Other long term (current) drug therapy
CPT/HCPCS: 74176; 80048; 80076; 83690; 85025; 93041; 94760; 96365; 96366; 96372; 96374; 99285; J0500; J2765

== ENCOUNTER → 2021-07-29 | Outpatient (REF) | payer MEDICARE, OTHER ==
[~2021-07-29] MED LIST changes: +DICY20TA20 PO
== END ==
LOC: M SFHCDERM 14:16
PROVIDERS: ATTEND Physician Assistant
DX: D23.5 Other benign neoplasm of skin of trunk (principal)
CPT/HCPCS: 11102; 88305; G0463

== ENCOUNTER → 2021-08-06 | Outpatient (REF) | payer MEDICARE, OTHER | LOC: M SFHCADAM 12:59 | PROVIDERS: ATTEND Physician Assistant | DX: J06.9 Acute upper respiratory infection, unspecified (principal) ==

== ENCOUNTER → 2021-12-29 | Outpatient (CLI) | payer MEDICARE, OTHER ==
[~2021-12-29] MED LIST changes: +D 101000 PO; -MESA1.2T; +MESA1.2T PO
== END ==
LOC: M LABSMTC 09:55
PROVIDERS: ATTEND Anesthesiology
DX: Z11.52 Encounter for screening for COVID-19 (principal)

== ENCOUNTER 2021-12-31 15:00 | Day surgery (SDC) | payer MEDICARE, OTHER ==
[~2021-12-31] VITALS: Ht 162.6 cm; Wt 98.8 kg
[~2021-12-31 15:00] MED LIST changes: -D 101000 PO
[2021-12-31] MEDS ORDERED: LR 1,000 ML IV SCH (16:00)
[2021-12-31] MEDS ORDERED: D 101000 PO (16:17)
[2021-12-31] MEDS ORDERED: MIDAZOLAM INJ 2MG/2ML VIAL (J2250 PER 1MG) As Ordered ONE (19:19)
[2021-12-31] MEDS ORDERED: propofoL 500 MG/50 ML VIAL As Ordered ONE (19:19)
[2021-12-31] MEDS ORDERED: fentaNYL 100 MCG/2 ML INJECTION As Ordered ONE (19:20)
[2021-12-31] MEDS ORDERED: ONDANSETRON 4MG 2ML VIAL As Ordered ONE (19:20)
[2021-12-31] MEDS ORDERED: dexameTHASONE 4 MG/ML 1ML VIAL (J1100 PER 1MG) As Ordered ONE (19:20)
[2021-12-31] MEDS ORDERED: LIDOCAINE 1% SDV 30ML VIAL As Ordered ONE (19:29)
[2021-12-31] MEDS ORDERED: ceFAZolin 2 GM/D5W 50 ML IV BAG (J0690 PER 500MG) As Ordered ONE (20:11)
[2021-12-31] MEDS ORDERED: ceFAZolin SOD 2 GM in IV 1 EA IV ONE (20:20)
[2021-12-31] MEDS ORDERED: ceFAZolin 1GM VIAL (J0690 PER 500MG) As Ordered ONE (20:56)
[2021-12-31] MEDS ORDERED: propofoL 200 MG/20 ML VIAL As Ordered ONE (20:57)
[2021-12-31 21:42] VITALS: BP 136/68
== END 2021-12-31 22:03 | disposition home or self-care (01) ==
LOC: M SDC 15:00
PROVIDERS: ATTEND Obstetrics & Gynecology
DX: Z45.42 Encounter for adjustment and management of neurostimulator (principal); R00.1 Bradycardia, unspecified; K21.9 Gastro-esophageal reflux disease without esophagitis; K57.90 Diverticulosis of intestine, part unspecified, without perforation or abscess without bleeding; Z85.038 Personal history of other malignant neoplasm of large intestine; M17.0 Bilateral primary osteoarthritis of knee; J30.2 Other seasonal allergic rhinitis; E66.01 Morbid (severe) obesity due to excess calories; K59.09 Other constipation; B00.9 Herpesviral infection, unspecified; E55.9 Vitamin D deficiency, unspecified; Z86.16 Personal history of COVID-19; Z79.899 Other long term (current) drug therapy; Z79.890 Hormone replacement therapy; Z88.0 Allergy status to penicillin; Z88.1 Allergy status to other antibiotic agents; Z88.8 Allergy status to other drugs, medicaments and biological substances; Z88.2 Allergy status to sulfonamides; Z88.5 Allergy status to narcotic agent; Z91.012 Allergy to eggs; Z91.030 Bee allergy status; Z91.040 Latex allergy status
CPT/HCPCS: 64585; 64590; 76000; 88300; 95971; C1778; C1787; C1897; J0690; J1100; J2250; J2405; J3010

== ENCOUNTER 2022-01-26 13:55 | Inpatient (IN) | payer MEDICARE, OTHER ==
[~2022-01-26] VITALS: Ht 162.6 cm; Wt 100.2 kg
[~2022-01-26 13:55] MED LIST changes: +D 101000 PO
[2022-01-26] MEDS ORDERED: NS 1,000 ML IV SCH (14:15)
[2022-01-26] MEDS ORDERED: ONDANSETRON 4MG 2ML VIAL IV ONE (14:15)
[2022-01-26] MEDS ORDERED: MORPHINE 4 MG/ML 1ML VIAL/SYRINGE IV ONE ×2 (14:15→15:35)
[2022-01-26 14:40] LABS: BASO # 0.1 10^3/uL (0.0-0.2); BASO % 1.6 % (0.0-1.0); EOS # 0.1 10^3/uL (0.0-0.5); EOS % 0.8 % (0.0-3.0); HEMATOCRIT 42.6 % (36.0-47.0); HEMOGLOBIN 14.3 g/dl (12.0-15.5); LYMPH # 1.7 10^3/uL (1.5-5.0); LYMPH % 25.9 % (24.0-44.0); MEAN CORPUSCULAR HEMOGLOBIN 30.2 pg (27.0-33.0); MEAN CORPUSCULAR HGB CONC 33.6 g/dl (32.0-36.5); MEAN CORPUSCULAR VOLUME 90.1 fl (80.0-96.0); MONO # 0.5 10^3/uL (0.0-0.8); MONO % 7.5 % (2.0-8.0); NEUTROPHILS # 4.1 10^3/uL (1.5-8.5); NEUTROPHILS % 63.7 % (36.0-66.0); PLATELET COUNT, AUTOMATED 202 10^3/uL (150-450); RED BLOOD COUNT 4.73 10^6/uL (4.00-5.40); WHITE BLOOD COUNT 6.4 10^3/uL (4.0-10.0)
[2022-01-26] MEDS: GASTROGRAFIN SOLUTION 30ML PO SCH ×2 (14:55→16:30)
[2022-01-26 15:11] LABS: ALBUMIN 3.6 GM/DL (3.2-5.2); ALT/SGPT 19 U/L (12-78); BILIRUBIN,DIRECT 0.1 MG/DL (0.0-0.2); BILIRUBIN,TOTAL 0.3 MG/DL (0.2-1.0); BLOOD UREA NITROGEN 13 MG/DL (7-18); CALCIUM LEVEL 9.3 MG/DL (8.5-10.1); CARBON DIOXIDE LEVEL 22 MEQ/L (21-32); CHLORIDE LEVEL 110 MEQ/L (98-107); CREATININE FOR GFR 0.74 MG/DL (0.55-1.30); GLOMERULAR FILTRATION RATE > 60.0 (>51); GLUCOSE, FASTING 101 MG/DL (70-100); LIPASE 54 U/L (73-393); POTASSIUM SERUM 3.9 MEQ/L (3.5-5.1); SODIUM LEVEL 138 MEQ/L (136-145); TOTAL PROTEIN 6.7 GM/DL (6.4-8.2)
[2022-01-26] MEDS ORDERED: PROMETHAZINE 25MG/ML 1ML VIAL IV ONE (15:20)
[2022-01-26 15:24] LABS: ERYTHROCYTE SEDIMENTATION RATE 11 mm/hr (0-30)
[2022-01-26] MEDS ORDERED: ISOVUE-370 76% 100ML VIAL As Ordered ONE (18:06)
[2022-01-26] MEDS ORDERED: HYDROMORPHONE HCL 0.5 MG/ 0.5 ML SYRINGE (J1170 PER 1) IV ONE (19:25)
[2022-01-26] MEDS ORDERED: hydrALAZINE 20MG/ML 1ML VIAL (J0360 PER 20MG) IV STA (19:54)
[2022-01-26 20:24] LABS: RSV AMPLIFICATION NEGATIVE (NEGATIVE)
[2022-01-26] MEDS ORDERED: MOM 30ML SUSPENSION UDC PO PRN (20:40)
[2022-01-26] MEDS ORDERED: DICY20TA20 PO (20:45)
[2022-01-26] MEDS ORDERED: HOME MED LIST COMPLETE! XX SCH (20:50)
[2022-01-26] MEDS ORDERED: METOCLOPRAMIDE INJ 10MG/2ML VIAL (J2765 PER 1) IV ONE (22:20)
[2022-01-26 23:05] VITALS: BP 161/75
[2022-01-26] MEDS: MAALOX 30 ML SUSP *UDC PO PRN (23:13)
[2022-01-26] MEDS: DOCUSATE SODIUM 100MG CAPSULE PO SCH (23:25)
[2022-01-26] MEDS: MORPHINE 2 MG/ML 1ML VIAL IV SCH (23:29)
[2022-01-27] VITALS (7 sets, daily range): BP systolic 90–161; BP diastolic 40–75; PULSE 40
[2022-01-27] MEDS: METOCLOPRAMIDE INJ 10MG/2ML VIAL (J2765 PER 1) IV PRN ×2 (00:10→22:11)
[2022-01-27] MEDS: PANTOPRAZOLE 40MG VIAL IV SCH ×3 (00:25→20:52)
[2022-01-27] MEDS ORDERED: METOCLOPRAMIDE INJ 10MG/2ML VIAL (J2765 PER 1) IV PRN (02:05)
[2022-01-27] MEDS: MORPHINE 2 MG/ML 1ML VIAL IV SCH ×5 (02:19→22:05)
[2022-01-27 06:42] LABS: BLOOD UREA NITROGEN 15 MG/DL (7-18); CARBON DIOXIDE LEVEL 26 MEQ/L (21-32); CHLORIDE LEVEL 110 MEQ/L (98-107); CREATININE FOR GFR 0.78 MG/DL (0.55-1.30); GLOMERULAR FILTRATION RATE > 60.0 (>51); GLUCOSE, FASTING 112 MG/DL (70-100); POTASSIUM SERUM 4.2 MEQ/L (3.5-5.1); SODIUM LEVEL 142 MEQ/L (136-145)
[2022-01-27] MEDS ORDERED: predniSONE 20 MG TAB PO SCH (09:00)
[2022-01-27] MEDS: FERROUS SULFATE 325MG TAB PO SCH ×2 (09:00→20:52)
[2022-01-27] MEDS: DOCUSATE SODIUM 100MG CAPSULE PO SCH ×2 (09:12→20:52)
[2022-01-27] MEDS: HEPARIN SOD (PORCINE) 5000UNITS/ML 1ML VIAL/SYRINGE SQ SCH ×2 (14:00→22:05)
[2022-01-27] MEDS: SUCRALFATE SUSP 1GM/10ML UD PO SCH ×3 (15:00→22:05)
[2022-01-27] MEDS: estradioL 1 MG TAB PO SCH (20:52)
[2022-01-27] MEDS: MAALOX 30 ML SUSP *UDC PO PRN (22:04)
[2022-01-28] VITALS (8 sets, daily range): BP systolic 120–182; BP diastolic 50–80
[2022-01-28] MEDS ORDERED: amLODIPine 5 MG TAB PO ONE ×2 (02:00)
[2022-01-28] MEDS ORDERED: MORPHINE 2 MG/ML 1ML VIAL IV ONE (02:00)
[2022-01-28 04:41] LABS: HEMATOCRIT 40.3 % (36.0-47.0); HEMOGLOBIN 13.5 g/dl (12.0-15.5); MEAN CORPUSCULAR HEMOGLOBIN 30.5 pg (27.0-33.0); MEAN CORPUSCULAR HGB CONC 33.5 g/dl (32.0-36.5); MEAN CORPUSCULAR VOLUME 91.2 fl (80.0-96.0); PLATELET COUNT, AUTOMATED 177 10^3/uL (150-450); RED BLOOD COUNT 4.42 10^6/uL (4.00-5.40); WHITE BLOOD COUNT 10.4 10^3/uL (4.0-10.0)
[2022-01-28 05:05] LABS: BLOOD UREA NITROGEN 17 MG/DL (7-18); CALCIUM LEVEL 8.9 MG/DL (8.5-10.1); CARBON DIOXIDE LEVEL 25 MEQ/L (21-32); CHLORIDE LEVEL 108 MEQ/L (98-107); GLOMERULAR FILTRATION RATE > 60.0 (>51); GLUCOSE, FASTING 125 MG/DL (70-100); MAGNESIUM LEVEL 1.7 MG/DL (1.8-2.4); PHOSPHORUS LEVEL 2.6 MG/DL (2.5-4.9); POTASSIUM SERUM 3.6 MEQ/L (3.5-5.1); SODIUM LEVEL 139 MEQ/L (136-145)
[2022-01-28] MEDS: MORPHINE 2 MG/ML 1ML VIAL IV SCH ×3 (05:46→21:07)
[2022-01-28] MEDS: HEPARIN SOD (PORCINE) 5000UNITS/ML 1ML VIAL/SYRINGE SQ SCH ×3 (05:46→21:05)
[2022-01-28] MEDS ORDERED: MAG SULF 1GM/100ML (MAG RUN) 1 GM in IV 1 EA IV ONE (06:00)
[2022-01-28] MEDS: SUCRALFATE SUSP 1GM/10ML UD PO SCH ×3 (06:00→17:30)
[2022-01-28] MEDS: FERROUS SULFATE 325MG TAB PO SCH ×2 (08:30→21:05)
[2022-01-28] MEDS: PANTOPRAZOLE 40MG VIAL IV SCH (08:30)
[2022-01-28] MEDS: DOCUSATE SODIUM 100MG CAPSULE PO SCH ×2 (08:30→21:05)
[2022-01-28] MEDS: MIRALAX *UNIT DOSE* 17GM PACKET PO SCH ×2 (09:00→21:06)
[2022-01-28] MEDS ORDERED: DICYCLOMINE 10 MG CAP PO PRN (09:40)
[2022-01-28] MEDS: amLODIPine 5 MG TAB PO SCH (10:35)
[2022-01-28] MEDS ORDERED: FAMOTIDINE 20 MG TAB PO SCH (21:00)
[2022-01-28] MEDS: estradioL 1 MG TAB PO SCH (21:05)
[2022-01-29] VITALS: BP 112/54
[2022-01-29 04:00] VITALS: BP 138/72
[2022-01-29] MEDS: HEPARIN SOD (PORCINE) 5000UNITS/ML 1ML VIAL/SYRINGE SQ SCH (05:11)
[2022-01-29] MEDS: MORPHINE 2 MG/ML 1ML VIAL IV SCH (05:11)
[2022-01-29 05:37] LABS: BASO # 0.1 10^3/uL (0.0-0.2); BASO % 1.4 % (0.0-1.0); EOS # 0.1 10^3/uL (0.0-0.5); EOS % 1.2 % (0.0-3.0); HEMATOCRIT 37.5 % (36.0-47.0); HEMOGLOBIN 12.6 g/dl (12.0-15.5); LYMPH # 3.2 10^3/uL (1.5-5.0); LYMPH % 44.4 % (24.0-44.0); MEAN CORPUSCULAR HEMOGLOBIN 30.8 pg (27.0-33.0); MEAN CORPUSCULAR HGB CONC 33.6 g/dl (32.0-36.5); MEAN CORPUSCULAR VOLUME 91.7 fl (80.0-96.0); MONO # 0.6 10^3/uL (0.0-0.8); MONO % 7.7 % (2.0-8.0); NEUTROPHILS # 3.3 10^3/uL (1.5-8.5); PLATELET COUNT, AUTOMATED 173 10^3/uL (150-450); RED BLOOD COUNT 4.09 10^6/uL (4.00-5.40); WHITE BLOOD COUNT 7.3 10^3/uL (4.0-10.0)
[2022-01-29 06:02] LABS: BLOOD UREA NITROGEN 15 MG/DL (7-18); CALCIUM LEVEL 8.3 MG/DL (8.5-10.1); CARBON DIOXIDE LEVEL 29 MEQ/L (21-32); CHLORIDE LEVEL 106 MEQ/L (98-107); CREATININE FOR GFR 0.65 MG/DL (0.55-1.30); GLOMERULAR FILTRATION RATE > 60.0 (>51); GLUCOSE, FASTING 89 MG/DL (70-100); MAGNESIUM LEVEL 1.8 MG/DL (1.8-2.4); PHOSPHORUS LEVEL 2.6 MG/DL (2.5-4.9); POTASSIUM SERUM 3.5 MEQ/L (3.5-5.1); SODIUM LEVEL 140 MEQ/L (136-145)
[2022-01-29 08:21] VITALS: BP 143/47
[2022-01-29] MEDS ORDERED: PANTOPRAZOLE 40MG TAB (PROTONIX) PO SCH (09:00)
[2022-01-29] MEDS ORDERED: NITROFURANTOIN (MACROBID) 100 MG CAP PO SCH (09:00)
[2022-01-29] MEDS: MIRALAX *UNIT DOSE* 17GM PACKET PO SCH (09:06)
[2022-01-29] MEDS: DOCUSATE SODIUM 100MG CAPSULE PO SCH (09:06)
[2022-01-29] MEDS: FERROUS SULFATE 325MG TAB PO SCH (09:06)
[2022-01-29 09:07] VITALS: BP 143/47
[2022-01-29] MEDS: amLODIPine 5 MG TAB PO SCH (09:07)
[2022-01-29] MEDS ORDERED: NITR100C2 PO (10:42)
[2022-01-29 11:57] VITALS: BP 152/70
[2022-01-29] MEDS: SUCRALFATE SUSP 1GM/10ML UD PO SCH (12:09)
== END 2022-01-29 14:24 | disposition home or self-care (01) | DRG 392 ==
LOC: M ED 13:55 → EDBD 13:55 → M ED INP 21:58 → M PCU 21:58
PROVIDERS: ADMIT Family Medicine; ATTEND Family Medicine
DX: R10.9 Unspecified abdominal pain (principal); N39.0 Urinary tract infection, site not specified; K50.90 Crohn's disease, unspecified, without complications; K29.70 Gastritis, unspecified, without bleeding; K21.9 Gastro-esophageal reflux disease without esophagitis; T36.8X5A Adverse effect of other systemic antibiotics, initial encounter; K58.1 Irritable bowel syndrome with constipation; I10 Essential (primary) hypertension; D64.9 Anemia, unspecified; R00.1 Bradycardia, unspecified; I16.0 Hypertensive urgency; B96.20 Unspecified Escherichia coli [E. coli] as the cause of diseases classified elsewhere; D50.9 Iron deficiency anemia, unspecified; Z87.891 Personal history of nicotine dependence; Z79.899 Other long term (current) drug therapy; Z88.0 Allergy status to penicillin; Z88.1 Allergy status to other antibiotic agents; Z88.2 Allergy status to sulfonamides; Z88.8 Allergy status to other drugs, medicaments and biological substances; Z91.040 Latex allergy status; Z91.012 Allergy to eggs; Z91.030 Bee allergy status

== ENCOUNTER → 2022-02-23 | Outpatient (REF) | payer MEDICARE, OTHER ==
[~2022-02-23] MED LIST changes: +NITR100C2 PO
[2022-02-23 18:29] LABS: HEMATOCRIT 42.8 % (36.0-47.0); MEAN CORPUSCULAR HEMOGLOBIN 30.5 pg (27.0-33.0); MEAN CORPUSCULAR HGB CONC 32.7 g/dl (32.0-36.5); MEAN CORPUSCULAR VOLUME 93.2 fl (80.0-96.0); PLATELET COUNT, AUTOMATED 228 10^3/uL (150-450); RED BLOOD COUNT 4.59 10^6/uL (4.00-5.40); WHITE BLOOD COUNT 7.3 10^3/uL (4.0-10.0)
[2022-02-23 19:29] LABS: APPEARANCE, URINE MANUAL CLEAR (CLEAR); COLOR, URINE MANUAL YELLOW (YELLOW)
[2022-02-23 19:30] LABS: BILIRUBIN, URINE MANUAL NEGATIVE (NEGATIVE); BLOOD URINE MANUAL NEGATIVE (NEGATIVE); GLUCOSE, URINE (UA) MANUAL NEGATIVE (NEGATIVE); KETONE, URINE MANUAL NEGATIVE (NEGATIVE); LEUKOCYTE ESTERASE, URINE MAN NEGATIVE (NEGATIVE); NITRITE, URINE MANUAL NEGATIVE (NEGATIVE); PROTEIN, URINE MANUAL NEGATIVE (NEGATIVE); UROBILINOGEN, URINE MANUAL NORMAL (NORMAL)
[2022-02-23 19:55] LABS: ALBUMIN 3.4 GM/DL (3.2-5.2); ALT/SGPT 15 U/L (12-78); BILIRUBIN,TOTAL 0.4 MG/DL (0.2-1.0); BLOOD UREA NITROGEN 12 MG/DL (7-18); CARBON DIOXIDE LEVEL 26 MEQ/L (21-32); CHLORIDE LEVEL 109 MEQ/L (98-107); CREATININE FOR GFR 0.85 MG/DL (0.55-1.30); FERRITIN 64 NG/ML (8-252); GLOMERULAR FILTRATION RATE > 60.0 (>51); GLUCOSE, FASTING 88 MG/DL (70-100); IRON (FE) 93 UG/DL (50-170); PERCENT SATURATION 27.1 % (13.2-45.0); POTASSIUM SERUM 4.6 MEQ/L (3.5-5.1); SODIUM LEVEL 140 MEQ/L (136-145); TOTAL IRON BINDING CAPACITY 343 UG/DL (250-450); TOTAL PROTEIN 6.6 GM/DL (6.4-8.2)
== END ==
LOC: M SFHCADAM 15:02
PROVIDERS: ATTEND Family Medicine
DX: R30.0 Dysuria (principal); Z86.2 Personal history of diseases of the blood and blood-forming organs and certain disorders involving the immune mechanism; G89.29 Other chronic pain

== ENCOUNTER → 2022-02-26 | Outpatient (REF) | payer MEDICARE, OTHER | LOC: M SFHCDERM 14:20 | PROVIDERS: ATTEND Dermatology | DX: L03.90 Cellulitis, unspecified (principal) ==

== ENCOUNTER → 2022-03-01 | Outpatient (CLI) | payer MEDICARE, OTHER | LOC: M RAD 08:45 | PROVIDERS: ATTEND Internal Medicine Gastroenterology | DX: I77.4 Celiac artery compression syndrome (principal) ==

== ENCOUNTER → 2022-04-13 | Outpatient (REF) | payer MEDICARE, OTHER | LOC: M SFHCPLAZ 13:08 | PROVIDERS: ATTEND Internal Medicine Infectious Disease | DX: Z22.322 Carrier or suspected carrier of Methicillin resistant Staphylococcus aureus (principal) ==

== ENCOUNTER → 2022-05-05 | Outpatient (CLI) | payer MEDICARE, OTHER | LOC: M RAD 15:47 | PROVIDERS: ATTEND Physician Assistant Surgical | DX: S93.401A Sprain of unspecified ligament of right ankle, initial encounter (principal); X58.XXXA Exposure to other specified factors, initial encounter; Y92.9 Unspecified place or not applicable ==

== ENCOUNTER → 2022-05-15 | Outpatient (CLI) | payer MEDICARE, OTHER ==
[2022-05-15 11:59] LABS: BASO # 0.1 10^3/uL (0.0-0.2); BASO % 1.9 % (0.0-1.0); EOS # 0.2 10^3/uL (0.0-0.5); EOS % 3.4 % (0.0-3.0); HEMATOCRIT 44.9 % (36.0-47.0); HEMOGLOBIN 15.3 g/dl (12.0-15.5); LYMPH % 32.6 % (24.0-44.0); MEAN CORPUSCULAR HEMOGLOBIN 30.9 pg (27.0-33.0); MEAN CORPUSCULAR HGB CONC 34.1 g/dl (32.0-36.5); MEAN CORPUSCULAR VOLUME 90.7 fl (80.0-96.0); MONO # 0.5 10^3/uL (0.0-0.8); MONO % 7.6 % (2.0-8.0); NEUTROPHILS # 3.4 10^3/uL (1.5-8.5); PLATELET COUNT, AUTOMATED 211 10^3/uL (150-450); RED BLOOD COUNT 4.95 10^6/uL (4.00-5.40); WHITE BLOOD COUNT 6.2 10^3/uL (4.0-10.0)
[2022-05-15 12:22] LABS: PARTIAL THROMBOPLASTIN TIME 26.8 SECONDS (24.8-34.2)
[2022-05-15 12:46] LABS: BLOOD UREA NITROGEN 20 MG/DL (9-23); CALCIUM LEVEL 9.9 MG/DL (8.5-10.1); CARBON DIOXIDE LEVEL 26 MMOL/L (20-31); CHLORIDE LEVEL 106 MMOL/L (98-107); CREATININE FOR GFR 0.84 MG/DL (0.55-1.30); GLOMERULAR FILTRATION RATE > 60.0 (>51); GLUCOSE, FASTING 73 MG/DL (60-100); POTASSIUM SERUM 4.5 MMOL/L (3.5-5.1); SODIUM LEVEL 139 MMOL/L (136-145)
[2022-05-15 12:48] LABS: INR 0.88; PROTHROMBIN TIME 12.1 SECONDS (12.5-14.5)
== END ==
LOC: M LAB 11:18
PROVIDERS: ATTEND Family Medicine
DX: K55.1 Chronic vascular disorders of intestine (principal)

== ENCOUNTER → 2022-09-02 | Outpatient (REF) | payer MEDICARE, OTHER ==
[2022-09-02 13:19] LABS: HEMATOCRIT 44.7 % (36.0-47.0); HEMOGLOBIN 14.4 g/dl (12.0-15.5); MEAN CORPUSCULAR HEMOGLOBIN 30.3 pg (27.0-33.0); MEAN CORPUSCULAR HGB CONC 32.2 g/dl (32.0-36.5); MEAN CORPUSCULAR VOLUME 93.9 fl (80.0-96.0); PLATELET COUNT, AUTOMATED 213 10^3/uL (150-450); RED BLOOD COUNT 4.76 10^6/uL (4.00-5.40); WHITE BLOOD COUNT 7.4 10^3/uL (4.0-10.0)
[2022-09-02 13:36] LABS: TOTAL IRON BINDING CAPACITY 365 UG/DL (250-425)
[2022-09-02 13:37] LABS: IRON (FE) 67 UG/DL (50-170); PERCENT SATURATION 18.4 % (13.2-45.0)
[2022-09-02 13:41] LABS: ALBUMIN 3.4 G/DL (3.2-5.2); ALKALINE PHOSPHATASE 102 U/L (46-116); ALT/SGPT 15 U/L (7.0-40); AST/SGOT 19 U/L (<34); BILIRUBIN,TOTAL 0.5 MG/DL (0.3-1.2); BLOOD UREA NITROGEN 19 MG/DL (9-23); CARBON DIOXIDE LEVEL 26 MMOL/L (20-31); CHLORIDE LEVEL 108 MMOL/L (98-107); CHOLESTEROL LEVEL 188 MG/DL (<200); CHOLESTEROL RISK RATIO 3.65 (<5); CREATININE FOR GFR 0.94 MG/DL (0.55-1.30); FERRITIN 38.8 NG/ML (7.3-270.7); FREE T4 1.03 NG/DL (0.89-1.76); GLOMERULAR FILTRATION RATE > 60.0 (>51); GLUCOSE, FASTING 83 MG/DL (60-100); HDL CHOLESTEROL 51.4 MG/DL (>40); LDL CHOLESTEROL 110.8 MG/DL (<100); NON-HDL-C 136.6 MG/DL; SODIUM LEVEL 140 MMOL/L (136-145); THYROID STIMULATING HORMONE 3.097 uIU/ML (0.55-4.78); TOTAL PROTEIN 6.4 G/DL (5.7-8.2); TRIGLYCERIDES LEVEL 129 MG/DL (<150)
== END ==
LOC: M SFHCADAM 08:21
PROVIDERS: ATTEND Family Medicine
DX: E78.5 Hyperlipidemia, unspecified (principal); Z86.2 Personal history of diseases of the blood and blood-forming organs and certain disorders involving the immune mechanism; E66.01 Morbid (severe) obesity due to excess calories

== ENCOUNTER → 2023-01-13 | Outpatient (REF) | payer MEDICARE, OTHER | LOC: M SFHCWAGY 16:55 | PROVIDERS: ATTEND Nurse Practitioner Family | DX: L72.3 Sebaceous cyst (principal) ==

== ENCOUNTER 2023-02-19 10:43 | Emergency (ER) | payer MEDICARE, OTHER ==
[~2023-02-19] VITALS: Ht 170.2 cm; Wt 99.5 kg
[~2023-02-19 10:43] MED LIST changes: -PREG25CA2; +PREG25CA3
[2023-02-19 10:54] VITALS: TEMP 97.5
[2023-02-19 11:35] LABS: BASO # 0.1 10^3/uL (0.0-0.2); EOS # 0.1 10^3/uL (0.0-0.5); EOS % 0.5 % (0.0-3.0); HEMATOCRIT 41.2 % (36.0-47.0); HEMOGLOBIN 14.1 g/dl (12.0-15.5); LYMPH # 1.4 10^3/uL (1.5-5.0); LYMPH % 13.9 % (24.0-44.0); MEAN CORPUSCULAR HEMOGLOBIN 30.9 pg (27.0-33.0); MEAN CORPUSCULAR HGB CONC 34.2 g/dl (32.0-36.5); MEAN CORPUSCULAR VOLUME 90.4 fl (80.0-96.0); MONO # 0.7 10^3/uL (0.0-0.8); MONO % 7.1 % (2.0-8.0); NEUTROPHILS # 7.8 10^3/uL (1.5-8.5); NEUTROPHILS % 77.1 % (36.0-66.0); PLATELET COUNT, AUTOMATED 199 10^3/uL (150-450); RED BLOOD COUNT 4.56 10^6/uL (4.00-5.40); WHITE BLOOD COUNT 10.1 10^3/uL (4.0-10.0)
[2023-02-19 11:54] LABS: LIPASE 20 U/L (12-53)
[2023-02-19 11:56] LABS: ALBUMIN 3.3 G/DL (3.2-5.2); ALKALINE PHOSPHATASE 89 U/L (46-116); ALT/SGPT 19 U/L (7.0-40); AMYLASE 36 U/L (30-118); AST/SGOT 17 U/L (<34); BILIRUBIN,DIRECT 0.2 MG/DL (<0.4); BILIRUBIN,TOTAL 0.7 MG/DL (0.3-1.2); BLOOD UREA NITROGEN 17 MG/DL (9-23); CALCIUM LEVEL 8.5 MG/DL (8.5-10.1); CARBON DIOXIDE LEVEL 25 MMOL/L (20-31); CHLORIDE LEVEL 104 MMOL/L (98-107); CK-MB VALUE MASS < 1.0 NG/ML (<3.6); CREATININE FOR GFR 0.73 MG/DL (0.55-1.30); GLOMERULAR FILTRATION RATE > 60.0 (>51); GLUCOSE, FASTING 104 MG/DL (60-100); POTASSIUM SERUM 3.4 MMOL/L (3.5-5.1); SODIUM LEVEL 137 MMOL/L (136-145); TOTAL PROTEIN 6.4 G/DL (5.7-8.2)
[2023-02-19 12:00] LABS: CPK CREATINE PHOSPHOKINASE 119 U/L (34-145); MB/CK RELATIVE INDEX 0.84 (< OR =4)
[2023-02-19 12:02] LABS: RSV AMPLIFICATION NEGATIVE (NEGATIVE)
[2023-02-19] MEDS ORDERED: NS 1,000 ML IV ONE (12:15)
[2023-02-19] MEDS ORDERED: ISOVUE-370 76% 100ML VIAL As Ordered ONE (12:20)
[2023-02-19] MEDS: MORPHINE 2 MG/ML 1ML VIAL IV PRN ×2 (12:25→13:56)
[2023-02-19 12:39] LABS: MAGNESIUM LEVEL 1.6 MG/DL (1.8-2.4)
[2023-02-19 13:12] LABS: CK-MB VALUE MASS < 1.0 NG/ML (<3.6)
[2023-02-19 13:15] LABS: CPK CREATINE PHOSPHOKINASE 114 U/L (34-145); MB/CK RELATIVE INDEX 0.87 (< OR =4)
[2023-02-19] MEDS ORDERED: MAG SULF 1GM/100ML (MAG RUN) 1 GM in IV 1 EA IV ONE (14:50)
[2023-02-19] MEDS ORDERED: DICYCLOMINE INJ 20MG/2ML IM ONE (15:15)
[2023-02-19] MEDS ORDERED: PANTOPRAZOLE 40MG VIAL IV ONE (15:15)
[2023-02-19] MEDS ORDERED: METOCLOPRAMIDE INJ 10MG/2ML VIAL IV ONE (17:15)
[2023-02-19] MEDS ORDERED: HYDROMORPHONE HCL 0.5 MG/ 0.5 ML SYRINGE IV ONE (17:15)
[2023-02-19] MEDS ORDERED: REGL5TAB2 PO (18:31)
[2023-02-19] MEDS ORDERED: DICY20TA20 PO (18:31)
[2023-02-19] MEDS ORDERED: PERC5TAB12 PO (18:31)
[2023-02-19] MEDS ORDERED: OXYCODONE/APAP 5MG/325MG(HOME DOSE PACK) PO ONE (18:35)
[2023-02-19] MEDS ORDERED: METOCLOPRAMIDE 5 MG TAB PO ONE (18:35)
[2023-02-19] MEDS ORDERED: DICYCLOMINE 10 MG CAP PO ONE (18:35)
[2023-02-19 19:33] VITALS: BP 174/87; O2SAT 96
== END 2023-02-19 19:40 | disposition home or self-care (01) ==
LOC: M ED 10:43
DX: R10.9 Unspecified abdominal pain (principal); Z86.14 Personal history of Methicillin resistant Staphylococcus aureus infection; Z87.891 Personal history of nicotine dependence
CPT/HCPCS: 71275; 74174; 80047; 80048; 80076; 82150; 82550; 82553; 83605; 83690; 83735; 84484; 85025; 86850; 86900; 86901; 87631; 93005; 93041; 96365; 96366; 96367; 96372; 96375; 99285; C9113; J0500; J1170; J2765; J3475; Q9967

== ENCOUNTER → 2024-01-05 | Outpatient (REF) | payer MEDICARE, OTHER ==
[~2024-01-05] MED LIST changes: +ONDA-282; -ONDA4TAB6; +PERC5TAB12 PO; +REGL5TAB2 PO
[2024-01-05 18:44] LABS: BASO # 0.1 10^3/uL (0.0-0.2); BASO % 1.6 % (0.0-1.0); EOS # 0.2 10^3/uL (0.0-0.5); EOS % 2.2 % (0.0-3.0); HEMATOCRIT 43.2 % (36.0-47.0); HEMOGLOBIN 14.3 g/dl (12.0-15.5); LYMPH # 2.2 10^3/uL (1.5-5.0); LYMPH % 30.4 % (24.0-44.0); MEAN CORPUSCULAR HEMOGLOBIN 31.2 pg (27.0-33.0); MEAN CORPUSCULAR HGB CONC 33.1 g/dl (32.0-36.5); MEAN CORPUSCULAR VOLUME 94.3 fl (80.0-96.0); MONO # 0.6 10^3/uL (0.0-0.8); MONO % 7.5 % (2.0-8.0); NEUTROPHILS # 4.3 10^3/uL (1.5-8.5); PLATELET COUNT, AUTOMATED 225 10^3/uL (150-450); RED BLOOD COUNT 4.58 10^6/uL (4.00-5.40); WHITE BLOOD COUNT 7.4 10^3/uL (4.0-10.0)
[2024-01-05 18:49] LABS: C REACTIVE PROTEIN QUANTITATIV < 0.40 MG/DL (<1.0)
[2024-01-05 18:50] LABS: ALBUMIN 3.7 G/DL (3.2-5.2); ALKALINE PHOSPHATASE 129 U/L (46-116); ALT/SGPT 24 U/L (7.0-40); AST/SGOT 15 U/L (<34); BILIRUBIN,TOTAL 0.5 MG/DL (0.3-1.2); BLOOD UREA NITROGEN 17 MG/DL (9-23); CALCIUM LEVEL 9.4 MG/DL (8.5-10.1); CARBON DIOXIDE LEVEL 25 MMOL/L (20-31); CHLORIDE LEVEL 111 MMOL/L (98-107); CHOLESTEROL LEVEL 220 MG/DL (<200); CHOLESTEROL RISK RATIO 4.13 (<5); CREATININE FOR GFR 0.93 MG/DL (0.55-1.30); GLOMERULAR FILTRATION RATE > 60.0 (>51); GLUCOSE, FASTING 81 MG/DL (60-100); HDL CHOLESTEROL 53.2 MG/DL (>40); IRON (FE) 52 UG/DL (50-170); LDL CHOLESTEROL 136.2 MG/DL (<100); NON-HDL-C 166.8 MG/DL; PERCENT SATURATION 14.1 % (13.2-45.0); POTASSIUM SERUM 4.5 MMOL/L (3.5-5.1); SODIUM LEVEL 139 MMOL/L (136-145); TOTAL IRON BINDING CAPACITY 369 UG/DL (250-425); TOTAL PROTEIN 6.7 G/DL (5.7-8.2); TRIGLYCERIDES LEVEL 153 MG/DL (<150)
[2024-01-05 18:52] LABS: FERRITIN 58.1 NG/ML (7.3-270.7); FREE T4 1.06 NG/DL (0.89-1.76); THYROID STIMULATING HORMONE 2.594 uIU/ML (0.55-4.78)
== END ==
LOC: M SFHCADAM 10:00
PROVIDERS: ATTEND Family Medicine
DX: E78.5 Hyperlipidemia, unspecified (principal); E66.01 Morbid (severe) obesity due to excess calories; Z86.2 Personal history of diseases of the blood and blood-forming organs and certain disorders involving the immune mechanism; K50.10 Crohn's disease of large intestine without complications

== ENCOUNTER → 2024-03-01 | Outpatient (REF) | payer MEDICARE, OTHER ==
[2024-03-01 14:29] LABS: C REACTIVE PROTEIN QUANTITATIV < 0.40 MG/DL (<1.0)
[2024-03-01 14:30] LABS: ALBUMIN 3.5 G/DL (3.2-5.2); ALKALINE PHOSPHATASE 116 U/L (46-116); ALT/SGPT 13 U/L (7.0-40); AST/SGOT 11 U/L (<34); BILIRUBIN,TOTAL 0.4 MG/DL (0.3-1.2); BLOOD UREA NITROGEN 15 MG/DL (9-23); CALCIUM LEVEL 9.1 MG/DL (8.5-10.1); CARBON DIOXIDE LEVEL 29 MMOL/L (20-31); CHLORIDE LEVEL 105 MMOL/L (98-107); CREATININE FOR GFR 0.95 MG/DL (0.55-1.30); GLOMERULAR FILTRATION RATE > 60.0 (>51); GLUCOSE, FASTING 93 MG/DL (60-100); POTASSIUM SERUM 5.4 MMOL/L (3.5-5.1); SODIUM LEVEL 136 MMOL/L (136-145); TOTAL PROTEIN 6.5 G/DL (5.7-8.2)
[2024-03-01 14:39] LABS: HEMATOCRIT 43.5 % (36.0-47.0); HEMOGLOBIN 14.4 g/dl (12.0-15.5); MEAN CORPUSCULAR HEMOGLOBIN 30.7 pg (27.0-33.0); MEAN CORPUSCULAR HGB CONC 33.1 g/dl (32.0-36.5); MEAN CORPUSCULAR VOLUME 92.8 fl (80.0-96.0); PLATELET COUNT, AUTOMATED 257 10^3/uL (150-450); RED BLOOD COUNT 4.69 10^6/uL (4.00-5.40); WHITE BLOOD COUNT 10.1 10^3/uL (4.0-10.0)
== END ==
LOC: M SFHCADAM 09:16
PROVIDERS: ATTEND Family Medicine
DX: K52.9 Noninfective gastroenteritis and colitis, unspecified (principal)

== ENCOUNTER → 2024-04-20 | Outpatient (CLI) | payer MEDICARE, OTHER ==
[~2024-04-20] MED LIST changes: -CELE50CA PO; +CELE50CA17 PO
== END ==
LOC: M ADAMS 09:47
PROVIDERS: ATTEND Physician Assistant
DX: J22 Unspecified acute lower respiratory infection (principal)

== ENCOUNTER → 2024-07-06 | Outpatient (REF) | payer MEDICARE, OTHER ==
[2024-07-06 14:21] LABS: HEMATOCRIT 45.2 % (36.0-47.0); HEMOGLOBIN 14.8 g/dl (12.0-15.5); MEAN CORPUSCULAR HEMOGLOBIN 30.6 pg (27.0-33.0); MEAN CORPUSCULAR HGB CONC 32.7 g/dl (32.0-36.5); MEAN CORPUSCULAR VOLUME 93.6 fl (80.0-96.0); PLATELET COUNT, AUTOMATED 246 10^3/uL (150-450); RED BLOOD COUNT 4.83 10^6/uL (4.00-5.40); WHITE BLOOD COUNT 10.2 10^3/uL (4.0-10.0)
[2024-07-06 14:55] LABS: C REACTIVE PROTEIN QUANTITATIV < 0.50 MG/DL (<1.0)
[2024-07-06 14:56] LABS: ALBUMIN 3.7 G/DL (3.2-5.2); ALKALINE PHOSPHATASE 101 U/L (35-104); ALT/SGPT 14 U/L (7.0-40); AST/SGOT 16 U/L (<34); BILIRUBIN,TOTAL 0.6 MG/DL (0.3-1.2); BLOOD UREA NITROGEN 15 MG/DL (9-23); CALCIUM LEVEL 9.7 MG/DL (8.5-10.1); CARBON DIOXIDE LEVEL 29 MMOL/L (20-31); CHLORIDE LEVEL 107 MMOL/L (98-107); CHOLESTEROL LEVEL 237 MG/DL (<200); CHOLESTEROL RISK RATIO 3.74 (<5); CREATININE FOR GFR 0.86 MG/DL (0.55-1.30); FREE T4 1.28 NG/DL (0.89-1.76); GLOMERULAR FILTRATION RATE > 60.0 (>51); GLUCOSE, FASTING 113 MG/DL (60-100); HDL CHOLESTEROL 63.3 MG/DL (>40); IRON (FE) 117 UG/DL (50-170); LDL CHOLESTEROL 141.9 MG/DL (<100); NON-HDL-C 173.7 MG/DL; PERCENT SATURATION 29.8 % (13.2-45.0); POTASSIUM SERUM 4.6 MMOL/L (3.5-5.1); SODIUM LEVEL 145 MMOL/L (136-145); THYROID STIMULATING HORMONE 4.005 uIU/ML (0.55-4.78); TOTAL IRON BINDING CAPACITY 393 UG/DL (250-425); TOTAL PROTEIN 7.4 G/DL (5.7-8.2); TRIGLYCERIDES LEVEL 159 MG/DL (<150)
[2024-07-06 14:58] LABS: FERRITIN 59.6 NG/ML (7.3-270.7)
== END ==
LOC: M SFHCADAM 09:01
PROVIDERS: ATTEND Family Medicine
DX: E78.5 Hyperlipidemia, unspecified (principal); K50.10 Crohn's disease of large intestine without complications; I77.1 Stricture of artery; Z86.2 Personal history of diseases of the blood and blood-forming organs and certain disorders involving the immune mechanism

== ENCOUNTER → 2024-09-18 | Outpatient (CLI) | payer MEDICARE, OTHER ==
[2024-09-18 18:54] LABS: BASO # 0.1 10^3/uL (0.0-0.2); BASO % 1.2 % (0.0-1.0); EOS # 0.1 10^3/uL (0.0-0.5); HEMATOCRIT 44.8 % (36.0-47.0); HEMOGLOBIN 15.1 g/dl (12.0-15.5); LYMPH # 2.9 10^3/uL (1.5-5.0); LYMPH % 28.7 % (24.0-44.0); MEAN CORPUSCULAR HEMOGLOBIN 30.4 pg (27.0-33.0); MEAN CORPUSCULAR HGB CONC 33.7 g/dl (32.0-36.5); MEAN CORPUSCULAR VOLUME 90.3 fl (80.0-96.0); MONO # 0.7 10^3/uL (0.0-0.8); MONO % 6.8 % (2.0-8.0); NEUTROPHILS # 6.1 10^3/uL (1.5-8.5); NEUTROPHILS % 61.8 % (36.0-66.0); PLATELET COUNT, AUTOMATED 254 10^3/uL (150-450); RED BLOOD COUNT 4.96 10^6/uL (4.00-5.40); WHITE BLOOD COUNT 9.9 10^3/uL (4.0-10.0)
== END ==
LOC: M PLALAB 14:42
PROVIDERS: ATTEND Family Medicine
DX: M70.22 Olecranon bursitis, left elbow (principal); M77.8 Other enthesopathies, not elsewhere classified; Z79.899 Other long term (current) drug therapy

== ENCOUNTER → 2025-01-01 | Outpatient (REF) | payer MEDICARE, OTHER ==
[2025-01-01 13:51] LABS: PLATELET COUNT, AUTOMATED 244 10^3/uL (150-450)
[2025-01-01 14:24] LABS: ALT/SGPT 15.0 U/L (7.0-40); AST/SGOT 21.0 U/L (<34); CALCIUM LEVEL 9.2 MG/DL (8.5-10.1); CARBON DIOXIDE LEVEL 23.0 MMOL/L (20-31); CHLORIDE LEVEL 108.0 MMOL/L (98-107); CHOLESTEROL LEVEL 213.0 MG/DL (<200); CHOLESTEROL RISK RATIO 3.75 (<5); CREATININE FOR GFR 0.86 MG/DL (0.55-1.30); GLOMERULAR FILTRATION RATE 77.8 (>51); IRON (FE) 47.0 UG/DL (50-170); LDL CHOLESTEROL 134.4 MG/DL (<100); NON-HDL-C 156.2 MG/DL; PERCENT SATURATION 13.4 % (13.2-45.0); POTASSIUM SERUM 4.5 MMOL/L (3.5-5.1); SODIUM LEVEL 141.0 MMOL/L (136-145); TRIGLYCERIDES LEVEL 109.0 MG/DL (<150)
[2025-01-01 14:25] LABS: FREE T4 1.18 NG/DL (0.89-1.76)
[2025-01-01 14:48] LABS: ESTIMATED AVERAGE GLUCOSE 105.0 MG/DL (60-110)
== END ==
LOC: M SFHCADAM 09:50
PROVIDERS: ATTEND Family Medicine
DX: Z86.2 Personal history of diseases of the blood and blood-forming organs and certain disorders involving the immune mechanism (principal); R60.0 Localized edema; E66.9 Obesity, unspecified; E78.5 Hyperlipidemia, unspecified; Z13.1 Encounter for screening for diabetes mellitus

== ENCOUNTER → 2025-02-05 | Outpatient (CLI) | payer MEDICARE, OTHER ==
[~2025-02-05] MED LIST changes: -IBUP-1022 PO; +IBUP600T42 PO; +ISOVUE-370 76% 100 ML VIAL As Ordered ONE
== END ==
LOC: M RAD 16:53
PROVIDERS: ATTEND Pain Medicine Interventional Pain Medicine
DX: Z98.890 Other specified postprocedural states (principal); M50.00 Cervical disc disorder with myelopathy, unspecified cervical region